=== PATIENT | male | born 1955 | race Caucasian/White ===

== ENCOUNTER 2016-10-26 23:04 | Emergency (ER) | payer MEDICARE, MEDICAID ==
[~2016-10-26] VITALS: Ht 175.3 cm; Wt 80.0 kg
[~2016-10-26 23:04] MED LIST: EPIP0.3I IM; GABA600T PO; HYDR10SO PO; METO25 PO; NORV5TAB PO; TIZA4 PO; [UNRECOGNIZED DRUG - OTHER]
[2016-10-26 23:07] VITALS: BP 148/100; PULSE 115; RESP 16; TEMP 98.4; O2SAT 95
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
[2016-10-27] MEDS ORDERED: TETANUS/DIPHTHERIA TOXOID ADULT 0.5 ML VIAL IM ONE
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
[2016-10-27] MEDS ORDERED: IBUPROFEN 600 MG TAB PO ONE (01:00)
--- NOTE | 2016-10-27 01:03 | PD ---
Physical Exam Time Seen by Provider: 01:02 Data Data Last Documented VS Vital Signs Date Time Temp Pulse Resp B/P (MAP) Pulse Ox O2 Delivery O2 Flow Rate FiO2 10/26/16 23:07 98.4 115 16 148/100 (116) 95 Room Air Orders Orders Chest, Single Ap (10/26/16 23:48) Ct Brain W/O Iv Contrast(Rout) (10/26/16 23:48) Ct Cerv Spine W/O Contrast (10/26/16 23:48) Ct Facial Bones W/O Iv Cont (10/26/16 23:48) Tetanus/Diphtheria Tox Adult (Tetanus/Di (10/27/16 00:00) Ibuprofen (Motrin) (10/27/16 01:00) MDM Medical Record Reviewed: Yes Supervised Visit with JOSEFINA: No Procedures Procedure Narrative LACERATION LOCATION: Left forehead LENGTH: 3 cm NUMBER OF STITCHES/SLAVA: 7 sutures REPAIR: The area of the laceration was prepped with Betadine and sterilely draped. The laceration was infiltrated with 1% lidocaine without epinephrine. The wound was copiously irrigated and explored without evidence of foreign body , tendon injury or neurovascular injury. The wound was closed using 5-0 Prolene. This was a single layer repair. A sterile dressing was applied. The patient was advised to keep the dressing clean and dry. Patient tolerated the procedure well. Diagnosis Primary Impression: Closed head injury Qualified Codes: S09.90XA - Unspecified injury of head, initial encounter Additional Impressions: Facial hematoma Qualified Codes: S00.83XA - Contusion of other part of head, initial encounter Laceration of forehead Qualified Codes: S01.81XA - Laceration without foreign body of other part of head, initial encounter Patient Instructions: General Instructions Additional Instruction: Please provide patient with a copy of his radiology studies at discharge Suture removal in 7 days, please keep area clean and dressed with clean dressings Please follow up with your primary care doctor in 48-[address] ice pack to area of bruising Return to ER if symptoms worsen or progress Return to ER as needed Condition: Stable Diane Torres Oct 27, 2016 01:03
[2016-10-27 02:25] VITALS: BP 130/90; PULSE 90; RESP 18; O2SAT 94
== END 2016-10-27 02:51 | disposition home or self-care (01) ==
LOC: NEPC 23:04
DX: S09.90XA Unspecified injury of head, initial encounter (principal); S00.83XA Contusion of other part of head, initial encounter; S01.81XA Laceration without foreign body of other part of head, initial encounter; I10 Essential (primary) hypertension; E78.00 Pure hypercholesterolemia, unspecified; F17.210 Nicotine dependence, cigarettes, uncomplicated; Z23 Encounter for immunization; Y00.XXXA Assault by blunt object, initial encounter
CPT/HCPCS: 12013; 70450; 70486; 71010; 72125; 90471; 90714

== ENCOUNTER 2016-11-04 11:26 | Emergency (ER) | payer MEDICARE, MEDICAID ==
[~2016-11-04] VITALS: Ht 175.3 cm; Wt 85.0 kg
[2016-11-04 11:29] VITALS: BP 139/87; PULSE 80; RESP 16; TEMP 98.2; O2SAT 98
--- NOTE | 2016-11-04 11:31 | PD ---
Physical Exam Time Seen by Provider: 11:30 Narrative 61-year-old male presents for removal of stitches from his forehead. Stitches been in place for 1 week. Denies fever, vomiting. Patient seen in triage. Vital signs reviewed. Patient taken to medical bed. MDM Supervised Visit with JOSEFINA: Yaquelin Cunningham Nov 04, 2016 11:31
--- NOTE | 2016-11-04 11:45 | PD ---
HPI Chief Complaint: Skin Problem Time Seen by Provider: 11:32 Travel History International Travel<30 days: No Contact w/Intl Traveler<30days: No Traveled to known affect area: No PFSH Past Medical History Autoimmune Disease: No Blood Disorders: No Cancer: Yes (SCCA, LEFT INDEX FINGER) Cardiovascular Problems: Yes (HTN) High Cholesterol: Yes Chemotherapy: No Cerebrovascular Accident: No Diabetes: No Diminished Hearing: No Endocrine: No Gastrointestinal Disorders: No Glaucoma: No Genitourinary: No Hepatitis: No Hiatal Hernia: No Hypertension: Yes Immune Disorder: No Musculoskeletal: Yes (CHRONIC PAIN S/P CSPINE FUSION 2004) Neurologic: Yes (DECREASED SENSORY PERCEPTION DUE S/P CSPINE FUSION 2004) Psychiatric: No Reproductive: No Respiratory: No Myocardial Infarction: No Radiation Therapy: No Sickle Cell Disease: No Thyroid Disease: No Past Surgical History Abdominal Surgery: No AICD: No Body Medical Devices: NECK PLATE Cardiac Surgery: No Ear Surgery: No Endocrine Surgery: No Eye Surgery: No Genitourinary Surgery: No Gynecologic Surgery: No Joint Replacement: No Neurologic Surgery: Yes (CERVICAL SPINE C2,3,4 HAS TITANIUM PLATE) Oral Surgery: No Pacemaker: No Thoracic Surgery: No Tonsillectomy: Yes Other Surgery: Yes (see hx) Social History Alcohol Use: Yes (BEER DAILY, ) Tobacco Use: Yes (quit 8 weeks ago) Substance Use: No Allergies-Medications (Allergen,Severity, Reaction): Coded Allergies: bee venom protein (honey bee) (Verified Allergy, Severe, Anaphylaxis, 11/04) patient carries epi pen penicillin G (Verified Allergy, Severe, Shortness of Breath, 11/04/16) NAUSEA/VOMITTING Sulfa (Sulfonamide Antibiotics) (Verified Adverse Reaction, Severe, TOPICAL REDNESS, BP DROPPED, 11/04/16) sulfamethoxazole (Verified Adverse Reaction, Severe, TOPICAL REDNESS, BP DROPPED, 11/04/16) trimethoprim (Verified Adverse Reaction, Severe, TOPICAL REDNESS, BP DROPPED, 11/04/16) *MDRO Multi-Drug Resistant Organism (Verified Adverse Reaction, Unknown, ) 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 Reported Meds & Prescriptions Reported Meds & Active Scripts Active Data Data Last Documented VS Vital Signs Date Time Temp Pulse Resp B/P (MAP) Pulse Ox O2 Delivery O2 Flow Rate FiO2 11/04/16 11:29 98.2 80 16 139/87 (104) 98 [facility] Medical Decision Making Medical Screen Exam Complete: Yes Emergency Medical Condition: Yes Medical Record Reviewed: Yes Ashok Piedra Nov 04, 2016 11:45
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
== END 2016-11-04 12:07 | disposition home or self-care (01) ==
LOC: NEPK 11:26
DX: Z48.02 Encounter for removal of sutures (principal)
CPT/HCPCS: 99281

== ENCOUNTER 2017-04-08 20:15 | Inpatient (IN) | payer MEDICARE, MEDICAID ==
[~2017-04-08] VITALS: Ht 175.3 cm; Wt 95.0 kg
[2017-04-08 20:25] VITALS: BP 153/75; PULSE 120; RESP 18; TEMP 97.8; O2SAT 99
[2017-04-08] MEDS ORDERED: METO25TA3 PO (20:39)
[2017-04-08] MEDS ORDERED: GABA100C4 PO (20:39)
[2017-04-08] MEDS ORDERED: MELO7.5T27 PO (20:39)
[2017-04-08] MEDS ORDERED: VANCOMYCIN INJ 1,000 MG in SODIUM CHLOR 0.9% 250 ML INJ 250 ML IV ONE (20:45)
[2017-04-08] MEDS ORDERED: PIPERACIL-TAZO 3.375 GM PREMIX 50 ML IV ONE (20:45)
[2017-04-08] MEDS ORDERED: SODIUM CHLOR 0.9% 1000 ML INJ 1,000 ML IV ONE ×3 (20:45→23:00)
--- NOTE | 2017-04-08 21:15 | RADRPT ---
EXAM DATE/TIME: 04/08/2017 20:56 [facility] COMPARISON: CHEST SINGLE AP, October 27, 2016, 0:12. INDICATIONS : Fever. MEDICAL HISTORY : None. SURGICAL HISTORY : None. ENCOUNTER: Initial ACUITY: 1 day PAIN SCORE: 0/10 LOCATION: Bilateral chest FINDINGS: A single view of the chest demonstrates the lungs to be symmetrically aerated without evidence of mas s, infiltrate or effusion. The cardiomediastinal contours are unremarkable. Osseous structures are intact. CONCLUSION: No acute disease. Kang Cruz MD on April 08, 2017 at 21:14 Board Certified Radiologist. This report was verified electronically.
[2017-04-08 21:21] LABS: AUTOMATED NEUTROPHIL # 17.1 TH/MM3 (1.8-7.7); BASOPHIL % 0.2 % (0.0-2.0); HEMATOCRIT 54.6 % (39.0-51.0); HEMOGLOBIN 18.6 GM/DL (13.0-17.0); LYMPH % 8.5 % (9.0-44.0); LYMPHOCYTE # 1.8 TH/MM3 (1.0-4.8); MEAN CELL VOLUME 104.9 FL (80.0-100.0); MEAN CORPUSCULAR HEMOGLOBIN 35.7 PG (27.0-34.0); MONO % 8.2 % (0.0-8.0); MONOCYTE # 1.7 TH/MM3 (0-0.9); NEUT % 83.1 % (16.0-70.0); PLATELET COUNT 171 TH/MM3 (150-450); RED BLOOD COUNT 5.21 MIL/MM3 (4.50-5.90); RED CELL DISTRIBUTION WIDTH 13.4 % (11.6-17.2); WHITE BLOOD COUNT 20.6 TH/MM3 (4.0-11.0)
[2017-04-08] MEDS ORDERED: TIZA2CAP3 PO (21:24)
[2017-04-08 21:25] LABS: AMORPHOUS SEDIMENT, URINE RARE; BACTERIA, URINE MANY /hpf; BILIRUBIN, URINE NEG (NEG); BLOOD, URINE LARGE (NEG); GLUCOSE,URINE TRACE mg/dL (NEG); HYALINE CAST, URINE 6 /lpf (RARE); KETONE, URINE NEG (NEG); NITRITE,URINE NEG (NEG); PH, URINE 5.5 (5.0-8.5); SQUAMOUS EPITHELIAL CELL URINE 2 /hpf (0-5); URINE LEUKOCYTE ESTERASE NEG (NEG); WHITE BLOOD CELL CLUMPS MANY
[2017-04-08 21:27] LABS: URINE COLOR LIGHT-RED (YELLW/STRAW)
[2017-04-08 21:40] VITALS: BP 147/87; PULSE 109; RESP 18; O2SAT 97
[2017-04-08 21:46] LABS: ALBUMIN 2.8 GM/DL (3.4-5.0); ALT (GPT) 262 U/L (12-78); BICARBONATE 21.8 MEQ/L (21.0-32.0); BLOOD UREA NITROGEN 15 MG/DL (7-18); CALCIUM 8.7 MG/DL (8.5-10.1); CHLORIDE 98 MEQ/L (98-107); CREATININE 2.66 MG/DL (0.60-1.30); GLOMERULAR FILTRATION RATE 25 ML/MIN (>89); GLUCOSE,RANDOM 115 MG/DL (74-106); SODIUM (NA) 130 MEQ/L (136-145)
[2017-04-08 22:08] LABS: ALKALINE PHOSPHATASE 127 U/L (45-117); AST (GOT) 1273 U/L (15-37); TOTAL BILIRUBIN ADULT 1.3 MG/DL (0.2-1.0); TOTAL PROTEIN 8.2 GM/DL (6.4-8.2)
[2017-04-08 22:15] LABS: ACETAMINOPHEN LESS THAN 2.0 MCG/ML (10.0-30.0)
--- NOTE | 2017-04-08 22:20 | RADRPT ---
EXAM DATE/TIME: 04/08/2017 22:01 [facility] COMPARISON: CT BRAIN W/O CONTRAST, October 27, 2016, 0:00. INDICATIONS : Altered mental status. RADIATION DOSE: 66.34 CTDIvol (mGy) MEDICAL HISTORY : Hypertension. SURGICAL HISTORY : None. ENCOUNTER: Initial ACUITY: 1 day PAIN SCALE: 0/10 LOCATION: cranial TECHNIQUE: Multiple contiguous axial images were obtained of the head. Using automated exposure control and adj ustment of the mA and/or kV according to patient size, radiation dose was kept as low as reasonably a chievable to obtain optimal diagnostic quality images. DICOM format image data is available electro nically for review and comparison. FINDINGS: There is evidence of a small amount of probable acute subarachnoid hemorrhage within the high right p arietal region which may be posttraumatic in etiology. Clinical correlation is recommended. The ventr icles, sulci and cisterns are normal in size, shape and position for the patient's age. CONCLUSION: Small amount of probable acute subarachnoid hemorrhage within the high right parietal region which may be post-traumatic in etiology. Clinical correlation is recommended. Kang Cruz MD on April 08, 2017 at 22:16 Board Certified Radiologist. This report was verified electronically.
[2017-04-08] MEDS ORDERED: HYDR-3516 PO (22:24)
--- NOTE | 2017-04-08 22:24 | RADRPT ---
EXAM DATE/TIME: 04/08/2017 22:09 [facility] COMPARISON: No previous studies available for comparison. INDICATIONS : Flank pain ORAL CONTRAST: No oral contrast ingested. RADIATION DOSE: 23.91 CTDIvol (mGy) MEDICAL HISTORY : Non-responsive. SURGICAL HISTORY : Non-responsive. ENCOUNTER: Initial ACUITY: 1 day PAIN SCALE: Non-responsive LOCATION: Bilateral flank TECHNIQUE: Volumetric scanning of the abdomen and pelvis was performed. Using automated exposure control and ad justment of the mA and/or kV according to patient size, radiation dose was kept as low as reasonably achievable to obtain optimal diagnostic quality images. DICOM format image data is available electro nically for review and comparison. FINDINGS: LOWER LUNGS: The visualized lower lungs are clear. LIVER: The liver appears somewhat nodular in contour raising possibility of cirrhosis. No biliary ductal dil atation is noted. SPLEEN: Normal size without lesion. PANCREAS: Within normal limits. KIDNEYS: Normal in size and shape. There is no mass, stone, or hydronephrosis. ADRENAL GLANDS: Within normal limits. VASCULAR: There is no aortic aneurysm. BOWEL/MESENTERY: Uncomplicated colonic diverticulosis is noted. No acute diverticulitis is noted. ABDOMINAL WALL: Within normal limits. RETROPERITONEUM: There is no lymphadenopathy. BLADDER: No wall thickening or mass. REPRODUCTIVE: Within normal limits. INGUINAL: There is no lymphadenopathy or hernia. MUSCULOSKELETAL: Degenerative changes and scoliosis of the lumbar spine are noted. CONCLUSION: 1. No acute obstructive uropathy. 2. Uncomplicated colonic diverticulosis. 3. Nodular contour of liver suggesting possible cirrhosis. 4. Degenerative changes and scoliosis of the lumbar spine. Kang Cruz MD on April 08, 2017 at 22:20 Board Certified Radiologist. This report was verified electronically.
[2017-04-08 22:28] VITALS: TEMP 98.6
--- NOTE | 2017-04-08 22:40 | PD ---
HPI Chief Complaint: General Weakness Time Seen by Provider: 20:24 Travel History International Travel<30 days: No Contact w/Intl Traveler<30days: No Traveled to known affect area: No History of Present Illness HPI pt reports weakness and falling on the floor at his residence 2 days in a row , today was on the ground for a while and unknown time " too weak to stand up " roomate found him there and called 911. Pt is listless and poor historian , holding head off to the left and reports pain in lower extremities bilateral no obvious injury . Pt smells of fecal incintinence PFSH Past Medical History Autoimmune Disease: No Blood Disorders: No Cancer: Yes (SCCA, LEFT INDEX FINGER) Cardiovascular Problems: Yes (HTN) High Cholesterol: Yes Chemotherapy: No Cerebrovascular Accident: No Diabetes: No Diminished Hearing: No Endocrine: No Gastrointestinal Disorders: No Glaucoma: No Genitourinary: No Hepatitis: No Hiatal Hernia: No Hypertension: Yes Immune Disorder: No Musculoskeletal: Yes (CHRONIC PAIN S/P CSPINE FUSION 2004) Neurologic: Yes (DECREASED SENSORY PERCEPTION DUE S/P CSPINE FUSION 2004) Psychiatric: No Reproductive: No Respiratory: No Myocardial Infarction: No Radiation Therapy: No Sickle Cell Disease: No Thyroid Disease: No Past Surgical History Abdominal Surgery: No AICD: No Body Medical Devices: NECK PLATE Cardiac Surgery: No Ear Surgery: No Endocrine Surgery: No Eye Surgery: No Genitourinary Surgery: No Gynecologic Surgery: No Joint Replacement: No Neurologic Surgery: Yes (CERVICAL SPINE C2,3,4 HAS TITANIUM PLATE) Oral Surgery: No Pacemaker: No Thoracic Surgery: No Tonsillectomy: Yes Other Surgery: Yes (see hx) Social History Alcohol Use: Yes (OCC) Tobacco Use: Yes (4-5 CIGARETTES/DAY) Substance Use: No Allergies-Medications (Allergen,Severity, Reaction): Coded Allergies: bee venom protein (honey bee) (Verified Allergy, Severe, Anaphylaxis, 04/08) patient carries epi pen penicillin G (Verified Allergy, Severe, Shortness of Breath, 04/08/17) NAUSEA/VOMITTING Sulfa (Sulfonamide Antibiotics) (Verified Adverse Reaction, Severe, TOPICAL REDNESS, BP DROPPED, 04/08/17) sulfamethoxazole (Verified Adverse Reaction, Severe, TOPICAL REDNESS, BP DROPPED, 04/08/17) trimethoprim (Verified Adverse Reaction, Severe, TOPICAL REDNESS, BP DROPPED, 04/08/17) *MDRO Multi-Drug Resistant Organism (Verified Adverse Reaction, Unknown, ) 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 Reported Meds & Prescriptions Reported Meds & Active Scripts Active Reported Hydrocodone-Acetaminophen 5-325 mg Tab 1 Tab PO Q4H PRN Tizanidine (Tizanidine HCl) 2 Mg Cap 2 Mg PO TID Gabapentin 100 Mg Cap 100 Mg PO QID Metoprolol Tartrate 25 Mg Tab 25 Mg PO DAILY Meloxicam 7.5 Mg Tab 7.5 Mg PO DAILY Review of Systems Except as stated in HPI: all other systems reviewed are Neg Musculoskeletal: Positive: Weakness (fall x 2 and weakness ) Physical Exam Narrative GENERAL: laying flat in stretcher smells of fecal matter and leaning his head to the left reports tender to knee and lower back SKIN: Warm and dry. mildly diaphoretic HEAD: Atraumatic. Normocephalic. EYES: Pupils equal and round. No scleral icterus. No injection or drainage. ENT: No nasal bleeding or discharge. Mucous membranes pink and moist. NECK: Trachea midline. No JVD. CARDIOVASCULAR: Regular rate and rhythm. RESPIRATORY: No accessory muscle use. Clear to auscultation. Breath sounds equal bilaterally. GASTROINTESTINAL: Abdomen soft, non-tender, nondistended. Hepatic and splenic margins not palpable. MUSCULOSKELETAL: Extremities without clubbing, cyanosis, or edema. No obvious deformities. Dark thick fluid from penis meatus NEUROLOGICAL: Awake . No obvious cranial nerve deficits. Motor grossly within normal limits. Five out of 5 muscle strength in the arms and legs. . PSYCHIATRIC: slightly listless in his answers Data Data Last Documented VS Vital Signs Date Time Temp Pulse Resp B/P (MAP) Pulse Ox O2 Delivery O2 Flow Rate FiO2 04/08/17 23:03 106 16 153/87 (109) 95 Room Air 04/08/17 22:28 98.6 Orders Orders Electrocardiogram (04/08/17 20:34) Complete Blood Count With Diff (04/08/17 20:34) Comprehensive Metabolic Panel (04/08/17 20:34) Creatine Kinase (Cpk) (04/08/17 20:34) Ckmb (Isoenzyme) Profile (04/08/17 20:34) Troponin I (04/08/17 20:34) Lipase (04/08/17 20:34) Ua Includes Microscopic (04/08/17 20:34) D-Dimer (04/08/17 20:34) Chest, Single Ap (04/08/17 20:34) Ct Brain W/O Iv Contrast(Rout) (04/08/17 20:34) Drug Screen, Random Urine (04/08/17 20:34) Alcohol (Ethanol) (04/08/17 20:34) Salicylates (Aspirin) (04/08/17 20:34) Tylenol (Acetaminophen) (04/08/17 20:34) Vancomycin Inj (Vancomycin Inj) (04/08/17 20:45) Piperacil-Tazo 3.375 Gm Premix (Zosyn 3. (04/08/17 20:45) Sodium Chlor 0.9% 1000 Ml Inj (Ns 1000 M (04/08/17 20:45) Lactic Acid (04/08/17 20:38) Blood Culture (04/08/17 20:38) Ct Abd/Pel W/O Iv Contrast (04/08/17 ) Sodium Chlor 0.9% 1000 Ml Inj (Ns 1000 M (04/08/17 22:15) Sodium Chlor 0.9% 1000 Ml Inj (Ns 1000 M (04/08/17 23:00) Lactic Acid (04/08/17 23:10) Cbc No Diff, Includes Plts (04/09/17 05:00) Cbc No Diff, Includes Plts (04/10/17 05:00) Cbc No Diff, Includes Plts (04/11/17 05:00) Cbc No Diff, Includes Plts (04/12/17 05:00) Cbc No Diff, Includes Plts (04/13/17 05:00) Cbc No Diff, Includes Plts (04/14/17 05:00) Cbc No Diff, Includes Plts (04/15/17 05:00) Basic Metabolic Panel (Bmp) (04/09/17 05:00) Basic Metabolic Panel (Bmp) (04/10/17 05:00) Basic Metabolic Panel (Bmp) (04/11/17 05:00) Basic Metabolic Panel (Bmp) (04/12/17 05:00) Basic Metabolic Panel (Bmp) (04/13/17 05:00) Basic Metabolic Panel (Bmp) (04/14/17 05:00) Basic Metabolic Panel (Bmp) (04/15/17 05:00) Labetalol Inj (Trandate Inj) (04/09/17 00:00) Hydralazine Inj (Apresoline Inj) (04/09/17 00:00) Resp Ezpap/Pep Therapy (04/08/17 23:57) Resp Acapella/Pep/Chest Vibra (04/08/17 23:57) Resp Incentive Spirometry (04/08/17 23:57) Inpatient Certification (04/08/17 23:57) Nursing Bedside Swallow Assess .ONCE (04/08/17 23:57) ^ Other Nursing Orders (04/08/17 23:57) ^ Other Nursing Orders (04/08/17 23:57) ^ Other Nursing Orders (04/08/17 23:57) Bedside Glucose GARRISON.Q6H (04/08/17 23:57) Blood Glucose Goal (Criteria) (04/08/17 23:57) Hypoglycemia 51 - 69 Mg/Dl (04/08/17 23:57) Hypoglycemia 50 Mg/Dl Or < (04/08/17 23:57) Notify Dr: Other (04/08/17 23:57) Dextrose 50% In [place] (Vial) Inj (D50w (Vi (04/09/17 00:00) Insulin Human Reg Supp Scale (Novolin R (04/09/17 00:00) Neuro Checks GARRISON.Q1H (04/08/17 23:57) Albuterol-Ipratropium Neb (Duoneb Neb) (04/09/17 04:00) Albuterol-Ipratropium Neb (Duoneb Neb) (04/09/17 00:00) Admit To Inpatient (04/08/17 ) Code Status (04/08/17 23:57) Vital Signs (Adult) GARRISON.Q1H (04/08/17 23:57) Activity Bed Rest (04/08/17 23:57) Elevate Head Of Bed (04/08/17 23:57) Neuro Checks . ORDERED (04/08/17 23:57) Sodium Chlor 0.9% 1000 Ml Inj (Ns 1000 M (04/08/17 23:57) Pantoprazole Inj (Protonix Inj) (04/09/17 09:00) Ondansetron Inj (Zofran Inj) (04/09/17 00:00) Albuterol-Ipratropium Neb (Duoneb Neb) (04/09/17 00:00) Bottle Capper / Telemetry GARRISON.Q8H (04/08/17 23:57) Scd Bilateral/Knee High GARRISON.BID (04/08/17 23:57) ^ Initiate Protocol (04/08/17 23:57) Instruction (04/08/17 23:57) Misc Nursing Information (04/09/17 00:00) Chlorhexidine 2% Cloth (Chlorhexidine 2% (04/09/17 04:00) Chlorhexidine 2% Cloth (Chlorhexidine 2% (04/09/17 00:00) Mrsa Pcr Surveillance (04/08/17 23:57) CKMB (04/08/17 20:41) CKMB% (04/08/17 20:41) Admit Order (Ed Use Only) (04/09/17 00:00) Protein Corrected Calcium(Pcc) (04/09/17 02:59) Labs Laboratory Tests Test 04/08/17 20:34 04/08/17 20:40 04/08/17 20:41 04/08/17 23:01 Urine Opiates Screen POS Urine Barbiturates Screen NEG Urine Amphetamines Screen NEG Urine Benzodiazepines Screen NEG Urine Cocaine Screen NEG Urine Cannabinoids Screen NEG Lactic Acid Level 3.3 mmol/L 2.7 mmol/L White Blood Count 20.6 TH/MM3 Red Blood Count 5.21 MIL/MM3 Hemoglobin 18.6 GM/DL Hematocrit 54.6 % Mean Corpuscular Volume 104.9 FL Mean Corpuscular Hemoglobin 35.7 PG Mean Corpuscular Hemoglobin Concent 34.0 % Red Cell Distribution Width 13.4 % Platelet Count 171 TH/MM3 Mean Platelet Volume 8.0 FL Neutrophils (%) (Auto) 83.1 % Lymphocytes (%) (Auto) 8.5 % Monocytes (%) (Auto) 8.2 % Eosinophils (%) (Auto) 0.0 % Basophils (%) (Auto) 0.2 % Neutrophils # (Auto) 17.1 TH/MM3 Lymphocytes # (Auto) 1.8 TH/MM3 Monocytes # (Auto) 1.7 TH/MM3 Eosinophils # (Auto) 0.0 TH/MM3 Basophils # (Auto) 0.0 TH/MM3 CBC Comment DIFF FINAL Differential Comment D-Dimer Quantitative (PE/DVT) 34.00 MG/L FEU Urine Color LIGHT-RED Urine Turbidity CLOUDY Urine pH 5.5 Urine Specific [place] 1.009 Urine Protein 100 mg/dL Urine Glucose (UA) TRACE mg/dL Urine Ketones NEG mg/dL Urine Occult Blood LARGE Urine Nitrite NEG Urine Bilirubin NEG Urine Urobilinogen LESS THAN 2.0 MG/DL Urine Leukocyte Esterase NEG Urine RBC 1 /hpf Urine WBC 22 /hpf Urine WBC Clumps MANY Urine Squamous Epithelial Cells 2 /hpf Urine Amorphous Sediment RARE Urine Bacteria MANY /hpf Urine Hyaline Casts 6 /lpf Blood Urea Nitrogen 15 MG/DL Creatinine 2.66 MG/DL Random Glucose 115 MG/DL Total Protein 8.2 GM/DL Albumin 2.8 GM/DL Calcium Level 8.7 MG/DL Alkaline Phosphatase 127 U/L Aspartate Amino Transf (AST/SGOT) 1273 U/L Alanine Aminotransferase (ALT/SGPT) 262 U/L Total Bilirubin 1.3 MG/DL Sodium Level 130 MEQ/L Potassium Level 6.0 MEQ/L Chloride Level 98 MEQ/L Carbon Dioxide Level 21.8 MEQ/L Anion Gap 10 MEQ/L Estimat Glomerular Filtration Rate 25 ML/MIN Total Creatine Kinase 79620 U/L Creatine Kinase MB 117.4 NG/ML Creatine Kinase MB % 0.3 % Troponin I 0.10 NG/ML Lipase 81 U/L Salicylates Level 2.0 MG/DL Acetaminophen Level LESS THAN 2.0 MCG/ML Ethyl Alcohol Level LESS THAN 3 MG/DL MDM Medical Decision Making Medical Screen Exam Complete: Yes Emergency Medical Condition: Yes Interpretation(s) EKG is sinus tach at 116 bpm with peaked P waves Differential Diagnosis syncope , etoh intox fall vs stroke and fall, vs mechanicla fall and now rhabdo risk and sepsis fever, other Narrative Course Patient is 62-year-old male he fell 2 days in a row and he is possibly septic versus having rhabdomyolysis patient is mildly confused. Patient is hypertensive and slightly tachycardic. Patient appears to be septic from his penis meatus comes dark thick urine almost looks feculent. It is guaiaced and is positive for blood patient is given 2 L of fluid labs are evaluated patient' s CPK is over 40,000 patient is given 4 L of normal saline and then I also alkalinize his urine to help keep the myoglobin soluble I put 3 A of sodium bicarbonate into D5 water running at 125 an hour. I admit him to the ICU for rhabdomyolysis for urosepsis urine comes back loaded with white blood cells red cells patient has multiorgan involvement and fluid recess Vanco and Zosyn alkalinizing his urine to keep his myoglobin soluble vomiting injury to the kidneys I speak with Dr. Hidalgo who accepts the patient to the ICU patient is stable at this time and admitted to the ICU Critical Care Narrative critical care on this patient is 30 minutes as above Diagnosis Primary Impression: Sepsis secondary to UTI Additional Impression: Rhabdomyolysis Qualified Codes: M62.82 - Rhabdomyolysis Admitting Information Admitting Physician Requests: Admit Seferino Palomino MD Apr 08, 2017 22:40
[2017-04-08 23:03] VITALS: BP 153/87; PULSE 106; RESP 16; O2SAT 95
[2017-04-09] VITALS (16 sets, daily range): BP systolic 137–200; BP diastolic 75–99; PULSE 85–129; RESP 18–28; TEMP 98.2–99.9; O2SAT 97–100
[2017-04-09] MEDS ORDERED: CHLORHEXIDINE GLUCONATE 2 % 1 PACK (2 CLOTHS) TOP PRN
[2017-04-09] MEDS ORDERED: ONDANSETRON HCL 4 MG/2 ML VIAL IV PUSH PRN
[2017-04-09] MEDS ORDERED: RESP: ALBUTEROL 2.5 MG/IPRATROPIUM 0.5 MG NEB (PRN) INH ×2
[2017-04-09] MEDS ORDERED: DEXTROSE 50% IN WATER 50 ML VIAL(D50) IV PUSH PRN
[2017-04-09] MEDS ORDERED: MISCELLANEOUS NURSING INFORMATION XX SCH
[2017-04-09] MEDS: SODIUM CHLOR 0.9% 1000 ML INJ 1,000 ML IV SCH ×3 (00:30→13:01)
[2017-04-09] MEDS: hydrALAZINE HCL 20 MG/ML VIAL IV PUSH PRN ×2 (01:40→08:36)
--- NOTE | 2017-04-09 01:49 | HHI.HP ---
HPI Service Critical Care Medicine Primary Care Physician No Primary Care Physician Admission Diagnosis UROSEPSIS AND SUBDURAL AND RHABDO Diagnosis: Chief Complaint: fall Travel History International Travel<30 Days: No Contact w/Intl Traveler <30 Da: No Traveled to Known Affected Are: No History of Present Illness This is a 8-year-old male who reportedly fell at home yesterday and was unable to get up for at least 5 hours, but likely greater than that. He called 911 today and was brought in tonight by EMS. He does endorse possibly syncopized. He states he has fallen recently over the last few days, but this is unusual for him. He denies headache. He denies fever, chills, shortness of breath, chest pain, nausea, vomiting, abdominal pain, diarrhea. He does not endorse any other symptom other than the frequent falls. In the emergency department CT had demonstrated small subarachnoid hemorrhage, likely traumatic. In addition, the patient had very dark very thick urine, and his CK level was greater than 40,000. He was immediately started on IV sodium bicarb and IV fluids. He also has evidence of hyperkalemia, hyponatremia, acute kidney injury with a creatinine greater than 2. Critical care medicine is consulted to evaluate manage his acute rhabdo, his multiple organ failure. Review of Systems Constitutional: COMPLAINS OF: Fatigue, DENIES: Fever, Chills, Dizziness Respiratory: DENIES: Cough, Snoring, Hemoptysis, Sputum production, Shortness of breath Cardiovascular: COMPLAINS OF: Syncope, DENIES: Chest pain, Palpitations, Dyspnea on Exertion, PND, Lower Extremity Edema, Orthopnea Gastrointestinal: DENIES: Abdominal pain, Bloody stools, Constipation, Diarrhea , Nausea, Vomiting Genitourinary: DENIES: Urinary frequency, Urinary incontinence, Hematuria, Dysuria Musculoskeletal: DENIES: Back pain, Neck pain Neurologic: DENIES: Abnormal gait, Headache, Localized weakness, Seizures, Speech Problems, Tremor, Poor Balance Psychiatric: DENIES: Anxiety, Confusion Past Family Social History Allergies: Coded Allergies: bee venom protein (honey bee) (Verified Allergy, Severe, Anaphylaxis, 04/08) patient carries epi pen penicillin G (Verified Allergy, Severe, Shortness of Breath, 04/08/17) NAUSEA/VOMITTING Sulfa (Sulfonamide Antibiotics) (Verified Adverse Reaction, Severe, TOPICAL REDNESS, BP DROPPED, 04/08/17) sulfamethoxazole (Verified Adverse Reaction, Severe, TOPICAL REDNESS, BP DROPPED, 04/08/17) trimethoprim (Verified Adverse Reaction, Severe, TOPICAL REDNESS, BP DROPPED, 04/08/17) *MDRO Multi-Drug Resistant Organism (Verified Adverse Reaction, Unknown, ) 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 Past Medical History Skin cancer of the left index finger High cholesterol HTN Chronic neck pain Decreased sensation due to spinal fusion Past Surgical History c-spine fusion in 2004 tonsillectomy Reported Medications Hydrocodone-Acetaminophen 5-325 mg Tab 1 Tab PO Q4H PRN Tizanidine (Tizanidine HCl) 2 Mg Cap 2 Mg PO TID Gabapentin 100 Mg Cap 100 Mg PO QID Metoprolol Tartrate 25 Mg Tab 25 Mg PO DAILY Meloxicam 7.5 Mg Tab 7.5 Mg PO DAILY Active Ordered Medications See MAR Family History reviewed and found to be noncontributory to his acute illness Social History smokes 4-5 cigarettes/day, occasional etoh use, denies doa. Physical Exam Vital Signs Vital Signs Date Time Temp Pulse Resp B/P (MAP) Pulse Ox O2 Delivery O2 Flow Rate FiO2 04/09/17 01:31 04/09/17 00:31 98.6 115 18 146/82 (103) 97 Room Air 04/08/17 23:03 106 16 153/87 (109) 95 Room Air 04/08/17 22:28 98.6 04/08/17 21:40 109 18 147/87 (107) 97 Room Air 04/08/17 20:25 97.8 120 18 153/75 (101) 99 Room Air 04/08/17 20:21 16 Physical Exam GENERAL: Middle-age male who appears older than stated age, lying in bed, in distress due to generalized fatigue and weakness HEENT: Normocephalic. Atraumatic. Pupils equal, round, reactive, conjugate. Mucous membranes are dry NECK: Trachea is midline. There is no JVD. CHEST: Equal chest rise. Room air. CARDIOVASCULAR: Tachycardic rate, regular rhythm. Sinus by telemetry ABDOMEN: Soft, nontender, nondistended. No guarding. MUSCULOSKELETAL: Pulses 2+. No peripheral edema. NEUROLOGICAL: RASS -1. Follows commands. No focal deficits. Laboratory Laboratory Tests Test 04/08/17 20:34 04/08/17 20:40 04/08/17 20:41 04/08/17 23:01 Urine Opiates Screen POS Urine Barbiturates Screen NEG Urine Amphetamines Screen NEG Urine Benzodiazepines Screen NEG Urine Cocaine Screen NEG Urine Cannabinoids Screen NEG Lactic Acid Level 3.3 2.7 White Blood Count 20.6 Red Blood Count 5.21 Hemoglobin 18.6 Hematocrit 54.6 Mean Corpuscular Volume 104.9 Mean Corpuscular Hemoglobin 35.7 Mean Corpuscular Hemoglobin Concent 34.0 Red Cell Distribution Width 13.4 Platelet Count 171 Mean Platelet Volume 8.0 Neutrophils (%) (Auto) 83.1 Lymphocytes (%) (Auto) 8.5 Monocytes (%) (Auto) 8.2 Eosinophils (%) (Auto) 0.0 Basophils (%) (Auto) 0.2 Neutrophils # (Auto) 17.1 Lymphocytes # (Auto) 1.8 Monocytes # (Auto) 1.7 Eosinophils # (Auto) 0.0 Basophils # (Auto) 0.0 CBC Comment DIFF FINAL Differential Comment D-Dimer Quantitative (PE/DVT) 34.00 Urine Color LIGHT-RED Urine Turbidity CLOUDY Urine pH 5.5 Urine Specific [place] 1.009 Urine Protein 100 Urine Glucose (UA) TRACE Urine Ketones NEG Urine Occult Blood LARGE Urine Nitrite NEG Urine Bilirubin NEG Urine Urobilinogen LESS THAN 2.0 Urine Leukocyte Esterase NEG Urine RBC 1 Urine WBC 22 Urine WBC Clumps MANY Urine Squamous Epithelial Cells 2 Urine Amorphous Sediment RARE Urine Bacteria MANY Urine Hyaline Casts 6 Blood Urea Nitrogen 15 Creatinine 2.66 Random Glucose 115 Total Protein 8.2 Albumin 2.8 Calcium Level 8.7 Alkaline Phosphatase 127 Aspartate Amino Transf (AST/SGOT) 1273 Alanine Aminotransferase (ALT/SGPT) 262 Total Bilirubin 1.3 Sodium Level 130 Potassium Level 6.0 Chloride Level 98 Carbon Dioxide Level 21.8 Anion Gap 10 Estimat Glomerular Filtration Rate 25 Total Creatine Kinase 75485 Creatine Kinase MB 117.4 Creatine Kinase MB % 0.3 Troponin I 0.10 Lipase 81 Salicylates Level 2.0 Acetaminophen Level LESS THAN 2.0 Ethyl Alcohol Level LESS THAN 3 Date/Time Source Procedure Growth Status 04/08/17 20:40 Blood Peripheral Aerobic Blood Culture Pending Received 04/08/17 20:40 Blood Peripheral Anaerobic Blood Culture Pending Received Result Diagram: 04/08/17204004/08/172040 Imaging Last Impressions Head CT 04/08/172033 Signed Impressions: Service Date/Time: Saturday, April 08, 2017 22:01 - CONCLUSION: Small amount of probable acute subarachnoid hemorrhage within the high right parietal region which may be post-traumatic in etiology. Clinical correlation is recommended. Kang Cruz MD Chest X-Ray 04/08/172033 Signed Impressions: Service Date/Time: Saturday, April 08, 2017 20:56 - CONCLUSION: No acute disease. Kang Cruz MD Abdomen/Pelvis CT 04/08/17 0000 Signed Impressions: Service Date/Time: Saturday, April 08, 2017 22:09 - CONCLUSION: 1. No acute obstructive uropathy. 2. Uncomplicated colonic diverticulosis. 3. Nodular contour of liver suggesting possible cirrhosis. 4. Degenerative changes and scoliosis of the lumbar spine. Kang Cruz MD Septic Shock Reassessment Septic shock perfusion: reassessment completed Caprini VTE Risk Assessment Caprini VTE Risk Assessment: Mod/High Risk (score >= 2) VTE Pharm Contraindication: Intracranial lesions Caprini Risk Assessment Model Point Value = 1 Point Value = 2 Point Value = 3 Point Value = 5 Age 41-60 Minor surgery BMI > 25 kg/m2 Swollen legs Varicose veins or History of unexplained or recurrent spontaneous Oral contraceptives or hormone replacement Sepsis (< 1 month) Serious lung disease, including pneumonia (< 1 month) Abnormal pulmonary function Acute myocardial infarction Congestive heart failure (< 1 month) History of inflammatory bowel disease Medical patient at bed rest Age 61-74 Arthroscopic surgery Major open surgery (> 45 min) Laparoscopic surgery (> 45 min) Malignancy Confined to bed (> 72 hours) Immobilizing plaster cast Central venous access Age >= 75 History of VTE Family history of VTE Factor V Leiden Prothrombin [id number] Lupus anticoagulant Anticardiolipin antibodies Elevated serum homocysteine Heparin-induced thrombocytopenia Other congenital or acquired thrombophilia Stroke (< 1 month) Elective arthroplasty Hip, pelvis, or leg fracture Acute spinal cord injury (< 1 month) Prophylaxis Regimen Total Risk Factor Score Risk Level Prophylaxis Regimen 0-1 Low Early ambulation 2 Moderate Order ONE of the following: *Sequential Compression Device (SCD) *Heparin 5000 units SQ BID 3-4 Higher Order ONE of the following medications: *Heparin 5000 units SQ TID *Enoxaparin/Lovenox 40 mg SQ daily (WT < 150 kg, CrCl > 30 mL/min) *Enoxaparin/Lovenox 30 mg SQ daily (WT < 150 kg, CrCl > 10-29 mL/min) *Enoxaparin/Lovenox 30 mg SQ BID (WT < 150 kg, CrCl > 30 mL/min) AND/OR *Sequential Compression Device (SCD) 5 or more Highest Order ONE of the following medications: *Heparin 5000 units SQ TID (Preferred with Epidurals) *Enoxaparin/Lovenox 40 mg SQ daily (WT < 150 kg, CrCl > 30 mL/min) *Enoxaparin/Lovenox 30 mg SQ daily (WT < 150 kg, CrCl > 10-29 mL/min) *Enoxaparin/Lovenox 30 mg SQ BID (WT < 150 kg, CrCl > 30 mL/min) AND *Sequential Compression Device (SCD) Assessment and Plan Assessment and Plan Assessment: 62-year-old male with recent frequent falls whose course is complicated by severe life-threatening rhabdomyolysis, acute kidney injury, and traumatic subarachnoid hemorrhage. Unclear etiology of his frequent falls. Will need aggressive hydration for his acute rhabdo given that it is already calling causing endorgan damage. Agree with admitting the ICU. Traumatic Subarachnoid hemorrhage - no anticoagulation - nsgy consultation - frequent neuro checks - tight bp control, < 140. - hydralazine, labetalol prn for this Severe Acute Rhabdomyolysis - serial CK - alkalinization - ivf - watch uop closely Acute Kidney Injury - secondary to acute rhabdo - place [place] - close monitoring of uop - daily bmp - watch electrolytes closely Hyperkalemia Hyponatremia - secondary to acute kidney injury and rhabdo - bicarb and ivf - trend. Urinary Tract Infection - Rocephin 1gm iv q24h - f/u urine culture - does not appear patient is septic at this time: clinical symptomatology suggests stress response from rhabdo and head bleed. Admit to ICU. SCDs hold pharmacologic DVT prophylaxis given head bleed Code Status Full Code Shiraz Rainey MD Apr 09, 2017 01:49
[2017-04-09] MEDS: CHLORHEXIDINE GLUCONATE 2 % 1 PACK (2 CLOTHS) TOP SCH (01:59)
[2017-04-09] MEDS: SODIUM BICARBONATE 8.4% INJ 150 MEQ in DEXTROSE 5% IN WATE 1000ML INJ 1,000 ML IV SCH ×6 (01:59→18:06)
[2017-04-09] MEDS: LABETALOL HCL 100 MG/20 ML VIAL IV PUSH PRN ×3 (02:29→14:36)
[2017-04-09] MEDS: cefTRIAXone INJ 1,000 MG in SODIUM CHLORIDE 0.9% INJ 100 ML IV SCH (03:04)
[2017-04-09] MEDS: RESP: ALBUTEROL 2.5 MG/IPRATROPIUM 0.5 MG NEB (SCH) INH ×4 (03:29→21:14)
[2017-04-09 03:46] LABS: BICARBONATE 21.5 MEQ/L (21.0-32.0); CALCIUM 7.1 MG/DL (8.5-10.1); CREATININE 2.86 MG/DL (0.60-1.30); HEMATOCRIT 41.4 % (39.0-51.0); HEMOGLOBIN 14.5 GM/DL (13.0-17.0); MEAN CELL VOLUME 103.3 FL (80.0-100.0); MEAN CORPUSCULAR HEMOGLOBIN 36.3 PG (27.0-34.0); MEAN CORPUSCULAR HGB CONC 35.1 % (32.0-36.0); MEAN PLATELET VOLUME 7.6 FL (7.0-11.0); PLATELET COUNT 119 TH/MM3 (150-450); RED BLOOD COUNT 4.01 MIL/MM3 (4.50-5.90); RED CELL DISTRIBUTION WIDTH 12.6 % (11.6-17.2)
[2017-04-09 03:59] LABS: CALCIUM-PROTEIN CORRECTED 7.8 MG/DL (8.5-10.1); TOTAL PROTEIN 5.8 GM/DL (6.4-8.2)
[2017-04-09] MEDS: INSULIN NovoLIN REGULAR SUPPLEMENTAL SCALE SQ SCH ×4 (05:38→18:00)
[2017-04-09] MEDS: PANTOPRAZOLE SODIUM 40 MG VIAL IV PUSH SCH (08:35)
--- NOTE | 2017-04-09 08:52 | PD.CONS ---
History of Present Illness Service Neurosurgery Consult Requested By Front Desk Host-Dr. Rainey Reason for Consult Probable traumatic brain injury Primary Care Physician No Primary Care Physician Diagnoses: History of Present Illness Mr. Choudhury is a 62-year-old male who presented to the emergency room last night after he was found on the floor by his roommate. He apparently fell yesterday and was lying on the ground for several hours. He indicates generalized weakness over the past few days and has fallen at least 2 times in the past couple of days. He indicates a possible syncopal type episode. Initial workup in the emergency room included a CT scan of the head which revealed probable mild right parietal convexity subarachnoid hemorrhage. He was also found to have a CPK over 40,000 and laboratory results consistent with rhabdomyolysis and UTI with possible urosepsis. He was given normal saline bolus and sodium bicarbonate by me. Also started on vancomycin and Zosyn. No seizure activity reported. Review of Systems Constitutional: COMPLAINS OF: Fatigue, DENIES: Fever Eyes: DENIES: Blurred vision, Diplopia Ears, nose, mouth, throat: DENIES: Vertigo Respiratory: DENIES: Shortness of breath Cardiovascular: DENIES: Chest pain, Palpitations Gastrointestinal: DENIES: Abdominal pain, Nausea, Vomiting Musculoskeletal: COMPLAINS OF: Joint pain, Muscle aches, Back pain Neurologic: COMPLAINS OF: Abnormal gait, Headache Psychiatric: DENIES: Confusion Past Family Social History Allergies: Coded Allergies: bee venom protein (honey bee) (Verified Allergy, Severe, Anaphylaxis, 04/08) patient carries epi pen penicillin G (Verified Allergy, Severe, Shortness of Breath, 04/08/17) NAUSEA/VOMITTING Sulfa (Sulfonamide Antibiotics) (Verified Adverse Reaction, Severe, TOPICAL REDNESS, BP DROPPED, 04/08/17) sulfamethoxazole (Verified Adverse Reaction, Severe, TOPICAL REDNESS, BP DROPPED, 04/08/17) trimethoprim (Verified Adverse Reaction, Severe, TOPICAL REDNESS, BP DROPPED, 04/08/17) Past Medical History Hypertension Hypercholesterolemia Previous skin cancer Chronic neck pain Past Surgical History Tonsillectomy Cervical fusion Reported Medications Reported Meds & Active Scripts Active Reported Hydrocodone-Acetaminophen 5-325 mg Tab 1 Tab PO Q4H PRN Tizanidine (Tizanidine HCl) 2 Mg Cap 2 Mg PO TID Gabapentin 100 Mg Cap 100 Mg PO QID Metoprolol Tartrate 25 Mg Tab 25 Mg PO DAILY Meloxicam 7.5 Mg Tab 7.5 Mg PO DAILY Family History No significant pertinent family illnesses Social History Lives with a roommate. Smokes half-pack cigarettes a day Occasional alcohol No IV drug use Physical Exam Vital Signs Vital Signs Date Time Temp Pulse Resp B/P (MAP) Pulse Ox O2 Delivery O2 Flow Rate FiO2 04/09/17 08:33 100 04/09/17 04:00 99.9 85 20 137/79 (98) 100 04/09/17 03:31 100 Nasal Cannula 1.00 04/09/17 02:00 129 04/09/17 02:00 100 Nasal Cannula 2.00 04/09/17 01:31 04/09/17 01:30 98.5 129 28 200/99 (132) 100 04/09/17 00:31 98.6 115 18 146/82 (103) 97 Room Air 04/08/17 23:03 106 16 153/87 (109) 95 Room Air 04/08/17 22:28 98.6 04/08/17 21:40 109 18 147/87 (107) 97 Room Air 04/08/17 20:25 97.8 120 18 153/75 (101) 99 Room Air 04/08/17 20:21 16 Physical Exam General: Normally developed gentleman in no significant distress triggering examination Respirations: Clear, nonlabored Cardiac: Regular without murmur Abdomen: Soft, nontender Extremities: Mild distal extremity edema. Mild diffuse muscular tenderness lower greater than upper extremities. Posterior tibial pulse 2+ bilateral Skin: No significant skin lesion or rash Neurologic: Awake and alert oriented conversant appropriate Speech is clear No evidence of anxiety or depression Recent and remote memory intact Pupils mid range nonreactive Extraocular movements visual garsia to confrontation facial sensory motor, tongue, palate, sternocleidomastoid testing hearing to finger rub, bilateral shoulder shrug all intact Sensation to light touch indicates multiple moderate paresthesias distal upper growth and lower extremities-chronic and unchanged according to patient. Motor: Hand Intrinsics mostly 2/5 with mild proximal lower extremity motor weakness-stable according to patient. Berenice's response moderate positive bilateral Laboratory Laboratory Tests Test 04/08/17 20:34 04/08/17 20:40 04/08/17 20:41 04/08/17 23:01 Urine Opiates Screen POS Urine Barbiturates Screen NEG Urine Amphetamines Screen NEG Urine Benzodiazepines Screen NEG Urine Cocaine Screen NEG Urine Cannabinoids Screen NEG Lactic Acid Level 3.3 2.7 White Blood Count 20.6 Red Blood Count 5.21 Hemoglobin 18.6 Hematocrit 54.6 Mean Corpuscular Volume 104.9 Mean Corpuscular Hemoglobin 35.7 Mean Corpuscular Hemoglobin Concent 34.0 Red Cell Distribution Width 13.4 Platelet Count 171 Mean Platelet Volume 8.0 Neutrophils (%) (Auto) 83.1 Lymphocytes (%) (Auto) 8.5 Monocytes (%) (Auto) 8.2 Eosinophils (%) (Auto) 0.0 Basophils (%) (Auto) 0.2 Neutrophils # (Auto) 17.1 Lymphocytes # (Auto) 1.8 Monocytes # (Auto) 1.7 Eosinophils # (Auto) 0.0 Basophils # (Auto) 0.0 CBC Comment DIFF FINAL Differential Comment D-Dimer Quantitative (PE/DVT) 34.00 Urine Color LIGHT-RED Urine Turbidity CLOUDY Urine pH 5.5 Urine Specific [place] 1.009 Urine Protein 100 Urine Glucose (UA) TRACE Urine Ketones NEG Urine Occult Blood LARGE Urine Nitrite NEG Urine Bilirubin NEG Urine Urobilinogen LESS THAN 2.0 Urine Leukocyte Esterase NEG Urine RBC 1 Urine WBC 22 Urine WBC Clumps MANY Urine Squamous Epithelial Cells 2 Urine Amorphous Sediment RARE Urine Bacteria MANY Urine Hyaline Casts 6 Blood Urea Nitrogen 15 Creatinine 2.66 Random Glucose 115 Total Protein 8.2 Albumin 2.8 Calcium Level 8.7 Alkaline Phosphatase 127 Aspartate Amino Transf (AST/SGOT) 1273 Alanine Aminotransferase (ALT/SGPT) 262 Total Bilirubin 1.3 Sodium Level 130 Potassium Level 6.0 Chloride Level 98 Carbon Dioxide Level 21.8 Anion Gap 10 Estimat Glomerular Filtration Rate 25 Total Creatine Kinase 29885 Creatine Kinase MB 117.4 Creatine Kinase MB % 0.3 Troponin I 0.10 Lipase 81 Salicylates Level 2.0 Acetaminophen Level LESS THAN 2.0 Ethyl Alcohol Level LESS THAN 3 Test 04/09/17 01:45 04/09/17 02:59 Nasal Screen MRSA (PCR) MRSA NOT DETECTED White Blood Count 17.0 Red Blood Count 4.01 Hemoglobin 14.5 Hematocrit 41.4 Mean Corpuscular Volume 103.3 Mean Corpuscular Hemoglobin 36.3 Mean Corpuscular Hemoglobin Concent 35.1 Red Cell Distribution Width 12.6 Platelet Count 119 Mean Platelet Volume 7.6 Blood Urea Nitrogen 19 Creatinine 2.86 Random Glucose 130 Total Protein 5.8 Calcium Level 7.1 Sodium Level 137 Potassium Level 5.0 Chloride Level 107 Carbon Dioxide Level 21.5 Anion Gap 9 Estimat Glomerular Filtration Rate 23 Protein Corrected Calcium 7.8 Total Creatine Kinase 06060 Creatine Kinase MB 60.4 Creatine Kinase MB % 0.2 Date/Time Source Procedure Growth Status 04/08/17 20:40 Blood Peripheral Aerobic Blood Culture Pending Received 04/08/17 20:40 Blood Peripheral Anaerobic Blood Culture Pending Received Result Diagram: 04/09/17 0259 04/09/17 0259 Imaging 04/08/17 CT scan head images reviewed. There appears to be a small amount of subarachnoid hemorrhage at the right parietal convexity. No significant mass effect. No fracture or pneumocephalus or hydrocephalus noted. There is an approximately 12 mm hypodense lesion at the right cerebellar hemisphere without definite significant surrounding edema. May represent previous cerebellar infarct. Head CT 04/08/172033 Signed Impressions: Service Date/Time: Saturday, April 08, 2017 22:01 - CONCLUSION: Small amount of probable acute subarachnoid hemorrhage within the high right parietal region which may be post-traumatic in etiology. Clinical correlation is recommended. Kang Cruz MD Chest X-Ray 04/08/172033 Signed Impressions: Service Date/Time: Saturday, April 08, 2017 20:56 - CONCLUSION: No acute disease. Kang Cruz MD Abdomen/Pelvis CT 04/08/17 0000 Signed Impressions: Service Date/Time: Saturday, April 08, 2017 22:09 - CONCLUSION: 1. No acute obstructive uropathy. 2. Uncomplicated colonic diverticulosis. 3. Nodular contour of liver suggesting possible cirrhosis. 4. Degenerative changes and scoliosis of the lumbar spine. Kang Cruz MD Assessment and Plan Assessment and Plan Impression: 1. Findings consistent with traumatic brain injury, subarachnoid hemorrhage right parietal convexity 2. Right cerebellar hyperdensity lesion. Possible infarct. Need to rule out mass lesion 3. Rhabdomyolysis 4. UTI 5. Hypertension 6. Acute kidney disease-likely related to rhabdomyolysis. 7. Possible syncopal episode 8. Electrolyte disturbance-hyperkalemia and hyponatremia. Likely related to acute kidney disease 9. Chronic myelopathy-unchanged on present examination Recommendations: When the patient's renal function and electrolytes disturbances are corrected, recommend MRI of the brain with and without contrast to better assess the right cerebellar hyperdensity lesion noted on CT scan. If MRI cannot be obtained with contrast by 04/10/2017, then a initial follow-up CT scan of the head or MRI without contrast will be obtained to make certain that there is no delayed hemorrhagic contusion related to traumatic brain injury. Continue ISC neurochecks Non-chemical DVT prophylaxis May be mobilized out of bed with assist as tolerated Intensivists following and managing treatment of rhabdomyolysis, acute kidney injury, electrolyte disturbances and UTI. Matthew Katz MD Apr 09, 2017 08:52
--- NOTE | 2017-04-09 10:00 | RADRPT ---
EXAM DATE/TIME: 04/09/2017 09:35 [facility] COMPARISON: CT BRAIN W/O CONTRAST, April 08, 2017, 22:01. INDICATIONS : Follow up bleed. RADIATION DOSE: 56.35 CTDIvol (mGy) MEDICAL HISTORY : Cardiovascular disease. Hypertension. SURGICAL HISTORY : Tonsillectomy. Fusion, cervical. ENCOUNTER: Subsequent ACUITY: 2 days PAIN SCALE: 4/10 LOCATION: Bilateral cranial TECHNIQUE: Multiple contiguous axial images were obtained of the head. Using automated exposure control and adj ustment of the mA and/or kV according to patient size, radiation dose was kept as low as reasonably a chievable to obtain optimal diagnostic quality images. DICOM format image data is available electro nically for review and comparison. FINDINGS: CEREBRUM: 1.7 cm area of hemorrhage in the high right parietal region with a small amount of surrounding edema. The hemorrhage extends to the cerebral cortex. No significant extra-axial hemorrhagic collection is seen. Slightly more hemorrhage today than there was on the previous study POSTERIOR FOSSA: The cerebellum and brainstem are intact. The 4th ventricle is midline. The cerebellopontine angle i s unremarkable. EXTRACRANIAL: The visualized portion of the orbits is intact. SKULL: The calvaria is intact. No evidence of skull fracture. CONCLUSION: 1.7 cm a intraparenchymal hemorrhage in the high right parietal region. No significant subarachnoid o r subdural hematoma identified. No other areas of hemorrhage noted. Tk Martínez MD on April 09, 2017 at 9:57 Board Certified Radiologist. This report was verified electronically.
[2017-04-09] MEDS ORDERED: LORazepam 2 MG/ML VIAL IV PUSH PRN ×4 (10:15)
[2017-04-09] MEDS ORDERED: FLUMAZENIL 0.5 MG/5 ML VIAL IV PUSH PRN (10:15)
[2017-04-09] MEDS ORDERED: LORazepam 2 MG TAB PO PRN (10:15)
[2017-04-09] MEDS ORDERED: PILL SPLITTER OTHER PRN (10:15)
[2017-04-09] MEDS ORDERED: SODIUM CHLORIDE 0.9% FLUSH 10 ML FLUSH IV FLUSH PRN (10:15)
[2017-04-09] MEDS: ACETAMINOPHEN/HYDROcodone 325 MG/5 MG TAB PO PRN ×3 (10:42→20:14)
[2017-04-09] MEDS ORDERED: FUROSEMIDE 100 MG/10 ML VIAL IV PUSH ONE (10:45)
[2017-04-09] MEDS ORDERED: ALBUMIN 25% INJ 100 ML IV ONE (10:45)
--- NOTE | 2017-04-09 10:54 | PD.CONS ---
HPI Service Nephrology Consult Requested By Dr. Vee Reason for Consult ARF with Rhabdomyolysis Primary Care Physician No Primary Care Physician History of Present Illness Patient is a 62-year-old white male with history of hypertension, who has passed out and had syncope was found on the floor he did not remember exactly when he passed out, he is now complaining of soreness in his leg muscles and noted to have rhabdomyolysis with acute renal failure CPK was 40,000 creatinine 2.66 he remained anuric despite fluid boluses is getting IV fluids with sodium bicarbonate and urine output is 15 cc, his creatinine is now 2.86, patient is alert and responding to questions, he has intraparenchymal hemorrhage 1.7 cm and right parietal lobe. Review of Systems Constitutional: COMPLAINS OF: Fatigue, Chills Musculoskeletal: COMPLAINS OF: Joint pain, Muscle aches, Neck pain Neurologic: COMPLAINS OF: Abnormal gait Psychiatric: COMPLAINS OF: Anxiety Past Family Social History Allergies: Coded Allergies: bee venom protein (honey bee) (Verified Allergy, Severe, Anaphylaxis, 04/08) patient carries epi pen penicillin G (Verified Allergy, Severe, Shortness of Breath, 04/08/17) NAUSEA/VOMITTING Sulfa (Sulfonamide Antibiotics) (Verified Adverse Reaction, Severe, TOPICAL REDNESS, BP DROPPED, 04/08/17) sulfamethoxazole (Verified Adverse Reaction, Severe, TOPICAL REDNESS, BP DROPPED, 04/08/17) trimethoprim (Verified Adverse Reaction, Severe, TOPICAL REDNESS, BP DROPPED, 04/08/17) Past Medical History Skin cancer of the left index finger High cholesterol HTN Chronic neck pain Decreased sensation due to spinal fusion Past Surgical History Spinal fusion cervical spine Tonsillectomy Reported Medications Reported Meds & Active Scripts Active Reported Hydrocodone-Acetaminophen 5-325 mg Tab 1 Tab PO Q4H PRN Tizanidine (Tizanidine HCl) 2 Mg Cap 2 Mg PO TID Gabapentin 100 Mg Cap 100 Mg PO QID Metoprolol Tartrate 25 Mg Tab 25 Mg PO DAILY Meloxicam 7.5 Mg Tab 7.5 Mg PO DAILY Active Ordered Medications Current Medications Medications (Trade) Dose Ordered Sig/Ted Route Start Time Stop Time Status Last Admin (Trandate Inj) 20 mg Q15M PRN IV PUSH 04/09/17 00:00 04/09/17 05:19 (Apresoline Inj) 10 mg Q30M PRN IV PUSH 04/09/17 00:00 04/09/17 08:36 (D50w (Vial) Inj) 25 ml UNSCH PRN IV PUSH 04/09/17 00:00 (NovoLIN R SUPPLEMENTAL SCALE) 1 Q6HR SQ 04/09/17 00:00 (Duoneb Neb) 1 ampule Q6HR NEB INH 04/09/17 04:00 04/09/17 08:32 (Duoneb Neb) 1 ampule Q2HR NEB PRN INH 04/09/17 00:00 Sodium Chloride 1,000 ml @ 150 mls/hr Q6H40M IV 04/08/17 23:57 04/09/17 00:30 (Protonix Inj) 40 mg DAILY IV PUSH 04/09/17 09:00 04/09/17 08:35 (Zofran Inj) 4 mg Q6H PRN IV PUSH 04/09/17 00:00 (Duoneb Neb) 1 ampule Q2HR NEB PRN INH 04/09/17 00:00 Miscellaneous Information 1 Q361D XX 04/09/17 00:00 (Chlorhexidine 2% Cloth) 3 pack Taper DAILY@04 TOP 04/09/17 04:00 04/05/18 03:59 (Chlorhexidine 2% Cloth) 3 pack UNSCH PRN TOP 04/09/17 00:00 Sodium Bicarbonate 150 meq/Dextrose 1,150 ml @ 125 mls/hr Q9H12M IV 04/09/17 00:45 04/09/17 01:59 Ceftriaxone Sodium 1000 mg/ Sodium Chloride 100 ml @ 200 mls/hr Q24H IV 04/09/17 02:00 04/09/17 03:04 ([place] 5-325 Mg) 1 tab Q4H PRN PO 04/09/17 10:00 (Lopressor) 25 mg DAILY PO 04/10/17 09:00 (Zanaflex) 2 mg TID PO 04/09/17 13:00 (Pill Splitter) 1 ea UNSCH PRN OTHER 04/09/17 10:15 (NS Flush) 2 ml UNSCH PRN IV FLUSH 04/09/17 10:15 (NS Flush) 2 ml BID IV FLUSH 04/09/17 21:00 Multivitamins 10 ml/Folic Acid 1 mg/Sodium Chloride 510.2 ml @ 125 mls/hr Q24H IV 04/09/17 11:00 04/14/17 10:59 Thiamine HCl 100 mg/Sodium Chloride 101 ml @ 100 mls/hr Q24H IV 04/09/17 11:00 04/11/17 12:01 (Vitamin B1) 100 mg DAILY PO 04/12/17 09:00 (Romazicon Inj) 0.2 mg Q1M PRN IV PUSH 04/09/17 10:15 (Ativan) 1 mg Q4H PRN PO 04/09/17 10:15 (Ativan Inj) 1 mg Q4H PRN IV PUSH 04/09/17 10:15 (Ativan) 2 mg Q2H PRN PO 04/09/17 10:15 (Ativan Inj) 2 mg Q2H PRN IV PUSH 04/09/17 10:15 (Ativan Inj) 2 mg Q1H PRN IV PUSH 04/09/17 10:15 (Ativan Inj) 2 mg Q15M PRN IV PUSH 04/09/17 10:15 (Neurontin) 100 mg QID PO 04/09/17 13:00 Family History Noncontributory Social History Smokes 5-6 cigarettes per day, drinks beer Physical Exam Vital Signs Vital Signs Date Time Temp Pulse Resp B/P (MAP) Pulse Ox O2 Delivery O2 Flow Rate FiO2 04/09/17 08:33 100 04/09/17 08:00 98.2 99 21 157/75 (102) 98 04/09/17 07:00 98 Nasal Cannula 2.00 04/09/17 07:00 96 04/09/17 04:00 99.9 85 20 137/79 (98) 100 04/09/17 03:31 100 Nasal Cannula 1.00 04/09/17 02:00 129 04/09/17 02:00 100 Nasal Cannula 2.00 04/09/17 01:31 04/09/17 01:30 98.5 129 28 200/99 (132) 100 04/09/17 00:31 98.6 115 18 146/82 (103) 97 Room Air 04/08/17 23:03 106 16 153/87 (109) 95 Room Air 04/08/17 22:28 98.6 04/08/17 21:40 109 18 147/87 (107) 97 Room Air 04/08/17 20:25 97.8 120 18 153/75 (101) 99 Room Air 04/08/17 20:21 16 Physical Exam GENERAL: Well-nourished, well-developed patient. SKIN: Warm and dry. HEAD: Normocephalic. EYES: No scleral icterus. No injection or drainage. NECK: Supple, trachea midline. No JVD or lymphadenopathy. CARDIOVASCULAR: Regular rate and rhythm without murmurs, gallops, or rubs. RESPIRATORY: Breath sounds equal bilaterally. No accessory muscle use. GASTROINTESTINAL: Abdomen soft, non-tender, nondistended. EXTREMITIES: No cyanosis, or edema. NEUROLOGICAL: Awake, alert, and oriented x 3. Non-focal. Laboratory Laboratory Tests Test 04/08/17 20:34 04/08/17 20:40 04/08/17 20:41 04/08/17 23:01 Urine Opiates Screen POS Urine Barbiturates Screen NEG Urine Amphetamines Screen NEG Urine Benzodiazepines Screen NEG Urine Cocaine Screen NEG Urine Cannabinoids Screen NEG Lactic Acid Level 3.3 2.7 White Blood Count 20.6 Red Blood Count 5.21 Hemoglobin 18.6 Hematocrit 54.6 Mean Corpuscular Volume 104.9 Mean Corpuscular Hemoglobin 35.7 Mean Corpuscular Hemoglobin Concent 34.0 Red Cell Distribution Width 13.4 Platelet Count 171 Mean Platelet Volume 8.0 Neutrophils (%) (Auto) 83.1 Lymphocytes (%) (Auto) 8.5 Monocytes (%) (Auto) 8.2 Eosinophils (%) (Auto) 0.0 Basophils (%) (Auto) 0.2 Neutrophils # (Auto) 17.1 Lymphocytes # (Auto) 1.8 Monocytes # (Auto) 1.7 Eosinophils # (Auto) 0.0 Basophils # (Auto) 0.0 CBC Comment DIFF FINAL Differential Comment D-Dimer Quantitative (PE/DVT) 34.00 Urine Color LIGHT-RED Urine Turbidity CLOUDY Urine pH 5.5 Urine Specific [place] 1.009 Urine Protein 100 Urine Glucose (UA) TRACE Urine Ketones NEG Urine Occult Blood LARGE Urine Nitrite NEG Urine Bilirubin NEG Urine Urobilinogen LESS THAN 2.0 Urine Leukocyte Esterase NEG Urine RBC 1 Urine WBC 22 Urine WBC Clumps MANY Urine Squamous Epithelial Cells 2 Urine Amorphous Sediment RARE Urine Bacteria MANY Urine Hyaline Casts 6 Blood Urea Nitrogen 15 Creatinine 2.66 Random Glucose 115 Total Protein 8.2 Albumin 2.8 Calcium Level 8.7 Alkaline Phosphatase 127 Aspartate Amino Transf (AST/SGOT) 1273 Alanine Aminotransferase (ALT/SGPT) 262 Total Bilirubin 1.3 Sodium Level 130 Potassium Level 6.0 Chloride Level 98 Carbon Dioxide Level 21.8 Anion Gap 10 Estimat Glomerular Filtration Rate 25 Total Creatine Kinase 16501 Creatine Kinase MB 117.4 Creatine Kinase MB % 0.3 Troponin I 0.10 Lipase 81 Salicylates Level 2.0 Acetaminophen Level LESS THAN 2.0 Ethyl Alcohol Level LESS THAN 3 Test 04/09/17 01:45 04/09/17 02:59 Nasal Screen MRSA (PCR) MRSA NOT DETECTED White Blood Count 17.0 Red Blood Count 4.01 Hemoglobin 14.5 Hematocrit 41.4 Mean Corpuscular Volume 103.3 Mean Corpuscular Hemoglobin 36.3 Mean Corpuscular Hemoglobin Concent 35.1 Red Cell Distribution Width 12.6 Platelet Count 119 Mean Platelet Volume 7.6 Blood Urea Nitrogen 19 Creatinine 2.86 Random Glucose 130 Total Protein 5.8 Calcium Level 7.1 Sodium Level 137 Potassium Level 5.0 Chloride Level 107 Carbon Dioxide Level 21.5 Anion Gap 9 Estimat Glomerular Filtration Rate 23 Protein Corrected Calcium 7.8 Total Creatine Kinase 05485 Creatine Kinase MB 60.4 Creatine Kinase MB % 0.2 Date/Time Source Procedure Growth Status 04/08/17 20:40 Blood Peripheral Aerobic Blood Culture Pending Received 04/08/17 20:40 Blood Peripheral Anaerobic Blood Culture Pending Received Result Diagram: 04/09/17 0259 04/09/17 0259 Imaging Last Impressions Head CT 04/09/17 0000 Signed Impressions: Service Date/Time: April 09:35 - CONCLUSION: 1.7 cm a intraparenchymal hemorrhage in the high right parietal region. No significant subarachnoid or subdural hematoma identified. No other areas of hemorrhage noted. Tk Martínez MD Chest X-Ray 04/08/172033 Signed Impressions: Service Date/Time: Saturday, April 08, 2017 20:56 - CONCLUSION: No acute disease. Kang Cruz MD Abdomen/Pelvis CT 04/08/17 0000 Signed Impressions: Service Date/Time: Saturday, April 08, 2017 22:09 - CONCLUSION: 1. No acute obstructive uropathy. 2. Uncomplicated colonic diverticulosis. 3. Nodular contour of liver suggesting possible cirrhosis. 4. Degenerative changes and scoliosis of the lumbar spine. Kang Cruz MD Assessment and Plan Problem List: (1) Acute renal failure ICD Codes: N17.9 - Acute kidney failure, unspecified Plan: Patient has minimal urine output after fluid boluses of more than 3 L I will give her albumin followed by Lasix 120 mg for forced diuresis Continue to hydrate with IV fluid and sodium bicarbonate Monitor BMP He likely has acute tubular necrosis from underlying rhabdomyolysis Avoid nephrotoxins (2) Rhabdomyolysis ICD Codes: M62.82 - Rhabdomyolysis Status: Acute Plan: Continue monitor his CPK trend is downwards (3) Subarachnoid hemorrhage ICD Codes: I60.9 - Nontraumatic subarachnoid hemorrhage, unspecified Plan: Neurosurgery following (4) UTI (lower urinary tract infection) ICD Codes: N39.0 - Urinary tract infection, site not specified Plan: Cultures pending Problem Qualifiers (1) Acute renal failure: Qualified Codes: N17.0 - Acute kidney failure with tubular necrosis (2) Rhabdomyolysis: Qualified Codes: M62.82 - Rhabdomyolysis Lio Robbins MD Apr 09, 2017 10:54
[2017-04-09] MEDS: MULTIVITAMIN INJ 10 ML, FOLIC ACID INJ 1 MG in SODIUM CHLORID 0.9% 500 ML INJ 500 ML IV SCH (11:00)
[2017-04-09] MEDS: THIAMINE INJ 100 MG in SODIUM CHLORIDE 0.9% INJ 100 ML IV SCH (11:00)
--- NOTE | 2017-04-09 11:10 | EKG ---
Date Performed: 04/08/2017 Time Performed: 20:28:50 PTAGE: 62 years EKG: SINUS TACHYCARDIA POSSIBLE LEFT ATRIAL ENLARGEMENT MINIMAL ST DEPRESSION ABNORMAL RHYTHM EC G Since the prior tracing, there has been no significant change PREVIOUS TRACING : 03/20/2015 11.30 DOCTOR: Aranza Stuart Interpretating Date/Time 04/09/2017 11:07:50
[2017-04-09] MEDS ORDERED: SODIUM CHLOR 0.9% 1000 ML INJ 1,000 ML IV ONE (11:30)
[2017-04-09 11:55] LABS: BICARBONATE 21.1 MEQ/L (21.0-32.0); CALCIUM 7.1 MG/DL (8.5-10.1); CALCIUM-PROTEIN CORRECTED 8.1 MG/DL (8.5-10.1); CREATININE 3.4 MG/DL (0.60-1.30); TOTAL BILIRUBIN ADULT 0.6 MG/DL (0.2-1.0); TOTAL PROTEIN 5.2 GM/DL (6.4-8.2)
[2017-04-09] MEDS: GABAPENTIN 100 MG CAP PO SCH ×3 (13:01→20:12)
--- NOTE | 2017-04-09 13:25 | RADRPT ---
EXAM DATE/TIME: 04/09/2017 12:12 [facility] COMPARISON: CT ABDOMEN & PELVIS W/O CONTRAST, April 08, 2017, 22:09. INDICATIONS : Increased BUN and Creatinine. MEDICAL HISTORY : Hypertension. Hypercholesterolemia. Chronic neck pain. Skin cancer of the left index finger. SURGICAL HISTORY : C-spine fusion in 2004. Tonsillectomy. ENCOUNTER: <Subsequent> ACUITY: 2 days PAIN SCORE: <Nonresponsive> LOCATION: <Bilateral flank pain> MEASUREMENTS: RIGHT KIDNEY: 11.5 x 5.4 x 6.1 cm LEFT KIDNEY: 12.4 x 5.0 x 4.8 cm FINDINGS: RIGHT KIDNEY: Renal cortex is normal in thickness and echotexture. No hydronephrosis, stone, or mass. LEFT KIDNEY: Renal cortex is normal in thickness and echotexture. No hydronephrosis, stone, or mass. BLADDER: Within normal limits given the degree of distension. CONCLUSION: Normal examination. Tk Martínez MD on April 09, 2017 at 13:23 Board Certified Radiologist. This report was verified electronically.
--- NOTE | 2017-04-09 14:07 | RADRPT ---
EXAM DATE/TIME: 04/09/2017 13:28 [facility] COMPARISON: CT FACIAL BONES W/O CONTRAST, October 27, 2016, 0:00. INDICATIONS : Falls,fracture RADIATION DOSE: 56.76 CTDIvol (mGy) MEDICAL HISTORY : Hypertension. SURGICAL HISTORY : spinal fusion ENCOUNTER: Initial ACUITY: 1 day PAIN SCORE: 2/10 LOCATION: facial TECHNIQUE: Volumetric scanning of the facial bones was performed. Using automated exposure control and adjustme nt of the mA and/or kV according to patient size, radiation dose was kept as low as reasonably achiev able to obtain optimal diagnostic quality images. DICOM format image data is available electronicHydroLogex y for review and comparison. FINDINGS: ORBITS: The orbital and infraorbital osseous structures are intact. The retroconal structures have a normal configuration. No radiopaque foreign bodies are seen. NASAL BONE: The nasal bone and maxillary spine are intact ZYGOMATIC ARCHES: Symmetric without evidence of fracture. SINUSES: The maxillary, ethmoid and frontal sinuses are intact. No air-fluid levels seen. NASAL CAVITY: The nasal septum is intact and midline there is soft tissue swelling in the left submandibular region INTRACRANIAL: No intracranial air seen. CRIBIFORM PLATE: Grossly intact. CONCLUSION: 1. There is no evidence of acute fracture. Toney Schulz MD on April 09, 2017 at 14:03 Board Certified Radiologist. This report was verified electronically.
[2017-04-09] MEDS: BUMETANIDE INJ 100 ML IV SCH (17:42)
[2017-04-09] MEDS: SODIUM CHLORIDE 0.9% FLUSH 10 ML FLUSH IV FLUSH SCH (20:12)
[2017-04-10] VITALS (13 sets, daily range): BP systolic 106–165; BP diastolic 68–93; PULSE 86–106; RESP 13–24; TEMP 97.7–98.5; O2SAT 97–98
[2017-04-10] MEDS: CHLORHEXIDINE GLUCONATE 2 % 1 PACK (2 CLOTHS) TOP SCH (00:46)
[2017-04-10] MEDS: cefTRIAXone INJ 1,000 MG in SODIUM CHLORIDE 0.9% INJ 100 ML IV SCH (02:26)
[2017-04-10] MEDS: RESP: ALBUTEROL 2.5 MG/IPRATROPIUM 0.5 MG NEB (SCH) INH ×4 (03:14→21:25)
[2017-04-10 03:27] LABS: HEMATOCRIT 34.6 % (39.0-51.0); HEMOGLOBIN 11.9 GM/DL (13.0-17.0); MEAN CELL VOLUME 102.5 FL (80.0-100.0); MEAN CORPUSCULAR HEMOGLOBIN 35.2 PG (27.0-34.0); MEAN CORPUSCULAR HGB CONC 34.3 % (32.0-36.0); MEAN PLATELET VOLUME 7.6 FL (7.0-11.0); PLATELET COUNT 75 TH/MM3 (150-450); RED BLOOD COUNT 3.38 MIL/MM3 (4.50-5.90); RED CELL DISTRIBUTION WIDTH 13.1 % (11.6-17.2); WHITE BLOOD COUNT 13.1 TH/MM3 (4.0-11.0)
[2017-04-10] MEDS: SODIUM BICARBONATE 8.4% INJ 150 MEQ in DEXTROSE 5% IN WATE 1000ML INJ 1,000 ML IV SCH ×4 (03:34→13:46)
[2017-04-10] MEDS: BUMETANIDE INJ 100 ML IV SCH (03:34)
[2017-04-10 04:10] LABS: BICARBONATE 27.9 MEQ/L (21.0-32.0); CALCIUM 6.7 MG/DL (8.5-10.1); CREATININE 4.33 MG/DL (0.60-1.30)
[2017-04-10 04:42] LABS: CALCIUM-PROTEIN CORRECTED 7.9 MG/DL (8.5-10.1); TOTAL PROTEIN 4.8 GM/DL (6.4-8.2)
[2017-04-10] MEDS: INSULIN NovoLIN REGULAR SUPPLEMENTAL SCALE SQ SCH ×5 (06:00→23:48)
[2017-04-10] MEDS: ACETAMINOPHEN/HYDROcodone 325 MG/5 MG TAB PO PRN ×4 (06:26→23:42)
--- NOTE | 2017-04-10 08:09 | HHI.CCPN ---
Subjective Remarks/Hospital Course This is a 8-year-old male who reportedly fell at home yesterday and was unable to get up for at least 5 hours, but likely greater than that. He called 911 today and was brought in tonight by EMS. He does endorse possibly syncopized. He states he has fallen recently over the last few days, but this is unusual for him. He denies headache. He denies fever, chills, shortness of breath, chest pain, nausea, vomiting, abdominal pain, diarrhea. He does not endorse any other symptom other than the frequent falls. In the emergency department CT had demonstrated small subarachnoid hemorrhage, likely traumatic. In addition, the patient had very dark very thick urine, and his CK level was greater than 40,000. He was immediately started on IV sodium bicarb and IV fluids. He also has evidence of hyperkalemia, hyponatremia, acute kidney injury with a creatinine greater than 2. Critical care medicine is consulted to evaluate manage his acute rhabdo, his multiple organ failure. 04/10: CK level declining but renal function deteriorating. Urine minimal. Objective Vital Signs Date Time Temp Pulse Resp B/P (MAP) Pulse Ox O2 Delivery O2 Flow Rate FiO2 04/10/17 07:00 98 Room Air 04/10/17 06:00 99 04/10/17 04:00 98.2 15 138/84 (102) 04/09/17 07:00 2.00 Intake and Output 04/10/17 04/10/17 04/11/17 08:00 16:00 00:00 Intake Total 480 ml Output Total 200 ml Balance 280 ml Result Diagram: 04/10/17 0306 04/10/17 0306 Imaging Last Impressions Head CT 04/08/172033 Signed Impressions: Service Date/Time: Saturday, April 08, 2017 22:01 - CONCLUSION: Small amount of probable acute subarachnoid hemorrhage within the high right parietal region which may be post-traumatic in etiology. Clinical correlation is recommended. Kang Cruz MD Chest X-Ray 04/08/172033 Signed Impressions: Service Date/Time: Saturday, April 08, 2017 20:56 - CONCLUSION: No acute disease. Kang Cruz MD Abdomen/Pelvis CT 04/08/17 0000 Signed Impressions: Service Date/Time: Saturday, April 08, 2017 22:09 - CONCLUSION: 1. No acute obstructive uropathy. 2. Uncomplicated colonic diverticulosis. 3. Nodular contour of liver suggesting possible cirrhosis. 4. Degenerative changes and scoliosis of the lumbar spine. Kang Cruz MD Objective Remarks GENERAL: Middle-age male who appears older than stated age, lying in bed, in distress due to generalized fatigue and weakness HEENT: Normocephalic. Atraumatic. Pupils equal, round, reactive, conjugate. Mucous membranes are moist. NECK: Trachea is midline. Airway widely patent CHEST: Equal chest rise. No adventitious sounds. CARDIOVASCULAR: Tachycardic rate, regular rhythm. Sinus by telemetry. Neck veins full. ABDOMEN: Soft, nontender, nondistended. No guarding. BS active. MUSCULOSKELETAL: Pulses 2+. No peripheral edema. Well perfused. NEUROLOGICAL: RASS 0. Follows commands. No focal deficits. Moves 4 limbs to command. A/P Assessment and Plan Assessment: 62-year-old male with recent frequent falls whose course is complicated by severe life-threatening rhabdomyolysis, acute kidney injury, and traumatic subarachnoid hemorrhage. Unclear etiology of his frequent falls. Will need aggressive hydration for his acute rhabdo given that it is already calling causing endorgan damage. Agree with admitting the ICU. Traumatic Subarachnoid hemorrhage - no anticoagulation - nsgy consultation - frequent neuro checks - tight bp control, < 140. - hydralazine, labetalol prn for this Severe Acute Rhabdomyolysis - serial CK - alkalinization - ivf - watch uop closely Acute Kidney Injury - secondary to acute rhabdo - place [place] - close monitoring of uop - daily bmp - watch electrolytes closely - Deteriorating function, likely needs HD. Hyperkalemia Hyponatremia - secondary to acute kidney injury and rhabdo - bicarb and ivf - trend, improved Urinary Tract Infection - Rocephin 1gm iv q24h - f/u urine culture - does not appear patient is septic at this time: clinical symptomatology suggests stress response from rhabdo and head bleed. SCDs hold pharmacologic DVT prophylaxis given head bleed Overall impression: Critically ill with deteriorating renal function and worsening metabolic state. Unstable and will need hemodialysis. Critical care 40 mins aside from procedures. Vinicio Fitzgerald MD Apr 10, 2017 08:09
--- NOTE | 2017-04-10 08:57 | EKG ---
Date Performed: 04/09/2017 Time Performed: 01:39:06 PTAGE: 62 years EKG: Sinus tachycardia. Possible inferior infarct - age undetermined Lateral ST changes are nons pecific Abnormal ECG PREVIOUS TRACING : 04/08/2017 20.28 Since the prior tracing, there has been no significant [place] DOCTOR: Reena Shaffer Interpretating Date/Time 04/10/2017 08:54:59
--- NOTE | 2017-04-10 09:11 | HHI.NSPN ---
(Sammy Wise) History Chief Complaint: "I feel like I am dying." (Sammy Wise) Interval History 04/09: Mr. Choudhury is a 62-year-old male who presented to the emergency room last night after he was found on the floor by his roommate. He apparently fell yesterday and was lying on the ground for several hours. He indicates generalized weakness over the past few days and has fallen at least 2 times in the past couple of days. He indicates a possible syncopal type episode. Initial workup in the emergency room included a CT scan of the head which revealed probable mild right parietal convexity subarachnoid hemorrhage. He was also found to have a CPK over 40,000 and laboratory results consistent with rhabdomyolysis and UTI with possible urosepsis. He was given normal saline bolus and sodium bicarbonate by me. Also started on vancomycin and Zosyn. No seizure activity reported. 04/10: The patient is in bed with his eyes closed but he immediately answers to voice. He states "I feel like I am dying." He does say he felt a hundred percent better yesterday compared with today. He reports that his lower extremities are the worse and feel numb. He also continues to have numbness to the left side of the body which he was laying on when found. His CK is improving but he does remain in renal failure. Upon evaluation the patient is weaker to the lower extremities which are painful to touch. He is able to move the upper extremities slightly better but they are still weak. (Sammy Wise) Exam Results 04/08/17 04/08/17 04/09/17 04/09/17 04/10/17 04/10/17 06:00 18:00 06:00 18:00 06:00 18:00 Intake Total 3300 ml 4180 ml 2555 ml Output Total 15 ml 50 ml 200 ml Balance 3285 ml 4130 ml 2355 ml Intake Oral 960 ml 480 ml IV Total 3300 ml 3220 ml 2075 ml Output Urine Total 15 ml 50 ml 200 ml # Bowel Movements 1 1 Vital Signs Date Time Temp Pulse Resp B/P (MAP) Pulse Ox O2 Delivery O2 Flow Rate FiO2 04/10/17 07:30 26 04/10/17 07:00 98 Room Air 04/10/17 06:00 99 04/10/17 04:00 101 04/10/17 04:00 98.2 101 15 138/84 (102) 98 04/10/17 02:00 100 04/10/17 00:00 98.5 106 13 106/71 (83) 97 04/10/17 00:00 106 04/09/17 22:00 101 04/09/17 21:15 100 04/09/17 20:00 98.4 108 19 137/81 (99) 99 04/09/17 20:00 108 04/09/17 19:00 98 Room Air 04/09/17 18:00 92 04/09/17 16:00 96 04/09/17 16:00 98.7 97 21 153/87 (109) 99 04/09/17 14:00 98 04/09/17 12:00 104 04/09/17 12:00 98.3 110 26 166/75 (105) 100 04/09/17 10:00 106 04/09/17 08:33 100 04/09/17 08:00 98.2 99 21 157/75 (102) 98 04/09/17 07:00 98 Nasal Cannula 2.00 04/09/17 07:00 96 04/09/17 04:00 99.9 85 20 137/79 (98) 100 04/09/17 03:31 100 Nasal Cannula 1.00 04/09/17 02:00 129 04/09/17 02:00 100 Nasal Cannula 2.00 04/09/17 01:31 04/09/17 01:30 98.5 129 28 200/99 (132) 100 04/09/17 00:31 98.6 115 18 146/82 (103) 97 Room Air 04/08/17 23:03 106 16 153/87 (109) 95 Room Air 04/08/17 22:28 98.6 04/08/17 21:40 109 18 147/87 (107) 97 Room Air 04/08/17 20:25 97.8 120 18 153/75 (101) 99 Room Air 04/08/17 20:21 16 (Sammy Wise) Physical Examination GENERAL: Patient w/eyes closed but readily answers. His affect is essentially normal and he readily interacts. He is not in any apparent distress. HEENT: Swelling to the left side of the face. The left face & scalp are numb to touch. PERRLA 3 mm brisk, EOMI. No otorrhea or rhinorrhea. MMM & pink, tongue midline to protrusion. MUSCULOSKELETAL: Moves extremities weakly to command. Left hand w/amputation of some digits. NEUROLOGICAL: Eyes closed but does readily answer when spoken to. Keeps eyes closed unless directed to open. PERRLA 3 mm brisk, EOMI. Tongue midline to protrusion. Left side facial & scalp numbness. Speech clear & appropriate. Follows simple commands w/o difficulty. Numbness to the left side and the right lower extremity. Lower extremities w/ hyperaesthesia. Motor strength weak RUE<LUE<RLE<LLE, UE 3 to 3+/5 and LE 2 to 3/5. Patient's pain level may contribute to his weakness as well. (Sammy Wise) Lab, Micro, Other Results Recent Impressions Renal Ultrasound 04/09/17 0000 Signed Impressions: Service Date/Time: April 12:12 - CONCLUSION: Normal examination. Tk Martínez MD Maxillofacial CT 04/09/17 0000 Signed Impressions: Service Date/Time: April 13:28 - CONCLUSION: 1. There is no evidence of acute fracture. Toney Schulz MD Head CT 04/09/17 0000 Signed Impressions: Service Date/Time: April 09:35 - CONCLUSION: 1.7 cm a intraparenchymal hemorrhage in the high right parietal region. No significant subarachnoid or subdural hematoma identified. No other areas of hemorrhage noted. Tk Martínez MD Head CT 04/08/172033 Signed Impressions: Service Date/Time: Saturday, April 08, 2017 22:01 - CONCLUSION: Small amount of probable acute subarachnoid hemorrhage within the high right parietal region which may be post-traumatic in etiology. Clinical correlation is recommended. Kang Cruz MD Chest X-Ray 04/08/172033 Signed Impressions: Service Date/Time: Saturday, April 08, 2017 20:56 - CONCLUSION: No acute disease. Kang Cruz MD Abdomen/Pelvis CT 04/08/17 0000 Signed Impressions: Service Date/Time: Saturday, April 08, 2017 22:09 - CONCLUSION: 1. No acute obstructive uropathy. 2. Uncomplicated colonic diverticulosis. 3. Nodular contour of liver suggesting possible cirrhosis. 4. Degenerative changes and scoliosis of the lumbar spine. Kang Cruz MD Laboratory Tests Test 04/08/17 20:34 04/08/17 20:40 04/08/17 20:41 04/08/17 23:01 Urine Opiates Screen POS Urine Barbiturates Screen NEG Urine Amphetamines Screen NEG Urine Benzodiazepines Screen NEG Urine Cocaine Screen NEG Urine Cannabinoids Screen NEG Lactic Acid Level 3.3 mmol/L 2.7 mmol/L White Blood Count 20.6 TH/MM3 Red Blood Count 5.21 MIL/MM3 Hemoglobin 18.6 GM/DL Hematocrit 54.6 % Mean Corpuscular Volume 104.9 FL Mean Corpuscular Hemoglobin 35.7 PG Mean Corpuscular Hemoglobin Concent 34.0 % Red Cell Distribution Width 13.4 % Platelet Count 171 TH/MM3 Mean Platelet Volume 8.0 FL Neutrophils (%) (Auto) 83.1 % Lymphocytes (%) (Auto) 8.5 % Monocytes (%) (Auto) 8.2 % Eosinophils (%) (Auto) 0.0 % Basophils (%) (Auto) 0.2 % Neutrophils # (Auto) 17.1 TH/MM3 Lymphocytes # (Auto) 1.8 TH/MM3 Monocytes # (Auto) 1.7 TH/MM3 Eosinophils # (Auto) 0.0 TH/MM3 Basophils # (Auto) 0.0 TH/MM3 CBC Comment DIFF FINAL Differential Comment D-Dimer Quantitative (PE/DVT) 34.00 MG/L FEU Urine Color LIGHT-RED Urine Turbidity CLOUDY Urine pH 5.5 Urine Specific [place] 1.009 Urine Protein 100 mg/dL Urine Glucose (UA) TRACE mg/dL Urine Ketones NEG mg/dL Urine Occult Blood LARGE Urine Nitrite NEG Urine Bilirubin NEG Urine Urobilinogen LESS THAN 2.0 MG/DL Urine Leukocyte Esterase NEG Urine RBC 1 /hpf Urine WBC 22 /hpf Urine WBC Clumps MANY Urine Squamous Epithelial Cells 2 /hpf Urine Amorphous Sediment RARE Urine Bacteria MANY /hpf Urine Hyaline Casts 6 /lpf Blood Urea Nitrogen 15 MG/DL Creatinine 2.66 MG/DL Random Glucose 115 MG/DL Total Protein 8.2 GM/DL Albumin 2.8 GM/DL Calcium Level 8.7 MG/DL Alkaline Phosphatase 127 U/L Aspartate Amino Transf (AST/SGOT) 1273 U/L Alanine Aminotransferase (ALT/SGPT) 262 U/L Total Bilirubin 1.3 MG/DL Sodium Level 130 MEQ/L Potassium Level 6.0 MEQ/L Chloride Level 98 MEQ/L Carbon Dioxide Level 21.8 MEQ/L Anion Gap 10 MEQ/L Estimat Glomerular Filtration Rate 25 ML/MIN Total Creatine Kinase 62647 U/L Creatine Kinase MB 117.4 NG/ML Creatine Kinase MB % 0.3 % Troponin I 0.10 NG/ML Lipase 81 U/L Salicylates Level 2.0 MG/DL Acetaminophen Level LESS THAN 2.0 MCG/ML Ethyl Alcohol Level LESS THAN 3 MG/DL Test 04/09/17 01:45 04/09/17 02:59 04/09/17 10:15 04/09/17 16:35 Nasal Screen MRSA (PCR) MRSA NOT DETECTED White Blood Count 17.0 TH/MM3 Red Blood Count 4.01 MIL/MM3 Hemoglobin 14.5 GM/DL Hematocrit 41.4 % Mean Corpuscular Volume 103.3 FL Mean Corpuscular Hemoglobin 36.3 PG Mean Corpuscular Hemoglobin Concent 35.1 % Red Cell Distribution Width 12.6 % Platelet Count 119 TH/MM3 Mean Platelet Volume 7.6 FL Blood Urea Nitrogen 19 MG/DL 21 MG/DL Creatinine 2.86 MG/DL 3.40 MG/DL Random Glucose 130 MG/DL 112 MG/DL Total Protein 5.8 GM/DL 5.2 GM/DL Calcium Level 7.1 MG/DL 7.1 MG/DL Sodium Level 137 MEQ/L 140 MEQ/L Potassium Level 5.0 MEQ/L 4.6 MEQ/L Chloride Level 107 MEQ/L 106 MEQ/L Carbon Dioxide Level 21.5 MEQ/L 21.1 MEQ/L Anion Gap 9 MEQ/L 13 MEQ/L Estimat Glomerular Filtration Rate 23 ML/MIN 19 ML/MIN Protein Corrected Calcium 7.8 MG/DL 8.1 MG/DL Total Creatine Kinase 73891 U/L 56069 U/L 46601 U/L Creatine Kinase MB 60.4 NG/ML 36.6 NG/ML 24.5 NG/ML Creatine Kinase MB % 0.2 % 0.2 % 0.1 % Albumin 2.0 GM/DL Alkaline Phosphatase 81 U/L Aspartate Amino Transf (AST/SGOT) 764 U/L Alanine Aminotransferase (ALT/SGPT) 187 U/L Total Bilirubin 0.6 MG/DL Test 04/10/17 03:06 White Blood Count 13.1 TH/MM3 Red Blood Count 3.38 MIL/MM3 Hemoglobin 11.9 GM/DL Hematocrit 34.6 % Mean Corpuscular Volume 102.5 FL Mean Corpuscular Hemoglobin 35.2 PG Mean Corpuscular Hemoglobin Concent 34.3 % Red Cell Distribution Width 13.1 % Platelet Count 75 TH/MM3 Mean Platelet Volume 7.6 FL Blood Urea Nitrogen 26 MG/DL Creatinine 4.33 MG/DL Random Glucose 97 MG/DL Total Protein 4.8 GM/DL Calcium Level 6.7 MG/DL Sodium Level 137 MEQ/L Potassium Level 3.8 MEQ/L Chloride Level 100 MEQ/L Carbon Dioxide Level 27.9 MEQ/L Anion Gap 9 MEQ/L Estimat Glomerular Filtration Rate 14 ML/MIN Protein Corrected Calcium 7.9 MG/DL Total Creatine Kinase 51297 U/L Creatine Kinase MB 16.5 NG/ML Creatine Kinase MB % 0.1 % (Sammy Wise) Medical Decision Making Impression and Plan Impression: 1. Findings consistent with traumatic brain injury, subarachnoid hemorrhage right parietal convexity 2. Right cerebellar hyperdensity lesion. Possible remote infarct. Need to rule out mass lesion 3. Rhabdomyolysis 4. UTI 5. Hypertension 6. Acute kidney disease-likely related to rhabdomyolysis. 7. Possible syncopal episode 8. Electrolyte disturbance-hyperkalemia and hyponatremia. Likely related to acute kidney disease The patient remains critical. He does have hyperaesthesia to the lower extremities as well as diffuse weakness. The numbness continues to the left side of the body as well as to the RLE. Intermittent tachycardia & hypertension. Reviewed labs for today. Interval improvement in leukocytosis. Interval development of anaemia and worsening of thrombocytopenia. Sodium 137. Interval worsening of renal function. Interval improvement of total Ck and CK-MB. Blood cultures w/Gram positive cocci on preliminary. CT brain demonstrated slight increase in the right parietal intraparenchymal haemorrhage w/o any significant subdural or subarachnoicd haematoma noted. No new areas of haemorrhage evident. Plan: Primary management per Production Dispatcher. Nephrology following for renal failure. Neuro checks. Stat CT brain for any decline in neuro status. Hold pharmacologic DVT prophylaxis. Mechanical DVT prophylaxis. Stress ulcer prophylaxis. Mobilisie patient w/assistance. MRI/MRA brain/head pending. MRI cervical, thoracic & lumbar spines w/o contrast now. (Sammy Wise) Attending Statement The exam, history, and the medical decision-making described in the above note were completed with the assistance of the mid-level provider. I reviewed and agree with the findings presented. I attest that I had a [id number] encounter with the patient on the same day, and personally performed and documented my assessment and findings in the medical record. On examination today the patient is much more painful. Not as alert as initial evaluation on 04/09/17. He is a little agitated. He complains of severe diffuse muscular pain as well as abdominal discomfort. He has more pronounced diffuse weakness in the upper and lower extremities. Cranial nerve testing remains intact No significant speech deficit. All the patient's diffuse weakness is likely related to the renal failure, electrolyte disturbances, rhabdomyolysis, need to rule out new or progressive spinal cord compression-myelopathy and consideration of his previous chronic cervical myelopathy, as well as progression of intracranial hemorrhage or possible CVA. MRI of the brain and spine requested today with results as follows: Thoracic Spine MRI 04/10/17 0000 Signed Impressions: Service Date/Time: Monday, April 10, 2017 10:52 - CONCLUSION: Cervical and upper thoracic cord syrinx. Tiny disc protrusions at a couple of levels without significant anatomic compromise Mariusz Fernandes MD Lumbar Spine MRI 04/10/17 0000 Signed Impressions: Service Date/Time: Monday, April 10, 2017 10:52 - CONCLUSION: 1. Multilevel disc bulges or mild protrusions between L2 and L5 resulting in mild lateral recess encroachment and mild foraminal encroachment as above. 2. Minimal retrolisthesis of L5 on S1 with mild left-sided foraminal stenosis. 3. No acute fracture. Conus medullaris intact. Lexx Alva MD Head Magnetic Resonance Angiography 04/10/17 0000 Signed Impressions: Service Date/Time: Monday, April 10, 2017 10:52 - CONCLUSION: 1. Unremarkable [place] MRA examination. Specifically, no evidence for large vessel occlusion or aneurysm. 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 Advanced degenerative change at C2-C3-4-5 with AP canal stenosis and lateral recess encroachment most notable at C2-3 on the left. Solid bony union across area of previous fusion at C5-6- 7. Lexx Alva MD Brain MRI 04/10/17 0000 Signed Impressions: Service Date/Time: Monday, April 10, 2017 10:52 - CONCLUSION: Acute hemorrhage as described above high right parietal region Focal restricted diffusion right cervical hemisphere and both occipital lobes suggesting he posterior fossa embolic event. Paras Scales MD FACR Cervical MRI is somewhat difficult to accurately interpret due to significant artifact. There appears to be moderate residual mid to upper cervical canal stenosis, [id number] diffuse syrinx in the cervical and upper thoracic region. The patient does have a history of severe spinal cord compression with myelopathy, myelomalacia on previous imaging studies. Production Dispatcher notes and renal medicine notes reviewed. Dialysis planned. Check cardiac echo due to possible posterior fossa embolic event. (Matthew Katz MD) Sammy Wise Apr 10, 2017 09:11 Matthew Katz MD Apr 10, 2017 19:42
[2017-04-10] MEDS: PANTOPRAZOLE SODIUM 40 MG VIAL IV PUSH SCH (09:26)
[2017-04-10] MEDS: SODIUM CHLORIDE 0.9% FLUSH 10 ML FLUSH IV FLUSH SCH ×2 (09:26→20:26)
[2017-04-10] MEDS: GABAPENTIN 100 MG CAP PO SCH ×4 (09:26→20:26)
[2017-04-10] MEDS: METOPROLOL TARTRATE 25 MG TAB PO SCH (09:26)
[2017-04-10] MEDS: MULTIVITAMIN INJ 10 ML, FOLIC ACID INJ 1 MG in SODIUM CHLORID 0.9% 500 ML INJ 500 ML IV SCH (11:10)
[2017-04-10] MEDS: THIAMINE INJ 100 MG in SODIUM CHLORIDE 0.9% INJ 100 ML IV SCH (11:10)
--- NOTE | 2017-04-10 12:06 | RADRPT ---
EXAM DATE/TIME: 04/10/2017 10:52 [facility] COMPARISON: No previous studies available for comparison. INDICATIONS : Myelopathy. Left side weakness. MEDICAL HISTORY : Renal insufficiency. SURGICAL HISTORY : Fusion, cervical. ENCOUNTER: Initial ACUITY: 1 day PAIN SCORE: 0/10 LOCATION: Paraspinal TECHNIQUE: Multiplanar multisequence MRI of the thoracic spine was performed. FINDINGS: VERTEBRA: Normal vertebral body height. Homogeneous marrow signal. ALIGNMENT: Normal. CORD: There is a central cord syrinx which extends from the visualized cervical region down to about the C5 -6 interspace level. Below this, the cord is normal in morphology and signal intensity. T1-T2: Normal. T2-T3: The thecal sac has a normal diameter. No evidence of disc bulge or protrusion. T3-T4: The thecal sac has a normal diameter. No evidence of disc bulge or protrusion. T4-T5: Tiny broad right paracentral disc protrusion minimally indenting thecal sac. No canal or foraminal co mpromise. T5-T6: The thecal sac has a normal diameter. No evidence of disc bulge or protrusion. T6-T7: Minimal broad central to left paracentral disc protrusion minimally indenting thecal sac. No evidence of canal or foramina compromise. T7-T8: The thecal sac has a normal diameter. No evidence of disc bulge or protrusion. T8-T9: The thecal sac has a normal diameter. No evidence of disc bulge or protrusion. T9-T10: The thecal sac has a normal diameter. No evidence of disc bulge or protrusion. T10-T11: The thecal sac has a normal diameter. No evidence of disc bulge or protrusion. T11-T12: The thecal sac has a normal diameter. No evidence of disc bulge or protrusion. T12-L1: The thecal sac has a normal diameter. No evidence of disc bulge or protrusion. CONCLUSION: Cervical and upper thoracic cord syrinx. Tiny disc protrusions at a couple of levels without significant anatomic compromise Mariusz Fernandes MD on April 10, 2017 at 12:01 Board Certified Radiologist. This report was verified electronically.
--- NOTE | 2017-04-10 12:09 | RADRPT ---
EXAM DATE/TIME: 04/10/2017 10:52 [facility] COMPARISON: No previous studies available for comparison. INDICATIONS : Myelopathy. Left side weakness. MEDICAL HISTORY : Renal insufficiency. SURGICAL HISTORY : Fusion, cervical. ENCOUNTER: Initial ACUITY: 1 day PAIN SCORE: 0/10 LOCATION: Paraspinal TECHNIQUE: Multiplanar, multisequence MRI examination of the cervical spine was performed. FINDINGS: The examination is degraded by motion artifact. There is previous fusion and solid bony union across C5-6-7. At C2-3-4-5 posterior disc osteophyte complex results in a mild central canal stenosis in AP dimensio n. The cord is atrophic with myelomalacia. There is also lateral recess and foraminal stenosis at the se levels. At C2-3 impingement is worse on the left hemicord and left neural foramen. At the area of previous fusion across C5-6-7 there is no significant canal stenosis but the colon rem ains atrophic with myelomalacia. There is a mild syrinx in the cervical cord and extending into the u pper thoracic cord. 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 Advanced degenerative change at C 2-C3-4-5 with AP canal stenosis and lateral recess encroachment most notable at C2-3 on the left. Solid bony union across area of previous fusion at C5-6-7. Lexx Alva MD on April 10, 2017 at 12:00 Board Certified Radiologist. This report was verified electronically.
--- NOTE | 2017-04-10 12:14 | RADRPT ---
EXAM DATE/TIME: 04/10/2017 10:52 [facility] COMPARISON: No previous studies available for comparison. INDICATIONS : Myelopathy. Left side weakness. MEDICAL HISTORY : Renal insufficiency. SURGICAL HISTORY : Fusion, cervical. ENCOUNTER: Initial ACUITY: 1 day PAIN SCORE: 0/10 LOCATION: Paraspinal TECHNIQUE: Multiplanar multisequence MRI of the lumbar spine was performed without contrast. FINDINGS: At T12-L1 there is no significant abnormality. At L1-2 there is a mild disc osteophyte complex with minimal lateral recess encroachment. At L2-3 there is a posterior disc osteophyte complex with mild lateral recess and foraminal stenosis bilaterally. At C3-4 there is a broad-based disc bulge or mild protrusion with facet arthropathy and mild across f rom the lateral recesses and neural foramina bilaterally. L4-5 there is a mild broad-based disc protrusion and facet arthropathy with mild stenosis of the late ral recesses and neural foramina. L5-S1 there is a minimal retrolisthesis. No central canal stenosis. Mild left-sided foraminal stenosi s. Right neural foramen patent. CONCLUSION: 1. Multilevel disc bulges or mild protrusions between L2 and L5 resulting in mild lateral recess encr oachment and mild foraminal encroachment as above. 2. Minimal retrolisthesis of L5 on S1 with mild left-sided foraminal stenosis. 3. No acute fracture. Conus medullaris intact. Lexx Alva MD on April 10, 2017 at 12:07 Board Certified Radiologist. This report was verified electronically.
--- NOTE | 2017-04-10 12:22 | RADRPT ---
EXAM DATE/TIME: 04/10/2017 10:52 [facility] COMPARISON: MRA BRAIN W/O CONTRAST, April 10, 2017, 10:52. INDICATIONS : Hemorrhage. MEDICAL HISTORY : None. SURGICAL HISTORY : Fusion, cervical. Left hand and left elbow. ENCOUNTER: Initial ACUITY: 1 day PAIN SCORE: 5/10 LOCATION: Head. TECHNIQUE: Multiplanar, multisequence MRI of the brain was performed without contrast. FINDINGS: CEREBRUM: The ventricles are normal for age. There is 2 cm parenchymal hemorrhage high right occipitoparietal region. There is no extra-axial blood present. Minimal periventricular white matter changes are dulce dent. Judi is focal area of ed diffusion in the right cervical hemisphere measuring 1 cm. 2 small less than 5 mm areas of restricted diffusion are seen in both occipital lobes. Restrict ed diffusion is seen around the hemorrhage. Obits and sinuses are unremarkable. O the susceptibility weighted imaging there is minimal hemosiderin in the right cerebellar hemis phere and the right parietal region region.. The visualized portions of the orbits and paranasal sinuses are unremarkable. CONCLUSION: Acute hemorrhage as described above high right parietal region Focal restricted diffusion right cervical hemisphere and both occipital lobes suggesting he posterior fossa embolic event. Paras Scales MD FACR on April 10, 2017 at 12:17 Board Certified Radiologist. This report was verified electronically.
--- NOTE | 2017-04-10 12:41 | RADRPT ---
EXAM DATE/TIME: 04/10/2017 10:52 [facility] COMPARISON: MRI BRAIN W/O CONTRAST, April 10, 2017, 10:52. INDICATIONS : Hemorrhage. MEDICAL HISTORY : Renal insufficiency. SURGICAL HISTORY : Fusion, cervical. Left hand and left elbow. ENCOUNTER: Initial ACUITY: 1 day PAIN SCORE: 5/10 LOCATION: Head. Please note a normal MRA of the brain does not entirely exclude the possibility of a small aneurysm, nor the possibility of distal intracranial vessel disease. TECHNIQUE: 3D time of flight MRA was performed. Source images, multiplanar STS MIP, and 3D volume MIP reconstru ctions were reviewed. FINDINGS: Anterior circulation: Distal intracranial internal carotid arteries are patent with flow extending to the middle and anteri or cerebral arteries. There is no evidence for aneurysm, vessel truncation or stenosis, and no eviden ce for vascular malformation. Posterior circulation: Symmetric distal vertebral arteries with flow extending to basilar artery. origin of the right [employer]. There is no evidence for aneurysm, vessel truncation or stenosis, and no evidence for vascular malformation. CONCLUSION: 1. Unremarkable [place] MRA examination. Specifically, no evidence for large vessel occlusio n or aneurysm. Jose Linares MD on April 10, 2017 at 12:19 Board Certified Radiologist. This report was verified electronically.
[2017-04-10] MEDS ORDERED: SODIUM CHLOR 0.9% 1000 ML INJ 1,000 ML IV PRN (16:22)
[2017-04-10] MEDS ORDERED: SODIUM CHLOR 0.9% 1000 ML INJ 1,000 ML OTHER PRN ×2 (16:22)
--- NOTE | 2017-04-10 16:29 | HHI.NPPN ---
Subjective History of Present Illness 62 year old male with ARF Rhabdomyolysis, painful, tired lethargic Interval History tried Bumex drip Additional Remarks UOP 250 CC Review of Systems General Constitutional: Fatigue Respiratory Lungs: SOB Musculoskeletal MS: Pain/Stiffness, Swelling in Back, Swelling in Joint Objective Data Data Vital Signs Date Time Temp Pulse Resp B/P (MAP) Pulse Ox O2 Delivery O2 Flow Rate FiO2 04/10/17 16:00 98.1 87 23 142/82 (102) 97 04/10/17 16:00 87 04/10/17 14:00 95 04/10/17 12:00 98.4 88 22 125/68 (87) 98 04/10/17 12:00 88 04/10/17 10:00 86 04/10/17 08:00 97.7 98 22 160/93 (115) 98 04/10/17 08:00 98 04/10/17 07:30 26 04/10/17 07:00 98 Room Air 04/10/17 06:00 99 04/10/17 04:00 101 04/10/17 04:00 98.2 101 15 138/84 (102) 98 04/10/17 02:00 100 04/10/17 00:00 98.5 106 13 106/71 (83) 97 04/10/17 00:00 106 04/09/17 22:00 101 04/09/17 21:15 100 04/09/17 20:00 98.4 108 19 137/81 (99) 99 04/09/17 20:00 108 04/09/17 19:00 98 Room Air 04/09/17 18:00 92 -: 04/10/17 0306 04/10/17 0306 Physical Exam General Appearance: Well Developed, Well Nourished Neck Neck Exam: Jugular Vein Distension Pulmonary Resp Exam: Decreased Bases Cardiology CV Exam: Tachycardia Gastrointestinal/Abdomen GI Exam: Soft, Bowel Sounds Present Extremeties Extremities Exam: Trace Edema Assessment/Plan Problem List: (1) Acute renal failure ICD Codes: N17.9 - Acute kidney failure, unspecified Plan: ARF has Rhabdomyolysis He likely has acute tubular necrosis from underlying rhabdomyolysis Avoid nephrotoxins discussed dialysis Vascath insertion possible complications, drop in BP cramp, central line infection/bleeding he is agreeable called dialysis (2) Rhabdomyolysis ICD Codes: M62.82 - Rhabdomyolysis Status: Acute Plan: Continue monitor his CPK trend is downwards (3) Subarachnoid hemorrhage ICD Codes: I60.9 - Nontraumatic subarachnoid hemorrhage, unspecified Plan: Neurosurgery following (4) UTI (lower urinary tract infection) ICD Codes: N39.0 - Urinary tract infection, site not specified (5) Sepsis ICD Codes: A41.9 - Sepsis, unspecified organism Plan: staph in blood Problem Qualifiers (1) Acute renal failure: Qualified Codes: N17.0 - Acute kidney failure with tubular necrosis (2) Rhabdomyolysis: Qualified Codes: M62.82 - Rhabdomyolysis Lio Robbins MD Apr 10, 2017 16:29
[2017-04-10] MEDS ORDERED: MANNITOL 12.5 GM/50 ML VIAL IV PRN (16:30)
[2017-04-10] MEDS ORDERED: diphenhydrAMINE HCL 25 MG CAP PO PRN (16:30)
[2017-04-10] MEDS ORDERED: ACETAMINOPHEN 325 MG TAB PO PRN (16:30)
[2017-04-10] MEDS ORDERED: GELATIN 12 MM/7 MM FOAM TOP PRN (16:30)
[2017-04-10] MEDS ORDERED: cloNIDine HCL 0.1 MG TAB PO PRN (16:30)
[2017-04-10] MEDS ORDERED: NITROGLYCERIN 0.4 MG SL 25 TABS/BTL SL PRN (16:30)
[2017-04-10] MEDS ORDERED: HEPARIN SODIUM - IV 10,000 UNITS/10 ML VIAL IV FLUSH PRN (16:30)
[2017-04-10] MEDS ORDERED: ONDANSETRON HCL 4 MG/2 ML VIAL IV PUSH PRN (16:30)
[2017-04-10] MEDS ORDERED: SODIUM CHLORIDE 0.9% FLUSH 10 ML FLUSH IV FLUSH PRN (16:30)
[2017-04-10] MEDS ORDERED: MIDAZOLAM HCL 5 MG/ML VIAL (1 ML) ONE (16:37)
--- NOTE | 2017-04-10 17:29 | PD.PROCEDR ---
Procedure Note Procedure DX: Rhabdomyolysis, ASHLYN OP: 1. Insertion hemodialysis catheter (97075) 2. Insertion central venous line (46949) Procedure: Time out. Left chest prepped and draped. Left internal jugular vein cannulated and wire advanced to vena cava. Dilators passed. 14 fr 2-lumen dialysis catheter passed over wire to 18 cm. Lumens aspirated, flushed, packed with heparin 500 units/ml. Left subclavian vein cannulated with thin walled needle and wire advanced. Tripple lumen catheter passed over wire to 17 cm. Lumens aspirated and flushed. Dressings applied. Suture used to secure dialysis catheter only. CXR ordered, will review. Vinicio Fitzgerald MD Apr 10, 2017 17:29
--- NOTE | 2017-04-10 18:50 | RADRPT ---
EXAM DATE/TIME: 04/10/2017 17:48 [facility] COMPARISON: CHEST SINGLE AP, April 08, 2017, 20:56. INDICATIONS : Dialysis and cvl placement and position. MEDICAL HISTORY : CVA. SURGICAL HISTORY : Fusion, cervical. Left hand and left elbow. ENCOUNTER: Subsequent ACUITY: 3 days PAIN SCORE: 0/10 LOCATION: Bilateral chest FINDINGS: Left internal jugular Vas-Cath has its tip in the superior vena cava. Left subclavian central line norwood s its tip in the superior vena cava also. The heart is stable. No pneumothorax is noted. Bibasilar st reakiness is noted consistent with atelectasis and/or developing infiltrate. Hardware is noted within the cervical spine status post fusion. CONCLUSION: 1. Bibasilar streakiness consistent with atelectasis and/or infiltrates. 2. Left internal jugular Vas-Cath and left subclavian central line are in good positions in the super ior vena cava. No pneumothorax is noted Kang Cruz MD on April 10, 2017 at 18:47 Board Certified Radiologist. This report was verified electronically.
[2017-04-11] VITALS (14 sets, daily range): BP systolic 98–129; BP diastolic 62–73; PULSE 81–94; RESP 11–24; TEMP 98–99.3; O2SAT 94–100
[2017-04-11] MEDS: cefTRIAXone INJ 1,000 MG in SODIUM CHLORIDE 0.9% INJ 100 ML IV SCH (01:55)
[2017-04-11] MEDS: RESP: ALBUTEROL 2.5 MG/IPRATROPIUM 0.5 MG NEB (SCH) INH ×4 (04:00→21:04)
[2017-04-11] MEDS: CHLORHEXIDINE GLUCONATE 2 % 1 PACK (2 CLOTHS) TOP SCH (04:00)
[2017-04-11] MEDS: ACETAMINOPHEN/HYDROcodone 325 MG/5 MG TAB PO PRN ×4 (04:24→21:55)
[2017-04-11 04:41] LABS: HEMATOCRIT 32.9 % (39.0-51.0); HEMOGLOBIN 11.4 GM/DL (13.0-17.0); MEAN CELL VOLUME 103.6 FL (80.0-100.0); MEAN CORPUSCULAR HEMOGLOBIN 35.9 PG (27.0-34.0); MEAN CORPUSCULAR HGB CONC 34.7 % (32.0-36.0); MEAN PLATELET VOLUME 7.8 FL (7.0-11.0); PLATELET COUNT 71 TH/MM3 (150-450); RED BLOOD COUNT 3.18 MIL/MM3 (4.50-5.90); RED CELL DISTRIBUTION WIDTH 13.2 % (11.6-17.2); WHITE BLOOD COUNT 11.3 TH/MM3 (4.0-11.0)
[2017-04-11 05:14] LABS: BICARBONATE 32.3 MEQ/L (21.0-32.0); CALCIUM 6.8 MG/DL (8.5-10.1); CREATININE 4.84 MG/DL (0.60-1.30); PHOSPHORUS 5.9 MG/DL (2.5-4.9)
[2017-04-11 05:25] LABS: CALCIUM-PROTEIN CORRECTED 7.9 MG/DL (8.5-10.1); TOTAL PROTEIN 4.9 GM/DL (6.4-8.2)
[2017-04-11] MEDS: INSULIN NovoLIN REGULAR SUPPLEMENTAL SCALE SQ SCH ×4 (06:00→21:52)
[2017-04-11] MEDS: SODIUM BICARBONATE 8.4% INJ 150 MEQ in DEXTROSE 5% IN WATE 1000ML INJ 1,000 ML IV SCH ×2 (06:28)
--- NOTE | 2017-04-11 08:54 | HHI.CCPN ---
Subjective Remarks/Hospital Course This is a 8-year-old male who reportedly fell at home yesterday and was unable to get up for at least 5 hours, but likely greater than that. He called 911 today and was brought in tonight by EMS. He does endorse possibly syncopized. He states he has fallen recently over the last few days, but this is unusual for him. He denies headache. He denies fever, chills, shortness of breath, chest pain, nausea, vomiting, abdominal pain, diarrhea. He does not endorse any other symptom other than the frequent falls. In the emergency department CT had demonstrated small subarachnoid hemorrhage, likely traumatic. In addition, the patient had very dark very thick urine, and his CK level was greater than 40,000. He was immediately started on IV sodium bicarb and IV fluids. He also has evidence of hyperkalemia, hyponatremia, acute kidney injury with a creatinine greater than 2. Critical care medicine is consulted to evaluate manage his acute rhabdo, his multiple organ failure. 04/10: CK level declining but renal function deteriorating. Urine minimal. 04/11: Renal function continues to reflect kidney injury. HD started. Fluid balance about right. Objective Vital Signs Date Time Temp Pulse Resp B/P (MAP) Pulse Ox O2 Delivery O2 Flow Rate FiO2 04/11/17 08:20 100 Nasal Cannula 2.00 04/11/17 06:00 91 04/11/17 05:24 18 04/11/17 04:00 98.5 129/73 (91) 04/10/17 21:28 21 Intake and Output 04/11/17 04/11/17 04/12/17 08:00 16:00 00:00 Intake Total 1060 ml Output Total 200 ml Balance 860 ml Result Diagram: 04/11/17 0425 04/11/17 0425 Imaging Last Impressions Head CT 04/08/172033 Signed Impressions: Service Date/Time: Saturday, April 08, 2017 22:01 - CONCLUSION: Small amount of probable acute subarachnoid hemorrhage within the high right parietal region which may be post-traumatic in etiology. Clinical correlation is recommended. Kang Cruz MD Chest X-Ray 04/08/172033 Signed Impressions: Service Date/Time: Saturday, April 08, 2017 20:56 - CONCLUSION: No acute disease. Kang Cruz MD Abdomen/Pelvis CT 04/08/17 0000 Signed Impressions: Service Date/Time: Saturday, April 08, 2017 22:09 - CONCLUSION: 1. No acute obstructive uropathy. 2. Uncomplicated colonic diverticulosis. 3. Nodular contour of liver suggesting possible cirrhosis. 4. Degenerative changes and scoliosis of the lumbar spine. Kang Cruz MD Objective Remarks GENERAL: Middle-age male who appears older than stated age, lying in bed, in distress due to generalized fatigue and weakness HEENT: Normocephalic. Atraumatic. Pupils equal, round, reactive, conjugate. Mucous membranes are moist. NECK: Trachea is midline. Airway widely patent CHEST: Equal chest rise. No adventitious sounds. Few crackles, no wheezes. CARDIOVASCULAR: Tachycardic rate, regular rhythm. Sinus by telemetry. Neck veins full. ABDOMEN: Soft, nontender, nondistended. No guarding. BS active. MUSCULOSKELETAL: Pulses 2+. No peripheral edema. Well perfused. NEUROLOGICAL: RASS 0. Follows commands. No focal deficits. Moves 4 limbs to command. A/P Assessment and Plan Assessment: 62-year-old male with recent frequent falls whose course is complicated by severe life-threatening rhabdomyolysis, acute kidney injury, and traumatic subarachnoid hemorrhage. Unclear etiology of his frequent falls. Will need aggressive hydration for his acute rhabdo given that it is already calling causing end-organ damage. Agree with admitting the ICU. Traumatic Subarachnoid hemorrhage - no anticoagulation - nsgy consultation - frequent neuro checks - tight bp control, < 140. - hydralazine, labetalol prn for this Severe Acute Rhabdomyolysis - serial CK - alkalinization - ivf - watch uop closely Acute Kidney Injury - secondary to acute rhabdo - place [place] - close monitoring of uop - daily bmp - watch electrolytes closely - Deteriorating function. -HD started 04/10 Hyperkalemia Hyponatremia - secondary to acute kidney injury and rhabdo - bicarb and ivf - trend, improved Urinary Tract Infection - Rocephin 1gm iv q24h - f/u urine culture - does not appear patient is septic at this time: clinical symptomatology suggests stress response from rhabdo and head bleed. SCDs hold pharmacologic DVT prophylaxis given head bleed Overall impression: Remains critically ill with deteriorating renal function and worsening metabolic state. Unstable and now requiring dialysis hemodialysis. Critical care 36 mins Vinicio Fitzgerald MD Apr 11, 2017 08:54
[2017-04-11] MEDS: SODIUM CHLORIDE 0.9% FLUSH 10 ML FLUSH IV FLUSH SCH ×2 (09:00→21:52)
[2017-04-11] MEDS: PANTOPRAZOLE SODIUM 40 MG VIAL IV PUSH SCH (10:06)
[2017-04-11] MEDS: GABAPENTIN 100 MG CAP PO SCH ×4 (10:06→21:52)
[2017-04-11] MEDS: METOPROLOL TARTRATE 25 MG TAB PO SCH (10:06)
[2017-04-11] MEDS: THIAMINE INJ 100 MG in SODIUM CHLORIDE 0.9% INJ 100 ML IV SCH (10:15)
--- NOTE | 2017-04-11 10:15 | HHI.NSPN ---
(Mary Lou Batuista) Note Status Status: Progress Note (Mary Lou Bautista) Interval History Interval History 04/09: Mr. Choudhury is a 62-year-old male who presented to the emergency room last night after he was found on the floor by his roommate. He apparently fell yesterday and was lying on the ground for several hours. He indicates generalized weakness over the past few days and has fallen at least 2 times in the past couple of days. He indicates a possible syncopal type episode. Initial workup in the emergency room included a CT scan of the head which revealed probable mild right parietal convexity subarachnoid hemorrhage. He was also found to have a CPK over 40,000 and laboratory results consistent with rhabdomyolysis and UTI with possible urosepsis. He was given normal saline bolus and sodium bicarbonate by me. Also started on vancomycin and Zosyn. No seizure activity reported. 04/10: The patient is in bed with his eyes closed but he immediately answers to voice. He states "I feel like I am dying." He does say he felt a hundred percent better yesterday compared with today. He reports that his lower extremities are the worse and feel numb. He also continues to have numbness to the left side of the body which he was laying on when found. His CK is improving but he does remain in renal failure. Upon evaluation the patient is weaker to the lower extremities which are painful to touch. He is able to move the upper extremities slightly better but they are still weak. 04/11: receiving dialysis for acute kidney injury, reports mild headaches, and weakness in left lower extremity that is new. 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 (Mary Lou Bautista) Labs, Micro, & Vital Signs Results Date Time Temp Pulse Resp B/P (MAP) Pulse Ox O2 Delivery O2 Flow Rate FiO2 04/11/17 08:20 100 Nasal Cannula 2.00 04/11/17 08:00 87 04/11/17 08:00 98.0 87 11 98/63 (75) 100 04/11/17 07:00 100 Room Air 04/11/17 06:00 91 04/11/17 05:24 18 04/11/17 04:00 93 04/11/17 04:00 98.5 87 19 129/73 (91) 100 04/11/17 02:00 90 04/11/17 00:00 93 04/11/17 00:00 98.4 92 17 115/68 (84) 94 04/10/17 22:00 100 04/10/17 21:28 98 21 04/10/17 20:00 98.4 96 24 165/88 (113) 97 04/10/17 20:00 98 04/10/17 19:00 97 Room Air 04/10/17 18:00 92 04/10/17 16:00 98.1 87 23 142/82 (102) 97 04/10/17 16:00 87 04/10/17 14:00 95 04/10/17 12:00 98.4 88 22 125/68 (87) 98 04/10/17 12:00 88 04/12/17 07:00 Output Total 2000 ml Balance -2000 ml Constitutional Vital Signs Date Time Temp Pulse Resp B/P (MAP) Pulse Ox O2 Delivery O2 Flow Rate FiO2 04/11/17 08:20 100 Nasal Cannula 2.00 04/11/17 08:00 87 04/11/17 08:00 98.0 87 11 98/63 (75) 100 04/11/17 07:00 100 Room Air 04/11/17 06:00 91 04/11/17 05:24 18 04/11/17 04:00 93 04/11/17 04:00 98.5 87 19 129/73 (91) 100 04/11/17 02:00 90 04/11/17 00:00 93 04/11/17 00:00 98.4 92 17 115/68 (84) 94 04/10/17 22:00 100 04/10/17 21:28 98 21 04/10/17 20:00 98.4 96 24 165/88 (113) 97 04/10/17 20:00 98 04/10/17 19:00 97 Room Air 04/10/17 18:00 92 04/10/17 16:00 98.1 87 23 142/82 (102) 97 04/10/17 16:00 87 04/10/17 14:00 95 04/10/17 12:00 98.4 88 22 125/68 (87) 98 04/10/17 12:00 88 04/12/17 07:00 Output Total 2000 ml Balance -2000 ml (Mary Lou Bautista) Physical Exam GENERAL: No acute distress. receiving dialysis currently. HEENT: Swelling to the left side of the face. PERRLA 3 mm brisk, EOMI. No otorrhea or rhinorrhea. Motor: Moves b/l upper extremity 4/5, R>L, right lower extremity 3-4, left lower extremity 2/5 NEUROLOGICAL: alert, oriented x 3. following commands. conversing. Tongue midline to protrusion. Left side facial & scalp numbness. Heart: regular rate Resp: clear (Mary Lou Bautista) Ms Choudhury is in no acute distress. receiving dialysis currently. HEENT: Swelling to the left side of the face. PERRLA 3 mm brisk, EOMI. No otorrhea or rhinorrhea. Motor: Moves b/l upper extremity 4/5, R>L, right lower extremity 3-4, left lower extremity 2/5 NEUROLOGICAL: alert, oriented x 3. following commands. conversing. Tongue midline to protrusion. Left side facial & scalp numbness. Heart: regular rate Resp: clear Skin warm and dry (Tello Tinsley MD) Medications Current Medications Current Medications Medications (Trade) Dose Ordered Sig/Ted Route PRN Reason Start Time Stop Time Status Last Admin Dose Admin Labetalol HCl (Trandate Inj) 20 mg Q15M PRN IV PUSH sbp > 160 04/09/17 00:00 04/09/17 14:36 Hydralazine HCl (Apresoline Inj) 10 mg Q30M PRN IV PUSH sbp > 160 04/09/17 00:00 04/09/17 08:36 Dextrose (D50w (Vial) Inj) 25 ml UNSCH PRN IV PUSH HYPOGLYCEMIA-SEE COMMENTS 04/09/17 00:00 Insulin Human Regular (NovoLIN R SUPPLEMENTAL SCALE) 1 Q6HR SQ 04/09/17 00:00 Albuterol/ Ipratropium (Duoneb Neb) 1 ampule Q6HR NEB INH 04/09/17 04:00 04/11/17 08:18 Albuterol/ Ipratropium (Duoneb Neb) 1 ampule Q2HR NEB PRN INH WHEEZING 04/09/17 00:00 Pantoprazole Sodium (Protonix Inj) 40 mg DAILY IV PUSH 04/09/17 09:00 04/10/17 09:26 Ondansetron HCl (Zofran Inj) 4 mg Q6H PRN IV PUSH NAUSEA OR VOMITING 04/09/17 00:00 04/10/17 09:50 Albuterol/ Ipratropium (Duoneb Neb) 1 ampule Q2HR NEB PRN INH WHEEZING 04/09/17 00:00 Miscellaneous Information 1 Q361D XX 04/09/17 00:00 Chlorhexidine Gluconate (Chlorhexidine 2% Cloth) 3 pack Taper DAILY@04 TOP 04/09/17 04:00 04/05/18 03:59 Chlorhexidine Gluconate (Chlorhexidine 2% Cloth) 3 pack UNSCH PRN TOP HYGIENIC CARE 04/09/17 00:00 Sodium Bicarbonate 150 meq/Dextrose 1,150 ml @ 50 mls/hr Q23H IV 04/09/17 00:45 04/11/17 06:28 Ceftriaxone Sodium 1000 mg/ Sodium Chloride 100 ml @ 200 mls/hr Q24H IV 04/09/17 02:00 04/11/17 01:55 Acetaminophen/ Hydrocodone Bitart (Dobson 5-325 Mg) 1 tab Q4H PRN PO PAIN 1-10 04/09/17 10:00 04/11/17 04:24 Metoprolol Tartrate (Lopressor) 25 mg DAILY PO 04/10/17 09:00 04/10/17 09:26 Tizanidine HCl (Zanaflex) 2 mg TID PO 04/09/17 13:00 04/10/17 09:26 Miscellaneous (Pill Splitter) 1 ea UNSCH PRN OTHER SEE LABEL COMMENTS 04/09/17 10:15 Sodium Chloride (NS Flush) 2 ml UNSCH PRN IV FLUSH FLUSH AFTER USING IV ACCESS 04/09/17 10:15 Sodium Chloride (NS Flush) 2 ml BID IV FLUSH 04/09/17 21:00 04/10/17 20:26 Multivitamins 10 ml/Folic Acid 1 mg/Sodium Chloride 510.2 ml @ 125 mls/hr Q24H IV 04/09/17 11:00 04/14/17 10:59 04/10/17 11:10 Thiamine HCl 100 mg/Sodium Chloride 101 ml @ 100 mls/hr Q24H IV 04/09/17 11:00 04/11/17 12:01 04/10/17 11:10 Thiamine HCl (Vitamin B1) 100 mg DAILY PO 04/12/17 09:00 Flumazenil (Romazicon Inj) 0.2 mg Q1M PRN IV PUSH SEE LABEL COMMENTS 04/09/17 10:15 Lorazepam (Ativan) 1 mg Q4H PRN PO CIWA 8 - 10 04/09/17 10:15 Lorazepam (Ativan Inj) 1 mg Q4H PRN IV PUSH CIWA 8 - 10 04/09/17 10:15 Lorazepam (Ativan) 2 mg Q2H PRN PO CIWA 11-14 04/09/17 10:15 Lorazepam (Ativan Inj) 2 mg Q2H PRN IV PUSH CIWA 11-14 04/09/17 10:15 Lorazepam (Ativan Inj) 2 mg Q1H PRN IV PUSH CIWA 15-20 04/09/17 10:15 Lorazepam (Ativan Inj) 2 mg Q15M PRN IV PUSH CIWA > 20 04/09/17 10:15 Gabapentin (Neurontin) 100 mg QID PO 04/09/17 13:00 04/10/17 20:26 Sodium Chloride 1,000 ml @ 0 mls/hr Q0M PRN OTHER For Prime & Rinse Back 04/10/17 16:22 Heparin Sodium (Porcine) (Heparin Inj) 8,000 units UNSCH PRN IV FLUSH WITH DIALYSIS 04/10/17 16:30 Sodium Chloride 1,000 ml @ 200 mls/hr Q5H PRN IV WITH DIALYSIS 04/10/17 16:22 Sodium Chloride 1,000 ml @ 0 mls/hr Q0M PRN OTHER WITH DIALYSIS 04/10/17 16:22 Mannitol (Mannitol Inj) 12.5 gm UNSCH PRN IV WITH DIALYSIS 04/10/17 16:30 Albumin Human 100 ml @ 60 mls/hr UNSCH PRN IV WITH DIALYSIS 04/10/17 16:30 Sodium Chloride (NS Flush) 5 ml UNSCH PRN IV FLUSH WITH DIALYSIS 04/10/17 16:30 Heparin Sodium (Porcine) (Heparin Inj) UNSCH PRN .XX WITH DIALYSIS 04/10/17 16:30 Gentamicin Sulfate (Gentamicin Inj) 20 mg UNSCH PRN OTHER WITH DIALYSIS 04/10/17 16:30 Ondansetron HCl (Zofran Inj) 4 mg UNSCH PRN IV PUSH WITH DIALYSIS 04/10/17 16:30 Acetaminophen (Tylenol) 650 mg UNSCH PRN PO for headach, pain, temp > 101F 04/10/17 16:30 Diphenhydramine HCl (Benadryl) 25 mg UNSCH PRN PO for hives/itching/anaphylaxis 04/10/17 16:30 Nitroglycerin (Nitrostat Sl) 0.4 mg UNSCH PRN SL CHEST PAIN 04/10/17 16:30 Clonidine (Catapres) 0.1 mg UNSCH PRN PO for BP > 180/100 X 2 readings 04/10/17 16:30 Gelatin (Gelfoam 12 Mm/7 Mm Top) 1 foam UNSCH PRN TOP SEE LABEL COMMENTS 04/10/17 16:30 (Mary Lou Bautista) Medical Decision Making MDM Remarks [address] Brain right intraparenchymal hemorrhage MRI Brain with multiple acute infarcts, right parietal and b/l occipital, ? embolic, echocardiogram pending severe rhabdomyolysis, acute kidney injury - HD initiated Last Impressions Thoracic Spine MRI 04/10/17 0000 Signed Impressions: Service Date/Time: Monday, April 10, 2017 10:52 - CONCLUSION: Cervical and upper thoracic cord syrinx. Tiny disc protrusions at a couple of levels without significant anatomic compromise Mariusz Fernandes MD Lumbar Spine MRI 04/10/17 0000 Signed Impressions: Service Date/Time: Monday, April 10, 2017 10:52 - CONCLUSION: 1. Multilevel disc bulges or mild protrusions between L2 and L5 resulting in mild lateral recess encroachment and mild foraminal encroachment as above. 2. Minimal retrolisthesis of L5 on S1 with mild left-sided foraminal stenosis. 3. No acute fracture. Conus medullaris intact. Lexx Alva MD Head Magnetic Resonance Angiography 04/10/17 0000 Signed Impressions: Service Date/Time: Monday, April 10, 2017 10:52 - CONCLUSION: 1. Unremarkable levelock of [place] MRA examination. Specifically, no evidence for large vessel occlusion or aneurysm. Jose Linares MD Chest X-Ray 04/10/17 0000 Signed Impressions: Service Date/Time: Monday, April 10, 2017 17:48 - CONCLUSION: 1. Bibasilar streakiness consistent with atelectasis and/or infiltrates. 2. Left internal jugular Vas-Cath and left subclavian central line are in good positions in the superior vena cava. 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 Advanced degenerative change at C2-C3-4-5 with AP canal stenosis and lateral recess encroachment most notable at C2-3 on the left. Solid bony union across area of previous fusion at C5-6- 7. Lexx Alva MD Brain MRI 04/10/17 0000 Signed Impressions: Service Date/Time: Monday, April 10, 2017 10:52 - CONCLUSION: Acute hemorrhage as described above high right parietal region Focal restricted diffusion right cervical hemisphere and both occipital lobes suggesting he posterior fossa embolic event. Paras Scales MD FACR Renal Ultrasound 04/09/17 0000 Signed Impressions: Service Date/Time: April 12:12 - CONCLUSION: Normal examination. Tk Martínez MD Maxillofacial CT 04/09/17 0000 Signed Impressions: Service Date/Time: April 13:28 - CONCLUSION: 1. There is no evidence of acute fracture. Toney Schulz MD Head CT 04/09/17 0000 Signed Impressions: Service Date/Time: April 09:35 - CONCLUSION: 1.7 cm a intraparenchymal hemorrhage in the high right parietal region. No significant subarachnoid or subdural hematoma identified. No other areas of hemorrhage noted. Tk Martínez MD Abdomen/Pelvis CT 04/08/17 0000 Signed Impressions: Service Date/Time: Saturday, April 08, 2017 22:09 - CONCLUSION: 1. No acute obstructive uropathy. 2. Uncomplicated colonic diverticulosis. 3. Nodular contour of liver suggesting possible cirrhosis. 4. Degenerative changes and scoliosis of the lumbar spine. Kang Cruz MD (Mary Lou Bautista) Plan Plan Remarks f/u echocardiogram cont critical care mgt serial neuro checks (Mary Lou Bautista) Attending Statement As above I personally reviewed with several radiological studies including Thoracic Spine MRI 04/10/17 Signed Impressions: Service Date/Time: Monday, April 10, 2017 10:52 - CONCLUSION: Cervical and upper thoracic cord syrinx. Tiny disc protrusions at a couple of levels without significant anatomic compromise Mariusz Fernandes MD Lumbar Spine MRI 04/10/17 0000 Signed Impressions: Service Date/Time: Monday, April 10, 2017 10:52 - CONCLUSION: 1. Multilevel disc bulges or mild protrusions between L2 and L5 resulting in mild lateral recess encroachment and mild foraminal encroachment as above. 2. Minimal retrolisthesis of L5 on S1 with mild left-sided foraminal stenosis. 3. No acute fracture. Conus medullaris intact. Lexx Alva MD Head Magnetic Resonance Angiography 04/10/17 Signed Impressions: Service Date/Time: Monday, April 10, 2017 10:52 - CONCLUSION: 1. Unremarkable levelock of [place] MRA examination. Specifically, no evidence for large vessel occlusion or aneurysm. Jose Linares MD Chest X-Ray 04/10/17 Signed Impressions: Service Date/Time: Monday, April 10, 2017 17:48 - CONCLUSION: 1. Bibasilar streakiness consistent with atelectasis and/or infiltrates. 2. Left internal jugular Vas-Cath and left subclavian central line are in good positions in the superior vena cava. 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 Advanced degenerative change at C2-C3-4-5 with AP canal stenosis and lateral recess encroachment most notable at C2-3 on the left. Solid bony union across area of previous fusion at C5-6- 7. Lexx Alva MD Brain MRI 04/10/17 Signed Impressions: Service Date/Time: Monday, April 10, 2017 10:52 - CONCLUSION: Acute hemorrhage as described above high right parietal region Focal restricted diffusion right cervical hemisphere and both occipital lobes suggesting he posterior fossa embolic event. Paras Scales MD FACR Renal Ultrasound 04/09/17 0000 Signed Impressions: Service Date/Time: April 12:12 - CONCLUSION: Normal examination. Tk Martínez MD Maxillofacial CT 04/09/17 0000 Signed Impressions: Service Date/Time: April 13:28 - CONCLUSION: 1. There is no evidence of acute fracture. Toney Schulz MD Head CT 04/09/17 0000 Signed Impressions: Service Date/Time: April 09:35 - CONCLUSION: 1.7 cm a intraparenchymal hemorrhage in the high right parietal region. No significant subarachnoid or subdural hematoma identified. No other areas of hemorrhage noted. Tk Martínez MD Abdomen/Pelvis CT 04/08/17 0000 Signed Impressions: Service Date/Time: Saturday, April 08, 2017 22:09 - CONCLUSION: 1. No acute obstructive uropathy. 2. Uncomplicated colonic diverticulosis. 3. Nodular contour of liver suggesting possible cirrhosis. 4. Degenerative changes and scoliosis of the lumbar spine. Kang Cruz MD Continue neuro checks in a serial fashion. Continue nonsurgical management of severe head injury Pulmonary. Continue aggressive pulmonary toilette, nasotracheal suction, and breathing treatments with nebulizers. Daily PT and OT Nutrition. Tolerating Oral diet Renal. Continue to monitor closely urine output, BUN and creatinine Endocrine. Continue to Monitor serial Acu checks and SSI as needed in detail ID continue to monitor for signs of infection Continue Protonix for stress ulcer prophylaxis Continue Mukund hose and SCD's for DVT prophylaxis Further recommendations will be provided depending on the patient's clinical evaluation and follow up studies. Caprini VTE Risk Assessment Caprini VTE Risk Assessment: Mod/High Risk (score >= 2) VTE Pharm Contraindication: Active bleeding Caprini Risk Assessment Model Point Value = 1 Point Value = 2 Point Value = 3 Point Value = 5 Age 41-60 Minor surgery BMI > 25 kg/m2 Swollen legs Varicose veins or History of unexplained or recurrent spontaneous Oral contraceptives or hormone replacement Sepsis (< 1 month) Serious lung disease, including pneumonia (< 1 month) Abnormal pulmonary function Acute myocardial infarction Congestive heart failure (< 1 month) History of inflammatory bowel disease Medical patient at bed rest Age 61-74 Arthroscopic surgery Major open surgery (> 45 min) Laparoscopic surgery (> 45 min) Malignancy Confined to bed (> 72 hours) Immobilizing plaster cast Central venous access Age >= 75 History of VTE Family history of VTE Factor V Leiden Prothrombin [id number] Lupus anticoagulant Anticardiolipin antibodies Elevated serum homocysteine Heparin-induced thrombocytopenia Other congenital or acquired thrombophilia Stroke (< 1 month) Elective arthroplasty Hip, pelvis, or leg fracture Acute spinal cord injury (< 1 month) Prophylaxis Regimen Total Risk Factor Score Risk Level Prophylaxis Regimen 0-1 Low Early ambulation 2 Moderate Order ONE of the following: *Sequential Compression Device (SCD) *Heparin 5000 units SQ BID 3-4 Higher Order ONE of the following medications: *Heparin 5000 units SQ TID *Enoxaparin/Lovenox 40 mg SQ daily (WT < 150 kg, CrCl > 30 mL/min) *Enoxaparin/Lovenox 30 mg SQ daily (WT < 150 kg, CrCl > 10-29 mL/min) *Enoxaparin/Lovenox 30 mg SQ BID (WT < 150 kg, CrCl > 30 mL/min) AND/OR *Sequential Compression Device (SCD) 5 or more Highest Order ONE of the following medications: *Heparin 5000 units SQ TID (Preferred with Epidurals) *Enoxaparin/Lovenox 40 mg SQ daily (WT < 150 kg, CrCl > 30 mL/min) *Enoxaparin/Lovenox 30 mg SQ daily (WT < 150 kg, CrCl > 10-29 mL/min) *Enoxaparin/Lovenox 30 mg SQ BID (WT < 150 kg, CrCl > 30 mL/min) AND *Sequential Compression Device (SCD) The exam, history, and the medical decision-making described in the above note were completed with the assistance of the mid-level provider. I reviewed and agree with the findings presented. I attest that I had a [id number] encounter with the patient on the same day, and personally performed and documented my assessment and findings in the medical record. (Tello Tinsley MD) Mary Lou Bautista Apr 11, 2017 10:15 Tello Tinsley MD Apr 13, 2017 12:35
[2017-04-11] MEDS: MULTIVITAMIN INJ 10 ML, FOLIC ACID INJ 1 MG in SODIUM CHLORID 0.9% 500 ML INJ 500 ML IV SCH (10:48)
--- NOTE | 2017-04-11 12:33 | ECHRPT ---
Indication: cerebral embolism CONCLUSIONS The left ventricular systolic function is normal with an estimated ejection fraction in the range of 60-65%. Mild concentric left ventricular hypertrophy. Normal left ventricular size. BP: / HR: 100 Rhythm: Other MEASUREMENTS (Male / Female) Normal Values Technical Quality:Fair 2D ECHO LV Diastolic Diameter PLAX 4.4 cm 4.2 - 5.9 / 3.9 - 5.3 cm LV Systolic Diameter PLAX 3.1 cm IVS Diastolic Thickness 1.1 cm 0.6 - 1.0 / 0.6 - 0.9 cm LVPW Diastolic Thickness 1.1 cm 0.6 - 1.0 / 0.6 - 0.9 cm LV Relative Wall Thickness 0.5 LVOT Diameter 2.1 cm Ascending Aorta Diameter 3.6 cm M-MODE Aortic Root Diameter MM 3.4 cm LA Systolic Diameter MM 2.9 cm LA Ao Ratio MM 0.9 AV Cusp Separation MM 2.0 cm DOPPLER AV Peak Velocity 155.0 cm/s AV Peak Gradient 9.6 mmHg LVOT Peak Velocity 153.0 cm/s LVOT Peak Gradient 9.4 mmHg AV Area Cont Eq pk 3.4 cm Mitral E Point Velocity 104.0 cm/s Mitral A Point Velocity 90.1 cm/s Mitral E to A Ratio 1.2 LV E' Lateral Velocity 10.2 cm/s Mitral E to LV E' Lateral Ratio 10.2 LV E' Septal Velocity 13.9 cm/s Mitral E to LV E' Septal Ratio 7.5 PV Peak Velocity 156.0 cm/s PV Peak Gradient 9.7 mmHg FINDINGS LEFT VENTRICLE The left ventricular systolic function is normal with an estimated ejection fraction in the range of 60-65%. Mild concentric left ventricular hypertrophy. Normal left ventricular size. RIGHT VENTRICLE Normal right ventricular size and systolic function. LEFT ATRIUM The left atrial size is normal. RIGHT ATRIUM The right atrial size is normal. ATRIAL SEPTUM Normal atrial septal thickness without atrial level shunting by limited color doppler interrogation. AORTA The aortic root and proximal ascending aorta are normal in size on limited imaging. MITRAL VALVE Structurally normal mitral valve. No mitral valve stenosis or regurgitation. AORTIC VALVE Trileaflet aortic valve. No aortic valve stenosis or regurgitation. TRICUSPID VALVE Structurally normal tricuspid valve. No tricuspid valve stenosis or regurgitation. PULMONARY VALVE The pulmonary valve is not well visualized. VESSELS The inferior vena cava is normal in size. PERICARDIUM No pericardial effusion. Reena Shaffer MD, FACC (Electronically Signed) Final Date:11 April 2017 12:32
--- NOTE | 2017-04-11 14:11 | HHI.NPPN ---
Subjective History of Present Illness 62 year old male with ARF Rhabdomyolysis, painful, tired lethargic Additional Remarks Patient was dialyzed today, 2 liters of UF. Discontinue bicarbonate drip. Review of Systems General Constitutional: Fatigue Respiratory Lungs: SOB Musculoskeletal MS: Pain/Stiffness, Swelling in Back, Swelling in Joint Objective Data Data 04/11/17 04/12/17 19:00 07:00 Intake Total 341 ml Output Total 2000 ml Balance -1659 ml IV Total 341 ml Hemodialysis 2000 ml Vital Signs Date Time Temp Pulse Resp B/P (MAP) Pulse Ox O2 Delivery O2 Flow Rate FiO2 04/11/17 12:00 98.4 86 24 114/70 (85) 100 04/11/17 12:00 86 04/11/17 11:23 18 04/11/17 10:00 91 04/11/17 08:20 100 Nasal Cannula 2.00 04/11/17 08:00 87 04/11/17 08:00 98.0 87 11 98/63 (75) 100 04/11/17 07:00 100 Room Air 04/11/17 06:00 91 04/11/17 04:00 93 04/11/17 04:00 98.5 87 19 129/73 (91) 100 04/11/17 02:00 90 04/11/17 00:00 93 04/11/17 00:00 98.4 92 17 115/68 (84) 94 04/10/17 22:00 100 04/10/17 21:28 98 21 04/10/17 20:00 98.4 96 24 165/88 (113) 97 04/10/17 20:00 98 04/10/17 19:00 97 Room Air 04/10/17 18:00 92 04/10/17 16:00 98.1 87 23 142/82 (102) 97 04/10/17 16:00 87 -: 04/11/17 0425 04/11/17 0425 Physical Exam General Appearance: Well Developed, Well Nourished Neck Neck Exam: Jugular Vein Distension Pulmonary Resp Exam: Decreased Bases Cardiology CV Exam: Tachycardia Gastrointestinal/Abdomen GI Exam: Soft, Bowel Sounds Present Extremeties Extremities Exam: Trace Edema Assessment/Plan Problem List: (1) Acute renal failure ICD Codes: N17.9 - Acute kidney failure, unspecified Plan: ARF has Rhabdomyolysis He likely has acute tubular necrosis from underlying rhabdomyolysis Avoid nephrotoxins Dialysis initiated on 04/10. Monitor fluid and electrolytes. Avoid nephrotoxins. Dialysis as needed. (2) Rhabdomyolysis ICD Codes: M62.82 - Rhabdomyolysis Status: Acute Plan: Continue monitor his CPK trend is downwards (3) Subarachnoid hemorrhage ICD Codes: I60.9 - Nontraumatic subarachnoid hemorrhage, unspecified Plan: Neurosurgery following (4) UTI (lower urinary tract infection) ICD Codes: N39.0 - Urinary tract infection, site not specified (5) Sepsis ICD Codes: A41.9 - Sepsis, unspecified organism Plan: Staphylococcus species in blood culture. Management per retail services professional. Problem Qualifiers (1) Acute renal failure: Qualified Codes: N17.0 - Acute kidney failure with tubular necrosis (2) Rhabdomyolysis: Qualified Codes: M62.82 - Rhabdomyolysis Matt Saucedo MD Apr 11, 2017 14:11
[2017-04-12] VITALS (16 sets, daily range): BP systolic 96–165; BP diastolic 55–86; PULSE 84–104; RESP 13–36; TEMP 97.9–98.9; O2SAT 93–100
[2017-04-12] MEDS: cefTRIAXone INJ 1,000 MG in SODIUM CHLORIDE 0.9% INJ 100 ML IV SCH (03:21)
[2017-04-12] MEDS: CHLORHEXIDINE GLUCONATE 2 % 1 PACK (2 CLOTHS) TOP SCH (03:22)
[2017-04-12 05:27] LABS: HEMATOCRIT 29.9 % (39.0-51.0); HEMOGLOBIN 10.5 GM/DL (13.0-17.0); MEAN CELL VOLUME 104.6 FL (80.0-100.0); MEAN CORPUSCULAR HEMOGLOBIN 36.5 PG (27.0-34.0); MEAN CORPUSCULAR HGB CONC 34.9 % (32.0-36.0); MEAN PLATELET VOLUME 7.9 FL (7.0-11.0); PLATELET COUNT 72 TH/MM3 (150-450); RED BLOOD COUNT 2.86 MIL/MM3 (4.50-5.90); RED CELL DISTRIBUTION WIDTH 12.7 % (11.6-17.2); WHITE BLOOD COUNT 9.1 TH/MM3 (4.0-11.0)
[2017-04-12 05:53] LABS: CALCIUM 7.3 MG/DL (8.5-10.1); CREATININE 5.34 MG/DL (0.60-1.30)
[2017-04-12] MEDS: INSULIN NovoLIN REGULAR SUPPLEMENTAL SCALE SQ SCH ×3 (06:00→18:00)
[2017-04-12 06:09] LABS: CALCIUM-PROTEIN CORRECTED 8.6 MG/DL (8.5-10.1); TOTAL PROTEIN 4.8 GM/DL (6.4-8.2)
[2017-04-12] MEDS ORDERED: VANCOMYCIN INJ 1,000 MG in SODIUM CHLOR 0.9% 250 ML INJ 250 ML IV ONE (08:00)
--- NOTE | 2017-04-12 08:00 | HHI.CCPN ---
Subjective Remarks/Hospital Course This is a 8-year-old male who reportedly fell at home yesterday and was unable to get up for at least 5 hours, but likely greater than that. He called 911 today and was brought in tonight by EMS. He does endorse possibly syncopized. He states he has fallen recently over the last few days, but this is unusual for him. He denies headache. He denies fever, chills, shortness of breath, chest pain, nausea, vomiting, abdominal pain, diarrhea. He does not endorse any other symptom other than the frequent falls. In the emergency department CT had demonstrated small subarachnoid hemorrhage, likely traumatic. In addition, the patient had very dark very thick urine, and his CK level was greater than 40,000. He was immediately started on IV sodium bicarb and IV fluids. He also has evidence of hyperkalemia, hyponatremia, acute kidney injury with a creatinine greater than 2. Critical care medicine is consulted to evaluate manage his acute rhabdo, his multiple organ failure. 04/10: CK level declining but renal function deteriorating. Urine minimal. 04/11: Renal function continues to reflect kidney injury. HD started. Fluid balance about right. 04/12: 04/12 culture bottles blood with Staph aureus, awaiting C&S. Will switch to Vancomycin for one dose pending. Afebrile, WBC normal. Objective Vital Signs Date Time Temp Pulse Resp B/P (MAP) Pulse Ox O2 Delivery O2 Flow Rate FiO2 04/12/17 06:00 90 04/12/17 04:00 98.6 13 115/71 (86) 93 04/11/17 21:06 21 04/11/17 19:00 Nasal Cannula 2.00 Intake and Output 04/12/17 04/12/17 04/13/17 08:00 16:00 00:00 Intake Total 420 ml Output Total 300 ml Balance 120 ml Result Diagram: 04/12/17 0510 04/12/17 0510 Other Results Microbiology Date/Time Source Procedure Growth Status 04/11/17 14:20 Stool Stool Stool Occult Blood (RADHA) - Final HEMOCCULT POSITIVE Complete Imaging Last Impressions Head CT 04/08/172033 Signed Impressions: Service Date/Time: Saturday, April 08, 2017 22:01 - CONCLUSION: Small amount of probable acute subarachnoid hemorrhage within the high right parietal region which may be post-traumatic in etiology. Clinical correlation is recommended. Kang Cruz MD Chest X-Ray 04/08/172033 Signed Impressions: Service Date/Time: Saturday, April 08, 2017 20:56 - CONCLUSION: No acute disease. Kang Cruz MD Abdomen/Pelvis CT 04/08/17 0000 Signed Impressions: Service Date/Time: Saturday, April 08, 2017 22:09 - CONCLUSION: 1. No acute obstructive uropathy. 2. Uncomplicated colonic diverticulosis. 3. Nodular contour of liver suggesting possible cirrhosis. 4. Degenerative changes and scoliosis of the lumbar spine. Kang Cruz MD Objective Remarks GENERAL: Middle-age male who appears older than stated age, lying in bed, in distress due to generalized back pain. HEENT: Normocephalic. Atraumatic. Pupils equal, round, reactive, conjugate. NECK: Trachea is midline. Airway widely patent CHEST: Equal chest rise. No adventitious sounds. CARDIOVASCULAR: Tachycardic rate, regular rhythm. Sinus by telemetry. No JVD. ABDOMEN: Soft, nontender, nondistended. No guarding. BS active. MUSCULOSKELETAL: Pulses 2+. No peripheral edema. Well perfused. NEUROLOGICAL: O X 3. Follows commands. No focal deficits. Moves 4 limbs to command. A/P Assessment and Plan Assessment: 62-year-old male with recent frequent falls whose course is complicated by severe life-threatening rhabdomyolysis, acute kidney injury, and traumatic subarachnoid hemorrhage. Unclear etiology of his frequent falls. Will need aggressive hydration for his acute rhabdo given that it is already calling causing end-organ damage. Agree with admitting the ICU. Traumatic Subarachnoid hemorrhage - no anticoagulation - nsgy consultation - frequent neuro checks - tight bp control, < 140. - hydralazine, labetalol prn for this Severe Acute Rhabdomyolysis - serial CK - alkalinization - ivf - watch uop closely Acute Kidney Injury - secondary to acute rhabdo - place [place] - close monitoring of uop - daily bmp - watch electrolytes closely - Deteriorating function. - HD started 04/10 Hyperkalemia Hyponatremia - secondary to acute kidney injury and rhabdo - bicarb and ivf - trend, improved Urinary Tract Infection - Rocephin 1gm iv q24h - f/u urine culture - does not appear patient is septic at this time: clinical symptomatology suggests stress response from rhabdo and head bleed. - Stop ceftriaxone, reculture for fevers, sxs SCDs hold pharmacologic DVT prophylaxis given head bleed Overall impression: Remains critically ill with deteriorating renal function and worsening metabolic state. Unstable and now requiring dialysis hemodialysis. Blood cultures positive for Staph aureas. Critical care 35 mins Vinicio Fitzgerald MD Apr 12, 2017 08:00
[2017-04-12] MEDS: PANTOPRAZOLE SODIUM 40 MG VIAL IV PUSH SCH (08:55)
[2017-04-12] MEDS: THIAMINE HCL 100 MG TAB PO SCH (08:55)
[2017-04-12] MEDS: SODIUM CHLORIDE 0.9% FLUSH 10 ML FLUSH IV FLUSH SCH ×2 (08:55→20:23)
[2017-04-12] MEDS: ACETAMINOPHEN/HYDROcodone 325 MG/5 MG TAB PO PRN ×4 (08:56→20:23)
[2017-04-12] MEDS: GABAPENTIN 100 MG CAP PO SCH ×4 (08:56→20:23)
[2017-04-12] MEDS: METOPROLOL TARTRATE 25 MG TAB PO SCH (08:56)
--- NOTE | 2017-04-12 09:42 | HHI.NPPN ---
Subjective History of Present Illness 62 year old male with ARF Rhabdomyolysis, painful, tired lethargic Additional Remarks Oliguric. Received dialysis yesterday. Positive blood culture. Review of Systems General Constitutional: Fatigue Respiratory Lungs: SOB Musculoskeletal MS: Pain/Stiffness, Swelling in Back, Swelling in Joint Objective Data Data Vital Signs Date Time Temp Pulse Resp B/P (MAP) Pulse Ox O2 Delivery O2 Flow Rate FiO2 04/12/17 06:00 90 04/12/17 04:00 94 04/12/17 04:00 98.6 95 13 115/71 (86) 93 04/12/17 02:00 92 04/12/17 00:00 88 04/12/17 00:00 98.8 92 16 96/55 (69) 99 04/11/17 22:55 24 04/11/17 22:00 81 04/11/17 21:06 99 21 04/11/17 20:00 87 04/11/17 20:00 99.3 94 12 120/62 (81) 99 04/11/17 19:00 100 Nasal Cannula 2.00 04/11/17 18:00 94 04/11/17 16:00 94 04/11/17 16:00 98.7 94 22 102/67 (79) 99 04/11/17 14:00 90 04/11/17 12:00 98.4 86 24 114/70 (85) 100 04/11/17 12:00 86 04/11/17 10:00 91 -: 04/12/17 0510 04/12/17 0510 Microbiology 04/11/17 Stool Occult Blood (RADHA) - Final, Complete HEMOCCULT POSITIVE Physical Exam General Appearance: Well Developed, Well Nourished Neck Neck Exam: Jugular Vein Distension Pulmonary Resp Exam: Decreased Bases Cardiology CV Exam: Tachycardia Gastrointestinal/Abdomen GI Exam: Soft, Bowel Sounds Present Extremeties Extremities Exam: Trace Edema Assessment/Plan Problem List: (1) Acute renal failure ICD Codes: N17.9 - Acute kidney failure, unspecified Plan: ARF has Rhabdomyolysis He likely has acute tubular necrosis from underlying rhabdomyolysis Avoid nephrotoxins Dialysis initiated on 04/10. Monitor fluid and electrolytes. Avoid nephrotoxins. Dialysis as needed. (2) Rhabdomyolysis ICD Codes: M62.82 - Rhabdomyolysis Status: Acute Plan: Continue monitor his CPK trend is downwards (3) Subarachnoid hemorrhage ICD Codes: I60.9 - Nontraumatic subarachnoid hemorrhage, unspecified Plan: Neurosurgery following (4) UTI (lower urinary tract infection) ICD Codes: N39.0 - Urinary tract infection, site not specified (5) Sepsis ICD Codes: A41.9 - Sepsis, unspecified organism Plan: Staphylococcus species in blood culture. Management per senior oracle dba. Vancomycin ordered. Problem Qualifiers (1) Acute renal failure: Qualified Codes: N17.0 - Acute kidney failure with tubular necrosis (2) Rhabdomyolysis: Qualified Codes: M62.82 - Rhabdomyolysis Matt Saucedo MD Apr 12, 2017 09:42
[2017-04-12] MEDS: RESP: ALBUTEROL 2.5 MG/IPRATROPIUM 0.5 MG NEB (SCH) INH ×3 (09:54→20:38)
--- NOTE | 2017-04-12 11:30 | HHI.NSPN ---
(Mary Lou Bautista) Note Status Status: Progress Note (Mary Lou Bautista) Interval History Interval History 04/09: Mr. Choudhury is a 62-year-old male who presented to the emergency room last night after he was found on the floor by his roommate. He apparently fell yesterday and was lying on the ground for several hours. He indicates generalized weakness over the past few days and has fallen at least 2 times in the past couple of days. He indicates a possible syncopal type episode. Initial workup in the emergency room included a CT scan of the head which revealed probable mild right parietal convexity subarachnoid hemorrhage. He was also found to have a CPK over 40,000 and laboratory results consistent with rhabdomyolysis and UTI with possible urosepsis. He was given normal saline bolus and sodium bicarbonate by me. Also started on vancomycin and Zosyn. No seizure activity reported. 04/10: The patient is in bed with his eyes closed but he immediately answers to voice. He states "I feel like I am dying." He does say he felt a hundred percent better yesterday compared with today. He reports that his lower extremities are the worse and feel numb. He also continues to have numbness to the left side of the body which he was laying on when found. His CK is improving but he does remain in renal failure. Upon evaluation the patient is weaker to the lower extremities which are painful to touch. He is able to move the upper extremities slightly better but they are still weak. 3/3: receiving dialysis for acute kidney injury, reports mild headaches, and weakness in left lower extremity that is new. 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 34: feeing himself breakfast. doing well, reports left side still weak, denies any vision changes, loss of peripheral vision (Mary Lou Bautista) Labs, Micro, & Vital Signs Results Date Time Temp Pulse Resp B/P (MAP) Pulse Ox O2 Delivery O2 Flow Rate FiO2 04/12/17 09:54 93 Nasal Cannula 2.00 04/12/17 06:00 90 04/12/17 04:00 94 04/12/17 04:00 98.6 95 13 115/71 (86) 93 04/12/17 02:00 92 04/12/17 00:00 88 04/12/17 00:00 98.8 92 16 96/55 (69) 99 04/11/17 22:55 24 04/11/17 22:00 81 04/11/17 21:06 99 21 04/11/17 20:00 87 04/11/17 20:00 99.3 94 12 120/62 (81) 99 04/11/17 19:00 100 Nasal Cannula 2.00 04/11/17 18:00 94 04/11/17 16:00 94 04/11/17 16:00 98.7 94 22 102/67 (79) 99 04/11/17 14:00 90 04/11/17 12:00 98.4 86 24 114/70 (85) 100 04/11/17 12:00 86 Constitutional Vital Signs Date Time Temp Pulse Resp B/P (MAP) Pulse Ox O2 Delivery O2 Flow Rate FiO2 04/12/17 09:54 93 Nasal Cannula 2.00 04/12/17 06:00 90 04/12/17 04:00 94 04/12/17 04:00 98.6 95 13 115/71 (86) 93 04/12/17 02:00 92 04/12/17 00:00 88 04/12/17 00:00 98.8 92 16 96/55 (69) 99 04/11/17 22:55 24 04/11/17 22:00 81 04/11/17 21:06 99 21 04/11/17 20:00 87 04/11/17 20:00 99.3 94 12 120/62 (81) 99 04/11/17 19:00 100 Nasal Cannula 2.00 04/11/17 18:00 94 04/11/17 16:00 94 04/11/17 16:00 98.7 94 22 102/67 (79) 99 04/11/17 14:00 90 04/11/17 12:00 98.4 86 24 114/70 (85) 100 04/11/17 12:00 86 (Mary Lou Bautista) Physical Exam GENERAL: No acute distress. HEENT: Swelling to the left side of the face. PERRLA 3 mm brisk, EOMI. No otorrhea or rhinorrhea. Motor: Moves b/l upper extremity 4/5, R>L, right lower extremity 3-4, left lower extremity 2/5 NEUROLOGICAL: alert, oriented x 3. following commands. conversing. Tongue midline to protrusion. Left side facial & scalp numbness. 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 HEENT: Swelling to the left side of the face. PERRLA 3 mm brisk, EOMI. No otorrhea or rhinorrhea. Motor: Moves b/l upper extremity 4/5, R>L, right lower extremity 3-4, left lower extremity 2/5 NEUROLOGICAL: alert, oriented x 3. following commands. conversing. Tongue midline to protrusion. Left side facial & scalp numbness. Heart: regular rate Resp: clear Skin. Warm and dry (Tello Tinsley MD) Medications Current Medications Current Medications Medications (Trade) Dose Ordered Sig/Ted Route PRN Reason Start Time Stop Time Status Last Admin Dose Admin Labetalol HCl (Trandate Inj) 20 mg Q15M PRN IV PUSH sbp > 160 04/09/17 00:00 04/09/17 14:36 Hydralazine HCl (Apresoline Inj) 10 mg Q30M PRN IV PUSH sbp > 160 04/09/17 00:00 04/09/17 08:36 Dextrose (D50w (Vial) Inj) 25 ml UNSCH PRN IV PUSH HYPOGLYCEMIA-SEE COMMENTS 04/09/17 00:00 Insulin Human Regular (NovoLIN R SUPPLEMENTAL SCALE) 1 Q6HR SQ 04/09/17 00:00 Albuterol/ Ipratropium (Duoneb Neb) 1 ampule Q6HR NEB INH 04/09/17 04:00 04/12/17 09:54 Albuterol/ Ipratropium (Duoneb Neb) 1 ampule Q2HR NEB PRN INH WHEEZING 04/09/17 00:00 Pantoprazole Sodium (Protonix Inj) 40 mg DAILY IV PUSH 04/09/17 09:00 04/12/17 08:55 Ondansetron HCl (Zofran Inj) 4 mg Q6H PRN IV PUSH NAUSEA OR VOMITING 04/09/17 00:00 04/10/17 09:50 Albuterol/ Ipratropium (Duoneb Neb) 1 ampule Q2HR NEB PRN INH WHEEZING 04/09/17 00:00 Miscellaneous Information 1 Q361D XX 04/09/17 00:00 Chlorhexidine Gluconate (Chlorhexidine 2% Cloth) 3 pack Taper DAILY@04 TOP 04/09/17 04:00 04/05/18 03:59 04/12/17 03:22 Chlorhexidine Gluconate (Chlorhexidine 2% Cloth) 3 pack UNSCH PRN TOP HYGIENIC CARE 04/09/17 00:00 Acetaminophen/ Hydrocodone Bitart (Avenue 5-325 Mg) 1 tab Q4H PRN PO PAIN 1-10 04/09/17 10:00 04/12/17 08:56 Metoprolol Tartrate (Lopressor) 25 mg DAILY PO 04/10/17 09:00 04/12/17 08:56 Miscellaneous (Pill Splitter) 1 ea UNSCH PRN OTHER SEE LABEL COMMENTS 04/09/17 10:15 Sodium Chloride (NS Flush) 2 ml UNSCH PRN IV FLUSH FLUSH AFTER USING IV ACCESS 04/09/17 10:15 Sodium Chloride (NS Flush) 2 ml BID IV FLUSH 04/09/17 21:00 04/12/17 08:55 Multivitamins 10 ml/Folic Acid 1 mg/Sodium Chloride 510.2 ml @ 125 mls/hr Q24H IV 04/09/17 11:00 04/14/17 10:59 04/11/17 10:48 Thiamine HCl (Vitamin B1) 100 mg DAILY PO 04/12/17 09:00 04/12/17 08:55 Flumazenil (Romazicon Inj) 0.2 mg Q1M PRN IV PUSH SEE LABEL COMMENTS 04/09/17 10:15 Lorazepam (Ativan) 1 mg Q4H PRN PO CIWA 8 - 10 04/09/17 10:15 Lorazepam (Ativan Inj) 1 mg Q4H PRN IV PUSH CIWA 8 - 10 04/09/17 10:15 Lorazepam (Ativan) 2 mg Q2H PRN PO CIWA 11-14 04/09/17 10:15 Lorazepam (Ativan Inj) 2 mg Q2H PRN IV PUSH CIWA 11-14 04/09/17 10:15 Lorazepam (Ativan Inj) 2 mg Q1H PRN IV PUSH CIWA 15-20 04/09/17 10:15 Lorazepam (Ativan Inj) 2 mg Q15M PRN IV PUSH CIWA > 20 04/09/17 10:15 Gabapentin (Neurontin) 100 mg QID PO 04/09/17 13:00 04/12/17 08:56 Sodium Chloride 1,000 ml @ 0 mls/hr Q0M PRN OTHER For Prime & Rinse Back 04/10/17 16:22 Heparin Sodium (Porcine) (Heparin Inj) 8,000 units UNSCH PRN IV FLUSH WITH DIALYSIS 04/10/17 16:30 Sodium Chloride 1,000 ml @ 200 mls/hr Q5H PRN IV WITH DIALYSIS 04/10/17 16:22 Sodium Chloride 1,000 ml @ 0 mls/hr Q0M PRN OTHER WITH DIALYSIS 04/10/17 16:22 Mannitol (Mannitol Inj) 12.5 gm UNSCH PRN IV WITH DIALYSIS 04/10/17 16:30 Albumin Human 100 ml @ 60 mls/hr UNSCH PRN IV WITH DIALYSIS 04/10/17 16:30 Sodium Chloride (NS Flush) 5 ml UNSCH PRN IV FLUSH WITH DIALYSIS 04/10/17 16:30 Heparin Sodium (Porcine) (Heparin Inj) UNSCH PRN .XX WITH DIALYSIS 04/10/17 16:30 Gentamicin Sulfate (Gentamicin Inj) 20 mg UNSCH PRN OTHER WITH DIALYSIS 04/10/17 16:30 Ondansetron HCl (Zofran Inj) 4 mg UNSCH PRN IV PUSH WITH DIALYSIS 04/10/17 16:30 Acetaminophen (Tylenol) 650 mg UNSCH PRN PO for headach, pain, temp > 101F 04/10/17 16:30 Diphenhydramine HCl (Benadryl) 25 mg UNSCH PRN PO for hives/itching/anaphylaxis 04/10/17 16:30 Nitroglycerin (Nitrostat Sl) 0.4 mg UNSCH PRN SL CHEST PAIN 04/10/17 16:30 Clonidine (Catapres) 0.1 mg UNSCH PRN PO for BP > 180/100 X 2 readings 04/10/17 16:30 Gelatin (Gelfoam 12 Mm/7 Mm Top) 1 foam UNSCH PRN TOP SEE LABEL COMMENTS 04/10/17 16:30 Tizanidine HCl (Zanaflex) 2 mg HS PO 04/11/17 21:00 04/11/17 21:52 (Mary Lou Bautista) Current Medications Current Medications Vancomycin HCl 1000 mg/Sodium Chloride 250 ml @ 250 mls/hr ONCE ONCE IV Last administered on 04/08/17at 21:05; Start 04/08/17 at 20:45; Stop 04/08/17 at 21:44 ; Status DC Piperacillin Sod/ Tazobactam Sod 50 ml @ 100 mls/hr ONCE ONCE IV Last administered on 04/08/17at 20:48; Start 04/08/17 at 20:45; Stop 04/08/17 at 21:14 ; Status DC Sodium Chloride 1,000 ml @ 999 mls/hr BOLUS ONCE IV Last administered on 04/08at 20:48; Start 04/08/17 at 20:45; Stop 04/08/17 at 21:45; Status DC Sodium Chloride 1,000 ml @ 999 mls/hr BOLUS ONCE IV Last administered on 04/08at 22:21; Start 04/08/17 at 22:15; Stop 04/08/17 at 23:15; Status DC Sodium Chloride 1,000 ml @ 999 mls/hr BOLUS ONCE IV Last administered on 04/08at 23:07; Start 04/08/17 at 23:00; Stop 04/09/17 at 00:00; Status DC Labetalol HCl (Trandate Inj) 20 mg Q15M PRN IV PUSH sbp > 160 Last administered on 04/13/17at 09:18; Start 04/09/17 at 00:00 Hydralazine HCl (Apresoline Inj) 10 mg Q30M PRN IV PUSH sbp > 160 Last administered on 04/09/17at 08:36; Start 04/09/17 at 00:00 Dextrose (D50w (Vial) Inj) 25 ml UNSCH PRN IV PUSH HYPOGLYCEMIA-SEE COMMENTS; Start 04/09/17 at 00:00 Insulin Human Regular (NovoLIN R SUPPLEMENTAL SCALE) 1 Q6HR SQ ; Start 04/09/17 at 00:00 Albuterol/ Ipratropium (Duoneb Neb) 1 ampule Q6HR NEB INH Last administered on 04/13/17at 03:09; Start 04/09/17 at 04:00; Stop 04/13/17 at 03:59; Status DC Albuterol/ Ipratropium (Duoneb Neb) 1 ampule Q2HR NEB PRN INH WHEEZING; Start 04/09/17 at 00:00 Sodium Chloride 1,000 ml @ 150 mls/hr Q6H40M IV Last administered on 04/09/17at 13:01; Start 04/08/17 at 23:57; Stop 04/09/17 at 16:31; Status DC Pantoprazole Sodium (Protonix Inj) 40 mg DAILY IV PUSH Last administered on 04/13at 07:58; Start 04/09/17 at 09:00 Ondansetron HCl (Zofran Inj) 4 mg Q6H PRN IV PUSH NAUSEA OR VOMITING Last administered on 04/10/17at 09:50; Start 04/09/17 at 00:00 Albuterol/ Ipratropium (Duoneb Neb) 1 ampule Q2HR NEB PRN INH WHEEZING; Start 04/09/17 at 00:00 Miscellaneous Information 1 Q361D XX ; Start 04/09/17 at 00:00 Chlorhexidine Gluconate (Chlorhexidine 2% Cloth) 3 pack Taper DAILY@04 TOP Last administered on 04/12/17at 03:22; Start 04/09/17 at 04:00; Stop 04/05/18 at 03 :59 Chlorhexidine Gluconate (Chlorhexidine 2% Cloth) 3 pack UNSCH PRN TOP HYGIENIC CARE; Start 04/09/17 at 00:00 Sodium Bicarbonate 150 meq/Dextrose 1,150 ml @ 50 mls/hr Q23H IV Last administered on 04/11/17at 06:28; Start 04/09/17 at 00:45; Stop 04/11/17 at 11:06; Status DC Ceftriaxone Sodium 1000 mg/ Sodium Chloride 100 ml @ 200 mls/hr Q24H IV Last administered on 04/12/17at 03:21; Start 04/09/17 at 02:00; Stop 04/12/17 at 07:56; Status DC Acetaminophen/ Hydrocodone Bitart (Avenue 5-325 Mg) 1 tab Q4H PRN PO PAIN 1-10 Last administered on 04/12/17 20:23; Start 04/09/17 at 10:00 Metoprolol Tartrate (Lopressor) 25 mg DAILY PO Last administered on 04/12/17 08 :56; Start 04/10/17 at 09:00 Tizanidine HCl (Zanaflex) 2 mg TID PO Last administered on 04/10/17 09:26; Start 04/09/17 at 13:00; Stop 04/11/17 at 16:42; Status DC Miscellaneous (Pill Splitter) 1 ea UNSCH PRN OTHER SEE LABEL COMMENTS; Start at 10:15 Sodium Chloride (NS Flush) 2 ml UNSCH PRN IV FLUSH FLUSH AFTER USING IV ACCESS ; Start 04/09/17 at 10:15 Sodium Chloride (NS Flush) 2 ml BID IV FLUSH Last administered on 04/13/17at 07: 59; Start 04/09/17 at 21:00 Multivitamins 10 ml/Folic Acid 1 mg/Sodium Chloride 510.2 ml @ 125 mls/hr Q24H IV Last administered on 04/13/17 11:28; Start 04/09/17 at 11:00; Stop 04/14/17 at 10:59 Thiamine HCl 100 mg/Sodium Chloride 101 ml @ 100 mls/hr Q24H IV Last administered on 04/11/17at 10:15; Start 04/09/17 at 11:00; Stop 04/11/17 at 12:01; Status DC Thiamine HCl (Vitamin B1) 100 mg DAILY PO Last administered on 04/12/17at 08:55; Start 04/12/17 at 09:00 Flumazenil (Romazicon Inj) 0.2 mg Q1M PRN IV PUSH SEE LABEL COMMENTS; Start 04/09/17 at 10:15 Lorazepam (Ativan) 1 mg Q4H PRN PO CIWA 8 - 10 Last administered on 04/12/17at 16 :39; Start 04/09/17 at 10:15 Lorazepam (Ativan Inj) 1 mg Q4H PRN IV PUSH CIWA 8 - 10; Start 04/09/17 at 10:15 Lorazepam (Ativan) 2 mg Q2H PRN PO CIWA 11-14; Start 04/09/17 at 10:15 Lorazepam (Ativan Inj) 2 mg Q2H PRN IV PUSH CIWA 11-14; Start 04/09/17 at 10:15 Lorazepam (Ativan Inj) 2 mg Q1H PRN IV PUSH CIWA 15-20 Last administered on 04/12at 20:55; Start 04/09/17 at 10:15 Lorazepam (Ativan Inj) 2 mg Q15M PRN IV PUSH CIWA > 20; Start 04/09/17 at 10:15 Gabapentin (Neurontin) 100 mg QID PO Last administered on 04/12/17at 20:23; Start 04/09/17 at 13:00 Albumin Human 100 ml @ 60 mls/hr ONCE ONCE IV Last administered on 04/09/17at 11:04; Start 04/09/17 at 10:45; Stop 04/09/17 at 12:24; Status DC Furosemide (Lasix Inj) 120 mg ONCE ONCE IV PUSH Last administered on 04/09/17at 11:04; Start 04/09/17 at 10:45; Stop 04/09/17 at 10:55; Status DC Sodium Chloride 1,000 ml @ 999 mls/hr Q1H1M ONCE IV Last administered on at 11:21; Start 04/09/17 at 11:30; Stop 04/09/17 at 12:30; Status DC Bumetanide 100 ml @ 8 mls/hr [id number] IV Last administered on 04/10/17at 03:34; Start 04/09/17 at 16:30; Stop 04/10/17 at 16:23; Status DC Sodium Chloride 1,000 ml @ 0 mls/hr Q0M PRN OTHER For Prime & Rinse Back; Start 04/10/17 at 16:22 Heparin Sodium (Porcine) (Heparin Inj) 8,000 units UNSCH PRN IV FLUSH WITH DIALYSIS; Start 04/10/17 at 16:30 Sodium Chloride 1,000 ml @ 200 mls/hr Q5H PRN IV WITH DIALYSIS; Start 04/10/17 at 16:22 Sodium Chloride 1,000 ml @ 0 mls/hr Q0M PRN OTHER WITH DIALYSIS; Start 04/10/17 at 16:22 Mannitol (Mannitol Inj) 12.5 gm UNSCH PRN IV WITH DIALYSIS; Start 04/10/17 at 16 :30 Albumin Human 100 ml @ 60 mls/hr UNSCH PRN IV WITH DIALYSIS; Start 04/10/17 at 16:30 Sodium Chloride (NS Flush) 5 ml UNSCH PRN IV FLUSH WITH DIALYSIS; Start at 16:30 Heparin Sodium (Porcine) (Heparin Inj) UNSCH PRN .XX WITH DIALYSIS; Start 04/10 at 16:30 Gentamicin Sulfate (Gentamicin Inj) 20 mg UNSCH PRN OTHER WITH DIALYSIS; Start 04/10/17 at 16:30 Ondansetron HCl (Zofran Inj) 4 mg UNSCH PRN IV PUSH WITH DIALYSIS; Start at 16:30 Acetaminophen (Tylenol) 650 mg UNSCH PRN PO for headach, pain, temp > 101F; Start 04/10/17 at 16:30 Diphenhydramine HCl (Benadryl) 25 mg UNSCH PRN PO for hives/itching/anaphylaxis ; Start 04/10/17 at 16:30 Nitroglycerin (Nitrostat Sl) 0.4 mg UNSCH PRN SL CHEST PAIN; Start 04/10/17 at 16:30 Clonidine (Catapres) 0.1 mg UNSCH PRN PO for BP > 180/100 X 2 readings; Start 04/10/17 at 16:30 Gelatin (Gelfoam 12 Mm/7 Mm Top) 1 foam UNSCH PRN TOP SEE LABEL COMMENTS; Start 04/10/17 at 16:30 Midazolam HCl (Versed Inj) 5 mg STK-MED ONCE .ROUTE Last administered on at 16:37; Start 04/10/17 at 16:37; Stop 04/10/17 at 16:38; Status DC Tizanidine HCl (Zanaflex) 2 mg HS PO Last administered on 04/12/17at 20:23; Start 04/11/17 at 21:00 Vancomycin HCl 1000 mg/Sodium Chloride 250 ml @ 250 mls/hr ONCE ONCE IV Last administered on 04/12/17at 08:55; Start 04/12/17 at 08:00; Stop 04/12/17 at 08:59; Status DC Quetiapine Fumarate (SEROquel) 50 mg BID PO Last administered on 04/12/17at 21:31 ; Start 04/12/17 at 21:30; Stop 04/13/17 at 02:17; Status DC Dexmedetomidine HCl 200 mcg/ Sodium Chloride 52 ml @ 4.98 mls/hr TITRATE PRN IV SEDATION Last administered on 04/12/17at 21:31; Start 04/12/17 at 21:30; Stop at 00:21; Status DC Norepinephrine Bitartrate 4 mg/ Sodium Chloride 250 ml @ 7.5 mls/hr TITRATE PRN IV Blood pressure management Last administered on 04/12/17at 23:40; Start 04/12 at 23:30; Stop 04/13/17 at 04:42; Status DC Terbutaline Sulfate (Brethine Inj) 1 mg UNSCH PRN SQ For Extravasation; Start 04/12/17 at 23:30 Norepinephrine Bitartrate 250 ml @ As Directed STK-MED ONCE IV ; Start 04/12/17 at 23:27; Stop 04/12/17 at 23:28; Status DC Etomidate (Amidate Inj) 40 mg STK-MED ONCE .ROUTE ; Start 04/12/17 at 23:32; Stop 04/12/17 at 23:33; Status DC Etomidate (Amidate Inj) 20 mg ONCE ONCE IV PUSH Last administered on 04/12/17at 23:45; Start 04/12/17 at 23:45; Stop 04/12/17 at 23:46; Status DC Rocuronium [place] (Zemuron Inj) 50 mg BOLUS ONCE IV Last administered on at 23:45; Start 04/12/17 at 23:45; Stop 04/12/17 at 23:46; Status DC Rocuronium [place] (Zemuron Inj) 50 mg STK-MED ONCE .ROUTE ; Start 04/12/17 at 23 :32; Stop 04/12/17 at 23:33; Status DC Propofol 50 ml @ As Directed STK-MED ONCE .ROUTE ; Start 04/13/17 at 00:07; Stop 04/13/17 at 00:08; Status DC Dexmedetomidine HCl 400 mcg/ Sodium Chloride 104 ml @ 4.98 mls/hr TITRATE PRN IV SEDATION; Start 04/13/17 at 00:30; Stop 04/13/17 at 00:30; Status DC Dexmedetomidine HCl 400 mcg/ Sodium Chloride 100 ml @ 4.79 mls/hr TITRATE PRN IV SEDATION; Start 04/13/17 at 00:30 Propofol 100 ml @ 2.874 mls/ hr TITRATE PRN IV SEDATION Last administered on at 08:01; Start 04/13/17 at 00:30 Pharmacy Profile Note 0 ml @ 0 mls/hr UNSCH OTHER ; Start 04/13/17 at 02:30 Vancomycin HCl 1500 mg/Sodium Chloride 515 ml @ 257.5 mls/ hr ONCE ONCE IV Last administered on 04/13/17at 04:54; Start 04/13/17 at 04:00; Stop 04/13/17 at 05: 59; Status DC Sodium Chloride 500 ml @ 30 mls/hr CONTINUOUS IV ; Start 04/13/17 at 03:30 Sodium Chloride 1,000 ml @ 999 mls/hr Q1H1M ONCE IV Last administered on at 23:40; Start 04/12/17 at 23:30; Stop 04/13/17 at 03:36; Status DC Etomidate (Amidate Inj) 20 mg UNSCH X1 IV PUSH ; Start 04/12/17 at 23:30; Stop 04/13/17 at 03:38; Status DC Aztreonam 2000 mg/ Sodium Chloride 100 ml @ 200 mls/hr ONCE ONCE IV Last administered on 04/13/17at 05:34; Start 04/13/17 at 04:45; Stop 04/13/17 at 05:14; Status DC Aztreonam 500 mg/ Sodium Chloride 100 ml @ 200 mls/hr Q8H IV ; Start 04/13/17 at 14:00 Norepinephrine Bitartrate 4 mg/ Sodium Chloride 250 ml @ 7.5 mls/hr TITRATE PRN IV Blood pressure management Last administered on 04/13/17at 05:41; Start 04/13 at 05:00 Fentanyl Citrate (fentaNYL INJ) 100 mcg ONCE ONCE IV PUSH ; Start 04/13/17 at 11 :45; Stop 04/13/17 at 11:46; Status UNV Fentanyl Citrate 250 ml TITRATE PRN IV SEDATION; Start 04/13/17 at 11:45; Status UNV (Tello Tinsley MD) Medical Decision Making MDM Remarks [address] Brain right intraparenchymal hemorrhage MRI Brain with multiple acute infarcts, right parietal and b/l occipital, ? embolic, echocardiogram pending severe rhabdomyolysis, acute kidney injury - HD initiated Echocardiogram: The left ventricular systolic function is normal with an estimated ejection fraction in the range of 60-65%. Mild concentric left ventricular hypertrophy. Normal left ventricular size. Last Impressions Thoracic Spine MRI 04/10/17 Signed Impressions: Service Date/Time: Monday, April 10, 2017 10:52 - CONCLUSION: Cervical and upper thoracic cord syrinx. Tiny disc protrusions at a couple of levels without significant anatomic compromise Mariusz Fernandes MD Lumbar Spine MRI 04/10/17 Signed Impressions: Service Date/Time: Monday, April 10, 2017 10:52 - CONCLUSION: 1. Multilevel disc bulges or mild protrusions between L2 and L5 resulting in mild lateral recess encroachment and mild foraminal encroachment as above. 2. Minimal retrolisthesis of L5 on S1 with mild left-sided foraminal stenosis. 3. No acute fracture. Conus medullaris intact. Lexx Alva MD Head Magnetic Resonance Angiography 04/10/17 Signed Impressions: Service Date/Time: Monday, April 10, 2017 10:52 - CONCLUSION: 1. Unremarkable [place] MRA examination. Specifically, no evidence for large vessel occlusion or aneurysm. Jose Linares MD Chest X-Ray 04/10/17 Signed Impressions: Service Date/Time: Monday, April 10, 2017 17:48 - CONCLUSION: 1. Bibasilar streakiness consistent with atelectasis and/or infiltrates. 2. Left internal jugular Vas-Cath and left subclavian central line are in good positions in the superior vena cava. 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 Advanced degenerative change at C2-C3-4-5 with AP canal stenosis and lateral recess encroachment most notable at C2-3 on the left. Solid bony union across area of previous fusion at C5-6- 7. Lexx Alva MD Brain MRI 04/10/17 Signed Impressions: Service Date/Time: Monday, April 10, 2017 10:52 - CONCLUSION: Acute hemorrhage as described above high right parietal region Focal restricted diffusion right cervical hemisphere and both occipital lobes suggesting he posterior fossa embolic event. Paras Scales MD FACR Renal Ultrasound 04/09/17 Signed Impressions: Service Date/Time: April 12:12 - CONCLUSION: Normal examination. Tk Martínez MD Maxillofacial CT 04/09/17 0000 Signed Impressions: Service Date/Time: April 13:28 - CONCLUSION: 1. There is no evidence of acute fracture. Toney Schulz MD Head CT 04/09/17 0000 Signed Impressions: Service Date/Time: April 09:35 - CONCLUSION: 1.7 cm a intraparenchymal hemorrhage in the high right parietal region. No significant subarachnoid or subdural hematoma identified. No other areas of hemorrhage noted. Tk Martínez MD Abdomen/Pelvis CT 04/08/17 0000 Signed Impressions: Service Date/Time: Saturday, April 08, 2017 22:09 - CONCLUSION: 1. No acute obstructive uropathy. 2. Uncomplicated colonic diverticulosis. 3. Nodular contour of liver suggesting possible cirrhosis. 4. Degenerative changes and scoliosis of the lumbar spine. Kang Cruz MD (Mary Lou Bautista) Plan Plan Remarks Dr. Tinsley requesting Neurology evaluation for multiple CVAs cont critical care mgt serial neuro checks start PT, OT (Mary Lou Bautista) Attending Statement I again reviewed his radiological studies Thoracic Spine MRI 04/10/17 Signed Impressions: Service Date/Time: Monday, April 10, 2017 10:52 - CONCLUSION: Cervical and upper thoracic cord syrinx. Tiny disc protrusions at a couple of levels without significant anatomic compromise Mariusz Fernandes MD Lumbar Spine MRI 04/10/17 0000 Signed Impressions: Service Date/Time: Monday, April 10, 2017 10:52 - CONCLUSION: 1. Multilevel disc bulges or mild protrusions between L2 and L5 resulting in mild lateral recess encroachment and mild foraminal encroachment as above. 2. Minimal retrolisthesis of L5 on S1 with mild left-sided foraminal stenosis. 3. No acute fracture. Conus medullaris intact. Lexx Alva MD Head Magnetic Resonance Angiography 04/10/17 0000 Signed Impressions: Service Date/Time: Monday, April 10, 2017 10:52 - CONCLUSION: 1. Unremarkable [place] MRA examination. Specifically, no evidence for large vessel occlusion or aneurysm. Jose Linares MD Chest X-Ray 04/10/17 0000 Signed Impressions: Service Date/Time: Monday, April 10, 2017 17:48 - CONCLUSION: 1. Bibasilar streakiness consistent with atelectasis and/or infiltrates. 2. Left internal jugular Vas-Cath and left subclavian central line are in good positions in the superior vena cava. 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 Advanced degenerative change at C2-C3-4-5 with AP canal stenosis and lateral recess encroachment most notable at C2-3 on the left. Solid bony union across area of previous fusion at C5-6- 7. Lexx Alva MD Brain MRI 04/10/17 0000 Signed Impressions: Service Date/Time: Monday, April 10, 2017 10:52 - CONCLUSION: Acute hemorrhage as described above high right parietal region Focal restricted diffusion right cervical hemisphere and both occipital lobes suggesting he posterior fossa embolic event. Paras Scales MD FACR Renal Ultrasound 04/09/17 0000 Signed Impressions: Service Date/Time: April 12:12 - CONCLUSION: Normal examination. Tk Martínez MD Maxillofacial CT 04/09/17 0000 Signed Impressions: Service Date/Time: April 13:28 - CONCLUSION: 1. There is no evidence of acute fracture. Toney Schulz MD Head CT 04/09/17 0000 Signed Impressions: Service Date/Time: April 09:35 - CONCLUSION: 1.7 cm a intraparenchymal hemorrhage in the high right parietal region. No significant subarachnoid or subdural hematoma identified. No other areas of hemorrhage noted. Tk Martínez MD Abdomen/Pelvis CT 04/08/17 0000 Signed Impressions: Service Date/Time: Saturday, April 08, 2017 22:09 - CONCLUSION: 1. No acute obstructive uropathy. 2. Uncomplicated colonic diverticulosis. 3. Nodular contour of liver suggesting possible cirrhosis. 4. Degenerative changes and scoliosis of the lumbar spine. Kang Cruz MD I recommend consult to neurology for his cerebrovascular accidents Continue neuro checks in a serial fashion. Pulmonary. Continue aggressive pulmonary toilette, nasotracheal suction, and breathing treatments with nebulizers. Daily PT and OT Nutrition. Tolerating Oral diet Renal. Continue to monitor closely urine output, BUN and creatinine Endocrine. Continue to Monitor serial Acu checks and SSI as needed in detail ID continue to monitor for signs of infection Continue Protonix for stress ulcer prophylaxis Continue Mukund hose and SCD's for DVT prophylaxis Caprini VTE Risk Assessment Caprini VTE Risk Assessment: Mod/High Risk (score >= 2) VTE Pharm Contraindication: Active bleeding Caprini Risk Assessment Model Point Value = 1 Point Value = 2 Point Value = 3 Point Value = 5 Age 41-60 Minor surgery BMI > 25 kg/m2 Swollen legs Varicose veins or History of unexplained or recurrent spontaneous Oral contraceptives or hormone replacement Sepsis (< 1 month) Serious lung disease, including pneumonia (< 1 month) Abnormal pulmonary function Acute myocardial infarction Congestive heart failure (< 1 month) History of inflammatory bowel disease Medical patient at bed rest Age 61-74 Arthroscopic surgery Major open surgery (> 45 min) Laparoscopic surgery (> 45 min) Malignancy Confined to bed (> 72 hours) Immobilizing plaster cast Central venous access Age >= 75 History of VTE Family history of VTE Factor V Leiden Prothrombin [id number] Lupus anticoagulant Anticardiolipin antibodies Elevated serum homocysteine Heparin-induced thrombocytopenia Other congenital or acquired thrombophilia Stroke (< 1 month) Elective arthroplasty Hip, pelvis, or leg fracture Acute spinal cord injury (< 1 month) Prophylaxis Regimen Total Risk Factor Score Risk Level Prophylaxis Regimen 0-1 Low Early ambulation 2 Moderate Order ONE of the following: *Sequential Compression Device (SCD) *Heparin 5000 units SQ BID 3-4 Higher Order ONE of the following medications: *Heparin 5000 units SQ TID *Enoxaparin/Lovenox 40 mg SQ daily (WT < 150 kg, CrCl > 30 mL/min) *Enoxaparin/Lovenox 30 mg SQ daily (WT < 150 kg, CrCl > 10-29 mL/min) *Enoxaparin/Lovenox 30 mg SQ BID (WT < 150 kg, CrCl > 30 mL/min) AND/OR *Sequential Compression Device (SCD) 5 or more Highest Order ONE of the following medications: *Heparin 5000 units SQ TID (Preferred with Epidurals) *Enoxaparin/Lovenox 40 mg SQ daily (WT < 150 kg, CrCl > 30 mL/min) *Enoxaparin/Lovenox 30 mg SQ daily (WT < 150 kg, CrCl > 10-29 mL/min) *Enoxaparin/Lovenox 30 mg SQ BID (WT < 150 kg, CrCl > 30 mL/min) AND *Sequential Compression Device (SCD) The exam, history, and the medical decision-making described in the above note were completed with the assistance of the mid-level provider. I reviewed and agree with the findings presented. I attest that I had a [id number] encounter with the patient on the same day, and personally performed and documented my assessment and findings in the medical record. (Tello Tinsley MD) Mary Lou Bautista Apr 12, 2017 11:30 Tello Tinsley MD Apr 13, 2017 12:55
[2017-04-12] MEDS: MULTIVITAMIN INJ 10 ML, FOLIC ACID INJ 1 MG in SODIUM CHLORID 0.9% 500 ML INJ 500 ML IV SCH (12:46)
[2017-04-12] MEDS: LORazepam 1 MG TAB PO PRN ×2 (16:37→16:39)
--- NOTE | 2017-04-12 18:35 | MB ---
cc: Denise eBrman MD DATE OF CONSULT: REASON FOR CONSULTATION: Stroke. HISTORY OF PRESENT ILLNESS: Patient is a pleasant 62-year-old man admitted to the hospital on 04/09, apparently fell at home, unable to get up for at least 5 hours or more. 911 was called and brought in. He probably had a syncope. He had some falls over the last few days, which was unusual for him. He was found to have a CK of more than 40,000, given IV fluids, sodium bicarb. Found to have some hyperkalemia, hyponatremia, kidney injury. Neurology is asked to see him because he was found to have some embolic strokes as well as was seen by neurosurgery for a hemorrhagic stroke. ALLERGIES: PATIENT HAS ALLERGIES TO BEE VENOM, PENICILLIN G, SULFA, SULFAMETHOXAZOLE, TRIMETHOPRIM, MDRO, MRSA. PAST MEDICAL HISTORY: Skin cancer of left index finger, hyperlipidemia, hypertension, chronic neck pain, decreased sensation in both upper extremities due to spinal fusion, C fusion in 2004. MEDICINES AT HOME: [place], tizanidine, gabapentin, metoprolol, meloxicam. SOCIAL HISTORY: Smokes 4 or 5 cigarettes a day. Occasional alcohol. No illicit drugs. PHYSICAL EXAMINATION: VITAL SIGNS: Temperature is 98.6, pulse 90, respiratory rate 22, satting at 93% on 2 L nasal cannula. NECK: Supple. I do not appreciate any bruits. HEART: Currently regular. NEUROLOGIC: He is awake, alert and clear, oriented. Speech is normal. Pupils reactive. Facial sensing full. Face symmetrical. Tongue midline. Motor hodgson, he has muscle loss in his hand intrinsic muscles. At best, he is 3/5 throughout. Mello sign positive. Hyperreflexic. This is fairly stable, not new. Toes upgoing. LABORATORY DATA: Reviewed. Current white count is normal today, 9.1, hemoglobin 10.5, hematocrit 29.9, MCV 104.6, platelets have dropped to 72,000. COAG PANEL: D-dimer was 34.00. CHEMISTRIES: Currently, calcium 7.3, corrected 8.6. Albumin on the 1st was 2. His BUN 28, creatinine 5.34, GFR is 11, glucose 89. Tox screen positive for opiates, but he is on pain medicine. Salicylate level was 2. URINE: Cloudy, red, large blood, 22 white cells. Hepatitis panel is pending. MICROBIOLOGY: Staph hemolyticus coag negative staph x 2. IMAGING: Brain showed that he had an acute hemorrhage in the high right parietal. Also, diffusion in the right cerebellar and both occipital lobes are small. 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 Please refer to report. IMPRESSION: What looks like embolic phenomenon with hemorrhage, bilateral occipital, right cerebellar and hemorrhage of the right parietal with an ejection fraction on echocardiogram of 60%-65%, mild concentric left ventricular hypertrophy. Unfortunately, at this point, no antiplatelets can be initiated. We are going to go ahead and check a carotid ultrasound, check a lipid panel, and maintain him on telemetry. If he is transferred and planned to be discharged, I would recommend cardiology to evaluate him for possible loop recorder to determine if he has atrial fibrillation; however, we cannot anticoagulate him or place him on antiplatelets until that hemorrhage has resolved. Will continue PT, OT and further recommendations as needed. MD MICHAEL Marina/HOMERO , 05:08 PM , 06:34 PM
[2017-04-12 19:20] LABS: CHOLESTEROL/ HDL RATIO 3.17 RATIO; HDL CHOLESTEROL 20.8 MG/DL (40.0-60.0)
[2017-04-12] MEDS ORDERED: QUEtiapine FUMARATE 25 MG TAB PO SCH (21:30)
[2017-04-12] MEDS ORDERED: DEXMEDETOMIDINE INJ 200 MCG in SODIUM CHLORIDE 0.9% INJ 50 ML IV PRN (21:30)
--- NOTE | 2017-04-12 23:14 | RADRPT ---
EXAM DATE/TIME: 04/12/2017 22:36 [facility] COMPARISON: No previous studies available for comparison. INDICATIONS : Cerebrovascular accident. MEDICAL HISTORY : Hypertension. Hypercholesterolemia. Chronic neck pain. Skin cancer of the left index finger. SURGICAL HISTORY : C-spine fusion in 2004. Tonsillectomy. ENCOUNTER: Initial ACUITY: 1 day PAIN SCORE: Nonresponsive. LOCATION: Bilateral neck PEAK SYSTOLIC VELOCITIES (cm/sec): ICA/CCA RATIO: Right: 0.7 Left: 1.0 ICA: Right: 81 Left: 90 CCA: Right: 110 Left: 91 ECA: Right: 133 Left: 151 VERTEBRAL: Right: 75 antegrade Left: 110 antegrade Elevated flow velocities and ICA/CCA ratios have been found to correlate with increased degrees of vessel stenosis, calculated as percentage of diameter relative to a normal segment of distal ICA/CCA FINDINGS: RIGHT CAROTID: There is mild calcified and noncalcified plaque in the carotid bulb and proximal internal carotid art lindsay. The waveforms are within normal limits. LEFT CAROTID: There is mild calcified plaque throughout the mid common carotid artery and mild calcified and noncal cified plaque in the carotid bulb and proximal internal carotid artery. The waveforms are within nor mal limits. VERTEBRAL ARTERIES: Antegrade flow is seen in both vertebral arteries. MISCELLANEOUS: None. CONCLUSION: 1. Mild atherosclerotic disease within the carotid bulb and proximal internal carotid arteries bilate rally. However, no significant stenosis is identified within either internal carotid artery (less stephanie n 50% stenosis). 2. There is antegrade blood flow in both vertebral arteries. Mariusz Oviedo MD on April 12, 2017 at 23:10 Board Certified Radiologist. This report was verified electronically.
[2017-04-12] MEDS ORDERED: NOREPINEPHRINE-DEXTROSE DRIP 250 ML IV ONE (23:27)
[2017-04-12] MEDS ORDERED: NOREPINEPHRINE INJ 4 MG in SODIUM CHLOR 0.9% 250 ML INJ 246 ML IV PRN (23:30)
[2017-04-12] MEDS ORDERED: SODIUM CHLOR 0.9% 1000 ML INJ 1,000 ML IV ONE (23:30)
[2017-04-12] MEDS ORDERED: TERBUTALINE INJ 1 MG/ML AMP SQ PRN (23:30)
[2017-04-12] MEDS ORDERED: ETOMIDATE 20 MG/10 ML VIAL IV PUSH SCH (23:30)
[2017-04-12] MEDS ORDERED: ETOMIDATE 40 MG/20 ML VIAL ONE (23:32)
[2017-04-12] MEDS ORDERED: ROCURONIUM INJ 50 MG/5 ML VIAL ONE (23:32)
[2017-04-12] MEDS ORDERED: ROCURONIUM INJ 50 MG/5 ML VIAL IV ONE (23:45)
[2017-04-12] MEDS ORDERED: ETOMIDATE 20 MG/10 ML VIAL IV PUSH ONE (23:45)
[2017-04-12] MEDS: PROPOFOL 1000 MG/100 ML IV PRN (23:50)
[2017-04-13] VITALS (17 sets, daily range): BP systolic 100–182; BP diastolic 47–113; PULSE 71–100; RESP 16–24; TEMP 98.2–100.8; O2SAT 93–100
[2017-04-13] MEDS ORDERED: PROPOFOL 500 MG/50 ML INJ 50 ML ONE (00:07)
--- NOTE | 2017-04-13 00:07 | RADRPT ---
EXAM DATE/TIME: 04/12/2017 23:46 [facility] COMPARISON: CHEST SINGLE AP, April 10, 2017, 17:48. INDICATIONS : Post intubation. MEDICAL HISTORY : Stroke. SURGICAL HISTORY : Fusion, cervical. Left hand and left elbow. ENCOUNTER: Subsequent ACUITY: 1 week PAIN SCORE: 0/10 LOCATION: Bilateral chest FINDINGS: Rotated portable AP view of the chest demonstrates a normal-sized cardiac silhouette. Multiple EKG li seamus overlie the patient. Endotracheal tube distal tip is at the aortic knob level measuring approxima tely 2.9 cm from the jessica. Left subclavian central line and left IJ central line distal tips are in the superior vena cava. Lungs are underinflated with stable small bibasilar pleural-parenchymal opac ities. No pneumothorax is visualized. CONCLUSION: 1. Endotracheal tube tip measures approximately 2.9 cm from the jessica. 2. Stable bibasilar opacities likely representing pleural effusions with associated volume loss and/o r airspace consolidation. Mariusz Oviedo MD on April 13, 2017 at 0:03 Board Certified Radiologist. This report was verified electronically.
[2017-04-13] MEDS ORDERED: DEXMEDETOMIDINE INJ 400 MCG in SODIUM CHLORIDE 0.9% INJ 100 ML IV PRN (00:30)
--- NOTE | 2017-04-13 01:30 | RADRPT ---
EXAM DATE/TIME: 04/13/2017 01:08 [facility] COMPARISON: MRI BRAIN W/O CONTRAST, April 10, 2017, 10:52. CT BRAIN W/O CONTRAST, April 09, 2017, 9:35. INDICATIONS : Altered mental status; follow up subarachnoid hemorrhage. RADIATION DOSE: 56.35 CTDIvol (mGy) MEDICAL HISTORY : Non-responsive. SURGICAL HISTORY : Non-responsive. ENCOUNTER: Subsequent ACUITY: 1 week PAIN SCALE: Non-responsive LOCATION: cranial TECHNIQUE: Multiple contiguous axial images were obtained of the head. Using automated exposure control and adj ustment of the mA and/or kV according to patient size, radiation dose was kept as low as reasonably a chievable to obtain optimal diagnostic quality images. DICOM format image data is available electro nically for review and comparison. FINDINGS: There is persistent intra-axial hemorrhage with acute blood products in the right parietal high conve xity with surrounding vasogenic edema. The blood products have slightly increased in size, currently measuring up to 2.6 x 1.8 cm compared to 1.7 x 1.3 cm previously. There is a focal low density in the medial right occipital lobe measuring 11 mm with a focus of hemorrhage. This is more conspicuous on the current study. No left occipital lobe abnormality is appreciated to correlate with the prior MRI finding. In the right cerebellum there is a focal area of low density with minimal blood products. Th is areas also more conspicuous on the current study. Ventricles are normal in size. There is no midline shift or herniation. There is mild cerebral atroph y. CONCLUSION: 1. The recent acute intra-axial blood products in the right parietal high convexity is slightly incre ased in size and there is surrounding vasogenic edema. No herniation or midline shift is present. 2. The edema and blood products in the right cerebellum and right occipital lobe are better visualize d on the current examination. Mariusz Oviedo MD on April 13, 2017 at 1:21 Board Certified Radiologist. This report was verified electronically.
--- NOTE | 2017-04-13 02:17 | PD.PROCEDR ---
Procedure Note Procedure PROCEDURE NOTE PROCEDURE: Endotracheal intubation INDICATION: Acute hypercapnic respiratory failure with altered mental status and inadequate airway protection. DETAILS OF PROCEDURE: The patient was placed in optimal position and preoxygenated with 100% FiO2 via [id number]. Oximeter oxygen saturation of 100% was obtained prior to direct laryngoscopy. The patient was administered Etomidate 20 mg IV for sedation and rocuronium 50 mg IV for paralysis. Direct laryngoscopy was performed with a 4 Bolanos laryngoscope blade and a grade III Cormack-Lehane view was obtained and there were inspissated secretions overlying the airway. While suctioning tenacious secretions from airway sats dropped to high 60s but recovered quickly after secretions removed and was bagged with oropharyngeal airway in place. Transitioned to Copilot which facilitated Grade I view and 8.0 ETT was advanced and was visualized passing through the cords. Correct placement was confirmed with colorimetric CO2 detector. Breath sounds were equal bilaterally. No sounds auscultated over the stomach. The endotracheal tube was secured with a commercial tube silva at a depth of 23 cm at the lips. The patient was connected to the ventilator. The patient tolerated the procedure well without any apparent complication. Stat chest x-ray was ordered and demonstrated satisfactory ETT position. Ana Cristina Beck MD Apr 13, 2017 02:17
[2017-04-13] MEDS ORDERED: Vancomycin Consult Pharmacy 1 EA OTHER SCH (02:30)
[2017-04-13 02:48] LABS: AUTOMATED NEUTROPHIL # 6.6 TH/MM3 (1.8-7.7); BASOPHIL % 0.3 % (0.0-2.0); EOSINOPHIL # 0.2 TH/MM3 (0-0.4); EOSINOPHIL % 1.8 % (0.0-4.0); HEMATOCRIT 27.9 % (39.0-51.0); LYMPH % 24.4 % (9.0-44.0); LYMPHOCYTE # 2.6 TH/MM3 (1.0-4.8); MEAN CELL VOLUME 102.6 FL (80.0-100.0); MEAN CORPUSCULAR HEMOGLOBIN 36.9 PG (27.0-34.0); MEAN PLATELET VOLUME 8.1 FL (7.0-11.0); MONO % 11.9 % (0.0-8.0); MONOCYTE # 1.3 TH/MM3 (0-0.9); NEUT % 61.6 % (16.0-70.0); PLATELET COUNT 84 TH/MM3 (150-450); RED BLOOD COUNT 2.72 MIL/MM3 (4.50-5.90); RED CELL DISTRIBUTION WIDTH 12.6 % (11.6-17.2); WHITE BLOOD COUNT 10.8 TH/MM3 (4.0-11.0)
[2017-04-13 03:01] LABS: INTERNATIONAL NORMALIZED RATIO 1.2 RATIO
[2017-04-13] MEDS: RESP: ALBUTEROL 2.5 MG/IPRATROPIUM 0.5 MG NEB (SCH) INH (03:09)
[2017-04-13 03:13] LABS: ALBUMIN 1.6 GM/DL (3.4-5.0); BICARBONATE 27.1 MEQ/L (21.0-32.0); CALCIUM 7.1 MG/DL (8.5-10.1); CALCIUM-PROTEIN CORRECTED 8.7 MG/DL (8.5-10.1); CREATININE 6.17 MG/DL (0.60-1.30); MAGNESIUM 1.9 MG/DL (1.5-2.5); PHOSPHORUS 5.9 MG/DL (2.5-4.9); TOTAL BILIRUBIN ADULT 0.7 MG/DL (0.2-1.0); TOTAL PROTEIN 4.3 GM/DL (6.4-8.2); TROPONIN I 0.03 NG/ML (0.02-0.05)
--- NOTE | 2017-04-13 03:30 | PD.PROCEDR ---
Procedure Note Procedure DATE: 04/13/17 PROCEDURE: Right radial arterial catheter placement INDICATION: Hemodynamics monitored DETAILS OF PROCEDURE The patient was placed in supine position. The skin was cleansed with Chloraprep. Additional barrier precautions included large sterile drape, sterile gloves, sterile gown, face mask, and hat. Under direct ultrasound guidance and on the first attempt, the artery was accessed with Arrow QuickFlash 20 gauge art line. The guide wire was advanced. Using Seldinger technique 20 gauge arterial catheter was placed. The needle and guide wire were removed. The catheter was connected to a transducer line and flushed with saline. The video monitor displayed normal arterial wave forms. The catheter was secured with 2-0 silk. A sterile dressing with antibiotic disc was applied. ESTIMATED BLOOD LOSS: minimal COMPLICATIONS: None Ana Cristina Beck MD Apr 13, 2017 03:30
[2017-04-13 03:35] LABS: HELMET CELLS OCC (NORMAL); TOXIC VACUOLATION PRESENT (NONE SEEN)
[2017-04-13] MEDS: CHLORHEXIDINE GLUCONATE 2 % 1 PACK (2 CLOTHS) TOP SCH (03:42)
[2017-04-13] MEDS ORDERED: VANCOMYCIN 1,500 MG/NS 500 ML IV ONE ×2 (04:00)
[2017-04-13] MEDS ORDERED: AZTREONAM INJ 2,000 MG in SODIUM CHLORIDE 0.9% INJ 100 ML IV ONE (04:45)
[2017-04-13] MEDS: PROPOFOL 1000 MG/100 ML IV PRN ×3 (04:55→20:33)
[2017-04-13] MEDS ORDERED: NOREPINEPHRINE INJ 4 MG in SODIUM CHLOR 0.9% 250 ML INJ 246 ML IV PRN (05:00)
[2017-04-13] MEDS: INSULIN NovoLIN REGULAR SUPPLEMENTAL SCALE SQ SCH ×4 (05:03→18:00)
[2017-04-13] MEDS: PANTOPRAZOLE SODIUM 40 MG VIAL IV PUSH SCH (07:58)
[2017-04-13] MEDS: SODIUM CHLORIDE 0.9% FLUSH 10 ML FLUSH IV FLUSH SCH (07:59)
[2017-04-13] MEDS: THIAMINE HCL 100 MG TAB PO SCH (07:59)
[2017-04-13] MEDS: METOPROLOL TARTRATE 25 MG TAB PO SCH (07:59)
[2017-04-13] MEDS: GABAPENTIN 100 MG CAP PO SCH ×3 (07:59→20:29)
--- NOTE | 2017-04-13 08:36 | HHI.CCPN ---
Subjective Remarks/Hospital Course This is a 8-year-old male who reportedly fell at home yesterday and was unable to get up for at least 5 hours, but likely greater than that. He called 911 today and was brought in tonight by EMS. He does endorse possibly syncopized. He states he has fallen recently over the last few days, but this is unusual for him. He denies headache. He denies fever, chills, shortness of breath, chest pain, nausea, vomiting, abdominal pain, diarrhea. He does not endorse any other symptom other than the frequent falls. In the emergency department CT had demonstrated small subarachnoid hemorrhage, likely traumatic. In addition, the patient had very dark very thick urine, and his CK level was greater than 40,000. He was immediately started on IV sodium bicarb and IV fluids. He also has evidence of hyperkalemia, hyponatremia, acute kidney injury with a creatinine greater than 2. Critical care medicine is consulted to evaluate manage his acute rhabdo, his multiple organ failure. 04/10: CK level declining but renal function deteriorating. Urine minimal. 04/11: Renal function continues to reflect kidney injury. HD started. Fluid balance about right. 04/12: 04/12 culture bottles blood with Staph aureus, awaiting C&S. Will switch to Vancomycin for one dose pending. Afebrile, WBC normal. 04/13: Patient was intubated last night and placed on mechanical ventilation for altered mental status and worsening respiratory failure. Currently sedated , orally intubated on mechanical ventilation. Objective Vital Signs Date Time Temp Pulse Resp B/P (MAP) Pulse Ox O2 Delivery O2 Flow Rate FiO2 04/13/17 07:17 100 35 04/13/17 07:00 Mechanical Ventilator 04/13/17 06:00 75 04/13/17 05:41 119/59 04/13/17 04:00 98.8 16 04/12/17 20:36 2.00 Intake and Output 04/13/17 04/13/17 04/14/17 08:00 16:00 00:00 Intake Total 2147 ml Output Total 500 ml Balance 1647 ml Result Diagram: 04/13/17 0236 04/13/17 0236 Other Results Microbiology Date/Time Source Procedure Growth Status 04/11/17 14:20 Stool Stool Stool Occult Blood (RADHA) - Final HEMOCCULT POSITIVE Complete Laboratory Tests Test 04/12/17 23:25 04/13/17 00:10 Blood Gas Puncture Site LINE RT RADIAL Blood Gas Patient Temperature 98.6 98.6 Venous Blood pH 7.30 (7.360-7.400) Venous Blood Partial Pressure CO2 59 mmHg (44-48) Venous Blood Partial Pressure O2 50 mmHg (35-40) Venous Blood HCO3 28 mmol/L (22-26) Venous Blood Oxygen Saturation 77 % (70-76) Venous Blood Oxygen Content 9.4 Vol % (9.0-17.0) Venous Blood Base Excess 2.3 mmol/L (-2-2) Oxygen Delivery Device NASAL CANNULA VENTILATOR Blood Gas Liter Flow 6 L/M Blood Gas HCO3 25 mmol/L (22-26) Blood Gas Base Excess 1.1 mmol/L (-2-2) Blood Gas Oxygen Saturation 96 % (90-100) Arterial Blood pH 7.43 (7.380-7.420) Arterial Blood Partial Pressure CO2 38 mmHg (38-42) Arterial Blood Partial Pressure O2 101 mmHG (61-120) Arterial Blood Oxygen Content 14.7 Vol % (12.0-20.0) Arterial Blood Carboxyhemoglobin 1.9 % (0-4) Arterial Blood Methemoglobin 0.2 % (0-2) Blood Gas Hemoglobin 10.8 G/DL (12.0-16.0) Blood Gas Ventilator Setting 16/550/IT1.0/5PEEP Blood Gas Inspired Oxygen 40 % Imaging Last [address] 04/13/17 0000 Signed Impressions: Service Date/Time: Thursday, April 13, 2017 01:08 - CONCLUSION: 1. The recent acute intra-axial blood products in the right parietal high convexity is slightly increased in size and there is surrounding vasogenic edema. No herniation or midline shift is present. 2. The edema and blood products in the right cerebellum and right occipital lobe are better visualized on the current examination. Mariusz Oviedo MD Chest X-Ray 04/12/17 0000 Signed Impressions: Service Date/Time: Wednesday, April 12, 2017 23:46 - CONCLUSION: 1. Endotracheal tube tip measures approximately 2.9 cm from the jessica. 2. Stable bibasilar opacities likely representing pleural effusions with associated volume loss and/or airspace consolidation. Mariusz Oviedo MD Carotid Artery Ultrasound 04/12/17 0000 Signed Impressions: Service Date/Time: Wednesday, April 12, 2017 22:36 - CONCLUSION: 1. Mild atherosclerotic disease within the carotid bulb and proximal internal carotid arteries bilaterally. However, no significant stenosis is identified within either internal carotid artery (less than 50%% stenosis). 2. There is antegrade blood flow in both vertebral arteries. Mariusz Oviedo MD Last Impressions Head CT 04/08/172033 Signed Impressions: Service Date/Time: Saturday, April 08, 2017 22:01 - CONCLUSION: Small amount of probable acute subarachnoid hemorrhage within the high right parietal region which may be post-traumatic in etiology. Clinical correlation is recommended. Kang Cruz MD Chest X-Ray 04/08/172033 Signed Impressions: Service Date/Time: Saturday, April 08, 2017 20:56 - CONCLUSION: No acute disease. Kang Cruz MD Abdomen/Pelvis CT 04/08/17 0000 Signed Impressions: Service Date/Time: Saturday, April 08, 2017 22:09 - CONCLUSION: 1. No acute obstructive uropathy. 2. Uncomplicated colonic diverticulosis. 3. Nodular contour of liver suggesting possible cirrhosis. 4. Degenerative changes and scoliosis of the lumbar spine. Kang Cruz MD Objective Remarks GENERAL: Middle-age male who appears older than stated age, lying in bed, sedated, orally intubated on mechanical ventilation HEENT: Normocephalic. Atraumatic. Pupils equal, round, reactive, conjugate. NECK: Trachea is midline. Airway widely patent CHEST: Orally intubated on mechanical ventilation, good air entry bilaterally, scattered rhonchi, no wheezing CARDIOVASCULAR: Tachycardic rate, regular rhythm. Sinus by telemetry. No JVD. ABDOMEN: Soft, nontender, nondistended. No guarding. BS active. MUSCULOSKELETAL: Pulses 2+. No peripheral edema. Well perfused. NEUROLOGICAL: Sedated, orally intubated on mechanical ventilation, arouses on lightening sedation, moving all 4 extremities. A/P Assessment and Plan Assessment: 62-year-old male with recent frequent falls whose course is complicated by severe life-threatening rhabdomyolysis, acute kidney injury, and traumatic subarachnoid hemorrhage. Unclear etiology of his frequent falls. s/ p aggressive hydration for his acute rhabdo and now started on hemodialysis. Intubated and placed on mechanical ventilation on 04/13 for worsening mental status and respiratory failure. Traumatic Subarachnoid hemorrhage - no anticoagulation - nsgy consultation - frequent neuro checks - tight bp control, < 140. - hydralazine, labetalol prn for this Acute respiratory failure on mechanical ventilation -Continue mechanical ventilation, vent bundle, bronchodilators as needed. Start daily C Pap trials in neurologic status improved. Severe Acute Rhabdomyolysis - serial CK - alkalinization - ivf - watch uop closely Acute Kidney Injury - secondary to acute rhabdo - place Carrion - close monitoring of uop - daily bmp - watch electrolytes closely - Deteriorating function. - HD started 04/10 Hyperkalemia Hyponatremia - secondary to acute kidney injury and rhabdo - bicarb and ivf - trend, improved Urinary Tract Infection - Rocephin 1gm iv q24h - f/u urine culture - does not appear patient is septic at this time: clinical symptomatology suggests stress response from rhabdo and head bleed. - Stop ceftriaxone, reculture for fevers, sxs SCDs hold pharmacologic DVT prophylaxis given head bleed Overall impression: Remains critically ill with deteriorating renal function and worsening metabolic state. Unstable and now requiring dialysis hemodialysis. Now intubated and placed on mechanical ventilation. Blood cultures positive for Staph hemolyticus. Repeat blood cultures/ sputum culture pending. Critical care 35 mins Domo Hendricks MD Apr 13, 2017 08:36
[2017-04-13] MEDS: LABETALOL HCL 100 MG/20 ML VIAL IV PUSH PRN (09:18)
--- NOTE | 2017-04-13 09:32 | RADRPT ---
EXAM DATE/TIME: 04/13/2017 08:42 [facility] COMPARISON: No previous studies available for comparison. INDICATIONS : Confirm nasogastric tube placement. MEDICAL HISTORY : None. SURGICAL HISTORY : None. ENCOUNTER: Initial ACUITY: 4 - 6 days PAIN SCORE: Non-responsive. LOCATION: Abdomen. FINDINGS: A single portable supine view of the abdomen shows no nasogastric tube or weighted feeding tube withi n the visualized field of view. Gas-filled loops of nondilated large and small bowel observed. Left l ower lobe infiltrate suspected. No organomegaly observed. CONCLUSION: No NG tube or Dobbhoff tube observed. Terry Hidalgo Jr., MD on April 13, 2017 at 9:29 Board Certified Radiologist. This report was verified electronically.
[2017-04-13 10:07] LABS: HEPATITIS A AB IGM NEGATIVE (NEGATIVE); HEPATITIS B CORE AB IGM NEGATIVE (NEGATIVE)
[2017-04-13] MEDS: MULTIVITAMIN INJ 10 ML, FOLIC ACID INJ 1 MG in SODIUM CHLORID 0.9% 500 ML INJ 500 ML IV SCH (11:28)
--- NOTE | 2017-04-13 11:28 | RADRPT ---
EXAM DATE/TIME: 04/13/2017 10:10 [facility] COMPARISON: ABDOMEN SINGLE VIEW, April 13, 2017, 8:42. INDICATIONS : Confirm dubhoff placement. MEDICAL HISTORY : Hypertension. Hypercholesterolemia. skin cancer SURGICAL HISTORY : Tonsillectomy. cervical spine surgery ENCOUNTER: Initial ACUITY: 4 - 6 days PAIN SCORE: Non-responsive. LOCATION: Bilateral abdomen FINDINGS: Nasogastric tube across the GE junction. Bowel gas pattern unremarkable. Is no significant distenti on. CONCLUSION: Nasogastric tube in the pylorus. Paras Scales MD FACR on April 13, 2017 at 11:26 Board Certified Radiologist. This report was verified electronically.
[2017-04-13] MEDS: fentaNYL DRIP 250 ML IV PRN (12:00)
--- NOTE | 2017-04-13 13:32 | HHI.NPPN ---
Subjective History of Present Illness 62 year old male with ARF Rhabdomyolysis, painful, tired lethargic Additional Remarks Oliguric. Received dialysis Thursday. Positive blood culture. Review of Systems General Constitutional: Fatigue Respiratory Lungs: SOB Musculoskeletal MS: Pain/Stiffness, Swelling in Back, Swelling in Joint Objective Data Data 04/13/17 04/14/17 18:59 06:59 Intake Total 600 ml Balance 600 ml IV Total 600 ml Vital Signs Date Time Temp Pulse Resp B/P (MAP) Pulse Ox O2 Delivery O2 Flow Rate FiO2 04/13/17 12:00 99.4 82 16 100/47 (64) 100 04/13/17 12:00 35 04/13/17 12:00 86 04/13/17 10:44 77 172/92 04/13/17 10:27 76 98/50 04/13/17 10:08 100 35 04/13/17 10:00 79 04/13/17 08:00 98.2 71 16 161/75 (103) 100 04/13/17 08:00 76 04/13/17 08:00 35 04/13/17 07:17 100 35 04/13/17 07:00 100 Mechanical Ventilator 40 04/13/17 06:00 75 04/13/17 05:41 80 119/59 04/13/17 04:00 85 04/13/17 04:00 100 40 04/13/17 04:00 98.8 86 16 120/59 (79) 100 Automatic Cuff 04/13/17 04:00 40 04/13/17 02:00 84 04/13/17 01:00 100 100 04/13/17 00:00 98.8 100 24 182/113 (136) 93 04/13/17 00:00 84 04/13/17 00:00 40 04/13/17 00:00 100 Mechanical Ventilator 40 04/12/17 23:55 100 40 04/12/17 23:40 98 54/34 04/12/17 23:18 99 25 04/12/17 23:00 Bi-Pap 30 04/12/17 22:00 94 04/12/17 20:36 99 Nasal Cannula 2.00 04/12/17 20:00 94 04/12/17 20:00 98.9 104 26 165/86 (112) 95 04/12/17 20:00 4.00 04/12/17 18:00 94 04/12/17 17:38 23 04/12/17 16:00 88 04/12/17 16:00 98.1 88 36 154/82 (106) 98 04/12/17 14:00 86 -: 04/13/17 0236 04/13/17 0236 Microbiology 04/13/17 Aerobic Blood Culture, Received Pending 04/13/17 Anaerobic Blood Culture, Received Pending 04/13/17 Aerobic Blood Culture, Received Pending 04/13/17 Anaerobic Blood Culture, Received Pending 04/13/17 Gram Stain - Final, Resulted 04/13/17 Sputum Culture, Resulted Pending Physical Exam General Appearance: Well Developed, Well Nourished Neck Neck Exam: Jugular Vein Distension Pulmonary Resp Exam: Decreased Bases Cardiology CV Exam: Tachycardia Gastrointestinal/Abdomen GI Exam: Soft, Bowel Sounds Present Extremeties Extremities Exam: Trace Edema Assessment/Plan Problem List: (1) Acute renal failure ICD Codes: N17.9 - Acute kidney failure, unspecified Plan: ARF has Rhabdomyolysis He likely has acute tubular necrosis from underlying rhabdomyolysis Avoid nephrotoxins Dialysis initiated on 04/10. Monitor fluid and electrolytes. Avoid nephrotoxins. Dialysis as needed. follow BMP UOP improved (2) Rhabdomyolysis ICD Codes: M62.82 - Rhabdomyolysis Status: Acute Plan: Continue monitor his CPK trend is downwards (3) Subarachnoid hemorrhage ICD Codes: I60.9 - Nontraumatic subarachnoid hemorrhage, unspecified Plan: Neurosurgery following (4) UTI (lower urinary tract infection) ICD Codes: N39.0 - Urinary tract infection, site not specified (5) Sepsis ICD Codes: A41.9 - Sepsis, unspecified organism Plan: Staphylococcus species in blood culture. Management per molecular modeler. Vancomycin ordered. Problem Qualifiers (1) Acute renal failure: Qualified Codes: N17.0 - Acute kidney failure with tubular necrosis (2) Rhabdomyolysis: Qualified Codes: M62.82 - Rhabdomyolysis Lio Robbins MD Apr 13, 2017 13:32
[2017-04-13] MEDS: AZTREONAM INJ 500 MG in SODIUM CHLORIDE 0.9% INJ 100 ML IV SCH ×2 (13:38→22:00)
--- NOTE | 2017-04-13 13:42 | RADRPT ---
EXAM DATE/TIME: 04/13/2017 12:53 [facility] COMPARISON: No previous studies available for comparison. INDICATIONS : Pain. MEDICAL HISTORY : Hypertension. Hypercholesterolemia. SURGICAL HISTORY : Tonsillectomy. Fusion, cervical. Right elbow and collar bone surgery. ENCOUNTER: Initial ACUITY: 1 day PAIN SCORE: Non-responsive LOCATION: Left arm. FINDINGS: There is spontaneous flow documented in the brachial, basilic, cephalic, axillary, and subclavian vei ns. The vessels are compressible and augmentation response is documented. No filling defects are se en. The flow is phasic with respiration. Direction of flow in the jugular vein is caudal. CONCLUSION: Veins in the the left arm to the subclavian are patent. Left jugular vein is patent as well Paras Scales MD FACR on April 13, 2017 at 13:40 Board Certified Radiologist. This report was verified electronically.
[2017-04-13] MEDS: NOREPINEPHRINE INJ 4 MG in SODIUM CHLOR 0.9% 250 ML INJ 246 ML IV PRN (19:15)
[2017-04-13 19:16] LABS: AUTOMATED NEUTROPHIL # 7.2 TH/MM3 (1.8-7.7); BASOPHIL % 0.2 % (0.0-2.0); EOSINOPHIL # 0.3 TH/MM3 (0-0.4); EOSINOPHIL % 2.5 % (0.0-4.0); HEMATOCRIT 30.9 % (39.0-51.0); HEMOGLOBIN 10.9 GM/DL (13.0-17.0); LYMPH % 23.9 % (9.0-44.0); LYMPHOCYTE # 2.9 TH/MM3 (1.0-4.8); MEAN CELL VOLUME 103.8 FL (80.0-100.0); MEAN CORPUSCULAR HEMOGLOBIN 36.7 PG (27.0-34.0); MEAN CORPUSCULAR HGB CONC 35.4 % (32.0-36.0); MEAN PLATELET VOLUME 8.1 FL (7.0-11.0); MONO % 14.3 % (0.0-8.0); MONOCYTE # 1.7 TH/MM3 (0-0.9); NEUT % 59.1 % (16.0-70.0); PLATELET COUNT 103 TH/MM3 (150-450); RED BLOOD COUNT 2.98 MIL/MM3 (4.50-5.90); RED CELL DISTRIBUTION WIDTH 13.1 % (11.6-17.2); WHITE BLOOD COUNT 12.3 TH/MM3 (4.0-11.0)
[2017-04-13 19:30] LABS: BICARBONATE 24.6 MEQ/L (21.0-32.0); CALCIUM 7.5 MG/DL (8.5-10.1); CREATININE 6.89 MG/DL (0.60-1.30)
[2017-04-13] MEDS ORDERED: SODIUM CHLOR 0.9% 1000 ML INJ 1,000 ML IV ONE (19:45)
[2017-04-13] MEDS: ACETAMINOPHEN 1000 MG/100 ML 100 ML IV PRN (19:55)
[2017-04-13] MEDS: METRONIDAZOLE 500 MG/100 ML ISONTONIC SOLN IV SCH (19:55)
--- NOTE | 2017-04-13 22:35 | HHI.NSPN ---
History Chief Complaint: "I feel like I am dying." Interval History 62-year-old male admitted with mild traumatic brain injury. Rhabdomyolysis, acute renal failure, UTI. Hemodialysis initiated. He has required subsequent intubation due to respiratory distress on the evening of 04/12/2017. Exam Results Vital Signs Date Time Temp Pulse Resp B/P (MAP) Pulse Ox O2 Delivery O2 Flow Rate FiO2 04/13/17 19:41 100 35 04/13/17 19:15 91 115/56 04/13/17 16:00 99.0 16 04/13/17 07:00 Mechanical Ventilator 04/12/17 20:36 2.00 Intake and Output 04/13/17 04/13/17 04/14/17 08:00 16:00 00:00 Intake Total 2147 ml 100 ml 2059 ml Output Total 500 ml 500 ml Balance 1647 ml 100 ml 1559 ml Physical Examination GENERAL: Intubated and sedated. Heart: regular rate Resp: clear Skin. Warm and dry HEENT: Swelling to the left side of the face. PERRLA 3 mm brisk, EOMI. No otorrhea or rhinorrhea. NEUROLOGICAL: Intubated and sedated. Very minimal attempted eye-opening with voice and sternal rub. Does not follow commands Mild flexion upper extremities deep pain Pupils 3 mm reactive to 2 mm. Mild conjugate oculocephalic movements. Lab, Micro, Other Results Imaging studies: 04/13/2017 CT scan head images reviewed by the undersigned. Agree with findings as noted below: Upper Extremity Ultrasound 04/13/17 0000 Signed Impressions: Service Date/Time: Thursday, April 13, 2017 12:53 - CONCLUSION: Veins in the the left arm to the subclavian are patent. Left jugular vein is patent as well Paras Scales MD FACR Head CT 04/13/17 0000 Signed Impressions: Service Date/Time: Thursday, April 13, 2017 01:08 - CONCLUSION: 1. The recent acute intra-axial blood products in the right parietal high convexity is slightly increased in size and there is surrounding vasogenic edema. No herniation or midline shift is present. 2. The edema and blood products in the right cerebellum and right occipital lobe are better visualized on the current examination. Mariusz Oviedo MD Abdomen X-Ray 04/13/17 0000 Signed Impressions: Service Date/Time: Thursday, April 13, 2017 10:10 - CONCLUSION: Nasogastric tube in the pylorus. Paras Scales MD FACR Abdomen X-Ray 04/13/17 0000 Signed Impressions: Service Date/Time: Thursday, April 13, 2017 08:42 - CONCLUSION: No NG tube or Dobbhoff tube observed. Terry Hidalgo Jr., MD Laboratory Tests Test 04/12/17 23:25 04/13/17 00:10 04/13/17 02:36 04/13/17 08:00 Blood Gas Puncture Site LINE RT RADIAL Blood Gas Patient Temperature 98.6 98.6 Venous Blood pH 7.30 Venous Blood Partial Pressure CO2 59 mmHg Venous Blood Partial Pressure O2 50 mmHg Venous Blood HCO3 28 mmol/L Venous Blood Oxygen Saturation 77 % Venous Blood Oxygen Content 9.4 Vol % Venous Blood Base Excess 2.3 mmol/L Oxygen Delivery Device NASAL CANNULA VENTILATOR Blood Gas Liter Flow 6 L/M Blood Gas HCO3 25 mmol/L Blood Gas Base Excess 1.1 mmol/L Blood Gas Oxygen Saturation 96 % Arterial Blood pH 7.43 Arterial Blood Partial Pressure CO2 38 mmHg Arterial Blood Partial Pressure O2 101 mmHG Arterial Blood Oxygen Content 14.7 Vol % Arterial Blood Carboxyhemoglobin 1.9 % Arterial Blood Methemoglobin 0.2 % Blood Gas Hemoglobin 10.8 G/DL Blood Gas Ventilator Setting 16/550/IT1.0/5PEEP Blood Gas Inspired Oxygen 40 % White Blood Count 10.8 TH/MM3 Red Blood Count 2.72 MIL/MM3 Hemoglobin 10.0 GM/DL Hematocrit 27.9 % Mean Corpuscular Volume 102.6 FL Mean Corpuscular Hemoglobin 36.9 PG Mean Corpuscular Hemoglobin Concent 36.0 % Red Cell Distribution Width 12.6 % Platelet Count 84 TH/MM3 Mean Platelet Volume 8.1 FL Neutrophils (%) (Auto) 61.6 % Lymphocytes (%) (Auto) 24.4 % Monocytes (%) (Auto) 11.9 % Eosinophils (%) (Auto) 1.8 % Basophils (%) (Auto) 0.3 % Neutrophils # (Auto) 6.6 TH/MM3 Lymphocytes # (Auto) 2.6 TH/MM3 Monocytes # (Auto) 1.3 TH/MM3 Eosinophils # (Auto) 0.2 TH/MM3 Basophils # (Auto) 0.0 TH/MM3 CBC Comment AUTO DIFF Differential Comment AUTO DIFF CONFIRMED Toxic Vacuolation PRESENT Platelet Estimate LOW Platelet Morphology Comment NORMAL Basophilic Stippling FAINT Helmet Cells OCC Prothrombin Time 12.0 SEC Prothromb Time International Ratio 1.2 RATIO Activated Partial Thromboplast Time 28.1 SEC Blood Urea Nitrogen 38 MG/DL Creatinine 6.17 MG/DL Random Glucose 112 MG/DL Total Protein 4.3 GM/DL Albumin 1.6 GM/DL Calcium Level 7.1 MG/DL Phosphorus Level 5.9 MG/DL Magnesium Level 1.9 MG/DL Alkaline Phosphatase 58 U/L Aspartate Amino Transf (AST/SGOT) 271 U/L Alanine Aminotransferase (ALT/SGPT) 84 U/L Total Bilirubin 0.7 MG/DL Sodium Level 132 MEQ/L Potassium Level 3.7 MEQ/L Chloride Level 96 MEQ/L Carbon Dioxide Level 27.1 MEQ/L Anion Gap 9 MEQ/L Estimat Glomerular Filtration Rate 9 ML/MIN Lactic Acid Level 1.5 mmol/L Protein Corrected Calcium 8.7 MG/DL Troponin I 0.03 NG/ML 0.03 NG/ML Total Creatine Kinase 4263 U/L Creatine Kinase MB 4.1 NG/ML Creatine Kinase MB % 0.1 % Test 04/13/17 18:30 White Blood Count 12.3 TH/MM3 Red Blood Count 2.98 MIL/MM3 Hemoglobin 10.9 GM/DL Hematocrit 30.9 % Mean Corpuscular Volume 103.8 FL Mean Corpuscular Hemoglobin 36.7 PG Mean Corpuscular Hemoglobin Concent 35.4 % Red Cell Distribution Width 13.1 % Platelet Count 103 TH/MM3 Mean Platelet Volume 8.1 FL Neutrophils (%) (Auto) 59.1 % Lymphocytes (%) (Auto) 23.9 % Monocytes (%) (Auto) 14.3 % Eosinophils (%) (Auto) 2.5 % Basophils (%) (Auto) 0.2 % Neutrophils # (Auto) 7.2 TH/MM3 Lymphocytes # (Auto) 2.9 TH/MM3 Monocytes # (Auto) 1.7 TH/MM3 Eosinophils # (Auto) 0.3 TH/MM3 Basophils # (Auto) 0.0 TH/MM3 CBC Comment DIFF FINAL Differential Comment Blood Urea Nitrogen 46 MG/DL Creatinine 6.89 MG/DL Random Glucose 87 MG/DL Calcium Level 7.5 MG/DL Sodium Level 135 MEQ/L Potassium Level 4.0 MEQ/L Chloride Level 100 MEQ/L Carbon Dioxide Level 24.6 MEQ/L Anion Gap 10 MEQ/L Estimat Glomerular Filtration Rate 8 ML/MIN Lactic Acid Level 1.4 mmol/L Troponin I 0.03 NG/ML Medical Decision Making Impression and Plan 1. Traumatic brain injury. CT scan 04/13/2017 reveals mild increase in right parietal subarachnoid hemorrhage versus prior scans. 2. Rhabdomyolysis 3. Acute kidney injury-on dialysis 4. Hyponatremia 5. Respiratory failure 04/12/2017 requiring intubation Plan: Continuing close neurologic checks Plan follow-up CT scan had later in the week depending on neurologic exam. Continue to avoid chemical DVT prophylaxis and anticoagulation as much as possible given the mild increase in the right frontal subarachnoid hemorrhage on 04/13/2017 CT head Ulcer prophylaxis Monitor sodium Matthew Katz MD Apr 13, 2017 22:35
[2017-04-14] VITALS (14 sets, daily range): BP systolic 99–154; BP diastolic 49–78; PULSE 65–95; RESP 16; TEMP 98.6–100.7; O2SAT 96–100
[2017-04-14] MEDS: METRONIDAZOLE 500 MG/100 ML ISONTONIC SOLN IV SCH ×4 (01:10→20:23)
[2017-04-14] MEDS: PROPOFOL 1000 MG/100 ML IV PRN ×5 (03:39→23:02)
[2017-04-14] MEDS: CHLORHEXIDINE GLUCONATE 2 % 1 PACK (2 CLOTHS) TOP SCH (04:00)
[2017-04-14] MEDS: NOREPINEPHRINE INJ 4 MG in SODIUM CHLOR 0.9% 250 ML INJ 246 ML IV PRN (04:55)
[2017-04-14] MEDS: AZTREONAM INJ 500 MG in SODIUM CHLORIDE 0.9% INJ 100 ML IV SCH ×3 (05:47→23:01)
[2017-04-14] MEDS: INSULIN NovoLIN REGULAR SUPPLEMENTAL SCALE SQ SCH ×4 (06:00→17:39)
[2017-04-14 06:33] LABS: HEMATOCRIT 29.6 % (39.0-51.0); HEMOGLOBIN 10.3 GM/DL (13.0-17.0); MEAN CELL VOLUME 102.8 FL (80.0-100.0); MEAN CORPUSCULAR HEMOGLOBIN 35.8 PG (27.0-34.0); MEAN CORPUSCULAR HGB CONC 34.8 % (32.0-36.0); MEAN PLATELET VOLUME 7.7 FL (7.0-11.0); PLATELET COUNT 115 TH/MM3 (150-450); RED BLOOD COUNT 2.88 MIL/MM3 (4.50-5.90); RED CELL DISTRIBUTION WIDTH 13.1 % (11.6-17.2)
[2017-04-14 07:08] LABS: BICARBONATE 21.7 MEQ/L (21.0-32.0); CALCIUM 7.2 MG/DL (8.5-10.1); CREATININE 7.03 MG/DL (0.60-1.30); RANDOM VANCOMYCIN 27.1 COMMENT
[2017-04-14 07:28] LABS: CALCIUM-PROTEIN CORRECTED 8.9 MG/DL (8.5-10.1); TOTAL PROTEIN 4.1 GM/DL (6.4-8.2)
[2017-04-14] MEDS: GABAPENTIN 100 MG CAP PO SCH ×4 (08:38→20:24)
[2017-04-14] MEDS: THIAMINE HCL 100 MG TAB PO SCH (08:38)
[2017-04-14] MEDS: PANTOPRAZOLE SODIUM 40 MG VIAL IV PUSH SCH (08:39)
[2017-04-14] MEDS: SODIUM CHLORIDE 0.9% FLUSH 10 ML FLUSH IV FLUSH SCH ×2 (09:00→21:00)
[2017-04-14] MEDS: METOPROLOL TARTRATE 25 MG TAB PO SCH (09:00)
[2017-04-14] MEDS: GENTAMICIN SULFATE 20 MG/2 ML VIAL OTHER PRN (09:08)
[2017-04-14] MEDS: HEPARIN SODIUM - IV 10,000 UNITS/10 ML VIAL PRN (09:09)
[2017-04-14] MEDS: ALBUMIN 25% INJ 100 ML IV PRN ×2 (09:09→09:10)
[2017-04-14] MEDS: fentaNYL DRIP 250 ML IV PRN (13:42)
--- NOTE | 2017-04-14 13:44 | HHI.NPPN ---
Subjective History of Present Illness 62 year old male with ARF Rhabdomyolysis, painful, tired lethargic Additional Remarks Oliguric. Received dialysis today. Positive blood culture. Review of Systems General Constitutional: Fatigue Respiratory Lungs: SOB Musculoskeletal MS: Pain/Stiffness, Swelling in Back, Swelling in Joint Objective Data Data 04/14/17 04/15/17 19:00 07:00 Intake Total 400 ml Output Total 2700 ml Balance -2300 ml IV Total 400 ml Hemodialysis 2700 ml Vital Signs Date Time Temp Pulse Resp B/P (MAP) Pulse Ox O2 Delivery O2 Flow Rate FiO2 04/14/17 12:00 98.6 92 16 137/63 (87) 100 04/14/17 12:00 92 04/14/17 10:06 35 04/14/17 08:25 100 35 04/14/17 08:00 95 04/14/17 08:00 99.3 95 16 154/78 (103) 100 04/14/17 07:40 85 160/83 04/14/17 06:00 70 04/14/17 04:55 92 116/67 04/14/17 04:00 35 04/14/17 04:00 98.9 81 16 99/52 (68) 100 04/14/17 04:00 81 04/14/17 02:00 80 04/14/17 01:32 100 35 04/14/17 00:00 98.8 83 16 103/56 (72) 100 04/14/17 00:00 35 04/14/17 00:00 83 04/13/17 22:00 89 04/13/17 20:00 93 04/13/17 20:00 35 04/13/17 20:00 100.8 93 16 107/56 (73) 100 04/13/17 20:00 100 Mechanical Ventilator 40 04/13/17 19:41 100 35 04/13/17 19:15 91 115/56 04/13/17 18:00 91 04/13/17 16:00 99.0 92 16 114/51 (72) 100 04/13/17 16:00 35 04/13/17 16:00 92 04/13/17 15:03 99 35 04/13/17 14:00 89 -: 04/14/17 0600 04/14/17 0600 Physical Exam General Appearance: Well Developed, Well Nourished Neck Neck Exam: Jugular Vein Distension Pulmonary Resp Exam: Decreased Bases Cardiology CV Exam: Tachycardia Gastrointestinal/Abdomen GI Exam: Soft, Bowel Sounds Present Extremeties Extremities Exam: Trace Edema Assessment/Plan Problem List: (1) Acute renal failure ICD Codes: N17.9 - Acute kidney failure, unspecified Plan: ARF has Rhabdomyolysis He likely has acute tubular necrosis from underlying rhabdomyolysis Avoid nephrotoxins Dialysis initiated on 04/10. Monitor fluid and electrolytes. Avoid nephrotoxins. Dialysis done earlier UF 2.7 L tolerated it well follow BMP UOP improved (2) Rhabdomyolysis ICD Codes: M62.82 - Rhabdomyolysis Status: Acute Plan: Continue monitor his CPK trend is downwards (3) Subarachnoid hemorrhage ICD Codes: I60.9 - Nontraumatic subarachnoid hemorrhage, unspecified Plan: Neurosurgery following (4) UTI (lower urinary tract infection) ICD Codes: N39.0 - Urinary tract infection, site not specified (5) Sepsis ICD Codes: A41.9 - Sepsis, unspecified organism Plan: Staphylococcus Hemolyticus in blood culture ? contaminant. Management per tobacco drummer. Vancomycin ordered. Problem Qualifiers (1) Acute renal failure: Qualified Codes: N17.0 - Acute kidney failure with tubular necrosis (2) Rhabdomyolysis: Qualified Codes: M62.82 - Rhabdomyolysis Lio Robbins MD Apr 14, 2017 13:44
[2017-04-14] MEDS: 3% SALINE INJ 500 ML IV SCH (15:39)
[2017-04-14] MEDS: ACETAMINOPHEN 1000 MG/100 ML 100 ML IV PRN (16:23)
--- NOTE | 2017-04-14 16:26 | HHI.NSPN ---
(Sammy Wise) History Chief Complaint: Unable to obtain due to patient's clinical condition. (BillieSammy) Interval History 04/09: Mr. Choudhury is a 62-year-old male who presented to the emergency room last night after he was found on the floor by his roommate. He apparently fell yesterday and was lying on the ground for several hours. He indicates generalized weakness over the past few days and has fallen at least 2 times in the past couple of days. He indicates a possible syncopal type episode. Initial workup in the emergency room included a CT scan of the head which revealed probable mild right parietal convexity subarachnoid hemorrhage. He was also found to have a CPK over 40,000 and laboratory results consistent with rhabdomyolysis and UTI with possible urosepsis. He was given normal saline bolus and sodium bicarbonate by me. Also started on vancomycin and Zosyn. No seizure activity reported. 04/10: The patient is in bed with his eyes closed but he immediately answers to voice. He states "I feel like I am dying." He does say he felt a hundred percent better yesterday compared with today. He reports that his lower extremities are the worse and feel numb. He also continues to have numbness to the left side of the body which he was laying on when found. His CK is improving but he does remain in renal failure. Upon evaluation the patient is weaker to the lower extremities which are painful to touch. He is able to move the upper extremities slightly better but they are still weak. 04/11: receiving dialysis for acute kidney injury, reports mild headaches, and weakness in left lower extremity that is new. 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 04/12: feeing himself breakfast. doing well, reports left side still weak, denies any vision changes, loss of peripheral vision 04/13: 62-year-old male admitted with mild traumatic brain injury. Rhabdomyolysis, acute renal failure, UTI. Hemodialysis initiated. He has required subsequent intubation due to respiratory distress on the evening of 04/12. 04/14: Patient is intubated and mechanically ventilated when seen. He is on propofol for sedation and has fentanyl infusing for pain control. He did briefly open his eyes to voice. It appears he moved the toes to command but nothing to the upper extremities. (Sammy Wise) System Review Comments Unable to obtain due to patient's clinical condition. (Sammy Wise) Exam Results 04/12/17 04/12/17 04/13/17 04/13/17 04/14/17 04/14/17 05:59 17:59 05:59 17:59 05:59 17:59 Intake Total 600 ml 420 ml 720 ml 2247 ml 2609 ml 1886 ml Output Total 150 ml 300 ml 375 ml 500 ml 500 ml 3400 ml Balance 450 ml 120 ml 345 ml 1747 ml 2109 ml -1514 ml Intake Oral 600 ml 420 ml 720 ml IV Total 2247 ml 2609 ml 1450 ml Tube Feeding 386 ml Tube Irrigant 50 ml Output Urine Total 150 ml 300 ml 375 ml 400 ml 500 ml 700 ml Stool Total 0 ml Hemodialysis 2700 ml Estimated Blood Loss 100 ml # Bowel Movements 1 3 Vital Signs Date Time Temp Pulse Resp B/P (MAP) Pulse Ox O2 Delivery O2 Flow Rate FiO2 04/14/17 12:00 98.6 92 16 137/63 (87) 100 04/14/17 12:00 92 04/14/17 10:06 35 04/14/17 08:25 100 35 04/14/17 08:00 95 04/14/17 08:00 99.3 95 16 154/78 (103) 100 04/14/17 07:40 85 160/83 04/14/17 06:00 70 04/14/17 04:55 92 116/67 04/14/17 04:00 35 04/14/17 04:00 98.9 81 16 99/52 (68) 100 04/14/17 04:00 81 04/14/17 02:00 80 04/14/17 01:32 100 35 04/14/17 00:00 98.8 83 16 103/56 (72) 100 04/14/17 00:00 35 04/14/17 00:00 83 04/13/17 22:00 89 3/5/18 20:00 93 04/13/17 20:00 35 04/13/17 20:00 100.8 93 16 107/56 (73) 100 04/13/17 20:00 100 Mechanical Ventilator 40 04/13/17 19:41 100 35 04/13/17 19:15 91 115/56 3 18:00 91 04/13/17 16:00 99.0 92 16 114/51 (72) 100 04/13/17 16:00 35 04/13/17 16:00 92 04/13/17 15:03 99 35 04/13/17 14:00 89 04/13/17 12:00 99.4 82 16 100/47 (64) 100 04/13/17 12:00 35 04/13/17 12:00 86 04/13/17 10:44 77 172/92 04/13/17 10:27 76 98/50 04/13/17 10:08 100 35 04/13/17 10:00 79 04/13/17 08:00 98.2 71 16 161/75 (103) 100 04/13/17 08:00 76 04/13/17 08:00 35 04/13/17 07:17 100 35 04/13/17 07:00 100 Mechanical Ventilator 40 04/13/17 06:00 75 04/13/17 05:41 80 119/59 04/13/17 04:00 85 04/13/17 04:00 100 40 04/13/17 04:00 98.8 86 16 120/59 (79) 100 Automatic Cuff 04/13/17 04:00 40 04/13/17 02:00 84 04/13/17 01:00 100 100 04/13/17 00:00 98.8 100 24 182/113 (136) 93 04/13/17 00:00 84 04/13/17 00:00 40 04/13/17 00:00 100 Mechanical Ventilator 40 04/12/17 23:55 100 40 04/12/17 23:40 98 54/34 04/12/17 23:18 99 25 04/12/17 23:00 Bi-Pap 30 04/12/17 22:00 94 04/12/17 20:36 99 Nasal Cannula 2.00 04/12/17 20:00 94 04/12/17 20:00 98.9 104 26 165/86 (112) 95 04/12/17 20:00 4.00 04/12/17 18:00 94 04/12/17 17:38 23 04/12/17 16:00 88 04/12/17 16:00 98.1 88 36 154/82 (106) 98 04/12/17 14:00 86 04/12/17 12:00 97.9 86 31 152/79 (103) 100 04/12/17 12:00 86 04/12/17 10:00 84 04/12/17 09:54 93 Nasal Cannula 2.00 04/12/17 08:00 98.1 96 25 134/65 (88) 96 04/12/17 08:00 96 04/12/17 07:00 96 Nasal Cannula 2.00 04/12/17 06:00 90 04/12/17 04:00 94 04/12/17 04:00 98.6 95 13 115/71 (86) 93 04/12/17 02:00 92 04/12/17 00:00 88 04/12/17 00:00 98.8 92 16 96/55 (69) 99 04/11/17 22:00 81 04/11/17 21:06 99 21 04/11/17 20:00 87 04/11/17 20:00 99.3 94 12 120/62 (81) 99 04/11/17 19:00 100 Nasal Cannula 2.00 04/11/17 18:00 94 (Sammy Wise) Physical Examination GENERAL: Lethargic but responds to voice. Remains intubated and mechanically ventilated. He has propofol 35 mcg/kg/min infusing for sedation and fentanyl 100 mcg/hr infusing for pain control. He is not in any apparent distress. HEENT: Normocephalic. PERRLA 3 mm brisk. Orally intubated. OGT. MUSCULOSKELETAL: No evident clubbing or deformity. Left hand w/amputation of two digits. NEUROLOGICAL: Lethargic but sedated. Briefly opens eyes to voice and noxious stimulation. PERRLA 3 mm brisk. Nonverbal, intubated. Appears to have followed command to move toes once. No response to voice or local noxious stimulation to upper extremities other than eye opening. (Sammy Wise) Lab, Micro, Other Results Recent Impressions Upper Extremity Ultrasound 04/13/17 0000 Signed Impressions: Service Date/Time: Thursday, April 13, 2017 12:53 - CONCLUSION: Veins in the the left arm to the subclavian are patent. Left jugular vein is patent as well Paras Scales MD FACR Head CT 04/13/17 0000 Signed Impressions: Service Date/Time: Thursday, April 13, 2017 01:08 - CONCLUSION: 1. The recent acute intra-axial blood products in the right parietal high convexity is slightly increased in size and there is surrounding vasogenic edema. No herniation or midline shift is present. 2. The edema and blood products in the right cerebellum and right occipital lobe are better visualized on the current examination. Mariusz Oviedo MD Abdomen X-Ray 04/13/17 0000 Signed Impressions: Service Date/Time: Thursday, April 13, 2017 10:10 - CONCLUSION: Nasogastric tube in the pylorus. Paras Scales MD FACR Abdomen X-Ray 04/13/17 0000 Signed Impressions: Service Date/Time: Thursday, April 13, 2017 08:42 - CONCLUSION: No NG tube or Dobbhoff tube observed. Terry Hidalgo Jr., MD Chest X-Ray 04/12/17 0000 Signed Impressions: Service Date/Time: Wednesday, April 12, 2017 23:46 - CONCLUSION: 1. Endotracheal tube tip measures approximately 2.9 cm from the jessica. 2. Stable bibasilar opacities likely representing pleural effusions with associated volume loss and/or airspace consolidation. Mariusz Oviedo MD Carotid Artery Ultrasound 04/12/17 0000 Signed Impressions: Service Date/Time: Wednesday, April 12, 2017 22:36 - CONCLUSION: 1. Mild atherosclerotic disease within the carotid bulb and proximal internal carotid arteries bilaterally. However, no significant stenosis is identified within either internal carotid artery (less than 50%% stenosis). 2. There is antegrade blood flow in both vertebral arteries. Mariusz Oviedo MD Laboratory Tests Test 04/12/17 05:10 04/12/17 23:25 04/13/17 00:10 04/13/17 02:36 White Blood Count 9.1 TH/MM3 10.8 TH/MM3 Red Blood Count 2.86 MIL/MM3 2.72 MIL/MM3 Hemoglobin 10.5 GM/DL 10.0 GM/DL Hematocrit 29.9 % 27.9 % Mean Corpuscular Volume 104.6 FL 102.6 FL Mean Corpuscular Hemoglobin 36.5 PG 36.9 PG Mean Corpuscular Hemoglobin Concent 34.9 % 36.0 % Red Cell Distribution Width 12.7 % 12.6 % Platelet Count 72 TH/MM3 84 TH/MM3 Mean Platelet Volume 7.9 FL 8.1 FL Blood Urea Nitrogen 28 MG/DL 38 MG/DL Creatinine 5.34 MG/DL 6.17 MG/DL Random Glucose 89 MG/DL 112 MG/DL Total Protein 4.8 GM/DL 4.3 GM/DL Calcium Level 7.3 MG/DL 7.1 MG/DL Sodium Level 134 MEQ/L 132 MEQ/L Potassium Level 4.0 MEQ/L 3.7 MEQ/L Chloride Level 95 MEQ/L 96 MEQ/L Carbon Dioxide Level 30.0 MEQ/L 27.1 MEQ/L Anion Gap 9 MEQ/L 9 MEQ/L Estimat Glomerular Filtration Rate 11 ML/MIN 9 ML/MIN Protein Corrected Calcium 8.6 MG/DL 8.7 MG/DL Triglycerides Level 70 MG/DL Cholesterol Level 66 MG/DL LDL Cholesterol 31 MG/DL HDL Cholesterol 20.8 MG/DL Cholesterol/HDL Ratio 3.17 RATIO Blood Gas Puncture Site LINE RT RADIAL Blood Gas Patient Temperature 98.6 98.6 Venous Blood pH 7.30 Venous Blood Partial Pressure CO2 59 mmHg Venous Blood Partial Pressure O2 50 mmHg Venous Blood HCO3 28 mmol/L Venous Blood Oxygen Saturation 77 % Venous Blood Oxygen Content 9.4 Vol % Venous Blood Base Excess 2.3 mmol/L Oxygen Delivery Device NASAL CANNULA VENTILATOR Blood Gas Liter Flow 6 L/M Blood Gas HCO3 25 mmol/L Blood Gas Base Excess 1.1 mmol/L Blood Gas Oxygen Saturation 96 % Arterial Blood pH 7.43 Arterial Blood Partial Pressure CO2 38 mmHg Arterial Blood Partial Pressure O2 101 mmHG Arterial Blood Oxygen Content 14.7 Vol % Arterial Blood Carboxyhemoglobin 1.9 % Arterial Blood Methemoglobin 0.2 % Blood Gas Hemoglobin 10.8 G/DL Blood Gas Ventilator Setting 16/550/IT1.0/5PEEP Blood Gas Inspired Oxygen 40 % Neutrophils (%) (Auto) 61.6 % Lymphocytes (%) (Auto) 24.4 % Monocytes (%) (Auto) 11.9 % Eosinophils (%) (Auto) 1.8 % Basophils (%) (Auto) 0.3 % Neutrophils # (Auto) 6.6 TH/MM3 Lymphocytes # (Auto) 2.6 TH/MM3 Monocytes # (Auto) 1.3 TH/MM3 Eosinophils # (Auto) 0.2 TH/MM3 Basophils # (Auto) 0.0 TH/MM3 CBC Comment AUTO DIFF Differential Comment AUTO DIFF CONFIRMED Toxic Vacuolation PRESENT Platelet Estimate LOW Platelet Morphology Comment NORMAL Basophilic Stippling FAINT Helmet Cells OCC Prothrombin Time 12.0 SEC Prothromb Time International Ratio 1.2 RATIO Activated Partial Thromboplast Time 28.1 SEC Albumin 1.6 GM/DL Phosphorus Level 5.9 MG/DL Magnesium Level 1.9 MG/DL Alkaline Phosphatase 58 U/L Aspartate Amino Transf (AST/SGOT) 271 U/L Alanine Aminotransferase (ALT/SGPT) 84 U/L Total Bilirubin 0.7 MG/DL Lactic Acid Level 1.5 mmol/L Troponin I 0.03 NG/ML Test 04/13/17 08:00 04/13/17 18:30 04/14/17 06:00 Total Creatine Kinase 4263 U/L Creatine Kinase MB 4.1 NG/ML Creatine Kinase MB % 0.1 % Troponin I 0.03 NG/ML 0.03 NG/ML White Blood Count 12.3 TH/MM3 12.0 TH/MM3 Red Blood Count 2.98 MIL/MM3 2.88 MIL/MM3 Hemoglobin 10.9 GM/DL 10.3 GM/DL Hematocrit 30.9 % 29.6 % Mean Corpuscular Volume 103.8 FL 102.8 FL Mean Corpuscular Hemoglobin 36.7 PG 35.8 PG Mean Corpuscular Hemoglobin Concent 35.4 % 34.8 % Red Cell Distribution Width 13.1 % 13.1 % Platelet Count 103 TH/MM3 115 TH/MM3 Mean Platelet Volume 8.1 FL 7.7 FL Neutrophils (%) (Auto) 59.1 % Lymphocytes (%) (Auto) 23.9 % Monocytes (%) (Auto) 14.3 % Eosinophils (%) (Auto) 2.5 % Basophils (%) (Auto) 0.2 % Neutrophils # (Auto) 7.2 TH/MM3 Lymphocytes # (Auto) 2.9 TH/MM3 Monocytes # (Auto) 1.7 TH/MM3 Eosinophils # (Auto) 0.3 TH/MM3 Basophils # (Auto) 0.0 TH/MM3 CBC Comment DIFF FINAL Differential Comment Blood Urea Nitrogen 46 MG/DL 50 MG/DL Creatinine 6.89 MG/DL 7.03 MG/DL Random Glucose 87 MG/DL 107 MG/DL Calcium Level 7.5 MG/DL 7.2 MG/DL Sodium Level 135 MEQ/L 140 MEQ/L Potassium Level 4.0 MEQ/L 3.5 MEQ/L Chloride Level 100 MEQ/L 106 MEQ/L Carbon Dioxide Level 24.6 MEQ/L 21.7 MEQ/L Anion Gap 10 MEQ/L 12 MEQ/L Estimat Glomerular Filtration Rate 8 ML/MIN 8 ML/MIN Lactic Acid Level 1.4 mmol/L Total Protein 4.1 GM/DL Protein Corrected Calcium 8.9 MG/DL Random Vancomycin Level 27.1 COMMENT (Sammy Wise) Medical Decision Making Impression and Plan Impression: 1. Findings consistent with traumatic brain injury, subarachnoid hemorrhage right parietal convexity 2. Right cerebellar hyperdensity lesion. Possible remote infarct. Need to rule out mass lesion 3. Rhabdomyolysis 4. UTI 5. Hypertension 6. Acute kidney disease-likely related to rhabdomyolysis. 7. Possible syncopal episode 8. Electrolyte disturbance-hyperkalemia and hyponatremia. Likely related to acute kidney disease. 9. Respiratory failure requiring intubation The patient continues to be critical. Lethargic but sedated. Did appear to follow command to move toes but did not follow any other commands. Reviewed labs for today. Minimal improvement in leukocytosis. Interval drop in haemaglobin level. Interval improvement of thrombocytopenia. Sodium 140. Interval worsening of creatinine, stable eGFR. CT brain demonstrated slight increase in the right parietal intra- axial blood products w/surrounding vasogenic edema. Also noted are blood products to the right occipital lobe and right cerebellum. No herniation or midline shift. Plan: Primary management per [employer]. Nephrology following for renal failure. Neuro checks. Monitor sodium level. Stat CT brain for any decline in neuro status. Hold pharmacologic DVT prophylaxis. Mechanical DVT prophylaxis. Stress ulcer prophylaxis. (Sammy Wise) Attending Statement The exam, history, and the medical decision-making described in the above note were completed with the assistance of the mid-level provider. I reviewed and agree with the findings presented. I attest that I had a [id number] encounter with the patient on the same day, and personally performed and documented my assessment and findings in the medical record. On examination today the patient remains intubated and sedated. Mild eye opening to voice. Moves all extremities when stimulated 04/13/2017 CT scan. Revealed relatively stable right parietal convexity subarachnoid hemorrhage. No neurosurgical intervention planned at this point. Continuing ventilatory support, sedation as needed. Close neurologic checks. (Matthew Katz MD) Sammy Wise Apr 14, 2017 16:26 Matthew aKtz MD Apr 14, 2017 21:05
--- NOTE | 2017-04-14 20:48 | HHI.CCPN ---
Subjective Remarks/Hospital Course This is a 8-year-old male who reportedly fell at home yesterday and was unable to get up for at least 5 hours, but likely greater than that. He called 911 today and was brought in tonight by EMS. He does endorse possibly syncopized. He states he has fallen recently over the last few days, but this is unusual for him. He denies headache. He denies fever, chills, shortness of breath, chest pain, nausea, vomiting, abdominal pain, diarrhea. He does not endorse any other symptom other than the frequent falls. In the emergency department CT had demonstrated small subarachnoid hemorrhage, likely traumatic. In addition, the patient had very dark very thick urine, and his CK level was greater than 40,000. He was immediately started on IV sodium bicarb and IV fluids. He also has evidence of hyperkalemia, hyponatremia, acute kidney injury with a creatinine greater than 2. Critical care medicine is consulted to evaluate manage his acute rhabdo, his multiple organ failure. 04/10: CK level declining but renal function deteriorating. Urine minimal. 04/11: Renal function continues to reflect kidney injury. HD started. Fluid balance about right. 04/12: 04/12 culture bottles blood with Staph aureus, awaiting C&S. Will switch to Vancomycin for one dose pending. Afebrile, WBC normal. 04/13: Patient was intubated last night and placed on mechanical ventilation for altered mental status and worsening respiratory failure. Currently sedated , orally intubated on mechanical ventilation. 04/14: remains intubated. remains on levophed for pressor support. Cr still elevated, but uop improving slowly. Objective Vital Signs Date Time Temp Pulse Resp B/P (MAP) Pulse Ox O2 Delivery O2 Flow Rate FiO2 04/14/17 19:20 100 35 04/14/17 18:21 74 90/47 04/14/17 16:00 100.7 16 04/13/17 20:00 Mechanical Ventilator 04/12/17 20:36 2.00 Intake and Output 04/14/17 04/14/17 04/15/17 08:00 16:00 00:00 Intake Total 1186 ml 1350 ml 555 ml Output Total 700 ml 2700 ml 375 ml Balance 486 ml -1350 ml 180 ml Result Diagram: 04/14/17 0600 04/14/17 0600 Imaging Last [address] 04/13/17 0000 Signed Impressions: Service Date/Time: Thursday, April 13, 2017 01:08 - CONCLUSION: 1. The recent acute intra-axial blood products in the right parietal high convexity is slightly increased in size and there is surrounding vasogenic edema. No herniation or midline shift is present. 2. The edema and blood products in the right cerebellum and right occipital lobe are better visualized on the current examination. Mariusz Oviedo MD Chest X-Ray 04/12/17 Signed Impressions: Service Date/Time: Wednesday, April 12, 2017 23:46 - CONCLUSION: 1. Endotracheal tube tip measures approximately 2.9 cm from the jessica. 2. Stable bibasilar opacities likely representing pleural effusions with associated volume loss and/or airspace consolidation. Mariusz Oviedo MD Carotid Artery Ultrasound 04/12/17 Signed Impressions: Service Date/Time: Wednesday, April 12, 2017 22:36 - CONCLUSION: 1. Mild atherosclerotic disease within the carotid bulb and proximal internal carotid arteries bilaterally. However, no significant stenosis is identified within either internal carotid artery (less than 50%% stenosis). 2. There is antegrade blood flow in both vertebral arteries. Mariusz vOiedo MD Last Impressions Head CT 04/08/172033 Signed Impressions: Service Date/Time: Saturday, April 08, 2017 22:01 - CONCLUSION: Small amount of probable acute subarachnoid hemorrhage within the high right parietal region which may be post-traumatic in etiology. Clinical correlation is recommended. Kang Cruz MD Chest X-Ray 04/08/172033 Signed Impressions: Service Date/Time: Saturday, April 08, 2017 20:56 - CONCLUSION: No acute disease. Kang Cruz MD Abdomen/Pelvis CT 04/08/17 Signed Impressions: Service Date/Time: Saturday, April 08, 2017 22:09 - CONCLUSION: 1. No acute obstructive uropathy. 2. Uncomplicated colonic diverticulosis. 3. Nodular contour of liver suggesting possible cirrhosis. 4. Degenerative changes and scoliosis of the lumbar spine. Kang Cruz MD Objective Remarks GENERAL: Middle-age male who appears older than stated age, lying in bed, sedated, orally intubated on mechanical ventilation HEENT: Normocephalic. Atraumatic. Pupils equal, round, reactive, conjugate. NECK: Trachea is midline. Airway widely patent CHEST: Orally intubated on mechanical ventilation, equal chest rise. CARDIOVASCULAR: Tachycardic rate, regular rhythm. Sinus by telemetry. No JVD. ABDOMEN: Soft, nontender, nondistended. No guarding. MUSCULOSKELETAL: Pulses 2+. No peripheral edema. Well perfused. NEUROLOGICAL: Sedated, orally intubated on mechanical ventilation, arouses on lightening sedation, moving all 4 extremities. A/P Assessment and Plan Assessment: 62-year-old male with recent frequent falls whose course is complicated by severe life-threatening rhabdomyolysis, acute kidney injury, and traumatic subarachnoid hemorrhage. Now s/p hemodialysis with continued acute kidney injury and acute respiratory failure. remains on vasopressors which may be resolving shock superimposed on renal failure. remains critically ill and off pathway. unable to wean mechanical ventilation today for hemodynamic status and sedation still an issue as patient is intermittently agitated. Traumatic Subarachnoid hemorrhage - no anticoagulation - nsgy consultation - frequent neuro checks - tight bp control, < 140. - hydralazine, labetalol prn for this Agitated Delirium - propofol and fentanyl for goal RASS -2. Acute respiratory failure on mechanical ventilation -Continue mechanical ventilation, vent bundle, bronchodilators as needed. Start daily C Pap trials in neurologic status improved. Severe Acute Rhabdomyolysis - serial CK downtrended. - intermittent IHD - nephrology on board. - ivf - watch uop closely Acute Kidney Injury - secondary to acute rhabdo - place [place] - close monitoring of uop - daily bmp - watch electrolytes closely - Deteriorating function. - HD started 04/10 Hyperkalemia Hyponatremia - secondary to acute kidney injury and rhabdo - bicarb and ivf - trend, improved Urinary Tract Infection - s/p rocephin. SCDs hold pharmacologic DVT prophylaxis given head bleed Overall impression: Remains critically ill with deteriorating renal function and worsening metabolic state. Unstable and now requiring dialysis hemodialysis. Now intubated and placed on mechanical ventilation. minimal improvements in 24h. Critical care 31 mins, exclusive of separately billable procedures. Sihraz Rainey MD Apr 14, 2017 20:48
[2017-04-15] VITALS (17 sets, daily range): BP systolic 106–130; BP diastolic 53–59; PULSE 62–132; RESP 14–17; TEMP 98.2–99.7; O2SAT 97–100
[2017-04-15] MEDS: NOREPINEPHRINE INJ 4 MG in SODIUM CHLOR 0.9% 250 ML INJ 246 ML IV PRN (02:38)
[2017-04-15] MEDS: METRONIDAZOLE 500 MG/100 ML ISONTONIC SOLN IV SCH ×4 (02:39→20:51)
[2017-04-15] MEDS: CHLORHEXIDINE GLUCONATE 2 % 1 PACK (2 CLOTHS) TOP SCH (04:00)
[2017-04-15] MEDS: AZTREONAM INJ 500 MG in SODIUM CHLORIDE 0.9% INJ 100 ML IV SCH ×3 (05:27→21:25)
[2017-04-15] MEDS: 3% SALINE INJ 500 ML IV SCH (05:28)
[2017-04-15 05:53] LABS: HEMATOCRIT 27.5 % (39.0-51.0); HEMOGLOBIN 9.5 GM/DL (13.0-17.0); MEAN CORPUSCULAR HEMOGLOBIN 35.9 PG (27.0-34.0); MEAN CORPUSCULAR HGB CONC 34.5 % (32.0-36.0); MEAN PLATELET VOLUME 7.6 FL (7.0-11.0); PLATELET COUNT 116 TH/MM3 (150-450); RED BLOOD COUNT 2.65 MIL/MM3 (4.50-5.90); RED CELL DISTRIBUTION WIDTH 13.3 % (11.6-17.2); WHITE BLOOD COUNT 8.9 TH/MM3 (4.0-11.0)
[2017-04-15 06:23] LABS: BICARBONATE 24.6 MEQ/L (21.0-32.0); CALCIUM 7.5 MG/DL (8.5-10.1); CREATININE 5.6 MG/DL (0.60-1.30); RANDOM VANCOMYCIN 21.6 COMMENT
[2017-04-15] MEDS ORDERED: POTASSIUM CHLOR 40 MEQ PREMIX 100 ML IV ONE (08:30)
[2017-04-15] MEDS: METOPROLOL TARTRATE 25 MG TAB PO SCH (09:00)
[2017-04-15] MEDS: PANTOPRAZOLE SODIUM 40 MG VIAL IV PUSH SCH (09:02)
[2017-04-15] MEDS: THIAMINE HCL 100 MG TAB PO SCH (09:02)
[2017-04-15] MEDS: GABAPENTIN 100 MG CAP PO SCH ×3 (09:02→20:50)
[2017-04-15] MEDS: SODIUM CHLORIDE 0.9% FLUSH 10 ML FLUSH IV FLUSH SCH (09:02)
--- NOTE | 2017-04-15 09:46 | HHI.NSPN ---
(Sammy Wise) History Chief Complaint: Unable to obtain due to patient's clinical condition. (BillieSammy) Interval History 04/09: Mr. Choudhury is a 62-year-old male who presented to the emergency room last night after he was found on the floor by his roommate. He apparently fell yesterday and was lying on the ground for several hours. He indicates generalized weakness over the past few days and has fallen at least 2 times in the past couple of days. He indicates a possible syncopal type episode. Initial workup in the emergency room included a CT scan of the head which revealed probable mild right parietal convexity subarachnoid hemorrhage. He was also found to have a CPK over 40,000 and laboratory results consistent with rhabdomyolysis and UTI with possible urosepsis. He was given normal saline bolus and sodium bicarbonate by me. Also started on vancomycin and Zosyn. No seizure activity reported. 04/10: The patient is in bed with his eyes closed but he immediately answers to voice. He states "I feel like I am dying." He does say he felt a hundred percent better yesterday compared with today. He reports that his lower extremities are the worse and feel numb. He also continues to have numbness to the left side of the body which he was laying on when found. His CK is improving but he does remain in renal failure. Upon evaluation the patient is weaker to the lower extremities which are painful to touch. He is able to move the upper extremities slightly better but they are still weak. 04/11: receiving dialysis for acute kidney injury, reports mild headaches, and weakness in left lower extremity that is new. 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 04/12: feeing himself breakfast. doing well, reports left side still weak, denies any vision changes, loss of peripheral vision 04/13: 62-year-old male admitted with mild traumatic brain injury. Rhabdomyolysis, acute renal failure, UTI. Hemodialysis initiated. He has required subsequent intubation due to respiratory distress on the evening of 04/12. 04/14: Patient is intubated and mechanically ventilated when seen. He is on propofol for sedation and has fentanyl infusing for pain control. He did briefly open his eyes to voice. It appears he moved the toes to command but nothing to the upper extremities. 04/15: The patient remains lethargic but sedated. He is still intubated and mechanically ventilated. He briefly opens his eyes to voice and noxious stimulation. He did not follow any commands but did have some movement of the left lower extremity/foot to local noxious stimulation. Nursing this morning stated that in report she was told the patient was following commands. When she did a sedation vacation the patient did not follow any commands for her, but became agitated. She also stated that the patient had a twitch to the left shoulder. (Sammy Wise) System Review Comments Unable to obtain due to patient's clinical condition. (Sammy Wise) Exam Results 04/13/17 04/13/17 04/14/17 04/14/17 04/15/17 04/15/17 06:00 18:00 06:00 18:00 06:00 18:00 Intake Total 2506 ml 2786 ml 2105 ml 1060 ml Output Total 1000 ml 700 ml 3075 ml 400 ml Balance 1506 ml 2086 ml -970 ml 660 ml IV Total 2506 ml 2350 ml 1750 ml 550 ml Tube Feeding 386 ml 355 ml 410 ml Tube Irrigant 50 ml 100 ml Output Urine Total 900 ml 700 ml 375 ml 400 ml Gastric Drainage Total 0 ml Hemodialysis 2700 ml Estimated Blood Loss 100 ml # Bowel Movements 1 0 Vital Signs Date Time Temp Pulse Resp B/P (MAP) Pulse Ox O2 Delivery O2 Flow Rate FiO2 04/15/17 08:35 100 35 04/15/17 08:00 98.9 89 16 117/54 (75) 100 04/15/17 08:00 35 04/15/17 08:00 90 04/15/17 06:00 80 04/15/17 04:00 73 04/15/17 04:00 35 04/15/17 04:00 98.2 73 16 130/59 (82) 100 04/15/17 02:38 70 106/48 04/15/17 02:00 70 04/15/17 00:00 35 04/15/17 00:00 62 04/15/17 00:00 98.9 62 16 110/53 (72) 100 04/14/17 23:44 100 35 04/14/17 22:00 65 04/14/17 20:00 73 04/14/17 20:00 35 04/14/17 20:00 100.0 73 16 106/49 (68) 100 04/14/17 19:20 100 35 04/14/17 18:21 74 90/47 04/14/17 18:00 85 100/47 04/14/17 17:00 99 35 04/14/17 16:45 104 89/50 04/14/17 16:00 91 04/14/17 16:00 100.7 91 16 130/63 (85) 96 04/14/17 12:00 98.6 92 16 137/63 (87) 100 04/14/17 12:00 92 04/14/17 10:06 35 04/14/17 08:25 100 35 04/14/17 08:00 95 04/14/17 08:00 99.3 95 16 154/78 (103) 100 04/14/17 07:40 85 160/83 04/14/17 06:00 70 04/14/17 04:55 92 116/67 04/14/17 04:00 35 04/14/17 04:00 98.9 81 16 99/52 (68) 100 04/14/17 04:00 81 04/14/17 02:00 80 04/14/17 01:32 100 35 04/14/17 00:00 98.8 83 16 103/56 (72) 100 04/14/17 00:00 35 04/14/17 00:00 83 04/13/17 22:00 89 04/13/17 20:00 93 04/13/17 20:00 35 04/13/17 20:00 100.8 93 16 107/56 (73) 100 04/13/17 20:00 100 Mechanical Ventilator 40 04/13/17 19:41 100 35 04/13/17 19:15 91 115/56 04/13/17 18:00 91 04/13/17 16:00 99.0 92 16 114/51 (72) 100 04/13/17 16:00 35 04/13/17 16:00 92 04/13/17 15:03 99 35 04/13/17 14:00 89 04/13/17 12:00 99.4 82 16 100/47 (64) 100 04/13/17 12:00 35 04/13/17 12:00 86 04/13/17 10:44 77 172/92 04/13/17 10:27 76 98/50 04/13/17 10:08 100 35 04/13/17 10:00 79 04/13/17 08:00 98.2 71 16 161/75 (103) 100 04/13/17 08:00 76 04/13/17 08:00 35 04/13/17 07:17 100 35 04/13/17 07:00 100 Mechanical Ventilator 40 04/13/17 06:00 75 04/13/17 05:41 80 119/59 04/13/17 04:00 85 04/13/17 04:00 100 40 04/13/17 04:00 98.8 86 16 120/59 (79) 100 Automatic Cuff 04/13/17 04:00 40 04/13/17 02:00 84 04/13/17 01:00 100 100 04/13/17 00:00 98.8 100 24 182/113 (136) 93 04/13/17 00:00 84 04/13/17 00:00 40 04/13/17 00:00 100 Mechanical Ventilator 40 04/12/17 23:55 100 40 04/12/17 23:40 98 54/34 04/12/17 23:18 99 25 04/12/17 23:00 Bi-Pap 30 04/12/17 22:00 94 04/12/17 20:36 99 Nasal Cannula 2.00 04/12/17 20:00 94 04/12/17 20:00 98.9 104 26 165/86 (112) 95 04/12/17 20:00 4.00 04/12/17 18:00 94 04/12/17 17:38 23 04/12/17 16:00 88 04/12/17 16:00 98.1 88 36 154/82 (106) 98 04/12/17 14:00 86 04/12/17 12:00 97.9 86 31 152/79 (103) 100 04/12/17 12:00 86 04/12/17 10:00 84 04/12/17 09:54 93 Nasal Cannula 2.00 (Sammy Wise) Physical Examination GENERAL: Lethargic, opens eyes to voice. Remains intubated and mechanically ventilated. He has propofol 25 mcg/kg/min infusing for sedation and fentanyl 100 mcg/hr infusing for pain control. He does have norepinephrine infusing at 10 mcg/min for blood pressure support. He is not in any apparent distress. HEENT: Normocephalic. PERRLA 3 mm brisk. Orally intubated. OGT. MUSCULOSKELETAL: No evident clubbing. 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 NEUROLOGICAL: Lethargic but sedated. Briefly opens eyes to voice and noxious stimulation. PERRLA 3 mm brisk. Nonverbal, intubated. Did not follow commands. Trace movement of left foot to local noxious stimulation to the right foot and slight withdrawal of the LLE to local stimulation of the left foot. No responses w/BLE or RLE to local noxious stimulation. No response to central noxious stimulation. Slight twitch to the left shoulder noted initially but was not evident later. (Sammy Wise) Lab, Micro, Other Results Recent Impressions Upper Extremity Ultrasound 04/13/17 0000 Signed Impressions: Service Date/Time: Thursday, April 13, 2017 12:53 - CONCLUSION: Veins in the the left arm to the subclavian are patent. Left jugular vein is patent as well Paras Scales MD FACR Head CT 04/13/17 0000 Signed Impressions: Service Date/Time: Thursday, April 13, 2017 01:08 - CONCLUSION: 1. The recent acute intra-axial blood products in the right parietal high convexity is slightly increased in size and there is surrounding vasogenic edema. No herniation or midline shift is present. 2. The edema and blood products in the right cerebellum and right occipital lobe are better visualized on the current examination. Mariusz Oviedo MD Abdomen X-Ray 04/13/17 0000 Signed Impressions: Service Date/Time: Thursday, April 13, 2017 10:10 - CONCLUSION: Nasogastric tube in the pylorus. Paras Scales MD FACR Abdomen X-Ray 04/13/17 0000 Signed Impressions: Service Date/Time: Thursday, April 13, 2017 08:42 - CONCLUSION: No NG tube or Dobbhoff tube observed. Terry Hidalgo Jr., MD Laboratory Tests Test 04/12/17 23:25 04/13/17 00:10 04/13/17 02:36 04/13/17 08:00 Blood Gas Puncture Site LINE RT RADIAL Blood Gas Patient Temperature 98.6 98.6 Venous Blood pH 7.30 Venous Blood Partial Pressure CO2 59 mmHg Venous Blood Partial Pressure O2 50 mmHg Venous Blood HCO3 28 mmol/L Venous Blood Oxygen Saturation 77 % Venous Blood Oxygen Content 9.4 Vol % Venous Blood Base Excess 2.3 mmol/L Oxygen Delivery Device NASAL CANNULA VENTILATOR Blood Gas Liter Flow 6 L/M Blood Gas HCO3 25 mmol/L Blood Gas Base Excess 1.1 mmol/L Blood Gas Oxygen Saturation 96 % Arterial Blood pH 7.43 Arterial Blood Partial Pressure CO2 38 mmHg Arterial Blood Partial Pressure O2 101 mmHG Arterial Blood Oxygen Content 14.7 Vol % Arterial Blood Carboxyhemoglobin 1.9 % Arterial Blood Methemoglobin 0.2 % Blood Gas Hemoglobin 10.8 G/DL Blood Gas Ventilator Setting 16/550/IT1.0/5PEEP Blood Gas Inspired Oxygen 40 % White Blood Count 10.8 TH/MM3 Red Blood Count 2.72 MIL/MM3 Hemoglobin 10.0 GM/DL Hematocrit 27.9 % Mean Corpuscular Volume 102.6 FL Mean Corpuscular Hemoglobin 36.9 PG Mean Corpuscular Hemoglobin Concent 36.0 % Red Cell Distribution Width 12.6 % Platelet Count 84 TH/MM3 Mean Platelet Volume 8.1 FL Neutrophils (%) (Auto) 61.6 % Lymphocytes (%) (Auto) 24.4 % Monocytes (%) (Auto) 11.9 % Eosinophils (%) (Auto) 1.8 % Basophils (%) (Auto) 0.3 % Neutrophils # (Auto) 6.6 TH/MM3 Lymphocytes # (Auto) 2.6 TH/MM3 Monocytes # (Auto) 1.3 TH/MM3 Eosinophils # (Auto) 0.2 TH/MM3 Basophils # (Auto) 0.0 TH/MM3 CBC Comment AUTO DIFF Differential Comment AUTO DIFF CONFIRMED Toxic Vacuolation PRESENT Platelet Estimate LOW Platelet Morphology Comment NORMAL Basophilic Stippling FAINT Helmet Cells OCC Prothrombin Time 12.0 SEC Prothromb Time International Ratio 1.2 RATIO Activated Partial Thromboplast Time 28.1 SEC Blood Urea Nitrogen 38 MG/DL Creatinine 6.17 MG/DL Random Glucose 112 MG/DL Total Protein 4.3 GM/DL Albumin 1.6 GM/DL Calcium Level 7.1 MG/DL Phosphorus Level 5.9 MG/DL Magnesium Level 1.9 MG/DL Alkaline Phosphatase 58 U/L Aspartate Amino Transf (AST/SGOT) 271 U/L Alanine Aminotransferase (ALT/SGPT) 84 U/L Total Bilirubin 0.7 MG/DL Sodium Level 132 MEQ/L Potassium Level 3.7 MEQ/L Chloride Level 96 MEQ/L Carbon Dioxide Level 27.1 MEQ/L Anion Gap 9 MEQ/L Estimat Glomerular Filtration Rate 9 ML/MIN Lactic Acid Level 1.5 mmol/L Protein Corrected Calcium 8.7 MG/DL Troponin I 0.03 NG/ML 0.03 NG/ML Total Creatine Kinase 4263 U/L Creatine Kinase MB 4.1 NG/ML Creatine Kinase MB % 0.1 % Test 04/13/17 18:30 04/14/17 06:00 04/15/17 05:40 White Blood Count 12.3 TH/MM3 12.0 TH/MM3 8.9 TH/MM3 Red Blood Count 2.98 MIL/MM3 2.88 MIL/MM3 2.65 MIL/MM3 Hemoglobin 10.9 GM/DL 10.3 GM/DL 9.5 GM/DL Hematocrit 30.9 % 29.6 % 27.5 % Mean Corpuscular Volume 103.8 FL 102.8 FL 104.0 FL Mean Corpuscular Hemoglobin 36.7 PG 35.8 PG 35.9 PG Mean Corpuscular Hemoglobin Concent 35.4 % 34.8 % 34.5 % Red Cell Distribution Width 13.1 % 13.1 % 13.3 % Platelet Count 103 TH/MM3 115 TH/MM3 116 TH/MM3 Mean Platelet Volume 8.1 FL 7.7 FL 7.6 FL Neutrophils (%) (Auto) 59.1 % Lymphocytes (%) (Auto) 23.9 % Monocytes (%) (Auto) 14.3 % Eosinophils (%) (Auto) 2.5 % Basophils (%) (Auto) 0.2 % Neutrophils # (Auto) 7.2 TH/MM3 Lymphocytes # (Auto) 2.9 TH/MM3 Monocytes # (Auto) 1.7 TH/MM3 Eosinophils # (Auto) 0.3 TH/MM3 Basophils # (Auto) 0.0 TH/MM3 CBC Comment DIFF FINAL Differential Comment Blood Urea Nitrogen 46 MG/DL 50 MG/DL 40 MG/DL Creatinine 6.89 MG/DL 7.03 MG/DL 5.60 MG/DL Random Glucose 87 MG/DL 107 MG/DL 120 MG/DL Calcium Level 7.5 MG/DL 7.2 MG/DL 7.5 MG/DL Sodium Level 135 MEQ/L 140 MEQ/L 146 MEQ/L Potassium Level 4.0 MEQ/L 3.5 MEQ/L 2.9 MEQ/L Chloride Level 100 MEQ/L 106 MEQ/L 110 MEQ/L Carbon Dioxide Level 24.6 MEQ/L 21.7 MEQ/L 24.6 MEQ/L Anion Gap 10 MEQ/L 12 MEQ/L 11 MEQ/L Estimat Glomerular Filtration Rate 8 ML/MIN 8 ML/MIN 10 ML/MIN Lactic Acid Level 1.4 mmol/L Troponin I 0.03 NG/ML Total Protein 4.1 GM/DL Protein Corrected Calcium 8.9 MG/DL Random Vancomycin Level 27.1 COMMENT 21.6 COMMENT (Sammy Wise) Medical Decision Making Impression and Plan Impression: 1. Findings consistent with traumatic brain injury, subarachnoid hemorrhage right parietal convexity 2. Right cerebellar hyperdensity lesion. Possible remote infarct. Need to rule out mass lesion 3. Rhabdomyolysis 4. UTI 5. Hypertension 6. Acute kidney disease-likely related to rhabdomyolysis. 7. Possible syncopal episode 8. Electrolyte disturbance-hyperkalemia and hyponatremia. Likely related to acute kidney disease. 9. Respiratory failure requiring intubation The patient remains critical. Lethargic but sedated. Did not follow any commands. Some response of LLE w/noxious stimulation to the LLE & RLE. T max 100.7 yesterday afternoon. Reviewed labs for today. Interval resolution in leukocytosis. Interval drop in haemaglobin level. Thrombocytopenia essentially stable. Sodium 146. Hypokalmeia. Interval improvement in renal function. CT brain demonstrated slight increase in the right parietal intra- axial blood products w/surrounding vasogenic edema. Also noted are blood products to the right occipital lobe and right cerebellum. No herniation or midline shift. Plan: Primary management per Renderer. Nephrology following for renal failure. Neuro checks. Monitor sodium level. Stat CT brain for any decline in neuro status. Hold pharmacologic DVT prophylaxis. Mechanical DVT prophylaxis. Stress ulcer prophylaxis. (Sammy Wise) Attending Statement The exam, history, and the medical decision-making described in the above note were completed with the assistance of the mid-level provider. I reviewed and agree with the findings presented. I attest that I had a [id number] encounter with the patient on the same day, and personally performed and documented my assessment and findings in the medical record. On examination by the undersigned 04/15/2017 the patient remains intubated, sedated. Mild eye opening to voice. Not following commands except for questionable mild grasp left hand. Remains intubated, sedation for agitation. Continuing ventilatory support, dialysis as needed per renal medicine. (Matthew Katz MD) Sammy Wise Apr 15, 2017 09:46 Matthew Katz MD Apr 15, 2017 20:31
--- NOTE | 2017-04-15 10:40 | HHI.CCPN ---
Subjective Remarks/Hospital Course This is a 8-year-old male who reportedly fell at home yesterday and was unable to get up for at least 5 hours, but likely greater than that. He called 911 today and was brought in tonight by EMS. He does endorse possibly syncopized. He states he has fallen recently over the last few days, but this is unusual for him. He denies headache. He denies fever, chills, shortness of breath, chest pain, nausea, vomiting, abdominal pain, diarrhea. He does not endorse any other symptom other than the frequent falls. In the emergency department CT had demonstrated small subarachnoid hemorrhage, likely traumatic. In addition, the patient had very dark very thick urine, and his CK level was greater than 40,000. He was immediately started on IV sodium bicarb and IV fluids. He also has evidence of hyperkalemia, hyponatremia, acute kidney injury with a creatinine greater than 2. Critical care medicine is consulted to evaluate manage his acute rhabdo, his multiple organ failure. 04/10: CK level declining but renal function deteriorating. Urine minimal. 04/11: Renal function continues to reflect kidney injury. HD started. Fluid balance about right. 04/12: 04/12 culture bottles blood with Staph aureus, awaiting C&S. Will switch to Vancomycin for one dose pending. Afebrile, WBC normal. 04/13: Patient was intubated last night and placed on mechanical ventilation for altered mental status and worsening respiratory failure. Currently sedated , orally intubated on mechanical ventilation. 04/14: remains intubated. remains on levophed for pressor support. Cr still elevated, but uop improving slowly. 04/15: more awake today, but not following commands. delirium persists. on SBT on my eval. Cr stable. uop adequate. Objective Vital Signs Date Time Temp Pulse Resp B/P (MAP) Pulse Ox O2 Delivery O2 Flow Rate FiO2 04/15/17 08:35 100 35 04/15/17 08:00 98.9 89 16 117/54 (75) 04/13/17 20:00 Mechanical Ventilator 04/12/17 20:36 2.00 Intake and Output 04/15/17 04/15/17 04/16/17 08:00 16:00 00:00 Intake Total 760 ml Output Total 400 ml Balance 360 ml Result Diagram: 04/15/17 0540 04/15/17 0540 Other Results Microbiology Date/Time Source Procedure Growth Status 04/13/17 03:15 Sputum Endotracheal Gram Stain - Final Complete 04/13/17 03:15 Sputum Endotracheal Sputum Culture - Final MODERATE GROWTH NORMAL RESPIRATORY DARINEL Complete Imaging Last [address] 04/13/17 0000 Signed Impressions: Service Date/Time: Thursday, April 13, 2017 01:08 - CONCLUSION: 1. The recent acute intra-axial blood products in the right parietal high convexity is slightly increased in size and there is surrounding vasogenic edema. No herniation or midline shift is present. 2. The edema and blood products in the right cerebellum and right occipital lobe are better visualized on the current examination. Mariusz Oviedo MD Chest X-Ray 04/12/17 0000 Signed Impressions: Service Date/Time: Wednesday, April 12, 2017 23:46 - CONCLUSION: 1. Endotracheal tube tip measures approximately 2.9 cm from the jessica. 2. Stable bibasilar opacities likely representing pleural effusions with associated volume loss and/or airspace consolidation. Mariusz Oviedo MD Carotid Artery Ultrasound 04/12/17 0000 Signed Impressions: Service Date/Time: Wednesday, April 12, 2017 22:36 - CONCLUSION: 1. Mild atherosclerotic disease within the carotid bulb and proximal internal carotid arteries bilaterally. However, no significant stenosis is identified within either internal carotid artery (less than 50%% stenosis). 2. There is antegrade blood flow in both vertebral arteries. Mariusz Oveido MD Last Impressions Head CT 04/08/172033 Signed Impressions: Service Date/Time: Saturday, April 08, 2017 22:01 - CONCLUSION: Small amount of probable acute subarachnoid hemorrhage within the high right parietal region which may be post-traumatic in etiology. Clinical correlation is recommended. Kang Cruz MD Chest X-Ray 04/08/172033 Signed Impressions: Service Date/Time: Saturday, April 08, 2017 20:56 - CONCLUSION: No acute disease. Kang Cruz MD Abdomen/Pelvis CT 04/08/17 0000 Signed Impressions: Service Date/Time: Saturday, April 08, 2017 22:09 - CONCLUSION: 1. No acute obstructive uropathy. 2. Uncomplicated colonic diverticulosis. 3. Nodular contour of liver suggesting possible cirrhosis. 4. Degenerative changes and scoliosis of the lumbar spine. Kang Cruz MD Objective Remarks GENERAL: Middle-age male who appears older than stated age, lying in bed, sedated, orally intubated on mechanical ventilation HEENT: Normocephalic. Atraumatic. Pupils equal, round, reactive, conjugate. NECK: Trachea is midline. Airway widely patent CHEST: Orally intubated on mechanical ventilation, equal chest rise. CARDIOVASCULAR: Tachycardic rate, regular rhythm. Sinus by telemetry. No JVD. ABDOMEN: Soft, nontender, nondistended. No guarding. MUSCULOSKELETAL: Pulses 2+. No peripheral edema. Well perfused. NEUROLOGICAL: Sedated, orally intubated on mechanical ventilation, arouses on lightening sedation, moving all 4 extremities. A/P Assessment and Plan Assessment: 62-year-old male with recent frequent falls whose course is complicated by severe life-threatening rhabdomyolysis, acute kidney injury, and traumatic subarachnoid hemorrhage. Now s/p hemodialysis with continued acute kidney injury and acute respiratory failure. remains on vasopressors which may be resolving shock superimposed on renal failure. remains critically ill and off pathway. attempt SBT today Traumatic Subarachnoid hemorrhage - no anticoagulation - nsgy consultation - frequent neuro checks - tight bp control, < 140. - hydralazine, labetalol prn for this Agitated Delirium - propofol and fentanyl for goal RASS -2. - add modafinil for wakefulness. - add zyprexa 5mg po q8hr - add haldol 5mg iv q4h prn for breakthrough agitation. - now coming out of withdraw window. will d/c CIWA as benzos may be contributing to ICU delirium. - precedex as needed for sedation, vent synchrony. Acute respiratory failure on mechanical ventilation -Continue mechanical ventilation, vent bundle, bronchodilators as needed. - continue daily CPAP trials. Severe Acute Rhabdomyolysis - serial CK downtrended. - intermittent IHD - nephrology on board. - ivf - watch uop closely Acute Kidney Injury - secondary to acute rhabdo - keep rojas. - close monitoring of uop - daily bmp - watch electrolytes closely - Deteriorating function. - HD started 04/10 Hyperkalemia Hyponatremia - secondary to acute kidney injury and rhabdo - d/c 3% saline, sodium normalized, and in the setting of intermittent IHD, sodium is re-normalized during HD. - trend, improved Urinary Tract Infection - s/p rocephin. SCDs hold pharmacologic DVT prophylaxis given head bleed Overall impression: Remains critically ill with deteriorating renal function and worsening metabolic state. Unstable and now requiring dialysis hemodialysis. Now intubated and placed on mechanical ventilation. minimal improvements in 24h. will work to aggressively control agitated delirium preventing patient from liberating from mechanical ventilation. Critical care 40 mins, exclusive of separately billable procedures. Shiraz Rainey MD Apr 15, 2017 10:40
[2017-04-15] MEDS ORDERED: HALOPERIDOL LACTATE 5 MG/ML AMP IV PUSH PRN (11:00)
[2017-04-15] MEDS: MODAFINIL 200 MG TAB PO SCH (11:00)
[2017-04-15] MEDS: DEXMEDETOMIDINE INJ 400 MCG in SODIUM CHLORIDE 0.9% INJ 96 ML IV PRN ×2 (11:30→16:30)
[2017-04-15] MEDS: INSULIN NovoLIN REGULAR SUPPLEMENTAL SCALE SQ SCH ×3 (12:00→18:00)
[2017-04-15] MEDS: OLANZapine ODT 5 MG TAB PO SCH ×2 (14:00→21:26)
--- NOTE | 2017-04-15 14:27 | HHI.NPPN ---
Subjective History of Present Illness 62 year old male with ARF Rhabdomyolysis, painful, tired lethargic Additional Remarks Oliguric. Received dialysis today. Positive blood culture. Review of Systems General Constitutional: Fatigue Respiratory Lungs: SOB Musculoskeletal MS: Pain/Stiffness, Swelling in Back, Swelling in Joint Objective Data Data Vital Signs Date Time Temp Pulse Resp B/P (MAP) Pulse Ox O2 Delivery O2 Flow Rate FiO2 04/15/17 11:45 97 40 04/15/17 11:45 40 04/15/17 08:35 100 35 04/15/17 08:00 98.9 89 16 117/54 (75) 100 04/15/17 08:00 35 04/15/17 08:00 90 04/15/17 06:00 80 04/15/17 04:00 73 04/15/17 04:00 35 04/15/17 04:00 98.2 73 16 130/59 (82) 100 04/15/17 02:38 70 106/48 04/15/17 02:00 70 04/15/17 00:00 35 04/15/17 00:00 62 04/15/17 00:00 98.9 62 16 110/53 (72) 100 04/14/17 23:44 100 35 04/14/17 22:00 65 04/14/17 20:00 73 04/14/17 20:00 35 04/14/17 20:00 100.0 73 16 106/49 (68) 100 04/14/17 19:20 100 35 04/14/17 18:21 74 90/47 04/14/17 18:00 85 100/47 04/14/17 17:00 99 35 04/14/17 16:45 104 89/50 04/14/17 16:00 91 04/14/17 16:00 100.7 91 16 130/63 (85) 96 -: 04/15/17 0540 04/15/17 0540 Physical Exam General Appearance: Well Developed, Well Nourished Neck Neck Exam: Jugular Vein Distension Pulmonary Resp Exam: Decreased Bases Cardiology CV Exam: Tachycardia Gastrointestinal/Abdomen GI Exam: Soft, Bowel Sounds Present Extremeties Extremities Exam: Trace Edema Assessment/Plan Problem List: (1) Acute renal failure ICD Codes: N17.9 - Acute kidney failure, unspecified Plan: ARF has Rhabdomyolysis He likely has acute tubular necrosis from underlying rhabdomyolysis Avoid nephrotoxins Dialysis initiated on 04/10. Monitor fluid and electrolytes. Avoid nephrotoxins. Dialysis yesterday UF 2.7 L tolerated it well K Low replaced follow BMP UOP improved (2) Rhabdomyolysis ICD Codes: M62.82 - Rhabdomyolysis Status: Acute Plan: Continue monitor his CPK trend is downwards (3) Subarachnoid hemorrhage ICD Codes: I60.9 - Nontraumatic subarachnoid hemorrhage, unspecified Plan: Neurosurgery following (4) UTI (lower urinary tract infection) ICD Codes: N39.0 - Urinary tract infection, site not specified (5) Sepsis ICD Codes: A41.9 - Sepsis, unspecified organism Plan: Staphylococcus Hemolyticus in blood culture ? contaminant. Management per structural steel erector. Vancomycin ordered. Problem Qualifiers (1) Acute renal failure: Qualified Codes: N17.0 - Acute kidney failure with tubular necrosis (2) Rhabdomyolysis: Qualified Codes: M62.82 - Rhabdomyolysis Lio Robbins MD Apr 15, 2017 14:27
--- NOTE | 2017-04-15 17:28 | RADRPT ---
EXAM DATE/TIME: 04/15/2017 16:36 [facility] COMPARISON: ABDOMEN SINGLE VIEW, April 13, 2017, 10:10. INDICATIONS : Dobhoff placement. MEDICAL HISTORY : Hypertension. Hypercholesterolemia. skin cancer. SURGICAL HISTORY : Tonsillectomy. cervical spine surgery ENCOUNTER: Subsequent ACUITY: 1 week PAIN SCORE: Non-responsive. LOCATION: Bilateral abdomen FINDINGS: Feeding tube in good position. Minimal proximal changes left lung base. CONCLUSION: Feeding tube in good position. Paras Scales MD FACR on April 15, 2017 at 17:25 Board Certified Radiologist. This report was verified electronically.
[2017-04-15] MEDS: DEXMEDETOMIDINE INJ 1,000 MCG in SODIUM CHLOR 0.9% 250 ML INJ 240 ML IV PRN (22:35)
[2017-04-16] VITALS (18 sets, daily range): BP systolic 86–140; BP diastolic 42–60; PULSE 66–82; RESP 16–24; TEMP 97.9–99.4; O2SAT 100
[2017-04-16] MEDS: METRONIDAZOLE 500 MG/100 ML ISONTONIC SOLN IV SCH ×4 (03:00→20:15)
[2017-04-16] MEDS: CHLORHEXIDINE GLUCONATE 2 % 1 PACK (2 CLOTHS) TOP SCH (04:00)
[2017-04-16] MEDS: AZTREONAM INJ 500 MG in SODIUM CHLORIDE 0.9% INJ 100 ML IV SCH (05:47)
[2017-04-16] MEDS: OLANZapine ODT 5 MG TAB PO SCH ×3 (05:51→22:58)
[2017-04-16] MEDS: INSULIN NovoLIN REGULAR SUPPLEMENTAL SCALE SQ SCH ×4 (06:00→18:00)
[2017-04-16] MEDS: PANTOPRAZOLE SODIUM 40 MG VIAL IV PUSH SCH (09:00)
[2017-04-16] MEDS: THIAMINE HCL 100 MG TAB PO SCH (09:00)
[2017-04-16] MEDS: METOPROLOL TARTRATE 25 MG TAB PO SCH (09:00)
[2017-04-16] MEDS: GABAPENTIN 100 MG CAP PO SCH ×4 (09:00→20:15)
[2017-04-16] MEDS: MODAFINIL 200 MG TAB PO SCH (09:00)
[2017-04-16] MEDS: ALBUMIN 25% INJ 100 ML IV PRN ×2 (09:05→11:45)
--- NOTE | 2017-04-16 09:20 | MG ---
cc: Toney Jeronimo MD EEG #[id number] MEDICATIONS: 1. Diprivan 2. Fentanyl INDICATIONS: Right parietal hemorrhage. Neurontin. DESCRIPTION: Diffuse 3 Hz slowing is noted. Bitemporal muscle artifact is seen. No major hemisphere asymmetry is seen. Photic stimulation is performed without significant posterior driving. IMPRESSION: Diffuse slowing consistent with a moderate diffuse encephalopathy, but no focal abnormality was noted. No seizure activity is seen. Toney Jeronimo MD DJM/DL , 09:01 AM , 09:19 AM
--- NOTE | 2017-04-16 11:18 | HHI.NPPN ---
Subjective History of Present Illness 62 year old male with ARF Rhabdomyolysis, painful, tired lethargic Additional Remarks Oliguric. Received dialysis today. Positive blood culture. Review of Systems General Constitutional: Fatigue Respiratory Lungs: SOB Musculoskeletal MS: Pain/Stiffness, Swelling in Back, Swelling in Joint Objective Data Data Vital Signs Date Time Temp Pulse Resp B/P (MAP) Pulse Ox O2 Delivery O2 Flow Rate FiO2 04/16/17 09:05 100 40 04/16/17 06:00 69 04/16/17 04:00 35 04/16/17 04:00 99.0 66 19 115/50 (71) 100 04/16/17 04:00 66 04/16/17 03:48 100 40 04/16/17 02:00 69 04/16/17 00:00 99.3 76 22 123/60 (81) 100 04/16/17 00:00 35 04/15/17 23:21 100 40 04/15/17 22:00 79 04/15/17 22:00 35 04/15/17 20:00 35 04/15/17 20:00 99.7 81 17 118/56 (76) 100 04/15/17 20:00 84 04/15/17 18:00 84 04/15/17 16:49 100 40 04/15/17 16:00 35 04/15/17 16:00 99.0 74 14 106/58 (74) 100 04/15/17 16:00 71 04/15/17 14:16 100 40 04/15/17 14:00 74 04/15/17 12:00 96 04/15/17 12:00 98.7 132 17 120/56 (77) 100 04/15/17 12:00 35 04/15/17 11:45 97 40 04/15/17 11:45 40 -: 04/15/17 0540 04/15/17 1748 Physical Exam General Appearance: Well Developed, Well Nourished Neck Neck Exam: Jugular Vein Distension Pulmonary Resp Exam: Decreased Bases Cardiology CV Exam: Tachycardia Gastrointestinal/Abdomen GI Exam: Soft, Bowel Sounds Present Extremeties Extremities Exam: Trace Edema Assessment/Plan Problem List: (1) Acute renal failure ICD Codes: N17.9 - Acute kidney failure, unspecified Plan: ARF has Rhabdomyolysis He likely has acute tubular necrosis from underlying rhabdomyolysis Avoid nephrotoxins Dialysis initiated on 04/10. Monitor fluid and electrolytes. Avoid nephrotoxins. seen during dialysis UF 3L on 3 K bath extubation planned (2) Rhabdomyolysis ICD Codes: M62.82 - Rhabdomyolysis Status: Acute Plan: Continue monitor his CPK trend is downwards (3) Subarachnoid hemorrhage ICD Codes: I60.9 - Nontraumatic subarachnoid hemorrhage, unspecified Plan: Neurosurgery following (4) UTI (lower urinary tract infection) ICD Codes: N39.0 - Urinary tract infection, site not specified (5) Sepsis ICD Codes: A41.9 - Sepsis, unspecified organism Plan: Staphylococcus Hemolyticus in blood culture ? contaminant. Management per bed setter. Vancomycin ordered. Problem Qualifiers (1) Acute renal failure: Qualified Codes: N17.0 - Acute kidney failure with tubular necrosis (2) Rhabdomyolysis: Qualified Codes: M62.82 - Rhabdomyolysis Lio Robbins MD Apr 16, 2017 11:18
[2017-04-16] MEDS: HEPARIN SODIUM - IV 10,000 UNITS/10 ML VIAL PRN (11:45)
[2017-04-16] MEDS: GENTAMICIN SULFATE 20 MG/2 ML VIAL OTHER PRN (11:45)
[2017-04-16] MEDS: DEXMEDETOMIDINE INJ 1,000 MCG in SODIUM CHLOR 0.9% 250 ML INJ 240 ML IV PRN (12:26)
[2017-04-16] MEDS: AZTREONAM IV SCH ×2 (13:28→23:05)
[2017-04-16] MEDS: SODIUM CHLORIDE 0.9% IV SCH ×2 (13:28→23:05)
--- NOTE | 2017-04-16 13:50 | EKG ---
Date Performed: 04/13/2017 Time Performed: 03:25:24 PTAGE: 62 years EKG: Sinus rhythm Prolonged QT interval Possible anterior infarct - age undetermined Lateral ST changes are nonspecifi c Low QRS voltages in limb leads Abnormal ECG PREVIOUS TRACING : 04/09/2017 01.39 Compared to prior tracing, the rate has slowed. Nonspecif ic T wave changes have improved. DOCTOR: Toney Boyd Interpretating Date/Time 04/16/2017 13:49:01
--- NOTE | 2017-04-16 15:28 | HHI.NSPN ---
(Sammy Wise) History Chief Complaint: Unable to obtain due to patient's clinical condition. (BillieSammy) Interval History 04/09: Mr. Choudhury is a 62-year-old male who presented to the emergency room last night after he was found on the floor by his roommate. He apparently fell yesterday and was lying on the ground for several hours. He indicates generalized weakness over the past few days and has fallen at least 2 times in the past couple of days. He indicates a possible syncopal type episode. Initial workup in the emergency room included a CT scan of the head which revealed probable mild right parietal convexity subarachnoid hemorrhage. He was also found to have a CPK over 40,000 and laboratory results consistent with rhabdomyolysis and UTI with possible urosepsis. He was given normal saline bolus and sodium bicarbonate by me. Also started on vancomycin and Zosyn. No seizure activity reported. 04/10: The patient is in bed with his eyes closed but he immediately answers to voice. He states "I feel like I am dying." He does say he felt a hundred percent better yesterday compared with today. He reports that his lower extremities are the worse and feel numb. He also continues to have numbness to the left side of the body which he was laying on when found. His CK is improving but he does remain in renal failure. Upon evaluation the patient is weaker to the lower extremities which are painful to touch. He is able to move the upper extremities slightly better but they are still weak. 04/11: receiving dialysis for acute kidney injury, reports mild headaches, and weakness in left lower extremity that is new. 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 04/12: feeing himself breakfast. doing well, reports left side still weak, denies any vision changes, loss of peripheral vision 04/13: 62-year-old male admitted with mild traumatic brain injury. Rhabdomyolysis, acute renal failure, UTI. Hemodialysis initiated. He has required subsequent intubation due to respiratory distress on the evening of 04/12. 04/14: Patient is intubated and mechanically ventilated when seen. He is on propofol for sedation and has fentanyl infusing for pain control. He did briefly open his eyes to voice. It appears he moved the toes to command but nothing to the upper extremities. 04/15: The patient remains lethargic but sedated. He is still intubated and mechanically ventilated. He briefly opens his eyes to voice and noxious stimulation. He did not follow any commands but did have some movement of the left lower extremity/foot to local noxious stimulation. Nursing this morning stated that in report she was told the patient was following commands. When she did a sedation vacation the patient did not follow any commands for her, but became agitated. She also stated that the patient had a twitch to the left shoulder. 04/16: This afternoon the patient is awake and alert and tracks with his eyes. He continues to be intubated but is on CPAP. He follows commands with all extremities and gives a thumbs up. (Sammy Wise) System Review Comments Unable to obtain due to patient's clinical condition. (Sammy Wise) Exam Results 04/14/17 04/14/17 04/15/17 04/15/17 04/16/17 04/16/17 06:00 18:00 06:00 18:00 06:00 18:00 Intake Total 2786 ml 2105 ml 1060 ml 831 ml 776 ml 450 ml Output Total 700 ml 3075 ml 400 ml 350 ml 500 ml 3000 ml Balance 2086 ml -970 ml 660 ml 481 ml 276 ml -2550 ml IV Total 2350 ml 1750 ml 550 ml 400 ml 361 ml 450 ml Tube Feeding 386 ml 355 ml 410 ml 371 ml 355 ml Tube Irrigant 50 ml 100 ml 60 ml 60 ml Output Urine Total 700 ml 375 ml 400 ml 350 ml 500 ml Gastric Drainage Total 0 ml Hemodialysis 2700 ml 3000 ml # Bowel Movements 1 0 3 1 Vital Signs Date Time Temp Pulse Resp B/P (MAP) Pulse Ox O2 Delivery O2 Flow Rate FiO2 04/16/17 14:00 69 04/16/17 13:14 40 04/16/17 12:00 35 04/16/17 12:00 97.9 70 16 140/60 (86) 100 04/16/17 12:00 70 04/16/17 11:49 100 40 04/16/17 10:00 68 04/16/17 09:05 100 40 04/16/17 08:00 40 04/16/17 08:00 70 04/16/17 08:00 99.4 70 16 86/42 (57) 100 04/16/17 06:00 69 04/16/17 04:00 35 04/16/17 04:00 99.0 66 19 115/50 (71) 100 04/16/17 04:00 66 04/16/17 03:48 100 40 04/16/17 02:00 69 04/16/17 00:00 99.3 76 22 123/60 (81) 100 04/16/17 00:00 35 04/15/17 23:21 100 40 04/15/17 22:00 79 04/15/17 22:00 35 04/15/17 20:00 35 04/15/17 20:00 99.7 81 17 118/56 (76) 100 04/15/17 20:00 84 04/15/17 18:00 84 04/15/17 16:49 100 40 04/15/17 16:00 35 04/15/17 16:00 99.0 74 14 106/58 (74) 100 04/15/17 16:00 71 04/15/17 14:16 100 40 04/15/17 14:00 74 04/15/17 12:00 96 04/15/17 12:00 98.7 132 17 120/56 (77) 100 04/15/17 12:00 35 04/15/17 11:45 97 40 04/15/17 11:45 40 04/15/17 10:00 94 04/15/17 08:35 100 35 04/15/17 08:00 98.9 89 16 117/54 (75) 100 04/15/17 08:00 35 04/15/17 08:00 90 04/15/17 06:00 80 04/15/17 04:00 73 04/15/17 04:00 35 04/15/17 04:00 98.2 73 16 130/59 (82) 100 04/15/17 02:38 70 106/48 04/15/17 02:00 70 04/15/17 00:00 35 04/15/17 00:00 62 04/15/17 00:00 98.9 62 16 110/53 (72) 100 04/14/17 23:44 100 35 04/14/17 22:00 65 04/14/17 20:00 73 04/14/17 20:00 35 04/14/17 20:00 100.0 73 16 106/49 (68) 100 04/14/17 19:20 100 35 04/14/17 18:21 74 90/47 04/14/17 18:00 85 100/47 04/14/17 17:00 99 35 04/14/17 16:45 104 89/50 04/14/17 16:00 91 04/14/17 16:00 100.7 91 16 130/63 (85) 96 04/14/17 12:00 98.6 92 16 137/63 (87) 100 04/14/17 12:00 92 04/14/17 10:06 35 04/14/17 08:25 100 35 04/14/17 08:00 95 04/14/17 08:00 99.3 95 16 154/78 (103) 100 04/14/17 07:40 85 160/83 04/14/17 06:00 70 04/14/17 04:55 92 116/67 04/14/17 04:00 35 04/14/17 04:00 98.9 81 16 99/52 (68) 100 04/14/17 04:00 81 04/14/17 02:00 80 04/14/17 01:32 100 35 04/14/17 00:00 98.8 83 16 103/56 (72) 100 04/14/17 00:00 35 04/14/17 00:00 83 04/13/17 22:00 89 04/13/17 20:00 93 04/13/17 20:00 35 04/13/17 20:00 100.8 93 16 107/56 (73) 100 04/13/17 20:00 100 Mechanical Ventilator 40 04/13/17 19:41 100 35 18 19:15 91 115/56 04/13/17 18:00 91 04/13/17 16:00 99.0 92 16 114/51 (72) 100 04/13/17 16:00 35 04/13/17 16:00 92 (Sammy Wise) Physical Examination GENERAL: Awake & alert, tracking with eyes. Intubated but on CPAP. He is not in any apparent distress. HEENT: Normocephalic. PERRLA 2 mm brisk. Orally intubated. OGT. MUSCULOSKELETAL: No evident clubbing. 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 NEUROLOGICAL: Awake & alert. He is on Precedex at 0.5 mcg/kg/hr. Spontaneous eye opening, tracks movement. PERRLA 2 mm brisk. Nonverbal, intubated. Followed simple commands. Moved all extremities and gave thumbs up to command. (Sammy Wise) Lab, Micro, Other Results Recent Impressions Abdomen X-Ray 04/15/17 0000 Signed Impressions: Service Date/Time: Saturday, April 15, 2017 16:36 - CONCLUSION: Feeding tube in good position. Paras Scales MD FACR Laboratory Tests Test 04/13/17 18:30 04/14/17 06:00 04/15/17 05:40 04/15/17 17:48 White Blood Count 12.3 TH/MM3 12.0 TH/MM3 8.9 TH/MM3 Red Blood Count 2.98 MIL/MM3 2.88 MIL/MM3 2.65 MIL/MM3 Hemoglobin 10.9 GM/DL 10.3 GM/DL 9.5 GM/DL Hematocrit 30.9 % 29.6 % 27.5 % Mean Corpuscular Volume 103.8 FL 102.8 FL 104.0 FL Mean Corpuscular Hemoglobin 36.7 PG 35.8 PG 35.9 PG Mean Corpuscular Hemoglobin Concent 35.4 % 34.8 % 34.5 % Red Cell Distribution Width 13.1 % 13.1 % 13.3 % Platelet Count 103 TH/MM3 115 TH/MM3 116 TH/MM3 Mean Platelet Volume 8.1 FL 7.7 FL 7.6 FL Neutrophils (%) (Auto) 59.1 % Lymphocytes (%) (Auto) 23.9 % Monocytes (%) (Auto) 14.3 % Eosinophils (%) (Auto) 2.5 % Basophils (%) (Auto) 0.2 % Neutrophils # (Auto) 7.2 TH/MM3 Lymphocytes # (Auto) 2.9 TH/MM3 Monocytes # (Auto) 1.7 TH/MM3 Eosinophils # (Auto) 0.3 TH/MM3 Basophils # (Auto) 0.0 TH/MM3 CBC Comment DIFF FINAL Differential Comment Blood Urea Nitrogen 46 MG/DL 50 MG/DL 40 MG/DL Creatinine 6.89 MG/DL 7.03 MG/DL 5.60 MG/DL Random Glucose 87 MG/DL 107 MG/DL 120 MG/DL Calcium Level 7.5 MG/DL 7.2 MG/DL 7.5 MG/DL Sodium Level 135 MEQ/L 140 MEQ/L 146 MEQ/L Potassium Level 4.0 MEQ/L 3.5 MEQ/L 2.9 MEQ/L 4.6 MEQ/L Chloride Level 100 MEQ/L 106 MEQ/L 110 MEQ/L Carbon Dioxide Level 24.6 MEQ/L 21.7 MEQ/L 24.6 MEQ/L Anion Gap 10 MEQ/L 12 MEQ/L 11 MEQ/L Estimat Glomerular Filtration Rate 8 ML/MIN 8 ML/MIN 10 ML/MIN Lactic Acid Level 1.4 mmol/L Troponin I 0.03 NG/ML Total Protein 4.1 GM/DL Protein Corrected Calcium 8.9 MG/DL Random Vancomycin Level 27.1 COMMENT 21.6 COMMENT (Sammy Wise) Medical Decision Making Impression and Plan Impression: 1. Findings consistent with traumatic brain injury, subarachnoid hemorrhage right parietal convexity 2. Right cerebellar hyperdensity lesion. Possible remote infarct. Need to rule out mass lesion 3. Rhabdomyolysis 4. UTI 5. Hypertension 6. Acute kidney disease-likely related to rhabdomyolysis. 7. Possible syncopal episode 8. Electrolyte disturbance-hyperkalemia and hyponatremia. Likely related to acute kidney disease. 9. Respiratory failure requiring intubation The patient's condition is improved. He is awake & alert and following commands. His sedation is being weaned and he is on CPAP. T max 99.7 yesterday evening. One episode of hypotension yesterday evening. CT brain demonstrated slight increase in the right parietal intra- axial blood products w/surrounding vasogenic edema. Also noted are blood products to the right occipital lobe and right cerebellum. No herniation or midline shift. Plan: Primary management per Lithographic Plate Maker. Nephrology following for renal failure. Neuro checks. Monitor sodium level. Stat CT brain for any decline in neuro status. Hold pharmacologic DVT prophylaxis. Mechanical DVT prophylaxis. Stress ulcer prophylaxis. (Sammy Wise) Attending Statement The exam, history, and the medical decision-making described in the above note were completed with the assistance of the mid-level provider. I reviewed and agree with the findings presented. I attest that I had a [id number] encounter with the patient on the same day, and personally performed and documented my assessment and findings in the medical record. On my examination of 04/16/2017, the patient is extubated. Mild lethargy. Mild confusion. Does not recall the events of the past few days. Extraocular movements intact, facial motor movements symmetric. Intact sensation light touch all extremities Strength intact lower and upper extremity range of flexion-extension grooves. Relatively stable neurologic function following mild traumatic brain injury. Kidney disease. Rhabdomyolysis. Continue to mobilize out of bed as tolerated. Continue therapy He will likely need a course of inpatient rehabilitation when medically stable. (Matthew Katz MD) Sammy Wise Apr 16, 2017 15:28 Matthew Katz MD Apr 17, 2017 00:03
--- NOTE | 2017-04-16 17:39 | HHI.CCPN ---
Subjective Remarks/Hospital Course This is a 8-year-old male who reportedly fell at home yesterday and was unable to get up for at least 5 hours, but likely greater than that. He called 911 today and was brought in tonight by EMS. He does endorse possibly syncopized. He states he has fallen recently over the last few days, but this is unusual for him. He denies headache. He denies fever, chills, shortness of breath, chest pain, nausea, vomiting, abdominal pain, diarrhea. He does not endorse any other symptom other than the frequent falls. In the emergency department CT had demonstrated small subarachnoid hemorrhage, likely traumatic. In addition, the patient had very dark very thick urine, and his CK level was greater than 40,000. He was immediately started on IV sodium bicarb and IV fluids. He also has evidence of hyperkalemia, hyponatremia, acute kidney injury with a creatinine greater than 2. Critical care medicine is consulted to evaluate manage his acute rhabdo, his multiple organ failure. 04/10: CK level declining but renal function deteriorating. Urine minimal. 04/11: Renal function continues to reflect kidney injury. HD started. Fluid balance about right. 04/12: 04/12 culture bottles blood with Staph aureus, awaiting C&S. Will switch to Vancomycin for one dose pending. Afebrile, WBC normal. 04/13: Patient was intubated last night and placed on mechanical ventilation for altered mental status and worsening respiratory failure. Currently sedated , orally intubated on mechanical ventilation. 04/14: remains intubated. remains on levophed for pressor support. Cr still elevated, but uop improving slowly. 04/15: more awake today, but not following commands. delirium persists. on SBT on my eval. Cr stable. uop adequate. 04/16: remains more awake. passed SBT today, following commands. HD today. uop slowly improving. Objective Vital Signs Date Time Temp Pulse Resp B/P (MAP) Pulse Ox O2 Delivery O2 Flow Rate FiO2 04/16/17 17:05 100 Nasal Cannula 3 04/16/17 16:06 40 04/16/17 16:00 72 04/16/17 16:00 98.5 21 122/58 (79) Intake and Output 04/16/17 04/16/17 04/16/17 07:59 15:59 23:59 Intake Total 515 ml 350 ml Output Total 500 ml 3000 ml Balance 15 ml -2650 ml Result Diagram: 04/15/17 0540 04/15/17 1748 Other Results Laboratory Tests Test 04/16/17 16:30 Blood Gas Puncture Site ART LINE Blood Gas Patient Temperature 98.6 Blood Gas HCO3 26 mmol/L (22-26) Blood Gas Base Excess 1.1 mmol/L (-2-2) Blood Gas Oxygen Saturation 97 % (90-100) Arterial Blood pH 7.39 (7.380-7.420) Arterial Blood Partial Pressure CO2 43 mmHg (38-42) Arterial Blood Partial Pressure O2 142 mmHg (61-120) Arterial Blood Oxygen Content 12.6 Vol % (12.0-20.0) Arterial Blood Carboxyhemoglobin 1.4 % (0-4) Arterial Blood Methemoglobin 0.7 % (0-2) Blood Gas Hemoglobin 9.0 G/DL (12.0-16.0) Oxygen Delivery Device VENTILATOR Blood Gas Ventilator Setting CPAP/CPAP5/PS5 Blood Gas Inspired Oxygen 40 % Imaging Last [address] 04/13/17 Signed Impressions: Service Date/Time: Thursday, April 13, 2017 01:08 - CONCLUSION: 1. The recent acute intra-axial blood products in the right parietal high convexity is slightly increased in size and there is surrounding vasogenic edema. No herniation or midline shift is present. 2. The edema and blood products in the right cerebellum and right occipital lobe are better visualized on the current examination. Mariusz Oviedo MD Chest X-Ray 04/12/17 Signed Impressions: Service Date/Time: Wednesday, April 12, 2017 23:46 - CONCLUSION: 1. Endotracheal tube tip measures approximately 2.9 cm from the jessica. 2. Stable bibasilar opacities likely representing pleural effusions with associated volume loss and/or airspace consolidation. Mariusz Oviedo MD Carotid Artery Ultrasound 04/12/17 Signed Impressions: Service Date/Time: Wednesday, April 12, 2017 22:36 - CONCLUSION: 1. Mild atherosclerotic disease within the carotid bulb and proximal internal carotid arteries bilaterally. However, no significant stenosis is identified within either internal carotid artery (less than 50%% stenosis). 2. There is antegrade blood flow in both vertebral arteries. Mariusz Oviedo MD Last Impressions Head CT 04/08/172033 Signed Impressions: Service Date/Time: Saturday, April 08, 2017 22:01 - CONCLUSION: Small amount of probable acute subarachnoid hemorrhage within the high right parietal region which may be post-traumatic in etiology. Clinical correlation is recommended. Kang Cruz MD Chest X-Ray 04/08/172033 Signed Impressions: Service Date/Time: Saturday, April 08, 2017 20:56 - CONCLUSION: No acute disease. Kang Cruz MD Abdomen/Pelvis CT 04/08/17 0000 Signed Impressions: Service Date/Time: Saturday, April 08, 2017 22:09 - CONCLUSION: 1. No acute obstructive uropathy. 2. Uncomplicated colonic diverticulosis. 3. Nodular contour of liver suggesting possible cirrhosis. 4. Degenerative changes and scoliosis of the lumbar spine. Kang Cruz MD Objective Remarks GENERAL: Middle-age male who appears older than stated age, lying in bed, sedated, orally intubated on mechanical ventilation HEENT: Normocephalic. Atraumatic. Pupils equal, round, reactive, conjugate. NECK: Trachea is midline. Airway widely patent CHEST: Orally intubated on mechanical ventilation, equal chest rise. CARDIOVASCULAR: Tachycardic rate, regular rhythm. Sinus by telemetry. No JVD. ABDOMEN: Soft, nontender, nondistended. No guarding. MUSCULOSKELETAL: Pulses 2+. No peripheral edema. Well perfused. NEUROLOGICAL: Sedated, orally intubated on mechanical ventilation, arouses on lightening sedation, moving all 4 extremities. following commands. A/P Assessment and Plan Assessment: 62-year-old male with recent frequent falls whose course is complicated by severe life-threatening rhabdomyolysis, acute kidney injury, and traumatic subarachnoid hemorrhage. Now s/p hemodialysis with continued acute kidney injury and acute respiratory failure. clinically improving. passed SBT. will work towards extubation. Traumatic Subarachnoid hemorrhage - no anticoagulation - nsgy consultation - frequent neuro checks - tight bp control, < 140. - hydralazine, labetalol prn for this Agitated Delirium - improving. - propofol and fentanyl for goal RASS -2. - modafinil for wakefulness. - zyprexa 5mg po q8hr - haldol 5mg iv q4h prn for breakthrough agitation. - now coming out of withdraw window. will d/c CIWA as benzos may be contributing to ICU delirium. - precedex as needed for sedation, vent synchrony. Acute respiratory failure on mechanical ventilation - improving. -Continue mechanical ventilation, vent bundle, bronchodilators as needed. - wean to extubate. - aggressive pulmonary toilet. Severe Acute Rhabdomyolysis - serial CK downtrended. - intermittent IHD - nephrology on board. - ivf - watch uop closely Acute Kidney Injury - secondary to acute rhabdo - keep rojas. - close monitoring of uop - daily bmp - watch electrolytes closely - Deteriorating function. - HD started 04/10 Urinary Tract Infection - s/p rocephin. SCDs hold pharmacologic DVT prophylaxis given head bleed Overall impression: very slow improvements. likely ready to extubate. high risk for decompensation and re-intubation given chronic illness and deconditioning. Shiraz Rainey MD Apr 16, 2017 17:39
[2017-04-17] VITALS (15 sets, daily range): BP systolic 92–148; BP diastolic 46–76; PULSE 78–103; RESP 16–24; TEMP 97.9–98.9; O2SAT 91–99
[2017-04-17] MEDS: METRONIDAZOLE 500 MG/100 ML ISONTONIC SOLN IV SCH ×4 (02:48→20:52)
[2017-04-17] MEDS: CHLORHEXIDINE GLUCONATE 2 % 1 PACK (2 CLOTHS) TOP SCH (03:12)
[2017-04-17] MEDS: NOREPINEPHRINE INJ 4 MG in SODIUM CHLOR 0.9% 250 ML INJ 246 ML IV PRN (03:24)
[2017-04-17] MEDS: INSULIN NovoLIN REGULAR SUPPLEMENTAL SCALE SQ SCH ×2 (05:39)
[2017-04-17] MEDS: OLANZapine ODT 5 MG TAB PO SCH ×3 (05:39→20:52)
[2017-04-17 06:25] LABS: HEMATOCRIT 26.5 % (39.0-51.0); HEMOGLOBIN 9.3 GM/DL (13.0-17.0); MEAN CELL VOLUME 105.1 FL (80.0-100.0); MEAN CORPUSCULAR HEMOGLOBIN 36.7 PG (27.0-34.0); MEAN CORPUSCULAR HGB CONC 34.9 % (32.0-36.0); MEAN PLATELET VOLUME 7.8 FL (7.0-11.0); PLATELET COUNT 134 TH/MM3 (150-450); RED BLOOD COUNT 2.52 MIL/MM3 (4.50-5.90); RED CELL DISTRIBUTION WIDTH 13.2 % (11.6-17.2); WHITE BLOOD COUNT 10.1 TH/MM3 (4.0-11.0)
[2017-04-17 06:47] LABS: BICARBONATE 26.6 MEQ/L (21.0-32.0); CALCIUM 7.9 MG/DL (8.5-10.1); CREATININE 5.23 MG/DL (0.60-1.30)
--- NOTE | 2017-04-17 09:00 | HHI.CCPN ---
Subjective Remarks/Hospital Course This is a 8-year-old male who reportedly fell at home yesterday and was unable to get up for at least 5 hours, but likely greater than that. He called 911 today and was brought in tonight by EMS. He does endorse possibly syncopized. He states he has fallen recently over the last few days, but this is unusual for him. He denies headache. He denies fever, chills, shortness of breath, chest pain, nausea, vomiting, abdominal pain, diarrhea. He does not endorse any other symptom other than the frequent falls. In the emergency department CT had demonstrated small subarachnoid hemorrhage, likely traumatic. In addition, the patient had very dark very thick urine, and his CK level was greater than 40,000. He was immediately started on IV sodium bicarb and IV fluids. He also has evidence of hyperkalemia, hyponatremia, acute kidney injury with a creatinine greater than 2. Critical care medicine is consulted to evaluate manage his acute rhabdo, his multiple organ failure. 04/10: CK level declining but renal function deteriorating. Urine minimal. 04/11: Renal function continues to reflect kidney injury. HD started. Fluid balance about right. 04/12: 04/12 culture bottles blood with Staph aureus, awaiting C&S. Will switch to Vancomycin for one dose pending. Afebrile, WBC normal. 04/13: Patient was intubated last night and placed on mechanical ventilation for altered mental status and worsening respiratory failure. Currently sedated , orally intubated on mechanical ventilation. 04/14: remains intubated. remains on levophed for pressor support. Cr still elevated, but uop improving slowly. 04/15: more awake today, but not following commands. delirium persists. on SBT on my eval. Cr stable. uop adequate. 04/16: remains more awake. passed SBT today, following commands. HD today. uop slowly improving. 04/17: On 3 L nasal cannula. Awake and alert. Not in any acute distress. Following commands. Objective Vital Signs Date Time Temp Pulse Resp B/P (MAP) Pulse Ox O2 Delivery O2 Flow Rate FiO2 04/17/17 06:00 85 04/17/17 04:00 97.9 19 92/46 (61) 99 04/17/17 01:05 Nasal Cannula 3.00 04/16/17 16:06 40 Intake and Output 04/17/17 04/17/17 04/18/17 08:00 16:00 00:00 Intake Total 696 ml Balance 696 ml Result Diagram: 04/17/17 0500 04/17/17 0500 Other Results Laboratory Tests Test 04/16/17 16:30 Blood Gas Puncture Site ART LINE Blood Gas Patient Temperature 98.6 Blood Gas HCO3 26 mmol/L (22-26) Blood Gas Base Excess 1.1 mmol/L (-2-2) Blood Gas Oxygen Saturation 97 % (90-100) Arterial Blood pH 7.39 (7.380-7.420) Arterial Blood Partial Pressure CO2 43 mmHg (38-42) Arterial Blood Partial Pressure O2 142 mmHg (61-120) Arterial Blood Oxygen Content 12.6 Vol % (12.0-20.0) Arterial Blood Carboxyhemoglobin 1.4 % (0-4) Arterial Blood Methemoglobin 0.7 % (0-2) Blood Gas Hemoglobin 9.0 G/DL (12.0-16.0) Oxygen Delivery Device VENTILATOR Blood Gas Ventilator Setting CPAP/CPAP5/PS5 Blood Gas Inspired Oxygen 40 % Imaging Last [address] 04/13/17 0000 Signed Impressions: Service Date/Time: Thursday, April 13, 2017 01:08 - CONCLUSION: 1. The recent acute intra-axial blood products in the right parietal high convexity is slightly increased in size and there is surrounding vasogenic edema. No herniation or midline shift is present. 2. The edema and blood products in the right cerebellum and right occipital lobe are better visualized on the current examination. Mariusz Oviedo MD Chest X-Ray 04/12/17 0000 Signed Impressions: Service Date/Time: Wednesday, April 12, 2017 23:46 - CONCLUSION: 1. Endotracheal tube tip measures approximately 2.9 cm from the jessica. 2. Stable bibasilar opacities likely representing pleural effusions with associated volume loss and/or airspace consolidation. Mariusz Oviedo MD Carotid Artery Ultrasound 04/12/17 0000 Signed Impressions: Service Date/Time: Wednesday, April 12, 2017 22:36 - CONCLUSION: 1. Mild atherosclerotic disease within the carotid bulb and proximal internal carotid arteries bilaterally. However, no significant stenosis is identified within either internal carotid artery (less than 50%% stenosis). 2. There is antegrade blood flow in both vertebral arteries. Mariusz Oviedo MD Last Impressions Head CT 04/08/172033 Signed Impressions: Service Date/Time: Saturday, April 08, 2017 22:01 - CONCLUSION: Small amount of probable acute subarachnoid hemorrhage within the high right parietal region which may be post-traumatic in etiology. Clinical correlation is recommended. Kang Cruz MD Chest X-Ray 04/08/172033 Signed Impressions: Service Date/Time: Saturday, April 08, 2017 20:56 - CONCLUSION: No acute disease. Kang Cruz MD Abdomen/Pelvis CT 04/08/17 0000 Signed Impressions: Service Date/Time: Saturday, April 08, 2017 22:09 - CONCLUSION: 1. No acute obstructive uropathy. 2. Uncomplicated colonic diverticulosis. 3. Nodular contour of liver suggesting possible cirrhosis. 4. Degenerative changes and scoliosis of the lumbar spine. Kang Cruz MD Objective Remarks GENERAL: Middle-age male who appears older than stated age, lying in bed, on nasal cannula HEENT: Normocephalic. Atraumatic. Pupils equal, round, reactive, conjugate. NECK: Trachea is midline. CHEST: Good air entry bilaterally, no wheezing or crackles CARDIOVASCULAR: S1-S2 regular, no murmur appreciated. Sinus by telemetry. No JVD. ABDOMEN: Soft, nontender, nondistended. No guarding. MUSCULOSKELETAL: Pulses 2+. No peripheral edema. Well perfused. NEUROLOGICAL: Awake alert, oriented to place and person. Can tell me the month and year and off by one day on the date. Moving all 4 extremities. following commands. A/P Assessment and Plan Assessment: 62-year-old male with recent frequent falls whose course is complicated by severe life-threatening rhabdomyolysis, acute kidney injury, and traumatic subarachnoid hemorrhage. Now s/p hemodialysis with continued acute kidney injury and acute respiratory failure. Traumatic Subarachnoid hemorrhage - no anticoagulation - nsgy consultation - frequent neuro checks - tight bp control, < 140. - hydralazine, labetalol prn for this. Add amlodipine 10 mg by mouth daily clonidine when necessary. Agitated Delirium - improving. - propofol and fentanyl for goal RASS -2. -Stopped modafinil. - zyprexa 5mg po q8hr - haldol 5mg iv q4h prn for breakthrough agitation. - now coming out of withdraw window. Off CIWA as benzos may be contributing to ICU delirium. -Off Precedex Acute respiratory failure on mechanical ventilation - improving. -Extubated on 04/16, tolerating nasal cannula. - aggressive pulmonary toilet. Severe Acute Rhabdomyolysis - serial CK downtrended. - intermittent IHD - nephrology on board. - ivf - watch uop closely Acute Kidney Injury - secondary to acute rhabdo - keep rojas. - close monitoring of uop - daily bmp - watch electrolytes closely - Deteriorating function. - HD started 04/10 Urinary Tract Infection - s/p rocephin. SCDs hold pharmacologic DVT prophylaxis given head bleed Domo Hendricks MD Apr 17, 2017 09:00
--- NOTE | 2017-04-17 09:11 | HHI.NSPN ---
(Sammy Wise) History Chief Complaint: Slight headache (Sammy Wise) Interval History 04/09: Mr. Choudhury is a 62-year-old male who presented to the emergency room last night after he was found on the floor by his roommate. He apparently fell yesterday and was lying on the ground for several hours. He indicates generalized weakness over the past few days and has fallen at least 2 times in the past couple of days. He indicates a possible syncopal type episode. Initial workup in the emergency room included a CT scan of the head which revealed probable mild right parietal convexity subarachnoid hemorrhage. He was also found to have a CPK over 40,000 and laboratory results consistent with rhabdomyolysis and UTI with possible urosepsis. He was given normal saline bolus and sodium bicarbonate by me. Also started on vancomycin and Zosyn. No seizure activity reported. 04/10: The patient is in bed with his eyes closed but he immediately answers to voice. He states "I feel like I am dying." He does say he felt a hundred percent better yesterday compared with today. He reports that his lower extremities are the worse and feel numb. He also continues to have numbness to the left side of the body which he was laying on when found. His CK is improving but he does remain in renal failure. Upon evaluation the patient is weaker to the lower extremities which are painful to touch. He is able to move the upper extremities slightly better but they are still weak. 04/11: receiving dialysis for acute kidney injury, reports mild headaches, and weakness in left lower extremity that is new. 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 04/12: feeing himself breakfast. doing well, reports left side still weak, denies any vision changes, loss of peripheral vision 04/13: 62-year-old male admitted with mild traumatic brain injury. Rhabdomyolysis, acute renal failure, UTI. Hemodialysis initiated. He has required subsequent intubation due to respiratory distress on the evening of 04/12. 04/14: Patient is intubated and mechanically ventilated when seen. He is on propofol for sedation and has fentanyl infusing for pain control. He did briefly open his eyes to voice. It appears he moved the toes to command but nothing to the upper extremities. 04/15: The patient remains lethargic but sedated. He is still intubated and mechanically ventilated. He briefly opens his eyes to voice and noxious stimulation. He did not follow any commands but did have some movement of the left lower extremity/foot to local noxious stimulation. Nursing this morning stated that in report she was told the patient was following commands. When she did a sedation vacation the patient did not follow any commands for her, but became agitated. She also stated that the patient had a twitch to the left shoulder. 04/16: This afternoon the patient is awake and alert and tracks with his eyes. He continues to be intubated but is on CPAP. He follows commands with all extremities and gives a thumbs up. 04/17: The patient has been extubated since seen yesterday. He is awake and alert this morning sitting up in bed eating breakfast. He does say he has a headache. He also says he has pain to the neck, back and on the left side to the hip, leg and arm which is chronic, but the hip does feel worse than normal. He reports chronic weakness since a cervical spine injury. He is oriented and spontaneously moving all extremities which have varying degrees of weakness. (Sammy Wise) Exam Results 04/15/17 04/15/17 04/16/17 04/16/17 04/17/17 04/17/17 06: 18:00 06:00 18: 06:00 18:00 Intake Total 1060 ml 831 ml 776 ml 1159 ml 696 ml Output Total 400 ml 350 ml 500 ml 3500 ml Balance 660 ml 481 ml 276 ml -2341 ml 696 ml Intake Oral 200 ml IV Total 550 ml 400 ml 361 ml 748 ml 496 ml Tube Feeding 410 ml 371 ml 355 ml 351 ml Tube Irrigant 100 ml 60 ml 60 ml 60 ml Output Urine Total 400 ml 350 ml 500 ml 500 ml Hemodialysis 3000 ml # Voids 1 # Bowel Movements 0 3 1 1 2 Vital Signs Date Time Temp Pulse Resp B/P (MAP) Pulse Ox O2 Delivery O2 Flow Rate FiO2 04/17/17 06:00 85 04/17/17 04:00 97.9 81 19 92/46 (61) 99 04/17/17 04:00 85 04/17/17 03:24 83 96/45 04/17/17 02:00 85 04/17/17 01:05 98 Nasal Cannula 3.00 04/17/17 00:00 82 04/17/17 00:00 98.9 78 24 104/50 (68) 98 04/16/17 22:00 82 04/16/17 20:07 100 Nasal Cannula 3.00 04/16/17 20:00 98.3 82 24 124/56 (78) 100 04/16/17 20:00 82 04/16/17 18:00 80 04/16/17 17:05 100 Nasal Cannula 3 04/16/17 16:06 100 40 04/16/17 16:00 72 04/16/17 16:00 35 04/16/17 16:00 98.5 72 21 122/58 (79) 100 04/16/17 15:15 40 04/16/17 15:10 35 04/16/17 14:00 69 04/16/17 13:14 40 04/16/17 12:00 40 04/16/17 12:00 97.9 70 16 140/60 (86) 100 04/16/17 12:00 70 04/16/17 11:49 100 40 04/16/17 10:00 68 04/16/17 09:05 100 40 04/16/17 08:00 40 04/16/17 08:00 70 04/16/17 08:00 99.4 70 16 86/42 (57) 100 04/16/17 06:00 69 04/16/17 04:00 35 04/16/17 04:00 99.0 66 19 115/50 (71) 100 04/16/17 04:00 66 04/16/17 03:48 100 40 04/16/17 02:00 69 04/16/17 00:00 99.3 76 22 123/60 (81) 100 04/16/17 00:00 35 04/15/17 23:21 100 40 04/15/17 22:00 79 04/15/17 22:00 35 04/15/17 20:00 35 04/15/17 20:00 99.7 81 17 118/56 (76) 100 04/15/17 20:00 84 04/15/17 18:00 84 04/15/17 16:49 100 40 04/15/17 16:00 35 04/15/17 16:00 99.0 74 14 106/58 (74) 100 04/15/17 16:00 71 04/15/17 14:16 100 40 04/15/17 14:00 74 04/15/17 12:00 96 04/15/17 12:00 98.7 132 17 120/56 (77) 100 04/15/17 12:00 35 04/15/17 11:45 97 40 04/15/17 11:45 40 04/15/17 10:00 94 04/15/17 08:35 100 35 04/15/17 08:00 98.9 89 16 117/54 (75) 100 04/15/17 08:00 35 04/15/17 08:00 90 04/15/17 06:00 80 04/15/17 04:00 73 04/15/17 04:00 35 04/15/17 04:00 98.2 73 16 130/59 (82) 100 04/15/17 02:38 70 106/48 04/15/17 02:00 70 04/15/17 00:00 35 04/15/17 00:00 62 04/15/17 00:00 98.9 62 16 110/53 (72) 100 04/14/17 23:44 100 35 04/14/17 22:00 65 04/14/17 20:00 73 04/14/17 20:00 35 04/14/17 20:00 100.0 73 16 106/49 (68) 100 04/14/17 19:20 100 35 04/14/17 18:21 74 90/47 18 18:00 85 100/47 04/14/17 17:00 99 35 04/14/17 16:45 104 89/50 04/14/17 16:00 91 04/14/17 16:00 100.7 91 16 130/63 (85) 96 04/14/17 12:00 98.6 92 16 137/63 (87) 100 04/14/17 12:00 92 04/14/17 10:06 35 (Sammy Wise) Physical Examination GENERAL: Awake & alert, readily interacts, affect normal, no apparent distress. HEENT: Normocephalic. PERRLA 2 mm brisk, EOMI. MMM & pink, tongue midline to protrusion. MUSCULOSKELETAL: Moving all extremities spontaneously & purposefully. No evident clubbing. 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 NEUROLOGICAL: AAOx3. Speech clear & appropriate. Follows simple commands w/o difficulty. Sensation normal for patient. Moved all extremities to command w/varying degrees of weakness. (Sammy Wise) Lab, Micro, Other Results Recent Impressions Abdomen X-Ray 04/15/17 0000 Signed Impressions: Service Date/Time: Saturday, April 15, 2017 16:36 - CONCLUSION: Feeding tube in good position. Paras Scales MD FACR Laboratory Tests Test 04/15/17 05:40 04/15/17 17:48 04/16/17 16:30 04/17/17 05:00 White Blood Count 8.9 TH/MM3 10.1 TH/MM3 Red Blood Count 2.65 MIL/MM3 2.52 MIL/MM3 Hemoglobin 9.5 GM/DL 9.3 GM/DL Hematocrit 27.5 % 26.5 % Mean Corpuscular Volume 104.0 FL 105.1 FL Mean Corpuscular Hemoglobin 35.9 PG 36.7 PG Mean Corpuscular Hemoglobin Concent 34.5 % 34.9 % Red Cell Distribution Width 13.3 % 13.2 % Platelet Count 116 TH/MM3 134 TH/MM3 Mean Platelet Volume 7.6 FL 7.8 FL Blood Urea Nitrogen 40 MG/DL 43 MG/DL Creatinine 5.60 MG/DL 5.23 MG/DL Random Glucose 120 MG/DL 91 MG/DL Calcium Level 7.5 MG/DL 7.9 MG/DL Sodium Level 146 MEQ/L 144 MEQ/L Potassium Level 2.9 MEQ/L 4.6 MEQ/L 3.7 MEQ/L Chloride Level 110 MEQ/L 108 MEQ/L Carbon Dioxide Level 24.6 MEQ/L 26.6 MEQ/L Anion Gap 11 MEQ/L 9 MEQ/L Estimat Glomerular Filtration Rate 10 ML/MIN 11 ML/MIN Random Vancomycin Level 21.6 COMMENT Blood Gas Puncture Site ART LINE Blood Gas Patient Temperature 98.6 Blood Gas HCO3 26 mmol/L Blood Gas Base Excess 1.1 mmol/L Blood Gas Oxygen Saturation 97 % Arterial Blood pH 7.39 Arterial Blood Partial Pressure CO2 43 mmHg Arterial Blood Partial Pressure O2 142 mmHg Arterial Blood Oxygen Content 12.6 Vol % Arterial Blood Carboxyhemoglobin 1.4 % Arterial Blood Methemoglobin 0.7 % Blood Gas Hemoglobin 9.0 G/DL Oxygen Delivery Device VENTILATOR Blood Gas Ventilator Setting CPAP/CPAP5/PS5 Blood Gas Inspired Oxygen 40 % (Sammy Wise) Medical Decision Making Impression and Plan Impression: 1. Findings consistent with traumatic brain injury, subarachnoid hemorrhage right parietal convexity 2. Right cerebellar hyperdensity lesion. Possible remote infarct. Need to rule out mass lesion 3. Rhabdomyolysis 4. UTI 5. Hypertension 6. Acute kidney disease-likely related to rhabdomyolysis. 7. Possible syncopal episode 8. Electrolyte disturbance-hyperkalemia and hyponatremia. Likely related to acute kidney disease. 9. Respiratory failure requiring intubation The patient is extubated and doing well. He is awake & oriented, moving purposefully & to command. Varying degrees of weakness to extremities. Afebrile past 24 hrs. SBP in the 90s this morning. Reviewed labs for today. Haemoglobin essentially stable. Improvement in thrombocytosis. Sodium 144. Minimal improvement in creatinine & eGFR. CT brain demonstrated slight increase in the right parietal intra- axial blood products w/surrounding vasogenic edema. Also noted are blood products to the right occipital lobe and right cerebellum. No herniation or midline shift. Plan: Primary management per [employer]. Nephrology following for renal failure. Neuro checks. Monitor sodium level. Stat CT brain for any decline in neuro status. Hold pharmacologic DVT prophylaxis. Mechanical DVT prophylaxis. Stress ulcer prophylaxis. Mobilise patient w/assistance. Physical & Occupational Therapy. (Sammy Wise) Attending Statement The exam, history, and the medical decision-making described in the above note were completed with the assistance of the mid-level provider. I reviewed and agree with the findings presented. I attest that I had a [id number] encounter with the patient on the same day, and personally performed and documented my assessment and findings in the medical record. On my examination 04/17/2017, the patient is somewhat more awake, conversant, appropriate. Less agitation. He has increased edema left upper extremity without significant tenderness. No evidence of deterioration related to traumatic brain injury. Continue observation. Renal medicine following for acute kidney disease. Improving slowly (Matthew Katz MD) Sammy Wise Apr 17, 2017 09:11 Matthew Katz MD Apr 17, 2017 19:35
[2017-04-17] MEDS: THIAMINE HCL 100 MG TAB PO SCH (09:30)
[2017-04-17] MEDS: PANTOPRAZOLE SODIUM 40 MG VIAL IV PUSH SCH (09:30)
[2017-04-17] MEDS: GABAPENTIN 100 MG CAP PO SCH ×4 (09:30→20:50)
[2017-04-17] MEDS: METOPROLOL TARTRATE 25 MG TAB PO SCH (09:30)
[2017-04-17] MEDS: ACETAMINOPHEN/HYDROcodone 325 MG/5 MG TAB PO PRN ×2 (09:31→17:06)
[2017-04-17] MEDS: AZTREONAM IV SCH ×2 (12:59→22:31)
[2017-04-17] MEDS: SODIUM CHLORIDE 0.9% IV SCH ×2 (12:59→22:31)
[2017-04-18] VITALS (13 sets, daily range): BP systolic 126–164; BP diastolic 68–87; PULSE 77–105; RESP 18–24; TEMP 97.7–99; O2SAT 90–100
[2017-04-18] MEDS: CHLORHEXIDINE GLUCONATE 2 % 1 PACK (2 CLOTHS) TOP SCH (01:59)
[2017-04-18] MEDS: METRONIDAZOLE 500 MG/100 ML ISONTONIC SOLN IV SCH ×2 (01:59→08:39)
[2017-04-18] MEDS: ACETAMINOPHEN/HYDROcodone 325 MG/5 MG TAB PO PRN ×2 (04:19→14:55)
[2017-04-18] MEDS: SODIUM CHLORIDE 0.9% IV SCH (05:09)
[2017-04-18] MEDS: AZTREONAM IV SCH (05:09)
[2017-04-18] MEDS: OLANZapine ODT 5 MG TAB PO SCH ×3 (05:09→22:48)
[2017-04-18 05:29] LABS: HEMATOCRIT 25.7 % (39.0-51.0); MEAN CELL VOLUME 105.3 FL (80.0-100.0); MEAN CORPUSCULAR HEMOGLOBIN 36.7 PG (27.0-34.0); MEAN CORPUSCULAR HGB CONC 34.9 % (32.0-36.0); MEAN PLATELET VOLUME 7.5 FL (7.0-11.0); PLATELET COUNT 148 TH/MM3 (150-450); RED BLOOD COUNT 2.44 MIL/MM3 (4.50-5.90); RED CELL DISTRIBUTION WIDTH 13.2 % (11.6-17.2)
[2017-04-18 05:42] LABS: BICARBONATE 24.8 MEQ/L (21.0-32.0); CALCIUM 7.9 MG/DL (8.5-10.1); CREATININE 5.75 MG/DL (0.60-1.30)
[2017-04-18] MEDS: METOPROLOL TARTRATE 25 MG TAB PO SCH (08:39)
[2017-04-18] MEDS: PANTOPRAZOLE SODIUM 40 MG VIAL IV PUSH SCH (08:39)
[2017-04-18] MEDS: GABAPENTIN 100 MG CAP PO SCH ×4 (08:40→20:23)
[2017-04-18] MEDS: THIAMINE HCL 100 MG TAB PO SCH (08:40)
--- NOTE | 2017-04-18 10:37 | HHI.PR ---
Subjective Remarks in no acute distress. awake and alert. has minimal lower abdominal pain. d/w the RN and no acute issues over night. Objective Vitals Vital Signs Date Time Temp Pulse Resp B/P (MAP) Pulse Ox O2 Delivery O2 Flow Rate FiO2 04/18/17 10:00 77 04/18/17 08:00 98.0 96 20 159/86 (110) 94 04/18/17 08:00 97 04/18/17 07:30 94 21 04/18/17 06:27 88 04/18/17 04:00 97.9 102 24 140/74 (96) 94 04/18/17 04:00 89 04/18/17 02:00 105 04/18/17 00:00 98 04/18/17 00:00 98.8 100 20 134/77 (96) 90 04/17/17 22:00 89 04/17/17 20:59 95 Nasal Cannula 2.00 04/17/17 20:00 98.3 102 20 148/76 (100) 99 04/17/17 20:00 85 04/17/17 18:30 16 04/17/17 18:00 103 04/17/17 16:00 102 04/17/17 16:00 98.0 101 16 136/73 (94) 91 04/17/17 14:00 88 04/17/17 12:24 92 21 04/17/17 12:00 98.0 94 16 112/56 (74) 92 04/17/17 12:00 98 I/O 04/17/17 04/17/17 04/17/17 04/18/17 04/18/17 04/18/17 07:00 15:00 23:00 07:00 15:00 23:00 Intake Total 696 ml 400 ml 682 ml Output Total 0 ml Balance 696 ml 400 ml 682 ml Intake Oral 200 ml 400 ml 280 ml IV Total 496 ml 402 ml Output Urine Total 0 ml # Voids 1 4 # Bowel Movements 2 4 3 Result Diagram: 04/18/17 0452 04/18/17 045 Imaging Last Impressions Abdomen X-Ray 04/15/17 0000 Signed Impressions: Service Date/Time: Saturday, April 15, 2017 16:36 - CONCLUSION: Feeding tube in good position. Paras Scales MD FACR Upper Extremity Ultrasound 3/5/18 0000 Signed Impressions: Service Date/Time: Thursday, April 13, 2017 12:53 - CONCLUSION: Veins in the the left arm to the subclavian are patent. Left jugular vein is patent as well Paras Scales MD FACR Head CT 04/13/17 Signed Impressions: Service Date/Time: Thursday, April 13, 2017 01:08 - CONCLUSION: 1. The recent acute intra-axial blood products in the right parietal high convexity is slightly increased in size and there is surrounding vasogenic edema. No herniation or midline shift is present. 2. The edema and blood products in the right cerebellum and right occipital lobe are better visualized on the current examination. Mariusz Oviedo MD Chest X-Ray 04/12/17 Signed Impressions: Service Date/Time: Wednesday, April 12, 2017 23:46 - CONCLUSION: 1. Endotracheal tube tip measures approximately 2.9 cm from the jessica. 2. Stable bibasilar opacities likely representing pleural effusions with associated volume loss and/or airspace consolidation. Mariusz Oviedo MD Carotid Artery Ultrasound 04/12/17 Signed Impressions: Service Date/Time: Wednesday, April 12, 2017 22:36 - CONCLUSION: 1. Mild atherosclerotic disease within the carotid bulb and proximal internal carotid arteries bilaterally. However, no significant stenosis is identified within either internal carotid artery (less than 50%% stenosis). 2. There is antegrade blood flow in both vertebral arteries. Mariusz Oviedo MD Thoracic Spine MRI 04/10/17 Signed Impressions: Service Date/Time: Monday, April 10, 2017 10:52 - CONCLUSION: Cervical and upper thoracic cord syrinx. Tiny disc protrusions at a couple of levels without significant anatomic compromise Mariusz Fernandes MD Lumbar Spine MRI 04/10/17 Signed Impressions: Service Date/Time: Monday, April 10, 2017 10:52 - CONCLUSION: 1. Multilevel disc bulges or mild protrusions between L2 and L5 resulting in mild lateral recess encroachment and mild foraminal encroachment as above. 2. Minimal retrolisthesis of L5 on S1 with mild left-sided foraminal stenosis. 3. No acute fracture. Conus medullaris intact. Lexx Alva MD Head Magnetic Resonance Angiography 04/10/17 Signed Impressions: Service Date/Time: Monday, April 10, 2017 10:52 - CONCLUSION: 1. Unremarkable [place] MRA examination. Specifically, no evidence for large vessel occlusion or aneurysm. 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 Advanced degenerative change at C2-C3-4-5 with AP canal stenosis and lateral recess encroachment most notable at C2-3 on the left. Solid bony union across area of previous fusion at C5-6- 7. Lexx Alva MD Brain MRI 04/10/17 0000 Signed Impressions: Service Date/Time: Monday, April 10, 2017 10:52 - CONCLUSION: Acute hemorrhage as described above high right parietal region Focal restricted diffusion right cervical hemisphere and both occipital lobes suggesting he posterior fossa embolic event. Paras Scales MD FACR Renal Ultrasound 04/09/17 0000 Signed Impressions: Service Date/Time: April 12:12 - CONCLUSION: Normal examination. Tk Martínez MD Maxillofacial CT 04/09/17 0000 Signed Impressions: Service Date/Time: April 13:28 - CONCLUSION: 1. There is no evidence of acute fracture. Toney Schulz MD Abdomen/Pelvis CT 04/08/17 0000 Signed Impressions: Service Date/Time: Saturday, April 08, 2017 22:09 - CONCLUSION: 1. No acute obstructive uropathy. 2. Uncomplicated colonic diverticulosis. 3. Nodular contour of liver suggesting possible cirrhosis. 4. Degenerative changes and scoliosis of the lumbar spine. Kang Cruz MD Objective Remarks GENERAL: This is a well-nourished, well-developed patient, in no apparent distress. CARDIOVASCULAR: Regular rate and regular rhythm without murmurs, gallops, or rubs. RESPIRATORY: Clear to auscultation. Breath sounds equal bilaterally. No wheezes , rales, or rhonchi. GASTROINTESTINAL: Abdomen soft, non-tender, nondistended. Normal, active bowel sounds MUSCULOSKELETAL: Extremities without clubbing, cyanosis, or edema. NEURO: awake and alert. Medications and IVs Inpatient Medications Acetaminophen 100 ml @ 400 mls/hr Q6H PRN IV TEMPERATURE GREATER THAN 101F Last administered on 04/14/17 16:23; Start 04/13/17 at 18:45 Acetaminophen (Tylenol) 650 mg UNSCH PRN PO for headach, pain, temp > 101F; Start 04/10/17 at 16:30 Acetaminophen/ Hydrocodone Bitart (Archie 5-325 Mg) 1 tab Q4H PRN PO PAIN 1-10 Last administered on 04/18/17at 04:19; Start 04/09/17 at 10:00 Albumin Human 100 ml @ 60 mls/hr UNSCH PRN IV WITH DIALYSIS Last administered on 04/16/17at 11:45; Start 04/10/17 at 16:30 Albuterol/ Ipratropium (Duoneb Neb) 1 ampule Q2HR NEB PRN INH WHEEZING Last administered on 04/14/17at 19:31; Start 04/09/17 at 00:00 Aztreonam 125 mg/ Sodium Chloride 100 ml @ 200 mls/hr Q8H IV Last administered on 04/18/17at 05:09; Start 04/16/17 at 14:00 Aztreonam 2000 mg/ Sodium Chloride 100 ml @ 200 mls/hr ONCE ONCE IV Last administered on 04/13/17at 05:34; Start 04/13/17 at 04:45; Stop 04/13/17 at 05:14; Status DC Aztreonam 500 mg/ Sodium Chloride 100 ml @ 200 mls/hr Q8H IV Last administered on 04/16/17at 05:47; Start 04/13/17 at 14:00; Stop 04/16/17 at 08:13; Status DC Bumetanide 100 ml @ 8 mls/hr [id number] IV Last administered on 04/10/17at 03:34; Start 04/09/17 at 16:30; Stop 04/10/17 at 16:23; Status DC Ceftriaxone Sodium 1000 mg/ Sodium Chloride 100 ml @ 200 mls/hr Q24H IV Last administered on 04/12/17at 03:21; Start 04/09/17 at 02:00; Stop 04/12/17 at 07:56; Status DC Chlorhexidine Gluconate (Chlorhexidine 2% Cloth) 3 pack UNSCH PRN TOP HYGIENIC CARE; Start 04/09/17 at 00:00 Clonidine (Catapres) 0.1 mg UNSCH PRN PO for BP > 180/100 X 2 readings; Start 04/10/17 at 16:30 Dexmedetomidine HCl 1000 mcg/ Sodium Chloride 250 ml @ 4.79 mls/hr TITRATE PRN IV SEDATION Last administered on 04/16/17at 12:26; Start 04/15/17 at 22:15; Stop 04/16/17 at 17:36; Status DC Dexmedetomidine HCl 200 mcg/ Sodium Chloride 52 ml @ 4.98 mls/hr TITRATE PRN IV SEDATION Last administered on 04/12/17at 21:31; Start 04/12/17 at 21:30; Stop at 00:21; Status DC Dexmedetomidine HCl 400 mcg/ Sodium Chloride 100 ml @ 4.79 mls/hr TITRATE PRN IV SEDATION Last administered on 04/15/17at 16:30; Start 04/13/17 at 00:30; Stop at 22:08; Status DC Dextrose (D50w (Vial) Inj) 25 ml UNSCH PRN IV PUSH HYPOGLYCEMIA-SEE COMMENTS; Start 04/09/17 at 00:00; Stop 04/17/17 at 12:30; Status DC Diphenhydramine HCl (Benadryl) 25 mg UNSCH PRN PO for hives/itching/anaphylaxis ; Start 04/10/17 at 16:30 Etomidate (Amidate Inj) 20 mg UNSCH X1 IV PUSH ; Start 04/12/17 at 23:30; Stop 04/13/17 at 03:38; Status DC Fentanyl Citrate 250 ml @ 5 mls/hr TITRATE PRN IV SEDATION Last administered on 04/14/17at 13:42; Start 04/13/17 at 11:45; Stop 04/15/17 at 10:37; Status DC Fentanyl Citrate (fentaNYL INJ) 100 mcg ONCE ONCE IV PUSH Last administered on 04/13/17at 13:22; Start 04/13/17 at 11:45; Stop 04/13/17 at 13:14; Status DC Flumazenil (Romazicon Inj) 0.2 mg Q1M PRN IV PUSH SEE LABEL COMMENTS; Start 04/09/17 at 10:15; Stop 04/15/17 at 10:38; Status DC Furosemide (Lasix Inj) 120 mg ONCE ONCE IV PUSH Last administered on 04/09/17at 11:04; Start 04/09/17 at 10:45; Stop 04/09/17 at 10:55; Status DC Gabapentin (Neurontin) 100 mg QID PO Last administered on 04/18/17at 08:40; Start 04/09/17 at 13:00 Gelatin (Gelfoam 12 Mm/7 Mm Top) 1 foam UNSCH PRN TOP SEE LABEL COMMENTS; Start 04/10/17 at 16:30 Gentamicin Sulfate (Gentamicin Inj) 20 mg UNSCH PRN OTHER WITH DIALYSIS Last administered on 04/16/17at 11:45; Start 04/10/17 at 16:30 Haloperidol Lactate (Haldol Inj) 5 mg Q4H PRN IV PUSH agitation; Start 04/15/17 at 11:00 Heparin Sodium (Porcine) (Heparin Inj) UNSCH PRN .XX WITH DIALYSIS Last administered on 04/16/17at 11:45; Start 04/10/17 at 16:30 Hydralazine HCl (Apresoline Inj) 10 mg Q30M PRN IV PUSH sbp > 160 Last administered on 04/09/17at 08:36; Start 04/09/17 at 00:00 Insulin Human Regular (NovoLIN R SUPPLEMENTAL SCALE) 1 Q6HR SQ ; Start 04/09/17 at 00:00; Stop 04/17/17 at 12:30; Status DC Labetalol HCl (Trandate Inj) 20 mg Q15M PRN IV PUSH sbp > 160 Last administered on 04/13/17at 09:18; Start 04/09/17 at 00:00 Lorazepam (Ativan Inj) 2 mg Q15M PRN IV PUSH CIWA > 20; Start 04/09/17 at 10:15 ; Stop 04/15/17 at 10:38; Status DC Lorazepam (Ativan) 2 mg Q2H PRN PO CIWA 11-14; Start 04/09/17 at 10:15; Stop 04/15/17 at 10:38; Status DC Mannitol (Mannitol Inj) 12.5 gm UNSCH PRN IV WITH DIALYSIS; Start 04/10/17 at 16 :30 Metoprolol Tartrate (Lopressor) 25 mg DAILY PO Last administered on 04/18/17at 08:39; Start 04/10/17 at 09:00 Metronidazole 100 ml @ 100 mls/hr Q6H IV Last administered on 04/18/17at 08:39 ; Start 04/13/17 at 20:00 Miscellaneous (Pill Splitter) 1 ea UNSCH PRN OTHER SEE LABEL COMMENTS; Start at 10:15 Miscellaneous Information 1 Q361D XX ; Start 04/09/17 at 00:00 Modafinil (Provigil) 200 mg DAILY PO Last administered on 04/15/17at 11:00; Start 04/15/17 at 11:00; Stop 04/17/17 at 09:01; Status DC Multivitamins 10 ml/Folic Acid 1 mg/Sodium Chloride 510.2 ml @ 125 mls/hr Q24H IV Last administered on 04/13/17at 11:28; Start 04/09/17 at 11:00; Stop 04/14/17 at 10:59; Status DC Nitroglycerin (Nitrostat Sl) 0.4 mg UNSCH PRN SL CHEST PAIN; Start 04/10/17 at 16:30 Norepinephrine Bitartrate 4 mg/ Sodium Chloride 250 ml @ 7.5 mls/hr TITRATE PRN IV Blood pressure management Last administered on 04/17/17at 03:24; Start 04/13 at 19:45 Olanzapine (ZyPREXA ZYDIS ODT) 5 mg Q8HR PO Last administered on 04/18/17at 05: 09; Start 04/15/17 at 14:00 Ondansetron HCl (Zofran Inj) 4 mg UNSCH PRN IV PUSH WITH DIALYSIS; Start at 16:30 Pantoprazole Sodium (Protonix Inj) 40 mg DAILY IV PUSH Last administered on 11/26at 08:39; Start 04/09/17 at 09:00 Pharmacy Profile Note 0 ml @ 0 mls/hr UNSCH OTHER ; Start 04/13/17 at 02:30; Stop 04/15/17 at 15:14; Status DC Piperacillin Sod/ Tazobactam Sod 50 ml @ 100 mls/hr ONCE ONCE IV Last administered on 04/08/17at 20:48; Start 04/08/17 at 20:45; Stop 04/08/17 at 21:14 ; Status DC Potassium Chloride 100 ml @ 25 mls/hr ONCE ONCE IV Last administered on 09:02; Start 04/15/17 at 08:30; Stop 04/15/17 at 12:30; Status DC Propofol 100 ml @ 2.874 mls/ hr TITRATE PRN IV SEDATION Last administered on at 23:02; Start 04/13/17 at 00:30; Stop 04/15/17 at 10:37; Status DC Quetiapine Fumarate (SEROquel) 50 mg BID PO Last administered on 04/12/17at 21:31 ; Start 04/12/17 at 21:30; Stop 04/13/17 at 02:17; Status DC Rocuronium [place] (Zemuron Inj) 50 mg BOLUS ONCE IV Last administered on at 23:45; Start 04/12/17 at 23:45; Stop 04/12/17 at 23:46; Status DC Sodium Bicarbonate 150 meq/Dextrose 1,150 ml @ 50 mls/hr Q23H IV Last administered on 04/11/17at 06:28; Start 04/09/17 at 00:45; Stop 04/11/17 at 11:06; Status DC Sodium Chloride 1,000 ml @ 999 mls/hr Q1H1M ONCE IV Last administered on at 19:45; Start 04/13/17 at 19:45; Stop 04/13/17 at 20:45; Status DC Sodium Chloride (NS Flush) 5 ml UNSCH PRN IV FLUSH WITH DIALYSIS; Start at 16:30 Terbutaline Sulfate (Brethine Inj) 1 mg UNSCH PRN SQ For Extravasation; Start 04/12/17 at 23:30 Thiamine HCl (Vitamin B1) 100 mg DAILY PO Last administered on 04/18/17at 08:40 ; Start 04/12/17 at 09:00 Thiamine HCl 100 mg/Sodium Chloride 101 ml @ 100 mls/hr Q24H IV Last administered on 04/11/17at 10:15; Start 04/09/17 at 11:00; Stop 04/11/17 at 12:01; Status DC Tizanidine HCl (Zanaflex) 2 mg HS PO Last administered on 04/17/17at 20:50; Start 04/11/17 at 21:00 Vancomycin HCl 1000 mg/Sodium Chloride 250 ml @ 250 mls/hr ONCE ONCE IV Last administered on 04/12/17at 08:55; Start 04/12/17 at 08:00; Stop 04/12/17 at 08:59; Status DC Vancomycin HCl 1500 mg/Sodium Chloride 515 ml @ 257.5 mls/ hr ONCE ONCE IV Last administered on 04/13/17at 04:54; Start 04/13/17 at 04:00; Stop 04/13/17 at 05: 59; Status DC A/P Assessment and Plan Traumatic Subarachnoid hemorrhage - no anticoagulation - neurosurgery consultation - frequent neuro checks - tight bp control, < 140. - continue metoprolol- clonidine as needed; will follow the BP and adjust the regimen as needed. Agitated Delirium - improving. - zyprexa 5mg po q8hr - haldol 5mg iv q4h prn for breakthrough agitation. Acute respiratory failure on mechanical ventilation - improving. -Extubated on 04/16, tolerating nasal cannula. - aggressive pulmonary toilet. Severe Acute Rhabdomyolysis - serial CK downtrended. - started on HD; HD per nephrology. -monitor renal function and electrolytes. Acute Kidney Injury - secondary to acute rhabdo - keep rojas. - close monitoring of urine output - daily bmp - watch electrolytes closely - Deteriorating function. - HD started 04/10 Urinary Tract Infection - s/p rocephin. SCDs hold pharmacologic DVT prophylaxis given head bleed Oswaldo Sánchez MD Apr 18, 2017 10:37
--- NOTE | 2017-04-18 11:42 | HHI.NPPN ---
Subjective History of Present Illness 62 year old male with ARF Rhabdomyolysis, painful, tired lethargic Additional Remarks Resting comfortably. Denies any SOB. Moderate edema noted (Samantha Bansal) Review of Systems General Constitutional: Fatigue (Samantha Bansal) Musculoskeletal MS: Pain/Stiffness (Samantha Bansal) Objective Data Data Vital Signs Date Time Temp Pulse Resp B/P (MAP) Pulse Ox O2 Delivery O2 Flow Rate FiO2 04/18/17 10:00 77 04/18/17 08:00 98.0 96 20 159/86 (110) 94 04/18/17 08:00 97 04/18/17 07:30 94 21 04/18/17 06:27 88 04/18/17 04:00 97.9 102 24 140/74 (96) 94 04/18/17 04:00 89 04/18/17 02:00 105 04/18/17 00:00 98 04/18/17 00:00 98.8 100 20 134/77 (96) 90 04/17/17 22:00 89 04/17/17 20:59 95 Nasal Cannula 2.00 04/17/17 20:00 98.3 102 20 148/76 (100) 99 04/17/17 20:00 85 04/17/17 18:30 16 04/17/17 18:00 103 04/17/17 16:00 102 04/17/17 16:00 98.0 101 16 136/73 (94) 91 04/17/17 14:00 88 04/17/17 12:24 92 21 04/17/17 12:00 98.0 94 16 112/56 (74) 92 04/17/17 12:00 98 (Samantha Bansal) -: 04/18/17 0452 04/18/17 0452 Physical Exam General Appearance: Well Developed, Well Nourished (Samantha Bansal) Neck Neck Exam: Jugular Vein Distension (Samantha Bansal) Pulmonary Resp Exam: Decreased Bases (Samantha Bansal) Cardiology CV Exam: Tachycardia (Samantha Bansal) Gastrointestinal/Abdomen GI Exam: Soft, Bowel Sounds Present (Samantha Bansal) Extremeties Extremities Exam: Trace Edema (Samantha Bansal) Assessment/Plan Problem List: (1) Acute renal failure ICD Codes: N17.9 - Acute kidney failure, unspecified Plan: ARF has Rhabdomyolysis He likely has acute tubular necrosis from underlying rhabdomyolysis Avoid nephrotoxins Dialysis initiated on 3/2 Monitor fluid and electrolytes Avoid nephrotoxins. Dialysis yesterday UF 3L (2) Rhabdomyolysis ICD Codes: M62.82 - Rhabdomyolysis Status: Acute Plan: Continue monitor his CPK trend is downwards (3) Subarachnoid hemorrhage ICD Codes: I60.9 - Nontraumatic subarachnoid hemorrhage, unspecified Plan: Neurosurgery following (4) UTI (lower urinary tract infection) ICD Codes: N39.0 - Urinary tract infection, site not specified (5) Sepsis ICD Codes: A41.9 - Sepsis, unspecified organism Plan: Staphylococcus Hemolyticus in blood culture ? contaminant. 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 Vancomycin ordered. (Samantha Bansal) Problem List: (1) Acute renal failure ICD Codes: N17.9 - Acute kidney failure, unspecified Plan: ARF has Rhabdomyolysis He likely has acute tubular necrosis from underlying rhabdomyolysis Avoid nephrotoxins Dialysis initiated on 3/2 Monitor fluid and electrolytes Avoid nephrotoxins. Dialysis yesterday UF 3L Patient seen and examine, agree with above. Continue HD as needed. Watch for renal recovery. (2) Rhabdomyolysis ICD Codes: M62.82 - Rhabdomyolysis Status: Acute Plan: Continue monitor his CPK trend is downwards (3) Subarachnoid hemorrhage ICD Codes: I60.9 - Nontraumatic subarachnoid hemorrhage, unspecified Plan: Neurosurgery following (4) UTI (lower urinary tract infection) ICD Codes: N39.0 - Urinary tract infection, site not specified (5) Sepsis ICD Codes: A41.9 - Sepsis, unspecified organism Plan: Staphylococcus Hemolyticus in blood culture ? contaminant. 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 Vancomycin ordered. (Anderson Candelaria MD) Problem Qualifiers (1) Acute renal failure: Qualified Codes: N17.0 - Acute kidney failure with tubular necrosis (2) Rhabdomyolysis: Qualified Codes: M62.82 - Rhabdomyolysis Samantha Bansal Apr 18, 2017 11:42 Anderson Candelaria MD Apr 18, 2017 16:09
[2017-04-18] MEDS: GENTAMICIN SULFATE 20 MG/2 ML VIAL OTHER PRN (13:22)
[2017-04-18] MEDS: HEPARIN SODIUM - IV 10,000 UNITS/10 ML VIAL PRN (13:23)
[2017-04-18] MEDS: LABETALOL HCL 100 MG/20 ML VIAL IV PUSH PRN (18:28)
[2017-04-19] VITALS (14 sets, daily range): BP systolic 100–153; BP diastolic 58–81; PULSE 82–96; RESP 15–20; TEMP 98.4–99; O2SAT 94–100
[2017-04-19] MEDS: CHLORHEXIDINE GLUCONATE 2 % 1 PACK (2 CLOTHS) TOP SCH (04:00)
[2017-04-19] MEDS: ACETAMINOPHEN/HYDROcodone 325 MG/5 MG TAB PO PRN ×3 (04:39→17:08)
[2017-04-19 04:55] LABS: HEMATOCRIT 25.9 % (39.0-51.0); HEMOGLOBIN 8.9 GM/DL (13.0-17.0); MEAN CELL VOLUME 105.4 FL (80.0-100.0); MEAN CORPUSCULAR HEMOGLOBIN 36.2 PG (27.0-34.0); MEAN CORPUSCULAR HGB CONC 34.3 % (32.0-36.0); PLATELET COUNT 110 TH/MM3 (150-450); RED BLOOD COUNT 2.46 MIL/MM3 (4.50-5.90); RED CELL DISTRIBUTION WIDTH 13.7 % (11.6-17.2); WHITE BLOOD COUNT 12.8 TH/MM3 (4.0-11.0)
[2017-04-19 05:23] LABS: BICARBONATE 26.1 MEQ/L (21.0-32.0); CALCIUM 7.9 MG/DL (8.5-10.1); CREATININE 4.61 MG/DL (0.60-1.30)
[2017-04-19] MEDS: OLANZapine ODT 5 MG TAB PO SCH ×3 (06:00→21:51)
[2017-04-19] MEDS: PANTOPRAZOLE SODIUM 40 MG VIAL IV PUSH SCH (08:36)
[2017-04-19] MEDS: METOPROLOL TARTRATE 25 MG TAB PO SCH (08:37)
[2017-04-19] MEDS: GABAPENTIN 100 MG CAP PO SCH ×4 (08:37→21:51)
[2017-04-19] MEDS: THIAMINE HCL 100 MG TAB PO SCH (08:38)
--- NOTE | 2017-04-19 10:01 | HHI.PR ---
Subjective Remarks in no acute distress. resting fairly comfortably. no fever or sob. d/w the RN and no acute issues over night. Objective Vitals Vital Signs Date Time Temp Pulse Resp B/P (MAP) Pulse Ox O2 Delivery O2 Flow Rate FiO2 04/19/17 08:14 97 Nasal Cannula 2.00 04/19/17 06:00 84 04/19/17 04:00 98.6 88 18 121/64 (83) 94 04/19/17 04:00 92 04/19/17 02:00 88 04/19/17 00:00 82 04/19/17 00:00 88 18 100/58 (72) 100 04/18/17 22:00 82 04/18/17 20:00 99.0 87 18 151/68 (95) 100 04/18/17 20:00 87 04/18/17 18:00 87 04/18/17 16:00 97.7 91 22 126/72 (90) 94 04/18/17 16:00 91 04/18/17 14:00 87 04/18/17 12:00 98.0 87 24 164/87 (112) 99 04/18/17 12:00 87 04/18/17 10:00 77 I/O 04/18/17 04/18/17 04/18/17 04/19/17 04/19/17 04/19/17 07:00 15:00 23:00 07:00 15:00 23:00 Intake Total 682 ml 100 ml 300 ml 690 ml Output Total 3000 ml 151 ml Balance 682 ml 100 ml -2700 ml 539 ml Intake Oral 280 ml 300 ml 480 ml IV Total 402 ml 100 ml 210 ml Output Urine Total 150 ml Stool Total 1 ml Hemodialysis 3000 ml # Voids 4 1 2 # Bowel Movements 3 1 Result Diagram: 04/19/17 0430 04/19/17 0430 Imaging Last Impressions Abdomen X-Ray 04/15/17 0000 Signed Impressions: Service Date/Time: Saturday, April 15, 2017 16:36 - CONCLUSION: Feeding tube in good position. Paras Scales MD FACR Upper Extremity Ultrasound 04/13/17 0000 Signed Impressions: Service Date/Time: Thursday, April 13, 2017 12:53 - CONCLUSION: Veins in the the left arm to the subclavian are patent. Left jugular vein is patent as well Paras Scales MD FACR Head CT 04/13/17 Signed Impressions: Service Date/Time: Thursday, April 13, 2017 01:08 - CONCLUSION: 1. The recent acute intra-axial blood products in the right parietal high convexity is slightly increased in size and there is surrounding vasogenic edema. No herniation or midline shift is present. 2. The edema and blood products in the right cerebellum and right occipital lobe are better visualized on the current examination. Mariusz Oviedo MD Chest X-Ray 04/12/17 Signed Impressions: Service Date/Time: Wednesday, April 12, 2017 23:46 - CONCLUSION: 1. Endotracheal tube tip measures approximately 2.9 cm from the jessica. 2. Stable bibasilar opacities likely representing pleural effusions with associated volume loss and/or airspace consolidation. Mariusz Oviedo MD Carotid Artery Ultrasound 04/12/17 Signed Impressions: Service Date/Time: Wednesday, April 12, 2017 22:36 - CONCLUSION: 1. Mild atherosclerotic disease within the carotid bulb and proximal internal carotid arteries bilaterally. However, no significant stenosis is identified within either internal carotid artery (less than 50%% stenosis). 2. There is antegrade blood flow in both vertebral arteries. Mariusz Oviedo MD Thoracic Spine MRI 04/10/17 Signed Impressions: Service Date/Time: Monday, April 10, 2017 10:52 - CONCLUSION: Cervical and upper thoracic cord syrinx. Tiny disc protrusions at a couple of levels without significant anatomic compromise Mariusz Fernaneds MD Lumbar Spine MRI 04/10/17 Signed Impressions: Service Date/Time: Monday, April 10, 2017 10:52 - CONCLUSION: 1. Multilevel disc bulges or mild protrusions between L2 and L5 resulting in mild lateral recess encroachment and mild foraminal encroachment as above. 2. Minimal retrolisthesis of L5 on S1 with mild left-sided foraminal stenosis. 3. No acute fracture. Conus medullaris intact. Lexx Alva MD Head Magnetic Resonance Angiography 04/10/17 0000 Signed Impressions: Service Date/Time: Monday, April 10, 2017 10:52 - CONCLUSION: 1. Unremarkable [place] MRA examination. Specifically, no evidence for large vessel occlusion or aneurysm. 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 Advanced degenerative change at C2-C3-4-5 with AP canal stenosis and lateral recess encroachment most notable at C2-3 on the left. Solid bony union across area of previous fusion at C5-6- 7. Lexx Alva MD Brain MRI 04/10/17 0000 Signed Impressions: Service Date/Time: Monday, April 10, 2017 10:52 - CONCLUSION: Acute hemorrhage as described above high right parietal region Focal restricted diffusion right cervical hemisphere and both occipital lobes suggesting he posterior fossa embolic event. Paras Scales MD FACR Renal Ultrasound 04/09/17 0000 Signed Impressions: Service Date/Time: April 12:12 - CONCLUSION: Normal examination. Tk Martínez MD Maxillofacial CT 04/09/17 0000 Signed Impressions: Service Date/Time: April 13:28 - CONCLUSION: 1. There is no evidence of acute fracture. Toney Schulz MD Abdomen/Pelvis CT 04/08/17 0000 Signed Impressions: Service Date/Time: Saturday, April 08, 2017 22:09 - CONCLUSION: 1. No acute obstructive uropathy. 2. Uncomplicated colonic diverticulosis. 3. Nodular contour of liver suggesting possible cirrhosis. 4. Degenerative changes and scoliosis of the lumbar spine. Kang Cruz MD Objective Remarks GENERAL: This is a well-nourished, well-developed patient, in no apparent distress. CARDIOVASCULAR: Regular rate and regular rhythm without murmurs, gallops, or rubs. RESPIRATORY: Clear to auscultation. Breath sounds equal bilaterally. No wheezes , rales, or rhonchi. GASTROINTESTINAL: Abdomen soft, non-tender, nondistended. Normal, active bowel sounds MUSCULOSKELETAL: Extremities without clubbing, cyanosis, or edema. NEURO: awake and alert. Medications and IVs Inpatient Medications Acetaminophen 100 ml @ 400 mls/hr Q6H PRN IV TEMPERATURE GREATER THAN 101F Last administered on 04/14/17at 16:23; Start 04/13/17 at 18:45 Acetaminophen (Tylenol) 650 mg UNSCH PRN PO for headach, pain, temp > 101F; Start 04/10/17 at 16:30 Acetaminophen/ Hydrocodone Bitart ([place] 5-325 Mg) 1 tab Q4H PRN PO PAIN 1-10 Last administered on 04/19/17at 04:39; Start 04/09/17 at 10:00 Albumin Human 100 ml @ 60 mls/hr UNSCH PRN IV WITH DIALYSIS Last administered on 04/16/17at 11:45; Start 04/10/17 at 16:30 Albuterol/ Ipratropium (Duoneb Neb) 1 ampule Q2HR NEB PRN INH WHEEZING Last administered on 04/14/17at 19:31; Start 04/09/17 at 00:00 Aztreonam 125 mg/ Sodium Chloride 100 ml @ 200 mls/hr Q8H IV Last administered on 04/18/17at 05:09; Start 04/16/17 at 14:00; Stop 04/18/17 at 10:43 ; Status DC Aztreonam 2000 mg/ Sodium Chloride 100 ml @ 200 mls/hr ONCE ONCE IV Last administered on 04/13/17at 05:34; Start 04/13/17 at 04:45; Stop 04/13/17 at 05:14; Status DC Aztreonam 500 mg/ Sodium Chloride 100 ml @ 200 mls/hr Q8H IV Last administered on 04/16/17at 05:47; Start 04/13/17 at 14:00; Stop 04/16/17 at 08:13; Status DC Bumetanide 100 ml @ 8 mls/hr [id number] IV Last administered on 04/10/17at 03:34; Start 04/09/17 at 16:30; Stop 04/10/17 at 16:23; Status DC Ceftriaxone Sodium 1000 mg/ Sodium Chloride 100 ml @ 200 mls/hr Q24H IV Last administered on 04/12/17at 03:21; Start 04/09/17 at 02:00; Stop 04/12/17 at 07:56; Status DC Chlorhexidine Gluconate (Chlorhexidine 2% Cloth) 3 pack UNSCH PRN TOP HYGIENIC CARE; Start 04/09/17 at 00:00 Clonidine (Catapres) 0.1 mg UNSCH PRN PO for BP > 180/100 X 2 readings; Start 04/10/17 at 16:30 Dexmedetomidine HCl 1000 mcg/ Sodium Chloride 250 ml @ 4.79 mls/hr TITRATE PRN IV SEDATION Last administered on 04/16/17at 12:26; Start 04/15/17 at 22:15; Stop 04/16/17 at 17:36; Status DC Dexmedetomidine HCl 200 mcg/ Sodium Chloride 52 ml @ 4.98 mls/hr TITRATE PRN IV SEDATION Last administered on 04/12/17at 21:31; Start 04/12/17 at 21:30; Stop at 00:21; Status DC Dexmedetomidine HCl 400 mcg/ Sodium Chloride 100 ml @ 4.79 mls/hr TITRATE PRN IV SEDATION Last administered on 04/15/17at 16:30; Start 04/13/17 at 00:30; Stop at 22:08; Status DC Dextrose (D50w (Vial) Inj) 25 ml UNSCH PRN IV PUSH HYPOGLYCEMIA-SEE COMMENTS; Start 04/09/17 at 00:00; Stop 04/17/17 at 12:30; Status DC Diphenhydramine HCl (Benadryl) 25 mg UNSCH PRN PO for hives/itching/anaphylaxis ; Start 04/10/17 at 16:30 Etomidate (Amidate Inj) 20 mg UNSCH X1 IV PUSH ; Start 04/12/17 at 23:30; Stop 04/13/17 at 03:38; Status DC Fentanyl Citrate 250 ml @ 5 mls/hr TITRATE PRN IV SEDATION Last administered on 04/14/17at 13:42; Start 04/13/17 at 11:45; Stop 04/15/17 at 10:37; Status DC Fentanyl Citrate (fentaNYL INJ) 100 mcg ONCE ONCE IV PUSH Last administered on 04/13/17at 13:22; Start 04/13/17 at 11:45; Stop 04/13/17 at 13:14; Status DC Flumazenil (Romazicon Inj) 0.2 mg Q1M PRN IV PUSH SEE LABEL COMMENTS; Start 04/09/17 at 10:15; Stop 04/15/17 at 10:38; Status DC Furosemide (Lasix Inj) 120 mg ONCE ONCE IV PUSH Last administered on 04/09/17at 11:04; Start 04/09/17 at 10:45; Stop 04/09/17 at 10:55; Status DC Gabapentin (Neurontin) 100 mg QID PO Last administered on 04/19/17at 08:37; Start 04/09/17 at 13:00 Gelatin (Gelfoam 12 Mm/7 Mm Top) 1 foam UNSCH PRN TOP SEE LABEL COMMENTS; Start 04/10/17 at 16:30 Gentamicin Sulfate (Gentamicin Inj) 20 mg UNSCH PRN OTHER WITH DIALYSIS Last administered on 04/18/17at 13:22; Start 04/10/17 at 16:30 Haloperidol Lactate (Haldol Inj) 5 mg Q4H PRN IV PUSH agitation; Start 04/15/17 at 11:00 Heparin Sodium (Porcine) (Heparin Inj) UNSCH PRN .XX WITH DIALYSIS Last administered on 04/18/17 13:23; Start 04/10/17 at 16:30 Hydralazine HCl (Apresoline Inj) 10 mg Q30M PRN IV PUSH sbp > 160 Last administered on 04/09/17at 08:36; Start 04/09/17 at 00:00 Insulin Human Regular (NovoLIN R SUPPLEMENTAL SCALE) 1 Q6HR SQ ; Start 04/09/17 at 00:00; Stop 04/17/17 at 12:30; Status DC Labetalol HCl (Trandate Inj) 20 mg Q15M PRN IV PUSH sbp > 160 Last administered on 04/18/17at 18:28; Start 04/09/17 at 00:00 Lorazepam (Ativan Inj) 2 mg Q15M PRN IV PUSH CIWA > 20; Start 04/09/17 at 10:15 ; Stop 04/15/17 at 10:38; Status DC Lorazepam (Ativan) 2 mg Q2H PRN PO CIWA 11-14; Start 04/09/17 at 10:15; Stop 04/15/17 at 10:38; Status DC Mannitol (Mannitol Inj) 12.5 gm UNSCH PRN IV WITH DIALYSIS; Start 04/10/17 at 16 :30 Metoprolol Tartrate (Lopressor) 25 mg DAILY PO Last administered on 04/19/17at 08:37; Start 04/10/17 at 09:00 Metronidazole 100 ml @ 100 mls/hr Q6H IV Last administered on 3/10/18at 08:39 ; Start 04/13/17 at 20:00; Stop 04/18/17 at 10:43; Status DC Miscellaneous (Pill Splitter) 1 ea UNSCH PRN OTHER SEE LABEL COMMENTS; Start at 10:15 Miscellaneous Information 1 [id number] XX ; Start 04/09/17 at 00:00 Modafinil (Provigil) 200 mg DAILY PO Last administered on 04/15/17at 11:00; Start 04/15/17 at 11:00; Stop 04/17/17 at 09:01; Status DC Multivitamins 10 ml/Folic Acid 1 mg/Sodium Chloride 510.2 ml @ 125 mls/hr Q24H IV Last administered on 04/13/17at 11:28; Start 04/09/17 at 11:00; Stop 04/14/17 at 10:59; Status DC Nitroglycerin (Nitrostat Sl) 0.4 mg UNSCH PRN SL CHEST PAIN; Start 04/10/17 at 16:30 Norepinephrine Bitartrate 4 mg/ Sodium Chloride 250 ml @ 7.5 mls/hr TITRATE PRN IV Blood pressure management Last administered on 04/17/17at 03:24; Start 04/13 at 19:45 Olanzapine (ZyPREXA ZYDIS ODT) 5 mg Q8HR PO Last administered on 04/19/17at 06: 00; Start 04/15/17 at 14:00 Ondansetron HCl (Zofran Inj) 4 mg UNSCH PRN IV PUSH WITH DIALYSIS; Start at 16:30 Pantoprazole Sodium (Protonix Inj) 40 mg DAILY IV PUSH Last administered on 12/27at 08:36; Start 04/09/17 at 09:00 Pharmacy Profile Note 0 ml @ 0 mls/hr UNSCH OTHER ; Start 04/13/17 at 02:30; Stop 04/15/17 at 15:14; Status DC Piperacillin Sod/ Tazobactam Sod 50 ml @ 100 mls/hr ONCE ONCE IV Last administered on 04/08/17at 20:48; Start 04/08/17 at 20:45; Stop 04/08/17 at 21:14 ; Status DC Potassium Chloride 100 ml @ 25 mls/hr ONCE ONCE IV Last administered on 09:02; Start 04/15/17 at 08:30; Stop 04/15/17 at 12:30; Status DC Propofol 100 ml @ 2.874 mls/ hr TITRATE PRN IV SEDATION Last administered on at 23:02; Start 04/13/17 at 00:30; Stop 04/15/17 at 10:37; Status DC Quetiapine Fumarate (SEROquel) 50 mg BID PO Last administered on 04/12/17at 21:31 ; Start 04/12/17 at 21:30; Stop 04/13/17 at 02:17; Status DC Rocuronium [place] (Zemuron Inj) 50 mg BOLUS ONCE IV Last administered on at 23:45; Start 04/12/17 at 23:45; Stop 04/12/17 at 23:46; Status DC Sodium Bicarbonate 150 meq/Dextrose 1,150 ml @ 50 mls/hr Q23H IV Last administered on 04/11/17 06:28; Start 04/09/17 at 00:45; Stop 04/11/17 at 11:06; Status DC Sodium Chloride 1,000 ml @ 999 mls/hr Q1H1M ONCE IV Last administered on at 19:45; Start 04/13/17 at 19:45; Stop 04/13/17 at 20:45; Status DC Sodium Chloride (NS Flush) 5 ml UNSCH PRN IV FLUSH WITH DIALYSIS; Start at 16:30 Terbutaline Sulfate (Brethine Inj) 1 mg UNSCH PRN SQ For Extravasation; Start 04/12/17 at 23:30 Thiamine HCl (Vitamin B1) 100 mg DAILY PO Last administered on 04/19/17at 08:38 ; Start 04/12/17 at 09:00 Thiamine HCl 100 mg/Sodium Chloride 101 ml @ 100 mls/hr Q24H IV Last administered on 04/11/17at 10:15; Start 04/09/17 at 11:00; Stop 04/11/17 at 12:01; Status DC Tizanidine HCl (Zanaflex) 2 mg HS PO Last administered on 04/18/17at 20:23; Start 04/11/17 at 21:00 Vancomycin HCl 1000 mg/Sodium Chloride 250 ml @ 250 mls/hr ONCE ONCE IV Last administered on 04/12/17at 08:55; Start 04/12/17 at 08:00; Stop 04/12/17 at 08:59; Status DC Vancomycin HCl 1500 mg/Sodium Chloride 515 ml @ 257.5 mls/ hr ONCE ONCE IV Last administered on 04/13/17at 04:54; Start 04/13/17 at 04:00; Stop 04/13/17 at 05: 59; Status DC A/P Assessment and Plan Traumatic Subarachnoid hemorrhage - no anticoagulation - neurosurgery following. - frequent neuro checks - continue metoprolol- clonidine as needed; will follow the BP and adjust the regimen as needed. Agitated Delirium - improving. - zyprexa 5mg po q8hr - haldol 5mg iv q4h prn for breakthrough agitation. Acute respiratory failure on mechanical ventilation -resolved. -Extubated on 04/16, tolerating nasal cannula. - aggressive pulmonary toilet. Severe Acute Rhabdomyolysis - serial CK downtrended. - started on HD; HD per nephrology. -monitor renal function and electrolytes. Acute Kidney Injury - secondary to acute rhabdo - keep rojas. - close monitoring of urine output - daily bmp - watch electrolytes closely - Deteriorating function. - HD started 04/10 Urinary Tract Infection - s/p rocephin. SCDs hold pharmacologic DVT prophylaxis given head bleed for transfer to floor. d/w the Oswaldo Myers MD Apr 19, 2017 10:01
--- NOTE | 2017-04-19 19:38 | HHI.NPPN ---
Subjective History of Present Illness 62 year old male with ARF Rhabdomyolysis, painful, tired lethargic Additional Remarks Patient is alert, seen in the afternoon, has mild SOB, not in distress. Review of Systems General Constitutional: Fatigue Musculoskeletal MS: Pain/Stiffness Objective Data Data 04/19/17 04/20/17 19:00 07:00 Intake Total 1160 ml Output Total 150 ml Balance 1010 ml Intake Oral 1160 ml Output Urine Total 150 ml Vital Signs Date Time Temp Pulse Resp B/P (MAP) Pulse Ox O2 Delivery O2 Flow Rate FiO2 04/19/17 18:00 96 04/19/17 16:00 99.0 90 20 109/74 (86) 94 04/19/17 16:00 91 04/19/17 14:03 90 04/19/17 12:01 91 04/19/17 12:01 98.6 91 18 139/81 (100) 94 04/19/17 10:00 90 04/19/17 08:14 97 Nasal Cannula 2.00 04/19/17 08:00 98.4 88 18 149/75 (99) 98 04/19/17 08:00 88 04/19/17 06:00 84 04/19/17 04:00 98.6 88 18 121/64 (83) 94 04/19/17 04:00 92 04/19/17 02:00 88 04/19/17 00:00 82 04/19/17 00:00 88 18 100/58 (72) 100 04/18/17 22:00 82 04/18/17 20:00 99.0 87 18 151/68 (95) 100 04/18/17 20:00 87 -: 04/19/17 0430 04/19/17 0430 Physical Exam General Appearance: Well Developed, Well Nourished Neck Neck Exam: Jugular Vein Distension Pulmonary Resp Exam: Decreased Bases Cardiology CV Exam: Tachycardia Gastrointestinal/Abdomen GI Exam: Soft, Bowel Sounds Present Extremeties Extremities Exam: Trace Edema Assessment/Plan Problem List: (1) Acute renal failure ICD Codes: N17.9 - Acute kidney failure, unspecified Plan: ARF has Rhabdomyolysis He likely has acute tubular necrosis from underlying rhabdomyolysis Avoid nephrotoxins Dialysis initiated on 04/10 Monitor fluid and electrolytes Avoid nephrotoxins. Continue HD as needed. Watch for renal recovery. Has some improvement in the urine out put. (2) Rhabdomyolysis ICD Codes: M62.82 - Rhabdomyolysis Status: Acute Plan: Continue monitor his CPK trend is downwards (3) Subarachnoid hemorrhage ICD Codes: I60.9 - Nontraumatic subarachnoid hemorrhage, unspecified Plan: Neurosurgery following (4) UTI (lower urinary tract infection) ICD Codes: N39.0 - Urinary tract infection, site not specified (5) Sepsis ICD Codes: A41.9 - Sepsis, unspecified organism Plan: Staphylococcus Hemolyticus in blood culture ? contaminant. 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 Vancomycin ordered. Problem Qualifiers (1) Acute renal failure: Qualified Codes: N17.0 - Acute kidney failure with tubular necrosis (2) Rhabdomyolysis: Qualified Codes: M62.82 - Rhabdomyolysis Anderson Candelaria MD Apr 19, 2017 19:38
--- NOTE | 2017-04-19 19:46 | HHI.PR ---
Addendum to Inpatient Note Addendum Reason: Additional Documentation Additional Information patient has non traumatic rhabdomyolysis from laying in 1 position at home after falling down. Domo Hendricks MD Apr 19, 2017 19:46
[2017-04-20] VITALS (13 sets, daily range): BP systolic 112–157; BP diastolic 64–86; PULSE 70–104; RESP 16–20; TEMP 97.9–99.4; O2SAT 94–100
[2017-04-20] MEDS: CHLORHEXIDINE GLUCONATE 2 % 1 PACK (2 CLOTHS) TOP SCH (01:41)
[2017-04-20 05:22] LABS: HEMATOCRIT 28.1 % (39.0-51.0); HEMOGLOBIN 9.7 GM/DL (13.0-17.0); MEAN CELL VOLUME 106.2 FL (80.0-100.0); MEAN CORPUSCULAR HEMOGLOBIN 36.5 PG (27.0-34.0); MEAN CORPUSCULAR HGB CONC 34.4 % (32.0-36.0); MEAN PLATELET VOLUME 8.3 FL (7.0-11.0); PLATELET COUNT 138 TH/MM3 (150-450); RED BLOOD COUNT 2.65 MIL/MM3 (4.50-5.90); RED CELL DISTRIBUTION WIDTH 13.2 % (11.6-17.2); WHITE BLOOD COUNT 12.3 TH/MM3 (4.0-11.0)
[2017-04-20 05:45] LABS: BICARBONATE 27.9 MEQ/L (21.0-32.0); CALCIUM 7.9 MG/DL (8.5-10.1); CREATININE 4.53 MG/DL (0.60-1.30)
[2017-04-20] MEDS: OLANZapine ODT 5 MG TAB PO SCH ×3 (05:55→22:17)
--- NOTE | 2017-04-20 08:25 | HHI.PR ---
Subjective Remarks in no acute distress. looks comfortable. no fever. Objective Vitals Vital Signs Date Time Temp Pulse Resp B/P (MAP) Pulse Ox O2 Delivery O2 Flow Rate FiO2 04/20/17 06:00 98 04/20/17 04:00 92 04/20/17 04:00 98.3 92 17 139/86 (103) 94 04/20/17 02:00 104 04/20/17 00:00 86 04/20/17 00:00 99.4 86 17 112/64 (80) 94 04/19/17 22:00 87 04/19/17 20:00 98.6 93 15 153/73 (99) 96 Arterial Line 04/19/17 20:00 93 04/19/17 19:30 95 04/19/17 18:00 96 04/19/17 16:00 99.0 90 20 109/74 (86) 94 04/19/17 16:00 91 04/19/17 14:03 90 04/19/17 12:01 91 04/19/17 12:01 98.6 91 18 139/81 (100) 94 04/19/17 10:00 90 I/O 04/19/17 04/19/17 04/19/17 04/20/17 04/20/17 04/20/17 07:00 15:00 23:00 07:00 15:00 23:00 Intake Total 690 ml 1160 ml 480 ml Output Total 151 ml 150 ml 125 ml Balance 539 ml 1010 ml 355 ml Intake Oral 480 ml 1160 ml 480 ml IV Total 210 ml Output Urine Total 150 ml 150 ml 125 ml Stool Total 1 ml # Voids 2 # Bowel Movements 1 0 Result Diagram: 04/20/17 0450 04/20/17 0450 Imaging Last Impressions Abdomen X-Ray 04/15/17 0000 Signed Impressions: Service Date/Time: Saturday, April 15, 2017 16:36 - CONCLUSION: Feeding tube in good position. Paras Scales MD FACR Upper Extremity Ultrasound 04/13/17 0000 Signed Impressions: Service Date/Time: Thursday, April 13, 2017 12:53 - CONCLUSION: Veins in the the left arm to the subclavian are patent. Left jugular vein is patent as well Paras Scales MD FACR Head CT 04/13/17 0000 Signed Impressions: Service Date/Time: Thursday, April 13, 2017 01:08 - CONCLUSION: 1. The recent acute intra-axial blood products in the right parietal high convexity is slightly increased in size and there is surrounding vasogenic edema. No herniation or midline shift is present. 2. The edema and blood products in the right cerebellum and right occipital lobe are better visualized on the current examination. Mariusz Oviedo MD Chest X-Ray 04/12/17 Signed Impressions: Service Date/Time: Wednesday, April 12, 2017 23:46 - CONCLUSION: 1. Endotracheal tube tip measures approximately 2.9 cm from the jessica. 2. Stable bibasilar opacities likely representing pleural effusions with associated volume loss and/or airspace consolidation. Mariusz Oviedo MD Carotid Artery Ultrasound 04/12/17 Signed Impressions: Service Date/Time: Wednesday, April 12, 2017 22:36 - CONCLUSION: 1. Mild atherosclerotic disease within the carotid bulb and proximal internal carotid arteries bilaterally. However, no significant stenosis is identified within either internal carotid artery (less than 50%% stenosis). 2. There is antegrade blood flow in both vertebral arteries. Mariusz Oviedo MD Thoracic Spine MRI 04/10/17 Signed Impressions: Service Date/Time: Monday, April 10, 2017 10:52 - CONCLUSION: Cervical and upper thoracic cord syrinx. Tiny disc protrusions at a couple of levels without significant anatomic compromise Mariusz Fernandes MD Lumbar Spine MRI 04/10/17 Signed Impressions: Service Date/Time: Monday, April 10, 2017 10:52 - CONCLUSION: 1. Multilevel disc bulges or mild protrusions between L2 and L5 resulting in mild lateral recess encroachment and mild foraminal encroachment as above. 2. Minimal retrolisthesis of L5 on S1 with mild left-sided foraminal stenosis. 3. No acute fracture. Conus medullaris intact. Lexx Alva MD Head Magnetic Resonance Angiography 04/10/17 Signed Impressions: Service Date/Time: Monday, April 10, 2017 10:52 - CONCLUSION: 1. Unremarkable [place] MRA examination. Specifically, no evidence for large vessel occlusion or aneurysm. 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 Advanced degenerative change at C2-C3-4-5 with AP canal stenosis and lateral recess encroachment most notable at C2-3 on the left. Solid bony union across area of previous fusion at C5-6- 7. Lexx Alva MD Brain MRI 04/10/17 0000 Signed Impressions: Service Date/Time: Monday, April 10, 2017 10:52 - CONCLUSION: Acute hemorrhage as described above high right parietal region Focal restricted diffusion right cervical hemisphere and both occipital lobes suggesting he posterior fossa embolic event. Paras Scales MD FACR Renal Ultrasound 04/09/17 0000 Signed Impressions: Service Date/Time: April 12:12 - CONCLUSION: Normal examination. Tk Martínez MD Maxillofacial CT 04/09/17 0000 Signed Impressions: Service Date/Time: April 13:28 - CONCLUSION: 1. There is no evidence of acute fracture. Toney Schulz MD Abdomen/Pelvis CT 04/08/17 0000 Signed Impressions: Service Date/Time: Saturday, April 08, 2017 22:09 - CONCLUSION: 1. No acute obstructive uropathy. 2. Uncomplicated colonic diverticulosis. 3. Nodular contour of liver suggesting possible cirrhosis. 4. Degenerative changes and scoliosis of the lumbar spine. Kang Cruz MD Objective Remarks GENERAL: This is a well-nourished, well-developed patient, in no apparent distress. CARDIOVASCULAR: Regular rate and regular rhythm without murmurs, gallops, or rubs. RESPIRATORY: Clear to auscultation. Breath sounds equal bilaterally. No wheezes , rales, or rhonchi. GASTROINTESTINAL: Abdomen soft, non-tender, nondistended. Normal, active bowel sounds MUSCULOSKELETAL: Extremities with bilateral pedal edema. NEURO: awake and alert. Medications and IVs Inpatient Medications Acetaminophen 100 ml @ 400 mls/hr Q6H PRN IV TEMPERATURE GREATER THAN 101F Last administered on 04/14/17at 16:23; Start 04/13/17 at 18:45 Acetaminophen (Tylenol) 650 mg UNSCH PRN PO for headach, pain, temp > 101F; Start 04/10/17 at 16:30 Acetaminophen/ Hydrocodone Bitart ([place] 5-325 Mg) 1 tab Q4H PRN PO PAIN 1-10 Last administered on 04/19/17at 17:08; Start 04/09/17 at 10:00 Albumin Human 100 ml @ 60 mls/hr UNSCH PRN IV WITH DIALYSIS Last administered on 04/16/17at 11:45; Start 04/10/17 at 16:30 Albuterol/ Ipratropium (Duoneb Neb) 1 ampule Q2HR NEB PRN INH WHEEZING Last administered on 04/14/17at 19:31; Start 04/09/17 at 00:00 Aztreonam 125 mg/ Sodium Chloride 100 ml @ 200 mls/hr Q8H IV Last administered on 04/18/17at 05:09; Start 04/16/17 at 14:00; Stop 04/18/17 at 10:43 ; Status DC Aztreonam 2000 mg/ Sodium Chloride 100 ml @ 200 mls/hr ONCE ONCE IV Last administered on 04/13/17at 05:34; Start 04/13/17 at 04:45; Stop 04/13/17 at 05:14; Status DC Aztreonam 500 mg/ Sodium Chloride 100 ml @ 200 mls/hr Q8H IV Last administered on 04/16/17at 05:47; Start 04/13/17 at 14:00; Stop 04/16/17 at 08:13; Status DC Bumetanide 100 ml @ 8 mls/hr [id number] IV Last administered on 04/10/17at 03:34; Start 04/09/17 at 16:30; Stop 04/10/17 at 16:23; Status DC Ceftriaxone Sodium 1000 mg/ Sodium Chloride 100 ml @ 200 mls/hr Q24H IV Last administered on 04/12/17at 03:21; Start 04/09/17 at 02:00; Stop 04/12/17 at 07:56; Status DC Chlorhexidine Gluconate (Chlorhexidine 2% Cloth) 3 pack UNSCH PRN TOP HYGIENIC CARE; Start 04/09/17 at 00:00 Clonidine (Catapres) 0.1 mg UNSCH PRN PO for BP > 180/100 X 2 readings; Start 04/10/17 at 16:30 Dexmedetomidine HCl 1000 mcg/ Sodium Chloride 250 ml @ 4.79 mls/hr TITRATE PRN IV SEDATION Last administered on 04/16/17at 12:26; Start 04/15/17 at 22:15; Stop 04/16/17 at 17:36; Status DC Dexmedetomidine HCl 200 mcg/ Sodium Chloride 52 ml @ 4.98 mls/hr TITRATE PRN IV SEDATION Last administered on 04/12/17at 21:31; Start 04/12/17 at 21:30; Stop at 00:21; Status DC Dexmedetomidine HCl 400 mcg/ Sodium Chloride 100 ml @ 4.79 mls/hr TITRATE PRN IV SEDATION Last administered on 04/15/17at 16:30; Start 04/13/17 at 00:30; Stop at 22:08; Status DC Dextrose (D50w (Vial) Inj) 25 ml UNSCH PRN IV PUSH HYPOGLYCEMIA-SEE COMMENTS; Start 04/09/17 at 00:00; Stop 04/17/17 at 12:30; Status DC Diphenhydramine HCl (Benadryl) 25 mg UNSCH PRN PO for hives/itching/anaphylaxis ; Start 04/10/17 at 16:30 Etomidate (Amidate Inj) 20 mg UNSCH X1 IV PUSH ; Start 04/12/17 at 23:30; Stop 04/13/17 at 03:38; Status DC Fentanyl Citrate 250 ml @ 5 mls/hr TITRATE PRN IV SEDATION Last administered on 04/14/17at 13:42; Start 04/13/17 at 11:45; Stop 04/15/17 at 10:37; Status DC Fentanyl Citrate (fentaNYL INJ) 100 mcg ONCE ONCE IV PUSH Last administered on 04/13/17at 13:22; Start 04/13/17 at 11:45; Stop 04/13/17 at 13:14; Status DC Flumazenil (Romazicon Inj) 0.2 mg Q1M PRN IV PUSH SEE LABEL COMMENTS; Start 04/09/17 at 10:15; Stop 04/15/17 at 10:38; Status DC Furosemide (Lasix Inj) 120 mg ONCE ONCE IV PUSH Last administered on 04/09/17at 11:04; Start 04/09/17 at 10:45; Stop 04/09/17 at 10:55; Status DC Gabapentin (Neurontin) 100 mg QID PO Last administered on 04/19/17at 21:51; Start 04/09/17 at 13:00 Gelatin (Gelfoam 12 Mm/7 Mm Top) 1 foam UNSCH PRN TOP SEE LABEL COMMENTS; Start 04/10/17 at 16:30 Gentamicin Sulfate (Gentamicin Inj) 20 mg UNSCH PRN OTHER WITH DIALYSIS Last administered on 04/18/17at 13:22; Start 04/10/17 at 16:30 Haloperidol Lactate (Haldol Inj) 5 mg Q4H PRN IV PUSH agitation; Start 04/15/17 at 11:00 Heparin Sodium (Porcine) (Heparin Inj) UNSCH PRN .XX WITH DIALYSIS Last administered on 04/18/17at 13:23; Start 04/10/17 at 16:30 Hydralazine HCl (Apresoline Inj) 10 mg Q30M PRN IV PUSH sbp > 160 Last administered on 04/09/17at 08:36; Start 04/09/17 at 00:00 Insulin Human Regular (NovoLIN R SUPPLEMENTAL SCALE) 1 Q6HR SQ ; Start 04/09/17 at 00:00; Stop 04/17/17 at 12:30; Status DC Labetalol HCl (Trandate Inj) 20 mg Q15M PRN IV PUSH sbp > 160 Last administered on 04/18/17at 18:28; Start 04/09/17 at 00:00 Lorazepam (Ativan Inj) 2 mg Q15M PRN IV PUSH CIWA > 20; Start 04/09/17 at 10:15 ; Stop 04/15/17 at 10:38; Status DC Lorazepam (Ativan) 2 mg Q2H PRN PO CIWA 11-14; Start 04/09/17 at 10:15; Stop 04/15/17 at 10:38; Status DC Mannitol (Mannitol Inj) 12.5 gm UNSCH PRN IV WITH DIALYSIS; Start 04/10/17 at 16 :30 Metoprolol Tartrate (Lopressor) 25 mg DAILY PO Last administered on 04/19/17at 08:37; Start 04/10/17 at 09:00 Metronidazole 100 ml @ 100 mls/hr Q6H IV Last administered on 04/18/17at 08:39 ; Start 04/13/17 at 20:00; Stop 04/18/17 at 10:43; Status DC Miscellaneous (Pill Splitter) 1 ea UNSCH PRN OTHER SEE LABEL COMMENTS; Start at 10:15 Miscellaneous Information 1 Q361D XX ; Start 04/09/17 at 00:00 Modafinil (Provigil) 200 mg DAILY PO Last administered on 04/15/17at 11:00; Start 04/15/17 at 11:00; Stop 04/17/17 at 09:01; Status DC Multivitamins 10 ml/Folic Acid 1 mg/Sodium Chloride 510.2 ml @ 125 mls/hr Q24H IV Last administered on 04/13/17at 11:28; Start 04/09/17 at 11:00; Stop 04/14/17 at 10:59; Status DC Nitroglycerin (Nitrostat Sl) 0.4 mg UNSCH PRN SL CHEST PAIN; Start 04/10/17 at 16:30 Norepinephrine Bitartrate 4 mg/ Sodium Chloride 250 ml @ 7.5 mls/hr TITRATE PRN IV Blood pressure management Last administered on 04/17/17at 03:24; Start 04/13 at 19:45 Olanzapine (ZyPREXA ZYDIS ODT) 5 mg Q8HR PO Last administered on 04/20/17at 05: 55; Start 04/15/17 at 14:00 Ondansetron HCl (Zofran Inj) 4 mg UNSCH PRN IV PUSH WITH DIALYSIS; Start at 16:30 Pantoprazole Sodium (Protonix Inj) 40 mg DAILY IV PUSH Last administered on 12/27at 08:36; Start 04/09/17 at 09:00 Pharmacy Profile Note 0 ml @ 0 mls/hr UNSCH OTHER ; Start 04/13/17 at 02:30; Stop 04/15/17 at 15:14; Status DC Piperacillin Sod/ Tazobactam Sod 50 ml @ 100 mls/hr ONCE ONCE IV Last administered on 04/08/17at 20:48; Start 04/08/17 at 20:45; Stop 04/08/17 at 21:14 ; Status DC Potassium Chloride 100 ml @ 25 mls/hr ONCE ONCE IV Last administered on at 09:02; Start 04/15/17 at 08:30; Stop 04/15/17 at 12:30; Status DC Propofol 100 ml @ 2.874 mls/ hr TITRATE PRN IV SEDATION Last administered on 23:02; Start 04/13/17 at 00:30; Stop 04/15/17 at 10:37; Status DC Quetiapine Fumarate (SEROquel) 50 mg BID PO Last administered on 04/12/17at 21:31 ; Start 04/12/17 at 21:30; Stop 04/13/17 at 02:17; Status DC Rocuronium [place] (Zemuron Inj) 50 mg BOLUS ONCE IV Last administered on 23:45; Start 04/12/17 at 23:45; Stop 04/12/17 at 23:46; Status DC Sodium Bicarbonate 150 meq/Dextrose 1,150 ml @ 50 mls/hr Q23H IV Last administered on 04/11/17 06:28; Start 04/09/17 at 00:45; Stop 04/11/17 at 11:06; Status DC Sodium Chloride 1,000 ml @ 999 mls/hr Q1H1M ONCE IV Last administered on at 19:45; Start 04/13/17 at 19:45; Stop 04/13/17 at 20:45; Status DC Sodium Chloride (NS Flush) 5 ml UNSCH PRN IV FLUSH WITH DIALYSIS; Start at 16:30 Terbutaline Sulfate (Brethine Inj) 1 mg UNSCH PRN SQ For Extravasation; Start 04/12/17 at 23:30 Thiamine HCl (Vitamin B1) 100 mg DAILY PO Last administered on 04/19/17at 08:38 ; Start 04/12/17 at 09:00 Thiamine HCl 100 mg/Sodium Chloride 101 ml @ 100 mls/hr Q24H IV Last administered on 04/11/17at 10:15; Start 04/09/17 at 11:00; Stop 04/11/17 at 12:01; Status DC Tizanidine HCl (Zanaflex) 2 mg HS PO Last administered on 04/19/17at 21:51; Start 04/11/17 at 21:00 Vancomycin HCl 1000 mg/Sodium Chloride 250 ml @ 250 mls/hr ONCE ONCE IV Last administered on 04/12/17at 08:55; Start 3/4/18 at 08:00; Stop 04/12/17 at 08:59; Status DC Vancomycin HCl 1500 mg/Sodium Chloride 515 ml @ 257.5 mls/ hr ONCE ONCE IV Last administered on 04/13/17at 04:54; Start 04/13/17 at 04:00; Stop 04/13/17 at 05: 59; Status DC A/P Assessment and Plan A/P Traumatic Subarachnoid hemorrhage - neurosurgery following. - frequent neuro checks - continue metoprolol- clonidine as needed; will follow the BP and adjust the regimen as needed. -continue rehab efforts. Agitated Delirium - improving. - zyprexa 5mg po q8hr - haldol 5mg iv q4h prn for breakthrough agitation. Acute respiratory failure on mechanical ventilation -resolved. -Extubated on 04/16, tolerating nasal cannula. - aggressive pulmonary toilet. Severe Acute Rhabdomyolysis - serial CK downtrended. - started on HD; HD per nephrology. -monitor renal function and electrolytes. Acute Kidney Injury - secondary to acute rhabdo - keep rojas. - close monitoring of urine output - daily bmp - watch electrolytes closely - HD started 04/10 -awaiting renal recovery. -nephrology following. Urinary Tract Infection -treated. SCDs hold pharmacologic DVT prophylaxis given head bleed. for transfer to floor. Oswaldo Sánchez MD Apr 20, 2017 08:25
[2017-04-20] MEDS: METOPROLOL TARTRATE 25 MG TAB PO SCH (09:17)
[2017-04-20] MEDS: PANTOPRAZOLE SODIUM 40 MG VIAL IV PUSH SCH (09:17)
[2017-04-20] MEDS: GABAPENTIN 100 MG CAP PO SCH ×4 (09:17→20:11)
[2017-04-20] MEDS: THIAMINE HCL 100 MG TAB PO SCH (09:17)
[2017-04-20] MEDS: ACETAMINOPHEN/HYDROcodone 325 MG/5 MG TAB PO PRN ×3 (09:17→17:55)
--- NOTE | 2017-04-20 09:39 | HHI.NSPN ---
(Sammy Wise) History Chief Complaint: Slight headache (Sammy Wise) Interval History 04/09: Mr. Choudhury is a 62-year-old male who presented to the emergency room last night after he was found on the floor by his roommate. He apparently fell yesterday and was lying on the ground for several hours. He indicates generalized weakness over the past few days and has fallen at least 2 times in the past couple of days. He indicates a possible syncopal type episode. Initial workup in the emergency room included a CT scan of the head which revealed probable mild right parietal convexity subarachnoid hemorrhage. He was also found to have a CPK over 40,000 and laboratory results consistent with rhabdomyolysis and UTI with possible urosepsis. He was given normal saline bolus and sodium bicarbonate by me. Also started on vancomycin and Zosyn. No seizure activity reported. 04/10: The patient is in bed with his eyes closed but he immediately answers to voice. He states "I feel like I am dying." He does say he felt a hundred percent better yesterday compared with today. He reports that his lower extremities are the worse and feel numb. He also continues to have numbness to the left side of the body which he was laying on when found. His CK is improving but he does remain in renal failure. Upon evaluation the patient is weaker to the lower extremities which are painful to touch. He is able to move the upper extremities slightly better but they are still weak. 04/11: receiving dialysis for acute kidney injury, reports mild headaches, and weakness in left lower extremity that is new. 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 04/12: feeing himself breakfast. doing well, reports left side still weak, denies any vision changes, loss of peripheral vision 04/13: 62-year-old male admitted with mild traumatic brain injury. Rhabdomyolysis, acute renal failure, UTI. Hemodialysis initiated. He has required subsequent intubation due to respiratory distress on the evening of 04/12. 04/14: Patient is intubated and mechanically ventilated when seen. He is on propofol for sedation and has fentanyl infusing for pain control. He did briefly open his eyes to voice. It appears he moved the toes to command but nothing to the upper extremities. 04/15: The patient remains lethargic but sedated. He is still intubated and mechanically ventilated. He briefly opens his eyes to voice and noxious stimulation. He did not follow any commands but did have some movement of the left lower extremity/foot to local noxious stimulation. Nursing this morning stated that in report she was told the patient was following commands. When she did a sedation vacation the patient did not follow any commands for her, but became agitated. She also stated that the patient had a twitch to the left shoulder. 04/16: This afternoon the patient is awake and alert and tracks with his eyes. He continues to be intubated but is on CPAP. He follows commands with all extremities and gives a thumbs up. 04/17: The patient has been extubated since seen yesterday. He is awake and alert this morning sitting up in bed eating breakfast. He does say he has a headache. He also says he has pain to the neck, back and on the left side to the hip, leg and arm which is chronic, but the hip does feel worse than normal. He reports chronic weakness since a cervical spine injury. He is oriented and spontaneously moving all extremities which have varying degrees of weakness. 04/20: When seen this morning the patient is asleep. He briefly awakens to verbal stimulation and cooperates. He does have a slight headache. His exam is stable. He quickly drifts back off to sleep. (Sammy Wise) Exam Results 04/18/17 04/18/17 04/19/17 04/19/17 04/20/17 04/20/17 06:00 18:00 06:00 18:00 06:00 18:00 Intake Total 846 ml 926 ml 1160 ml 480 ml Output Total 3000 ml 1 ml 300 ml 125 ml Balance -2154 ml 925 ml 860 ml 355 ml Intake Oral 344 ml 716 ml 1160 ml 480 ml IV Total 502 ml 210 ml Output Urine Total 300 ml 125 ml Stool Total 1 ml Hemodialysis 3000 ml # Voids 5 1 1 # Bowel Movements 3 1 0 Vital Signs Date Time Temp Pulse Resp B/P (MAP) Pulse Ox O2 Delivery O2 Flow Rate FiO2 04/20/17 08:36 98 Nasal Cannula 2.00 04/20/17 06:00 98 04/20/17 04:00 92 04/20/17 04:00 98.3 92 17 139/86 (103) 94 04/20/17 02:00 104 04/20/17 00:00 86 04/20/17 00:00 99.4 86 17 112/64 (80) 94 04/19/17 22:00 87 04/19/17 20:00 98.6 93 15 153/73 (99) 96 Arterial Line 04/19/17 20:00 93 04/19/17 19:30 95 04/19/17 18:00 96 04/19/17 16:00 99.0 90 20 109/74 (86) 94 04/19/17 16:00 91 04/19/17 14:03 90 04/19/17 12:01 91 04/19/17 12:01 98.6 91 18 139/81 (100) 94 04/19/17 10:00 90 04/19/17 08:14 97 Nasal Cannula 2.00 04/19/17 08:00 98.4 88 18 149/75 (99) 98 04/19/17 08:00 88 04/19/17 06:00 84 04/19/17 04:00 98.6 88 18 121/64 (83) 94 04/19/17 04:00 92 04/19/17 02:00 88 04/19/17 00:00 82 04/19/17 00:00 88 18 100/58 (72) 100 04/18/17 22:00 82 04/18/17 20:00 99.0 87 18 151/68 (95) 100 04/18/17 20:00 87 04/18/17 18:00 87 04/18/17 16:00 97.7 91 22 126/72 (90) 94 04/18/17 16:00 91 04/18/17 14:00 87 04/18/17 12:00 98.0 87 24 164/87 (112) 99 04/18/17 12:00 87 04/18/17 10:00 77 04/18/17 08:00 98.0 96 20 159/86 (110) 94 04/18/17 08:00 97 04/18/17 07:30 94 21 04/18/17 06:27 88 04/18/17 04:00 97.9 102 24 140/74 (96) 94 04/18/17 04:00 89 04/18/17 02:00 105 04/18/17 00:00 98 04/18/17 00:00 98.8 100 20 134/77 (96) 90 04/17/17 22:00 89 04/17/17 20:59 95 Nasal Cannula 2.00 04/17/17 20:00 98.3 102 20 148/76 (100) 99 04/17/17 20:00 85 04/17/17 18:30 16 04/17/17 18:00 103 04/17/17 16:00 102 04/17/17 16:00 98.0 101 16 136/73 (94) 91 04/17/17 14:00 88 04/17/17 12:24 92 21 04/17/17 12:00 98.0 94 16 112/56 (74) 92 04/17/17 12:00 98 04/17/17 10:00 94 (Sammy Wise) Physical Examination GENERAL: Very drowsy, briefly awakens to voice & interacts but quickly drifts back off to sleep. Affect flat. No apparent distress. HEENT: Normocephalic. PERRLA 2 mm brisk, EOMI. MMM & pink, tongue midline to protrusion. MUSCULOSKELETAL: Moves all extremities to command. No evident clubbing. LUE w/ generalised edema. 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 NEUROLOGICAL: Very drowsy but awakens to voice & interacts but quickly drifts back to sleep. Oriented to person, place & time. PERRLA 2 mm brisk. Tongue midline to protrusion. Left side of face w/decreased sensation. Speech slightly muttered but appropriate. . Follows simple commands w/o difficulty. Sensation normal for patient. Moved all extremities to command w/varying degrees of weakness. (Sammy Wise) Lab, Micro, Other Results Laboratory Tests Test 04/18/17 04:52 04/19/17 04:30 04/20/17 04:50 White Blood Count 12.0 TH/MM3 12.8 TH/MM3 12.3 TH/MM3 Red Blood Count 2.44 MIL/MM3 2.46 MIL/MM3 2.65 MIL/MM3 Hemoglobin 9.0 GM/DL 8.9 GM/DL 9.7 GM/DL Hematocrit 25.7 % 25.9 % 28.1 % Mean Corpuscular Volume 105.3 FL 105.4 FL 106.2 FL Mean Corpuscular Hemoglobin 36.7 PG 36.2 PG 36.5 PG Mean Corpuscular Hemoglobin Concent 34.9 % 34.3 % 34.4 % Red Cell Distribution Width 13.2 % 13.7 % 13.2 % Platelet Count 148 TH/MM3 110 TH/MM3 138 TH/MM3 Mean Platelet Volume 7.5 FL 8.0 FL 8.3 FL Blood Urea Nitrogen 52 MG/DL 43 MG/DL 46 MG/DL Creatinine 5.75 MG/DL 4.61 MG/DL 4.53 MG/DL Random Glucose 81 MG/DL 82 MG/DL 91 MG/DL Calcium Level 7.9 MG/DL 7.9 MG/DL 7.9 MG/DL Sodium Level 142 MEQ/L 142 MEQ/L 140 MEQ/L Potassium Level 4.1 MEQ/L 3.9 MEQ/L 3.8 MEQ/L Chloride Level 107 MEQ/L 105 MEQ/L 104 MEQ/L Carbon Dioxide Level 24.8 MEQ/L 26.1 MEQ/L 27.9 MEQ/L Anion Gap 10 MEQ/L 11 MEQ/L 8 MEQ/L Estimat Glomerular Filtration Rate 10 ML/MIN 13 ML/MIN 13 ML/MIN (Sammy Wise) Medical Decision Making Impression and Plan Impression: 1. Findings consistent with traumatic brain injury, subarachnoid hemorrhage right parietal convexity 2. Right cerebellar hyperdensity lesion. Possible remote infarct. Need to rule out mass lesion 3. Rhabdomyolysis 4. UTI 5. Hypertension 6. Acute kidney disease-likely related to rhabdomyolysis. 7. Possible syncopal episode 8. Electrolyte disturbance-hyperkalemia and hyponatremia. Likely related to acute kidney disease. 9. Respiratory failure requiring intubation The patient is very drowsy this morning. He does awaken briefly to voice and is oriented and follows commands. Varying degrees of weakness to extremities. T max 99.4 at midnight. Reviewed labs for today. Interval improvement in leukocytosis, haemoglobin level & thrombocytosis. Sodium 140. Interval improvement in creatinine, stable eGFR. CT brain demonstrated slight increase in the right parietal intra- axial blood products w/surrounding vasogenic edema. Also noted are blood products to the right occipital lobe and right cerebellum. No herniation or midline shift. Plan: Primary management per Retail Sales Representative. Nephrology following for renal failure. Neuro checks. Monitor sodium level. Stat CT brain for any decline in neuro status. Hold pharmacologic DVT prophylaxis. Mechanical DVT prophylaxis. Stress ulcer prophylaxis. Mobilise patient w/assistance. Physical & Occupational Therapy. (Sammy Wise) Attending Statement The exam, history, and the medical decision-making described in the above note were completed with the assistance of the mid-level provider. I reviewed and agree with the findings presented. I attest that I had a [id number] encounter with the patient on the same day, and personally performed and documented my assessment and findings in the medical record. On my examination 04/20/2017, patient relatively alert. A little agitation. Speech clear and appropriate Moves all extremities well Extraocular movements intact Progressing well following mild to moderate brain injury Stable for the regular floor from neurosurgery standpoint (Matthew Katz MD) Sammy Wise Apr 20, 2017 09:39 Matthew Katz MD Apr 20, 2017 22:15
--- NOTE | 2017-04-20 10:49 | HHI.NPPN ---
Subjective History of Present Illness 62 year old male with ARF Rhabdomyolysis, painful, tired lethargic Additional Remarks Patient is alert, Review of Systems General Constitutional: Fatigue Musculoskeletal MS: Pain/Stiffness Objective Data Data Vital Signs Date Time Temp Pulse Resp B/P (MAP) Pulse Ox O2 Delivery O2 Flow Rate FiO2 04/20/17 08:36 98 Nasal Cannula 2.00 04/20/17 08:00 98.7 84 20 147/72 (97) 99 04/20/17 08:00 84 04/20/17 06:00 98 04/20/17 04:00 92 04/20/17 04:00 98.3 92 17 139/86 (103) 94 04/20/17 02:00 104 04/20/17 00:00 86 04/20/17 00:00 99.4 86 17 112/64 (80) 94 04/19/17 22:00 87 04/19/17 20:00 98.6 93 15 153/73 (99) 96 Arterial Line 04/19/17 20:00 93 04/19/17 19:30 95 04/19/17 18:00 96 04/19/17 16:00 99.0 90 20 109/74 (86) 94 04/19/17 16:00 91 04/19/17 14:03 90 04/19/17 12:01 91 04/19/17 12:01 98.6 91 18 139/81 (100) 94 -: 04/20/17 0450 04/20/17 0450 Physical Exam General Appearance: Well Developed, Well Nourished Neck Neck Exam: Jugular Vein Distension Pulmonary Resp Exam: Decreased Bases Cardiology CV Exam: Tachycardia Gastrointestinal/Abdomen GI Exam: Soft, Bowel Sounds Present Extremeties Extremities Exam: Trace Edema Assessment/Plan Problem List: (1) Acute renal failure ICD Codes: N17.9 - Acute kidney failure, unspecified Plan: ARF has Rhabdomyolysis He likely has acute tubular necrosis from underlying rhabdomyolysis Avoid nephrotoxins Dialysis initiated on 04/10 Monitor fluid and electrolytes Avoid nephrotoxins. Continue HD as needed. Watch for renal recovery. Has some improvement in the urine out put. (2) Rhabdomyolysis ICD Codes: M62.82 - Rhabdomyolysis Status: Acute Plan: Continue monitor his CPK trend is downwards (3) Subarachnoid hemorrhage ICD Codes: I60.9 - Nontraumatic subarachnoid hemorrhage, unspecified Plan: Neurosurgery following (4) UTI (lower urinary tract infection) ICD Codes: N39.0 - Urinary tract infection, site not specified (5) Sepsis ICD Codes: A41.9 - Sepsis, unspecified organism Plan: Staphylococcus Hemolyticus in blood culture ? contaminant. 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 Vancomycin ordered. Problem Qualifiers (1) Acute renal failure: Qualified Codes: N17.0 - Acute kidney failure with tubular necrosis (2) Rhabdomyolysis: Qualified Codes: M62.82 - Rhabdomyolysis Lio Robbins MD Apr 20, 2017 10:49
[2017-04-20] MEDS: LABETALOL HCL 100 MG/20 ML VIAL IV PUSH PRN (11:54)
[2017-04-21] VITALS (14 sets, daily range): BP systolic 118–170; BP diastolic 63–85; PULSE 76–100; RESP 14–20; TEMP 98.2–98.4; O2SAT 95–100
[2017-04-21] MEDS: CHLORHEXIDINE GLUCONATE 2 % 1 PACK (2 CLOTHS) TOP SCH (04:00)
[2017-04-21] MEDS: ACETAMINOPHEN/HYDROcodone 325 MG/5 MG TAB PO PRN ×5 (04:06→21:22)
[2017-04-21] MEDS: OLANZapine ODT 5 MG TAB PO SCH ×4 (05:06→21:23)
[2017-04-21 05:42] LABS: HEMATOCRIT 27.2 % (39.0-51.0); HEMOGLOBIN 9.4 GM/DL (13.0-17.0); MEAN CELL VOLUME 106.9 FL (80.0-100.0); MEAN CORPUSCULAR HEMOGLOBIN 37.1 PG (27.0-34.0); MEAN CORPUSCULAR HGB CONC 34.7 % (32.0-36.0); MEAN PLATELET VOLUME 8.6 FL (7.0-11.0); PLATELET COUNT 138 TH/MM3 (150-450); RED BLOOD COUNT 2.55 MIL/MM3 (4.50-5.90); RED CELL DISTRIBUTION WIDTH 13.4 % (11.6-17.2); WHITE BLOOD COUNT 10.5 TH/MM3 (4.0-11.0)
[2017-04-21 06:00] LABS: BICARBONATE 26.6 MEQ/L (21.0-32.0); CALCIUM 8.1 MG/DL (8.5-10.1); CREATININE 4.2 MG/DL (0.60-1.30)
--- NOTE | 2017-04-21 09:02 | HHI.PR ---
Subjective Remarks in no acute distress. denies pain. no acute issues over night. good urine output. d/w the RN. Objective Vitals Vital Signs Date Time Temp Pulse Resp B/P (MAP) Pulse Ox O2 Delivery O2 Flow Rate FiO2 04/21/17 06:00 80 04/21/17 04:00 98.2 84 16 151/80 (103) 100 04/21/17 04:00 84 04/21/17 02:00 79 04/21/17 00:42 97 Nasal Cannula 2.00 04/21/17 00:00 76 04/21/17 00:00 98.3 76 16 122/63 (82) 97 04/20/17 22:00 70 04/20/17 20:00 72 04/20/17 20:00 97.9 72 16 126/74 (91) 100 04/20/17 18:00 77 04/20/17 16:00 98.1 94 18 157/80 (105) 100 04/20/17 16:00 94 04/20/17 14:00 86 04/20/17 12:00 80 04/20/17 12:00 98.5 80 16 148/77 (100) 100 04/20/17 10:00 77 I/O 04/20/17 04/20/17 04/20/17 04/21/17 04/21/17 04/21/17 07:00 15:00 23:00 07:00 15:00 23:00 Intake Total 480 ml 720 ml 720 ml Output Total 125 ml 800 ml 250 ml Balance 355 ml -80 ml 470 ml Intake Oral 480 ml 720 ml 720 ml Output Urine Total 125 ml 800 ml 250 ml # Voids 1 2 # Bowel Movements 0 1 0 Result Diagram: 04/21/17 0445 04/21/17 0445 Imaging Last Impressions Abdomen X-Ray 04/15/17 0000 Signed Impressions: Service Date/Time: Saturday, April 15, 2017 16:36 - CONCLUSION: Feeding tube in good position. Paras Scales MD FACR Upper Extremity Ultrasound 04/13/17 0000 Signed Impressions: Service Date/Time: Thursday, April 13, 2017 12:53 - CONCLUSION: Veins in the the left arm to the subclavian are patent. Left jugular vein is patent as well Paras Scales MD FACR Head CT 3/5/18 0000 Signed Impressions: Service Date/Time: Thursday, April 13, 2017 01:08 - CONCLUSION: 1. The recent acute intra-axial blood products in the right parietal high convexity is slightly increased in size and there is surrounding vasogenic edema. No herniation or midline shift is present. 2. The edema and blood products in the right cerebellum and right occipital lobe are better visualized on the current examination. Mariusz Oviedo MD Chest X-Ray 04/12/17 Signed Impressions: Service Date/Time: Wednesday, April 12, 2017 23:46 - CONCLUSION: 1. Endotracheal tube tip measures approximately 2.9 cm from the jessica. 2. Stable bibasilar opacities likely representing pleural effusions with associated volume loss and/or airspace consolidation. Mariusz Oviedo MD Carotid Artery Ultrasound 04/12/17 Signed Impressions: Service Date/Time: Wednesday, April 12, 2017 22:36 - CONCLUSION: 1. Mild atherosclerotic disease within the carotid bulb and proximal internal carotid arteries bilaterally. However, no significant stenosis is identified within either internal carotid artery (less than 50%% stenosis). 2. There is antegrade blood flow in both vertebral arteries. Mariusz Oviedo MD Thoracic Spine MRI 04/10/17 Signed Impressions: Service Date/Time: Monday, April 10, 2017 10:52 - CONCLUSION: Cervical and upper thoracic cord syrinx. Tiny disc protrusions at a couple of levels without significant anatomic compromise Mariusz Fernandes MD Lumbar Spine MRI 04/10/17 Signed Impressions: Service Date/Time: Monday, April 10, 2017 10:52 - CONCLUSION: 1. Multilevel disc bulges or mild protrusions between L2 and L5 resulting in mild lateral recess encroachment and mild foraminal encroachment as above. 2. Minimal retrolisthesis of L5 on S1 with mild left-sided foraminal stenosis. 3. No acute fracture. Conus medullaris intact. Lexx Alva MD Head Magnetic Resonance Angiography 04/10/17 Signed Impressions: Service Date/Time: Monday, April 10, 2017 10:52 - CONCLUSION: 1. Unremarkable [place] MRA examination. Specifically, no evidence for large vessel occlusion or aneurysm. 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 Advanced degenerative change at C2-C3-4-5 with AP canal stenosis and lateral recess encroachment most notable at C2-3 on the left. Solid bony union across area of previous fusion at C5-6- 7. Lexx Alva MD Brain MRI 04/10/17 0000 Signed Impressions: Service Date/Time: Monday, April 10, 2017 10:52 - CONCLUSION: Acute hemorrhage as described above high right parietal region Focal restricted diffusion right cervical hemisphere and both occipital lobes suggesting he posterior fossa embolic event. Paras Scales MD FACR Renal Ultrasound 04/09/17 0000 Signed Impressions: Service Date/Time: April 12:12 - CONCLUSION: Normal examination. Tk Martínez MD Maxillofacial CT 04/09/17 0000 Signed Impressions: Service Date/Time: April 13:28 - CONCLUSION: 1. There is no evidence of acute fracture. Toney Schulz MD Abdomen/Pelvis CT 04/08/17 0000 Signed Impressions: Service Date/Time: Saturday, April 08, 2017 22:09 - CONCLUSION: 1. No acute obstructive uropathy. 2. Uncomplicated colonic diverticulosis. 3. Nodular contour of liver suggesting possible cirrhosis. 4. Degenerative changes and scoliosis of the lumbar spine. Kang Cruz MD Objective Remarks GENERAL: This is a well-nourished, well-developed patient, in no apparent distress. CARDIOVASCULAR: Regular rate and regular rhythm without murmurs, gallops, or rubs. RESPIRATORY: Clear to auscultation. Breath sounds equal bilaterally. No wheezes , rales, or rhonchi. GASTROINTESTINAL: Abdomen soft, non-tender, nondistended. Normal, active bowel sounds MUSCULOSKELETAL: Extremities with bilateral pedal edema. NEURO: awake and alert. Medications and IVs Inpatient Medications Acetaminophen 100 ml @ 400 mls/hr Q6H PRN IV TEMPERATURE GREATER THAN 101F Last administered on 04/14/17at 16:23; Start 04/13/17 at 18:45 Acetaminophen (Tylenol) 650 mg UNSCH PRN PO for headach, pain, temp > 101F; Start 04/10/17 at 16:30 Acetaminophen/ Hydrocodone Bitart ([place] 5-325 Mg) 1 tab Q4H PRN PO PAIN 1-10 Last administered on 04/21/17at 04:06; Start 04/09/17 at 10:00 Albumin Human 100 ml @ 60 mls/hr UNSCH PRN IV WITH DIALYSIS Last administered on 04/16/17at 11:45; Start 04/10/17 at 16:30 Albuterol/ Ipratropium (Duoneb Neb) 1 ampule Q2HR NEB PRN INH WHEEZING Last administered on 04/14/17at 19:31; Start 04/09/17 at 00:00 Aztreonam 125 mg/ Sodium Chloride 100 ml @ 200 mls/hr Q8H IV Last administered on 04/18/17at 05:09; Start 04/16/17 at 14:00; Stop 04/18/17 at 10:43 ; Status DC Aztreonam 2000 mg/ Sodium Chloride 100 ml @ 200 mls/hr ONCE ONCE IV Last administered on 04/13/17at 05:34; Start 04/13/17 at 04:45; Stop 04/13/17 at 05:14; Status DC Aztreonam 500 mg/ Sodium Chloride 100 ml @ 200 mls/hr Q8H IV Last administered on 04/16/17at 05:47; Start 04/13/17 at 14:00; Stop 04/16/17 at 08:13; Status DC Bumetanide 100 ml @ 8 mls/hr [id number] IV Last administered on 04/10/17at 03:34; Start 04/09/17 at 16:30; Stop 04/10/17 at 16:23; Status DC Ceftriaxone Sodium 1000 mg/ Sodium Chloride 100 ml @ 200 mls/hr Q24H IV Last administered on 04/12/17at 03:21; Start 04/09/17 at 02:00; Stop 04/12/17 at 07:56; Status DC Chlorhexidine Gluconate (Chlorhexidine 2% Cloth) 3 pack UNSCH PRN TOP HYGIENIC CARE; Start 04/09/17 at 00:00 Clonidine (Catapres) 0.1 mg UNSCH PRN PO for BP > 180/100 X 2 readings; Start 04/10/17 at 16:30 Dexmedetomidine HCl 1000 mcg/ Sodium Chloride 250 ml @ 4.79 mls/hr TITRATE PRN IV SEDATION Last administered on 04/16/17at 12:26; Start 04/15/17 at 22:15; Stop 04/16/17 at 17:36; Status DC Dexmedetomidine HCl 200 mcg/ Sodium Chloride 52 ml @ 4.98 mls/hr TITRATE PRN IV SEDATION Last administered on 04/12/17at 21:31; Start 04/12/17 at 21:30; Stop at 00:21; Status DC Dexmedetomidine HCl 400 mcg/ Sodium Chloride 100 ml @ 4.79 mls/hr TITRATE PRN IV SEDATION Last administered on 04/15/17at 16:30; Start 04/13/17 at 00:30; Stop at 22:08; Status DC Dextrose (D50w (Vial) Inj) 25 ml UNSCH PRN IV PUSH HYPOGLYCEMIA-SEE COMMENTS; Start 04/09/17 at 00:00; Stop 04/17/17 at 12:30; Status DC Diphenhydramine HCl (Benadryl) 25 mg UNSCH PRN PO for hives/itching/anaphylaxis ; Start 04/10/17 at 16:30 Etomidate (Amidate Inj) 20 mg UNSCH X1 IV PUSH ; Start 04/12/17 at 23:30; Stop 04/13/17 at 03:38; Status DC Fentanyl Citrate 250 ml @ 5 mls/hr TITRATE PRN IV SEDATION Last administered on 04/14/17at 13:42; Start 04/13/17 at 11:45; Stop 04/15/17 at 10:37; Status DC Fentanyl Citrate (fentaNYL INJ) 100 mcg ONCE ONCE IV PUSH Last administered on 04/13/17at 13:22; Start 04/13/17 at 11:45; Stop 04/13/17 at 13:14; Status DC Flumazenil (Romazicon Inj) 0.2 mg Q1M PRN IV PUSH SEE LABEL COMMENTS; Start 04/09/17 at 10:15; Stop 04/15/17 at 10:38; Status DC Furosemide (Lasix Inj) 120 mg ONCE ONCE IV PUSH Last administered on 04/09/17at 11:04; Start 04/09/17 at 10:45; Stop 04/09/17 at 10:55; Status DC Gabapentin (Neurontin) 100 mg QID PO Last administered on 04/20/17at 20:11; Start 04/09/17 at 13:00 Gelatin (Gelfoam 12 Mm/7 Mm Top) 1 foam UNSCH PRN TOP SEE LABEL COMMENTS; Start 04/10/17 at 16:30 Gentamicin Sulfate (Gentamicin Inj) 20 mg UNSCH PRN OTHER WITH DIALYSIS Last administered on 04/18/17at 13:22; Start 04/10/17 at 16:30 Haloperidol Lactate (Haldol Inj) 5 mg Q4H PRN IV PUSH agitation; Start 04/15/17 at 11:00 Heparin Sodium (Porcine) (Heparin Inj) UNSCH PRN .XX WITH DIALYSIS Last administered on 04/18/17at 13:23; Start 04/10/17 at 16:30 Hydralazine HCl (Apresoline Inj) 10 mg Q30M PRN IV PUSH sbp > 160 Last administered on 04/09/17at 08:36; Start 04/09/17 at 00:00 Insulin Human Regular (NovoLIN R SUPPLEMENTAL SCALE) 1 Q6HR SQ ; Start 04/09/17 at 00:00; Stop 04/17/17 at 12:30; Status DC Labetalol HCl (Trandate Inj) 20 mg Q15M PRN IV PUSH sbp > 160 Last administered on 04/20/17at 11:54; Start 04/09/17 at 00:00 Lorazepam (Ativan Inj) 2 mg Q15M PRN IV PUSH CIWA > 20; Start 04/09/17 at 10:15 ; Stop 04/15/17 at 10:38; Status DC Lorazepam (Ativan) 2 mg Q2H PRN PO CIWA 11-14; Start 04/09/17 at 10:15; Stop 04/15/17 at 10:38; Status DC Mannitol (Mannitol Inj) 12.5 gm UNSCH PRN IV WITH DIALYSIS; Start 04/10/17 at 16 :30 Metoprolol Tartrate (Lopressor) 25 mg DAILY PO Last administered on 04/20/17at 09:17; Start 04/10/17 at 09:00 Metronidazole 100 ml @ 100 mls/hr Q6H IV Last administered on 04/18/17at 08:39 ; Start 04/13/17 at 20:00; Stop 04/18/17 at 10:43; Status DC Miscellaneous (Pill Splitter) 1 ea UNSCH PRN OTHER SEE LABEL COMMENTS; Start at 10:15 Miscellaneous Information 1 [id number] XX ; Start 04/09/17 at 00:00 Modafinil (Provigil) 200 mg DAILY PO Last administered on 04/15/17at 11:00; Start 04/15/17 at 11:00; Stop 04/17/17 at 09:01; Status DC Multivitamins 10 ml/Folic Acid 1 mg/Sodium Chloride 510.2 ml @ 125 mls/hr Q24H IV Last administered on 04/13/17at 11:28; Start 04/09/17 at 11:00; Stop 04/14/17 at 10:59; Status DC Nitroglycerin (Nitrostat Sl) 0.4 mg UNSCH PRN SL CHEST PAIN; Start 04/10/17 at 16:30 Norepinephrine Bitartrate 4 mg/ Sodium Chloride 250 ml @ 7.5 mls/hr TITRATE PRN IV Blood pressure management Last administered on 04/17/17at 03:24; Start 04/13 at 19:45 Olanzapine (ZyPREXA ZYDIS ODT) 5 mg Q8HR PO Last administered on 04/20/17at 22: 17; Start 04/15/17 at 14:00 Ondansetron HCl (Zofran Inj) 4 mg UNSCH PRN IV PUSH WITH DIALYSIS; Start at 16:30 Pantoprazole Sodium (Protonix Inj) 40 mg DAILY IV PUSH Last administered on 01/26at 09:17; Start 04/09/17 at 09:00 Pharmacy Profile Note 0 ml @ 0 mls/hr UNSCH OTHER ; Start 04/13/17 at 02:30; Stop 04/15/17 at 15:14; Status DC Piperacillin Sod/ Tazobactam Sod 50 ml @ 100 mls/hr ONCE ONCE IV Last administered on 04/08/17at 20:48; Start 04/08/17 at 20:45; Stop 04/08/17 at 21:14 ; Status DC Potassium Chloride 100 ml @ 25 mls/hr ONCE ONCE IV Last administered on at 09:02; Start 04/15/17 at 08:30; Stop 04/15/17 at 12:30; Status DC Propofol 100 ml @ 2.874 mls/ hr TITRATE PRN IV SEDATION Last administered on at 23:02; Start 04/13/17 at 00:30; Stop 04/15/17 at 10:37; Status DC Quetiapine Fumarate (SEROquel) 50 mg BID PO Last administered on 04/12/17at 21:31 ; Start 04/12/17 at 21:30; Stop 04/13/17 at 02:17; Status DC Rocuronium [place] (Zemuron Inj) 50 mg BOLUS ONCE IV Last administered on at 23:45; Start 04/12/17 at 23:45; Stop 04/12/17 at 23:46; Status DC Sodium Bicarbonate 150 meq/Dextrose 1,150 ml @ 50 mls/hr Q23H IV Last administered on 04/11/17 06:28; Start 04/09/17 at 00:45; Stop 04/11/17 at 11:06; Status DC Sodium Chloride 1,000 ml @ 999 mls/hr Q1H1M ONCE IV Last administered on at 19:45; Start 04/13/17 at 19:45; Stop 04/13/17 at 20:45; Status DC Sodium Chloride (NS Flush) 5 ml UNSCH PRN IV FLUSH WITH DIALYSIS; Start at 16:30 Terbutaline Sulfate (Brethine Inj) 1 mg UNSCH PRN SQ For Extravasation; Start 04/12/17 at 23:30 Thiamine HCl (Vitamin B1) 100 mg DAILY PO Last administered on 04/20/17at 09:17 ; Start 04/12/17 at 09:00 Thiamine HCl 100 mg/Sodium Chloride 101 ml @ 100 mls/hr Q24H IV Last administered on 04/11/17at 10:15; Start 04/09/17 at 11:00; Stop 04/11/17 at 12:01; Status DC Tizanidine HCl (Zanaflex) 2 mg HS PO Last administered on 04/20/17at 20:11; Start 04/11/17 at 21:00 Vancomycin HCl 1000 mg/Sodium Chloride 250 ml @ 250 mls/hr ONCE ONCE IV Last administered on 04/12/17at 08:55; Start 04/12/17 at 08:00; Stop 04/12/17 at 08:59; Status DC Vancomycin HCl 1500 mg/Sodium Chloride 515 ml @ 257.5 mls/ hr ONCE ONCE IV Last administered on 04/13/17at 04:54; Start 04/13/17 at 04:00; Stop 04/13/17 at 05: 59; Status DC A/P Assessment and Plan A/P Traumatic Subarachnoid hemorrhage - neurosurgery following. - frequent neuro checks - continue metoprolol- clonidine as needed; will follow the BP and adjust the regimen as needed. -continue rehab efforts. Agitated Delirium - improving. - zyprexa 5mg po q8hr - haldol 5mg iv q4h prn for breakthrough agitation. Acute respiratory failure on mechanical ventilation -resolved. -Extubated on 04/16, tolerating nasal cannula. - aggressive pulmonary toilet. Severe Acute Rhabdomyolysis - serial CK downtrended. - started on HD; HD per nephrology. -monitor renal function and electrolytes. Acute Kidney Injury - secondary to acute rhabdo - close monitoring of urine output - daily bmp - watch electrolytes closely - HD started 04/10 -awaiting renal recovery. -nephrology following. Urinary Tract Infection -treated. SCDs hold pharmacologic DVT prophylaxis given head bleed. for transfer to floor. Discharge Planning possible rehab. awaiting kidney recovery. Oswaldo Sánchez MD Apr 21, 2017 09:02
--- NOTE | 2017-04-21 09:09 | HHI.NSPN ---
(Sammy Wise) History Chief Complaint: Slight headache (Sammy Wise) Interval History 04/09: Mr. Choudhury is a 62-year-old male who presented to the emergency room last night after he was found on the floor by his roommate. He apparently fell yesterday and was lying on the ground for several hours. He indicates generalized weakness over the past few days and has fallen at least 2 times in the past couple of days. He indicates a possible syncopal type episode. Initial workup in the emergency room included a CT scan of the head which revealed probable mild right parietal convexity subarachnoid hemorrhage. He was also found to have a CPK over 40,000 and laboratory results consistent with rhabdomyolysis and UTI with possible urosepsis. He was given normal saline bolus and sodium bicarbonate by me. Also started on vancomycin and Zosyn. No seizure activity reported. 04/10: The patient is in bed with his eyes closed but he immediately answers to voice. He states "I feel like I am dying." He does say he felt a hundred percent better yesterday compared with today. He reports that his lower extremities are the worse and feel numb. He also continues to have numbness to the left side of the body which he was laying on when found. His CK is improving but he does remain in renal failure. Upon evaluation the patient is weaker to the lower extremities which are painful to touch. He is able to move the upper extremities slightly better but they are still weak. 04/11: receiving dialysis for acute kidney injury, reports mild headaches, and weakness in left lower extremity that is new. 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 04/12: feeing himself breakfast. doing well, reports left side still weak, denies any vision changes, loss of peripheral vision 04/13: 62-year-old male admitted with mild traumatic brain injury. Rhabdomyolysis, acute renal failure, UTI. Hemodialysis initiated. He has required subsequent intubation due to respiratory distress on the evening of 04/12. 04/14: Patient is intubated and mechanically ventilated when seen. He is on propofol for sedation and has fentanyl infusing for pain control. He did briefly open his eyes to voice. It appears he moved the toes to command but nothing to the upper extremities. 04/15: The patient remains lethargic but sedated. He is still intubated and mechanically ventilated. He briefly opens his eyes to voice and noxious stimulation. He did not follow any commands but did have some movement of the left lower extremity/foot to local noxious stimulation. Nursing this morning stated that in report she was told the patient was following commands. When she did a sedation vacation the patient did not follow any commands for her, but became agitated. She also stated that the patient had a twitch to the left shoulder. 04/16: This afternoon the patient is awake and alert and tracks with his eyes. He continues to be intubated but is on CPAP. He follows commands with all extremities and gives a thumbs up. 04/17: The patient has been extubated since seen yesterday. He is awake and alert this morning sitting up in bed eating breakfast. He does say he has a headache. He also says he has pain to the neck, back and on the left side to the hip, leg and arm which is chronic, but the hip does feel worse than normal. He reports chronic weakness since a cervical spine injury. He is oriented and spontaneously moving all extremities which have varying degrees of weakness. 04/20: When seen this morning the patient is asleep. He briefly awakens to verbal stimulation and cooperates. He does have a slight headache. His exam is stable. He quickly drifts back off to sleep. 04/21: This morning the patient is sitting up with the bed in the chair position. He is awake and alert. He continues to have a slight headache. Upon examination he is oriented and moves all extremities. Improving motor strength. (Sammy Wise) Exam Results 04/19/17 04/19/17 04/20/17 04/20/17 04/21/17 04/21/17 06:00 18:00 06:00 18:00 06:00 18:00 Intake Total 926 ml 1160 ml 480 ml 720 ml 720 ml Output Total 1 ml 300 ml 125 ml 800 ml 250 ml Balance 925 ml 860 ml 355 ml -80 ml 470 ml Intake Oral 716 ml 1160 ml 480 ml 720 ml 720 ml IV Total 210 ml Output Urine Total 300 ml 125 ml 800 ml 250 ml Stool Total 1 ml # Voids 1 1 1 2 # Bowel Movements 1 0 1 0 Vital Signs Date Time Temp Pulse Resp B/P (MAP) Pulse Ox O2 Delivery O2 Flow Rate FiO2 04/21/17 06:00 80 04/21/17 04:00 98.2 84 16 151/80 (103) 100 04/21/17 04:00 84 04/21/17 02:00 79 04/21/17 00:42 97 Nasal Cannula 2.00 04/21/17 00:00 76 04/21/17 00:00 98.3 76 16 122/63 (82) 97 04/20/17 22:00 70 04/20/17 20:00 72 04/20/17 20:00 97.9 72 16 126/74 (91) 100 04/20/17 18:00 77 04/20/17 16:00 98.1 94 18 157/80 (105) 100 04/20/17 16:00 94 04/20/17 14:00 86 04/20/17 12:00 80 04/20/17 12:00 98.5 80 16 148/77 (100) 100 04/20/17 10:00 77 04/20/17 08:36 98 Nasal Cannula 2.00 04/20/17 08:00 98.7 84 20 147/72 (97) 99 04/20/17 08:00 84 04/20/17 06:00 98 04/20/17 04:00 92 04/20/17 04:00 98.3 92 17 139/86 (103) 94 04/20/17 02:00 104 04/20/17 00:00 86 04/20/17 00:00 99.4 86 17 112/64 (80) 94 04/19/17 22:00 87 04/19/17 20:00 98.6 93 15 153/73 (99) 96 Arterial Line 04/19/17 20:00 93 04/19/17 19:30 95 04/19/17 18:00 96 04/19/17 16:00 99.0 90 20 109/74 (86) 94 04/19/17 16:00 91 04/19/17 14:03 90 04/19/17 12:01 91 04/19/17 12:01 98.6 91 18 139/81 (100) 94 04/19/17 10:00 90 04/19/17 08:14 97 Nasal Cannula 2.00 04/19/17 08:00 98.4 88 18 149/75 (99) 98 04/19/17 08:00 88 04/19/17 06:00 84 04/19/17 04:00 98.6 88 18 121/64 (83) 94 04/19/17 04:00 92 04/19/17 02:00 88 04/19/17 00:00 82 04/19/17 00:00 88 18 100/58 (72) 100 04/18/17 22:00 82 04/18/17 20:00 99.0 87 18 151/68 (95) 100 04/18/17 20:00 87 04/18/17 18:00 87 04/18/17 16:00 97.7 91 22 126/72 (90) 94 04/18/17 16:00 91 04/18/17 14:00 87 04/18/17 12:00 98.0 87 24 164/87 (112) 99 04/18/17 12:00 87 04/18/17 10:00 77 (Sammy Wise) Physical Examination GENERAL: Awake & alert, readily interacts, affect normal, no apparent distress. HEENT: Normocephalic. PERRLA 3 mm brisk, EOMI. MMM & pink, tongue midline to protrusion. MUSCULOSKELETAL: Moves all extremities spontaneously w/purpose & to command. No evident clubbing. LUE & LLE w/generalised edema. Blistering to left lower leg. 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 NEUROLOGICAL: AAOx3. Speech clear & appropriate. Follows commands w/o difficulty. CN VII w/improved facial sensation on left, o/w CN II through XII grossly intact. PERRLA 3 mm brisk. Tongue midline to protrusion. Sensation normal for patient. Motor strength 4 to 4+/5 except left deltoid 3 to 3+/5, unable to evaluate left hamstring & left quadriceps due to pain 2/2 lower leg swelling & blistering. (Sammy Wise) Lab, Micro, Other Results Laboratory Tests Test 04/19/17 04:30 04/20/17 04:50 04/21/17 04:45 White Blood Count 12.8 TH/MM3 12.3 TH/MM3 10.5 TH/MM3 Red Blood Count 2.46 MIL/MM3 2.65 MIL/MM3 2.55 MIL/MM3 Hemoglobin 8.9 GM/DL 9.7 GM/DL 9.4 GM/DL Hematocrit 25.9 % 28.1 % 27.2 % Mean Corpuscular Volume 105.4 FL 106.2 FL 106.9 FL Mean Corpuscular Hemoglobin 36.2 PG 36.5 PG 37.1 PG Mean Corpuscular Hemoglobin Concent 34.3 % 34.4 % 34.7 % Red Cell Distribution Width 13.7 % 13.2 % 13.4 % Platelet Count 110 TH/MM3 138 TH/MM3 138 TH/MM3 Mean Platelet Volume 8.0 FL 8.3 FL 8.6 FL Blood Urea Nitrogen 43 MG/DL 46 MG/DL 46 MG/DL Creatinine 4.61 MG/DL 4.53 MG/DL 4.20 MG/DL Random Glucose 82 MG/DL 91 MG/DL 99 MG/DL Calcium Level 7.9 MG/DL 7.9 MG/DL 8.1 MG/DL Sodium Level 142 MEQ/L 140 MEQ/L 139 MEQ/L Potassium Level 3.9 MEQ/L 3.8 MEQ/L 3.9 MEQ/L Chloride Level 105 MEQ/L 104 MEQ/L 102 MEQ/L Carbon Dioxide Level 26.1 MEQ/L 27.9 MEQ/L 26.6 MEQ/L Anion Gap 11 MEQ/L 8 MEQ/L 10 MEQ/L Estimat Glomerular Filtration Rate 13 ML/MIN 13 ML/MIN 15 ML/MIN (Sammy Wise) Medical Decision Making Impression and Plan Impression: 1. Findings consistent with traumatic brain injury, subarachnoid hemorrhage right parietal convexity 2. Right cerebellar hyperdensity lesion. Possible remote infarct. Need to rule out mass lesion 3. Rhabdomyolysis 4. UTI 5. Hypertension 6. Acute kidney disease-likely related to rhabdomyolysis. 7. Possible syncopal episode 8. Electrolyte disturbance-hyperkalemia and hyponatremia. Likely related to acute kidney disease. 9. Respiratory failure requiring intubation The patient is doing well this morning. Improving neurologic status. Afebrile past 24 hrs. Reviewed labs for today. Interval resolution in leukocytosis, haemoglobin level slight downward drift & thrombocytosis stable. Sodium 139. Interval improvement in creatinine & eGFR. CT brain demonstrated slight increase in the right parietal intra- axial blood products w/surrounding vasogenic edema. Also noted are blood products to the right occipital lobe and right cerebellum. No herniation or midline shift. Plan: Primary management per Director Of Adult Epilepsy. Nephrology following for renal failure. Neuro checks. Monitor sodium level. Stat CT brain for any decline in neuro status. Hold pharmacologic DVT prophylaxis. Mechanical DVT prophylaxis. Stress ulcer prophylaxis. Mobilise patient w/assistance. Physical & Occupational Therapy. Patient is able to be transferred to a regular med/surg floor from Neurosurgery' s perspective. (Sammy Wise) Attending Statement The exam, history, and the medical decision-making described in the above note were completed with the assistance of the mid-level provider. I reviewed and agree with the findings presented. I attest that I had a [id number] encounter with the patient on the same day, and personally performed and documented my assessment and findings in the medical record. On my examination 04/21/2017, Mr. Choudhury remains awake and alert oriented conversant and appropriate. Recent and remote memory are reasonably intact. Extraocular movements, facial motor movements symmetric Sensation intact to light touch in all extremities except for mild decreased left lower extremity rather significant edema and ecchymosis. Motor function is diminished in the hands related to chronic cervical myelopathy. Good strength throughout the lower extremity major flexion and extension groups. Mental status improved and stable over the past few days. Mild traumatic brain injury Will follow intermittent during this hospitalization. Check follow-up CT scan head next week to rule out delayed subdural hematoma or hygroma formation. (Matthew Katz MD) Sammy Wise Apr 21, 2017 09:09 Matthew Katz MD Apr 21, 2017 21:01
[2017-04-21] MEDS: THIAMINE HCL 100 MG TAB PO SCH (09:10)
[2017-04-21] MEDS: METOPROLOL TARTRATE 25 MG TAB PO SCH (09:10)
[2017-04-21] MEDS: PANTOPRAZOLE SODIUM 40 MG VIAL IV PUSH SCH (09:10)
[2017-04-21] MEDS: GABAPENTIN 100 MG CAP PO SCH ×4 (09:10→21:22)
--- NOTE | 2017-04-21 11:27 | HHI.NPPN ---
Subjective History of Present Illness 62 year old male with ARF Rhabdomyolysis, painful, tired lethargic Additional Remarks Patient is alert, Review of Systems General Constitutional: Fatigue Musculoskeletal MS: Pain/Stiffness Objective Data Data Vital Signs Date Time Temp Pulse Resp B/P (MAP) Pulse Ox O2 Delivery O2 Flow Rate FiO2 04/21/17 06:00 80 04/21/17 04:00 98.2 84 16 151/80 (103) 100 04/21/17 04:00 84 04/21/17 02:00 79 04/21/17 00:42 97 Nasal Cannula 2.00 04/21/17 00:00 76 04/21/17 00:00 98.3 76 16 122/63 (82) 97 04/20/17 22:00 70 04/20/17 20:00 72 04/20/17 20:00 97.9 72 16 126/74 (91) 100 04/20/17 18:00 77 04/20/17 16:00 98.1 94 18 157/80 (105) 100 04/20/17 16:00 94 04/20/17 14:00 86 04/20/17 12:00 80 04/20/17 12:00 98.5 80 16 148/77 (100) 100 -: 04/21/17 0445 04/21/17 0445 Physical Exam General Appearance: Well Developed, Well Nourished Neck Neck Exam: Jugular Vein Distension Pulmonary Resp Exam: Decreased Bases Cardiology CV Exam: Tachycardia Gastrointestinal/Abdomen GI Exam: Soft, Bowel Sounds Present Extremeties Extremities Exam: Trace Edema Assessment/Plan Problem List: (1) Acute renal failure ICD Codes: N17.9 - Acute kidney failure, unspecified Plan: ARF has Rhabdomyolysis He likely has acute tubular necrosis from underlying rhabdomyolysis Avoid nephrotoxins Dialysis initiated on 04/10 Monitor fluid and electrolytes Avoid nephrotoxins. stop dialysis as Cr declined give Lasix 40 mg IV follow BMP Watch for renal recovery. Has some improvement in the urine out put. (2) Rhabdomyolysis ICD Codes: M62.82 - Rhabdomyolysis Status: Acute Plan: Continue monitor his CPK trend is downwards (3) Subarachnoid hemorrhage ICD Codes: I60.9 - Nontraumatic subarachnoid hemorrhage, unspecified Plan: Neurosurgery following (4) UTI (lower urinary tract infection) ICD Codes: N39.0 - Urinary tract infection, site not specified (5) Sepsis ICD Codes: A41.9 - Sepsis, unspecified organism Plan: Staphylococcus Hemolyticus in blood culture ? contaminant. 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 Vancomycin ordered. Problem Qualifiers (1) Acute renal failure: Qualified Codes: N17.0 - Acute kidney failure with tubular necrosis (2) Rhabdomyolysis: Qualified Codes: M62.82 - Rhabdomyolysis Lio Robbins MD Apr 21, 2017 11:27
[2017-04-21] MEDS ORDERED: FUROSEMIDE 40 MG/4 ML VIAL IV PUSH ONE (12:30)
[2017-04-21 13:25] LABS: % SATURATION IRON PROFILE 43.7 % (20-50); IRON (FE) 71 MCG/DL (65-175); TOTAL IRON BINDING CAPACITY 162 MCG/DL (250-450)
[2017-04-21 13:28] LABS: FERRITIN 663 NG/ML (26-388)
[2017-04-21] MEDS: LABETALOL HCL 100 MG/20 ML VIAL IV PUSH PRN (18:20)
[2017-04-22] VITALS (9 sets, daily range): BP systolic 110–176; BP diastolic 59–93; PULSE 74–90; RESP 16–20; TEMP 97.7–98.4; O2SAT 93–98
[2017-04-22] MEDS: CHLORHEXIDINE GLUCONATE 2 % 1 PACK (2 CLOTHS) TOP SCH (03:37)
[2017-04-22] MEDS: ACETAMINOPHEN/HYDROcodone 325 MG/5 MG TAB PO PRN ×3 (04:39→18:08)
[2017-04-22 05:42] LABS: AUTOMATED NEUTROPHIL # 4.7 TH/MM3 (1.8-7.7); BASOPHIL % 0.4 % (0.0-2.0); EOSINOPHIL # 0.4 TH/MM3 (0-0.4); EOSINOPHIL % 4.4 % (0.0-4.0); HEMATOCRIT 25.9 % (39.0-51.0); HEMOGLOBIN 8.9 GM/DL (13.0-17.0); LYMPH % 31.2 % (9.0-44.0); LYMPHOCYTE # 2.6 TH/MM3 (1.0-4.8); MEAN CELL VOLUME 105.7 FL (80.0-100.0); MEAN CORPUSCULAR HEMOGLOBIN 36.2 PG (27.0-34.0); MEAN CORPUSCULAR HGB CONC 34.2 % (32.0-36.0); MEAN PLATELET VOLUME 8.1 FL (7.0-11.0); MONO % 7.6 % (0.0-8.0); MONOCYTE # 0.6 TH/MM3 (0-0.9); NEUT % 56.4 % (16.0-70.0); PLATELET COUNT 165 TH/MM3 (150-450); RED BLOOD COUNT 2.45 MIL/MM3 (4.50-5.90); RED CELL DISTRIBUTION WIDTH 13.6 % (11.6-17.2); WHITE BLOOD COUNT 8.3 TH/MM3 (4.0-11.0)
[2017-04-22 06:00] LABS: BICARBONATE 27.7 MEQ/L (21.0-32.0); CALCIUM 7.8 MG/DL (8.5-10.1); CREATININE 3.76 MG/DL (0.60-1.30)
[2017-04-22] MEDS: OLANZapine ODT 5 MG TAB PO SCH ×3 (06:00→21:35)
--- NOTE | 2017-04-22 08:23 | HHI.PR ---
Subjective Remarks in no acute distress. resting comfortably. no new complaints. good urine output. d/w the RN and no acute issues over night. Objective Vitals Vital Signs Date Time Temp Pulse Resp B/P (MAP) Pulse Ox O2 Delivery O2 Flow Rate FiO2 04/22/17 06:00 81 04/22/17 04:00 98.2 88 19 143/79 (100) 96 04/22/17 04:00 74 04/22/17 02:00 80 04/22/17 00:00 97.7 74 20 110/59 (76) 96 04/22/17 00:00 74 04/21/17 22:47 97 Nasal Cannula 2.00 04/21/17 22:30 88 Nasal Cannula 2.00 04/21/17 22:00 78 04/21/17 20:00 90 04/21/17 20:00 98.2 90 20 118/64 (82) 95 04/21/17 18:00 100 04/21/17 16:00 98.4 76 18 170/85 (113) 96 04/21/17 16:00 76 04/21/17 14:00 84 04/21/17 12:00 98.3 88 14 150/76 (100) 99 04/21/17 12:00 84 04/21/17 10:00 78 I/O 04/21/17 04/21/17 04/21/17 04/22/17 04/22/17 04/22/17 07:00 15:00 23:00 07:00 15:00 23:00 Intake Total 720 ml 720 ml 960 ml Output Total 250 ml 1500 ml 775 ml Balance 470 ml -780 ml 185 ml Intake Oral 720 ml 720 ml 960 ml Output Urine Total 250 ml 1500 ml 775 ml # Voids 2 2 2 # Bowel Movements 0 1 0 Result Diagram: 04/22/17 0500 04/22/17 0500 Imaging Last Impressions Abdomen X-Ray 04/15/17 0000 Signed Impressions: Service Date/Time: Saturday, April 15, 2017 16:36 - CONCLUSION: Feeding tube in good position. Paras Scales MD FACR Upper Extremity Ultrasound 04/13/17 0000 Signed Impressions: Service Date/Time: Thursday, April 13, 2017 12:53 - CONCLUSION: Veins in the the left arm to the subclavian are patent. Left jugular vein is patent as well Paras Scales MD FACR Head CT 04/13/17 Signed Impressions: Service Date/Time: Thursday, April 13, 2017 01:08 - CONCLUSION: 1. The recent acute intra-axial blood products in the right parietal high convexity is slightly increased in size and there is surrounding vasogenic edema. No herniation or midline shift is present. 2. The edema and blood products in the right cerebellum and right occipital lobe are better visualized on the current examination. Mariusz Oviedo MD Chest X-Ray 04/12/17 Signed Impressions: Service Date/Time: Wednesday, April 12, 2017 23:46 - CONCLUSION: 1. Endotracheal tube tip measures approximately 2.9 cm from the jessica. 2. Stable bibasilar opacities likely representing pleural effusions with associated volume loss and/or airspace consolidation. Mariusz Oviedo MD Carotid Artery Ultrasound 04/12/17 Signed Impressions: Service Date/Time: Wednesday, April 12, 2017 22:36 - CONCLUSION: 1. Mild atherosclerotic disease within the carotid bulb and proximal internal carotid arteries bilaterally. However, no significant stenosis is identified within either internal carotid artery (less than 50%% stenosis). 2. There is antegrade blood flow in both vertebral arteries. Mariusz Oviedo MD Thoracic Spine MRI 04/10/17 Signed Impressions: Service Date/Time: Monday, April 10, 2017 10:52 - CONCLUSION: Cervical and upper thoracic cord syrinx. Tiny disc protrusions at a couple of levels without significant anatomic compromise Mariusz Fernandes MD Lumbar Spine MRI 04/10/17 Signed Impressions: Service Date/Time: Monday, April 10, 2017 10:52 - CONCLUSION: 1. Multilevel disc bulges or mild protrusions between L2 and L5 resulting in mild lateral recess encroachment and mild foraminal encroachment as above. 2. Minimal retrolisthesis of L5 on S1 with mild left-sided foraminal stenosis. 3. No acute fracture. Conus medullaris intact. Lexx Alva MD Head Magnetic Resonance Angiography 04/10/17 Signed Impressions: Service Date/Time: Monday, April 10, 2017 10:52 - CONCLUSION: 1. Unremarkable [place] of [place] MRA examination. Specifically, no evidence for large vessel occlusion or aneurysm. 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 Advanced degenerative change at C2-C3-4-5 with AP canal stenosis and lateral recess encroachment most notable at C2-3 on the left. Solid bony union across area of previous fusion at C5-6- 7. Lexx Alva MD Brain MRI 04/10/17 0000 Signed Impressions: Service Date/Time: Monday, April 10, 2017 10:52 - CONCLUSION: Acute hemorrhage as described above high right parietal region Focal restricted diffusion right cervical hemisphere and both occipital lobes suggesting he posterior fossa embolic event. Paras Scales MD FACR Renal Ultrasound 04/09/17 0000 Signed Impressions: Service Date/Time: April 12:12 - CONCLUSION: Normal examination. Tk Martínez MD Maxillofacial CT 04/09/17 0000 Signed Impressions: Service Date/Time: April 13:28 - CONCLUSION: 1. There is no evidence of acute fracture. Toney Schulz MD Abdomen/Pelvis CT 04/08/17 0000 Signed Impressions: Service Date/Time: Saturday, April 08, 2017 22:09 - CONCLUSION: 1. No acute obstructive uropathy. 2. Uncomplicated colonic diverticulosis. 3. Nodular contour of liver suggesting possible cirrhosis. 4. Degenerative changes and scoliosis of the lumbar spine. Kang Cruz MD Objective Remarks GENERAL: This is a well-nourished, well-developed patient, in no apparent distress. CARDIOVASCULAR: Regular rate and regular rhythm without murmurs, gallops, or rubs. RESPIRATORY: Clear to auscultation. Breath sounds equal bilaterally. No wheezes , rales, or rhonchi. GASTROINTESTINAL: Abdomen soft, non-tender, nondistended. Normal, active bowel sounds MUSCULOSKELETAL: Extremities with bilateral pedal edema. NEURO: awake and alert. Medications and IVs Inpatient Medications Acetaminophen 100 ml @ 400 mls/hr Q6H PRN IV TEMPERATURE GREATER THAN 101F Last administered on 04/14/17at 16:23; Start 04/13/17 at 18:45 Acetaminophen (Tylenol) 650 mg UNSCH PRN PO for headach, pain, temp > 101F; Start 04/10/17 at 16:30 Acetaminophen/ Hydrocodone Bitart ([place] 5-325 Mg) 1 tab Q4H PRN PO PAIN 1-10 Last administered on 04/22/17at 04:39; Start 04/09/17 at 10:00 Albumin Human 100 ml @ 60 mls/hr UNSCH PRN IV WITH DIALYSIS Last administered on 04/16/17at 11:45; Start 04/10/17 at 16:30 Albuterol/ Ipratropium (Duoneb Neb) 1 ampule Q2HR NEB PRN INH WHEEZING Last administered on 04/14/17at 19:31; Start 04/09/17 at 00:00 Aztreonam 125 mg/ Sodium Chloride 100 ml @ 200 mls/hr Q8H IV Last administered on 04/18/17at 05:09; Start 04/16/17 at 14:00; Stop 04/18/17 at 10:43 ; Status DC Aztreonam 2000 mg/ Sodium Chloride 100 ml @ 200 mls/hr ONCE ONCE IV Last administered on 04/13/17at 05:34; Start 04/13/17 at 04:45; Stop 04/13/17 at 05:14; Status DC Aztreonam 500 mg/ Sodium Chloride 100 ml @ 200 mls/hr Q8H IV Last administered on 04/16/17at 05:47; Start 04/13/17 at 14:00; Stop 04/16/17 at 08:13; Status DC Bumetanide 100 ml @ 8 mls/hr [id number] IV Last administered on 04/10/17at 03:34; Start 04/09/17 at 16:30; Stop 04/10/17 at 16:23; Status DC Ceftriaxone Sodium 1000 mg/ Sodium Chloride 100 ml @ 200 mls/hr Q24H IV Last administered on 04/12/17at 03:21; Start 04/09/17 at 02:00; Stop 04/12/17 at 07:56; Status DC Chlorhexidine Gluconate (Chlorhexidine 2% Cloth) 3 pack UNSCH PRN TOP HYGIENIC CARE; Start 04/09/17 at 00:00 Clonidine (Catapres) 0.1 mg UNSCH PRN PO for BP > 180/100 X 2 readings; Start 04/10/17 at 16:30 Dexmedetomidine HCl 1000 mcg/ Sodium Chloride 250 ml @ 4.79 mls/hr TITRATE PRN IV SEDATION Last administered on 04/16/17at 12:26; Start 04/15/17 at 22:15; Stop 04/16/17 at 17:36; Status DC Dexmedetomidine HCl 200 mcg/ Sodium Chloride 52 ml @ 4.98 mls/hr TITRATE PRN IV SEDATION Last administered on 04/12/17at 21:31; Start 04/12/17 at 21:30; Stop at 00:21; Status DC Dexmedetomidine HCl 400 mcg/ Sodium Chloride 100 ml @ 4.79 mls/hr TITRATE PRN IV SEDATION Last administered on 04/15/17at 16:30; Start 04/13/17 at 00:30; Stop at 22:08; Status DC Dextrose (D50w (Vial) Inj) 25 ml UNSCH PRN IV PUSH HYPOGLYCEMIA-SEE COMMENTS; Start 04/09/17 at 00:00; Stop 04/17/17 at 12:30; Status DC Diphenhydramine HCl (Benadryl) 25 mg UNSCH PRN PO for hives/itching/anaphylaxis ; Start 04/10/17 at 16:30 Etomidate (Amidate Inj) 20 mg UNSCH X1 IV PUSH ; Start 04/12/17 at 23:30; Stop 04/13/17 at 03:38; Status DC Fentanyl Citrate 250 ml @ 5 mls/hr TITRATE PRN IV SEDATION Last administered on 04/14/17at 13:42; Start 04/13/17 at 11:45; Stop 04/15/17 at 10:37; Status DC Fentanyl Citrate (fentaNYL INJ) 100 mcg ONCE ONCE IV PUSH Last administered on 04/13/17at 13:22; Start 04/13/17 at 11:45; Stop 04/13/17 at 13:14; Status DC Flumazenil (Romazicon Inj) 0.2 mg Q1M PRN IV PUSH SEE LABEL COMMENTS; Start 04/09/17 at 10:15; Stop 04/15/17 at 10:38; Status DC Furosemide (Lasix Inj) 40 mg ONCE ONCE IV PUSH Last administered on 04/21/17at 13:30; Start 04/21/17 at 12:30; Stop 04/21/17 at 12:31; Status DC Gabapentin (Neurontin) 100 mg QID PO Last administered on 04/21/17at 21:22; Start 04/09/17 at 13:00 Gelatin (Gelfoam 12 Mm/7 Mm Top) 1 foam UNSCH PRN TOP SEE LABEL COMMENTS; Start 04/10/17 at 16:30 Gentamicin Sulfate (Gentamicin Inj) 20 mg UNSCH PRN OTHER WITH DIALYSIS Last administered on 04/18/17at 13:22; Start 04/10/17 at 16:30 Haloperidol Lactate (Haldol Inj) 5 mg Q4H PRN IV PUSH agitation; Start 04/15/17 at 11:00 Heparin Sodium (Porcine) (Heparin Inj) UNSCH PRN .XX WITH DIALYSIS Last administered on 04/18/17at 13:23; Start 04/10/17 at 16:30 Hydralazine HCl (Apresoline Inj) 10 mg Q30M PRN IV PUSH sbp > 160 Last administered on 04/09/17at 08:36; Start 04/09/17 at 00:00 Insulin Human Regular (NovoLIN R SUPPLEMENTAL SCALE) 1 Q6HR SQ ; Start 04/09/17 at 00:00; Stop 04/17/17 at 12:30; Status DC Labetalol HCl (Trandate Inj) 20 mg Q15M PRN IV PUSH sbp > 160 Last administered on 04/21/17at 18:20; Start 04/09/17 at 00:00 Lorazepam (Ativan Inj) 2 mg Q15M PRN IV PUSH CIWA > 20; Start 04/09/17 at 10:15 ; Stop 04/15/17 at 10:38; Status DC Lorazepam (Ativan) 2 mg Q2H PRN PO CIWA 11-14; Start 04/09/17 at 10:15; Stop 04/15/17 at 10:38; Status DC Mannitol (Mannitol Inj) 12.5 gm UNSCH PRN IV WITH DIALYSIS; Start 04/10/17 at 16 :30 Metoprolol Tartrate (Lopressor) 25 mg DAILY PO Last administered on 04/21/17at 09:10; Start 04/10/17 at 09:00 Metronidazole 100 ml @ 100 mls/hr Q6H IV Last administered on 04/18/17at 08:39 ; Start 04/13/17 at 20:00; Stop 04/18/17 at 10:43; Status DC Miscellaneous (Pill Splitter) 1 ea UNSCH PRN OTHER SEE LABEL COMMENTS; Start at 10:15 Miscellaneous Information 1 [id number] XX ; Start 04/09/17 at 00:00 Modafinil (Provigil) 200 mg DAILY PO Last administered on 04/15/17at 11:00; Start 04/15/17 at 11:00; Stop 04/17/17 at 09:01; Status DC Multivitamins 10 ml/Folic Acid 1 mg/Sodium Chloride 510.2 ml @ 125 mls/hr Q24H IV Last administered on 04/13/17at 11:28; Start 04/09/17 at 11:00; Stop 04/14/17 at 10:59; Status DC Nitroglycerin (Nitrostat Sl) 0.4 mg UNSCH PRN SL CHEST PAIN; Start 04/10/17 at 16:30 Norepinephrine Bitartrate 4 mg/ Sodium Chloride 250 ml @ 7.5 mls/hr TITRATE PRN IV Blood pressure management Last administered on 04/17/17at 03:24; Start 04/13 at 19:45 Olanzapine (ZyPREXA ZYDIS ODT) 5 mg Q8HR PO Last administered on 04/20/17at 22: 17; Start 04/15/17 at 14:00 Ondansetron HCl (Zofran Inj) 4 mg UNSCH PRN IV PUSH WITH DIALYSIS; Start at 16:30 Pantoprazole Sodium (Protonix Inj) 40 mg DAILY IV PUSH Last administered on at 09:10; Start 04/09/17 at 09:00 Pharmacy Profile Note 0 ml @ 0 mls/hr UNSCH OTHER ; Start 04/13/17 at 02:30; Stop 04/15/17 at 15:14; Status DC Piperacillin Sod/ Tazobactam Sod 50 ml @ 100 mls/hr ONCE ONCE IV Last administered on 04/08/17at 20:48; Start 04/08/17 at 20:45; Stop 04/08/17 at 21:14 ; Status DC Potassium Chloride 100 ml @ 25 mls/hr ONCE ONCE IV Last administered on 09:02; Start 04/15/17 at 08:30; Stop 04/15/17 at 12:30; Status DC Propofol 100 ml @ 2.874 mls/ hr TITRATE PRN IV SEDATION Last administered on at 23:02; Start 04/13/17 at 00:30; Stop 04/15/17 at 10:37; Status DC Quetiapine Fumarate (SEROquel) 50 mg BID PO Last administered on 04/12/17 21:31 ; Start 04/12/17 at 21:30; Stop 04/13/17 at 02:17; Status DC Rocuronium [place] (Zemuron Inj) 50 mg BOLUS ONCE IV Last administered on 23:45; Start 04/12/17 at 23:45; Stop 04/12/17 at 23:46; Status DC Sodium Bicarbonate 150 meq/Dextrose 1,150 ml @ 50 mls/hr Q23H IV Last administered on 04/11/17 06:28; Start 04/09/17 at 00:45; Stop 04/11/17 at 11:06; Status DC Sodium Chloride 1,000 ml @ 999 mls/hr Q1H1M ONCE IV Last administered on 19:45; Start 04/13/17 at 19:45; Stop 04/13/17 at 20:45; Status DC Sodium Chloride (NS Flush) 5 ml UNSCH PRN IV FLUSH WITH DIALYSIS; Start at 16:30 Terbutaline Sulfate (Brethine Inj) 1 mg UNSCH PRN SQ For Extravasation; Start 04/12/17 at 23:30 Thiamine HCl (Vitamin B1) 100 mg DAILY PO Last administered on 04/21/17 09:10 ; Start 04/12/17 at 09:00 Thiamine HCl 100 mg/Sodium Chloride 101 ml @ 100 mls/hr Q24H IV Last administered on 04/11/17at 10:15; Start 04/09/17 at 11:00; Stop 04/11/17 at 12:01; Status DC Tizanidine HCl (Zanaflex) 2 mg HS PO Last administered on 04/21/17at 21:22; Start 04/11/17 at 21:00 Vancomycin HCl 1000 mg/Sodium Chloride 250 ml @ 250 mls/hr ONCE ONCE IV Last administered on 04/12/17at 08:55; Start 04/12/17 at 08:00; Stop 04/12/17 at 08:59; Status DC Vancomycin HCl 1500 mg/Sodium Chloride 515 ml @ 257.5 mls/ hr ONCE ONCE IV Last administered on 04/13/17at 04:54; Start 04/13/17 at 04:00; Stop 04/13/17 at 05: 59; Status DC A/P Assessment and Plan A/P Traumatic Subarachnoid hemorrhage - frequent neuro checks - continue metoprolol- clonidine as needed; will follow the BP and adjust the regimen as needed. -continue rehab efforts. -repeat CT head next week. - neurosurgery following. Agitated Delirium - improving. - continue Zyprexa/ Haldol as needed. Acute respiratory failure - s/p intubation -resolved. -Extubated on 04/16, tolerating nasal cannula. - aggressive pulmonary toilet. Severe Acute Rhabdomyolysis - serial CK downtrended. - started on HD; HD per nephrology. -monitor renal function and electrolytes. Acute Kidney Injury - secondary to acute rhabdo - close monitoring of urine output - daily bmp - watch electrolytes closely - HD started 04/10;HD as needed; per nephrology. -awaiting renal recovery. -nephrology following. Urinary Tract Infection -treated. SCDs hold pharmacologic DVT prophylaxis given head bleed. for transfer to floor. Discharge Planning dc planning to rehab. awaiting kidney recovery. Oswaldo Sánchez MD Apr 22, 2017 08:23
[2017-04-22] MEDS: PANTOPRAZOLE SODIUM 40 MG VIAL IV PUSH SCH (09:00)
[2017-04-22] MEDS: THIAMINE HCL 100 MG TAB PO SCH (10:40)
[2017-04-22] MEDS: METOPROLOL TARTRATE 25 MG TAB PO SCH (10:40)
[2017-04-22] MEDS: GABAPENTIN 100 MG CAP PO SCH ×4 (10:41→20:50)
[2017-04-22] MEDS: FUROSEMIDE 40 MG/4 ML VIAL IV PUSH SCH (10:41)
--- NOTE | 2017-04-22 14:17 | HHI.NPPN ---
Subjective History of Present Illness 62 year old male with ARF Rhabdomyolysis, painful, tired lethargic Additional Remarks Patient is alert, Review of Systems General Constitutional: Fatigue Musculoskeletal MS: Pain/Stiffness Objective Data Data Vital Signs Date Time Temp Pulse Resp B/P (MAP) Pulse Ox O2 Delivery O2 Flow Rate FiO2 04/22/17 12:00 97 Nasal Cannula 2.00 04/22/17 06:00 81 04/22/17 04:00 98.2 88 19 143/79 (100) 96 04/22/17 04:00 74 04/22/17 02:00 80 04/22/17 00:00 97.7 74 20 110/59 (76) 96 04/22/17 00:00 74 04/21/17 22:47 97 Nasal Cannula 2.00 04/21/17 22:30 88 Nasal Cannula 2.00 04/21/17 22:00 78 04/21/17 20:00 90 04/21/17 20:00 98.2 90 20 118/64 (82) 95 04/21/17 18:00 100 04/21/17 16:00 98.4 76 18 170/85 (113) 96 04/21/17 16:00 76 -: 04/22/17 0500 04/22/17 0500 Physical Exam General Appearance: Well Developed, Well Nourished Neck Neck Exam: Jugular Vein Distension Pulmonary Resp Exam: Decreased Bases Cardiology CV Exam: Tachycardia Gastrointestinal/Abdomen GI Exam: Soft, Bowel Sounds Present Extremeties Extremities Exam: Trace Edema Assessment/Plan Problem List: (1) Acute renal failure ICD Codes: N17.9 - Acute kidney failure, unspecified Plan: ARF has Rhabdomyolysis He likely has acute tubular necrosis from underlying rhabdomyolysis Avoid nephrotoxins Dialysis initiated on 04/10 Monitor fluid and electrolytes Avoid nephrotoxins. stop dialysis as Cr declined given Lasix 40 mg IV follow BMP Has some improvement in the urine out put. (2) Rhabdomyolysis ICD Codes: M62.82 - Rhabdomyolysis Status: Acute Plan: Continue monitor his CPK trend is downwards (3) Subarachnoid hemorrhage ICD Codes: I60.9 - Nontraumatic subarachnoid hemorrhage, unspecified Plan: Neurosurgery following (4) UTI (lower urinary tract infection) ICD Codes: N39.0 - Urinary tract infection, site not specified (5) Sepsis ICD Codes: A41.9 - Sepsis, unspecified organism Plan: Staphylococcus Hemolyticus in blood culture ? contaminant. 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 Vancomycin ordered. Problem Qualifiers (1) Acute renal failure: Qualified Codes: N17.0 - Acute kidney failure with tubular necrosis (2) Rhabdomyolysis: Qualified Codes: M62.82 - Rhabdomyolysis Lio Robbins MD Apr 22, 2017 14:17
[2017-04-22] MEDS: LABETALOL HCL 100 MG/20 ML VIAL IV PUSH PRN (18:08)
[2017-04-23] VITALS: BP 102/55; PULSE 74; RESP 14; TEMP 98.4; O2SAT 99
[2017-04-23] MEDS: CHLORHEXIDINE GLUCONATE 2 % 1 PACK (2 CLOTHS) TOP SCH (03:45)
[2017-04-23 04:00] VITALS: BP 111/68; PULSE 88; RESP 20; TEMP 98.4; O2SAT 100
[2017-04-23 04:10] LABS: HEMATOCRIT 24.2 % (39.0-51.0); HEMOGLOBIN 8.3 GM/DL (13.0-17.0); MEAN CELL VOLUME 105.6 FL (80.0-100.0); MEAN CORPUSCULAR HEMOGLOBIN 36.1 PG (27.0-34.0); MEAN CORPUSCULAR HGB CONC 34.2 % (32.0-36.0); MEAN PLATELET VOLUME 7.7 FL (7.0-11.0); PLATELET COUNT 176 TH/MM3 (150-450); RED BLOOD COUNT 2.29 MIL/MM3 (4.50-5.90); RED CELL DISTRIBUTION WIDTH 13.9 % (11.6-17.2)
[2017-04-23] MEDS: ACETAMINOPHEN/HYDROcodone 325 MG/5 MG TAB PO PRN ×5 (04:10→22:44)
[2017-04-23 04:43] LABS: BICARBONATE 29.7 MEQ/L (21.0-32.0); CALCIUM 7.6 MG/DL (8.5-10.1); CREATININE 3.5 MG/DL (0.60-1.30)
[2017-04-23] MEDS: OLANZapine ODT 5 MG TAB PO SCH ×3 (05:44→21:48)
[2017-04-23 08:00] VITALS: BP 151/77; PULSE 82; PULSE 84; RESP 18; TEMP 98.4; O2SAT 98
[2017-04-23] MEDS: PANTOPRAZOLE SODIUM 40 MG VIAL IV PUSH SCH (08:13)
[2017-04-23] MEDS: THIAMINE HCL 100 MG TAB PO SCH (08:14)
[2017-04-23] MEDS: FUROSEMIDE 40 MG/4 ML VIAL IV PUSH SCH (08:14)
[2017-04-23] MEDS: METOPROLOL TARTRATE 25 MG TAB PO SCH (08:14)
[2017-04-23] MEDS: GABAPENTIN 100 MG CAP PO SCH ×4 (08:14→21:00)
--- NOTE | 2017-04-23 09:13 | HHI.NSPN ---
History Chief Complaint: Slight headache Interval History 04/09: Mr. Choudhury is a 62-year-old male who presented to the emergency room last night after he was found on the floor by his roommate. He apparently fell yesterday and was lying on the ground for several hours. He indicates generalized weakness over the past few days and has fallen at least 2 times in the past couple of days. He indicates a possible syncopal type episode. Initial workup in the emergency room included a CT scan of the head which revealed probable mild right parietal convexity subarachnoid hemorrhage. He was also found to have a CPK over 40,000 and laboratory results consistent with rhabdomyolysis and UTI with possible urosepsis. He was given normal saline bolus and sodium bicarbonate by me. Also started on vancomycin and Zosyn. No seizure activity reported. 04/10: The patient is in bed with his eyes closed but he immediately answers to voice. He states "I feel like I am dying." He does say he felt a hundred percent better yesterday compared with today. He reports that his lower extremities are the worse and feel numb. He also continues to have numbness to the left side of the body which he was laying on when found. His CK is improving but he does remain in renal failure. Upon evaluation the patient is weaker to the lower extremities which are painful to touch. He is able to move the upper extremities slightly better but they are still weak. 04/11: receiving dialysis for acute kidney injury, reports mild headaches, and weakness in left lower extremity that is new. 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 04/12: feeing himself breakfast. doing well, reports left side still weak, denies any vision changes, loss of peripheral vision 04/13: 62-year-old male admitted with mild traumatic brain injury. Rhabdomyolysis, acute renal failure, UTI. Hemodialysis initiated. He has required subsequent intubation due to respiratory distress on the evening of 04/12. 04/14: Patient is intubated and mechanically ventilated when seen. He is on propofol for sedation and has fentanyl infusing for pain control. He did briefly open his eyes to voice. It appears he moved the toes to command but nothing to the upper extremities. 04/15: The patient remains lethargic but sedated. He is still intubated and mechanically ventilated. He briefly opens his eyes to voice and noxious stimulation. He did not follow any commands but did have some movement of the left lower extremity/foot to local noxious stimulation. Nursing this morning stated that in report she was told the patient was following commands. When she did a sedation vacation the patient did not follow any commands for her, but became agitated. She also stated that the patient had a twitch to the left shoulder. 04/16: This afternoon the patient is awake and alert and tracks with his eyes. He continues to be intubated but is on CPAP. He follows commands with all extremities and gives a thumbs up. 04/17: The patient has been extubated since seen yesterday. He is awake and alert this morning sitting up in bed eating breakfast. He does say he has a headache. He also says he has pain to the neck, back and on the left side to the hip, leg and arm which is chronic, but the hip does feel worse than normal. He reports chronic weakness since a cervical spine injury. He is oriented and spontaneously moving all extremities which have varying degrees of weakness. 04/20: When seen this morning the patient is asleep. He briefly awakens to verbal stimulation and cooperates. He does have a slight headache. His exam is stable. He quickly drifts back off to sleep. 04/21: This morning the patient is sitting up with the bed in the chair position. He is awake and alert. He continues to have a slight headache. Upon examination he is oriented and moves all extremities. Improving motor strength. 04/23: The patient is sitting up in the chair eating breakfast when seen this morning. He does have "a little bit" of a headache but denies any dizziness. He has some midline upper and lower back pain that is chronic. He also has pain to the left lateral posterior neck. He complains of pain and numbness from the left hip going down the extremity to the toes and some pain to the right ankle. His neuro exam is stable when evaluated. Exam Results 04/21/17 04/21/17 04/22/17 04/22/17 04/23/17 04/23/17 06:00 18:00 06:00 18:00 06:00 18:00 Intake Total 720 ml 720 ml 960 ml 960 ml 1200 ml Output Total 250 ml 1500 ml 775 ml 2350 ml 1100 ml Balance 470 ml -780 ml 185 ml -1390 ml 100 ml Intake Oral 720 ml 720 ml 960 ml 960 ml 1200 ml Output Urine Total 250 ml 1500 ml 775 ml 2350 ml 1100 ml # Voids 2 2 2 1 # Bowel Movements 0 1 0 2 0 Vital Signs Date Time Temp Pulse Resp B/P (MAP) Pulse Ox O2 Delivery O2 Flow Rate FiO2 04/23/17 08:00 98.4 84 18 151/77 (101) 98 04/23/17 08:00 82 04/23/17 07:00 97 Nasal Cannula 2.00 04/23/17 04:00 98.4 88 20 111/68 (82) 100 04/23/17 04:00 88 04/23/17 00:00 98.4 74 14 102/55 (71) 99 04/23/17 00:00 74 04/22/17 20:26 95 21 04/22/17 20:00 79 04/22/17 20:00 98.2 79 20 126/70 (88) 93 04/22/17 19:00 94 Room Air 04/22/17 16:00 98.4 76 16 133/87 (102) 98 04/22/17 16:00 88 04/22/17 12:00 97 Nasal Cannula 2.00 04/22/17 12:00 78 04/22/17 12:00 98.0 78 16 176/93 (120) 95 04/22/17 08:00 90 04/22/17 08:00 98.3 90 16 175/73 (107) 94 04/22/17 07:00 96 Room Air 04/22/17 06:00 81 04/22/17 04:00 98.2 88 19 143/79 (100) 96 04/22/17 04:00 74 04/22/17 02:00 80 04/22/17 00:00 97.7 74 20 110/59 (76) 96 04/22/17 00:00 74 04/21/17 22:47 97 Nasal Cannula 2.00 04/21/17 22:30 88 Nasal Cannula 2.00 04/21/17 22:00 78 04/21/17 20:00 90 04/21/17 20:00 98.2 90 20 118/64 (82) 95 04/21/17 18:00 100 04/21/17 16:00 98.4 76 18 170/85 (113) 96 04/21/17 16:00 76 04/21/17 14:00 84 04/21/17 12:00 98.3 88 14 150/76 (100) 99 04/21/17 12:00 84 04/21/17 10:00 78 04/21/17 08:00 84 04/21/17 08:00 98.2 84 18 144/71 (95) 100 04/21/17 06:00 80 04/21/17 04:00 98.2 84 16 151/80 (103) 100 04/21/17 04:00 84 04/21/17 02:00 79 04/21/17 00:42 97 Nasal Cannula 2.00 04/21/17 00:00 76 04/21/17 00:00 98.3 76 16 122/63 (82) 97 04/20/17 22:00 70 04/20/17 20:00 72 04/20/17 20:00 97.9 72 16 126/74 (91) 100 04/20/17 18:00 77 04/20/17 16:00 98.1 94 18 157/80 (105) 100 04/20/17 16:00 94 04/20/17 14:00 86 04/20/17 12:00 80 04/20/17 12:00 98.5 80 16 148/77 (100) 100 04/20/17 10:00 77 Physical Examination GENERAL: Awake & alert, sitting in chair eating breakfast. Affect normal & readily interacts. No apparent distress. HEENT: Normocephalic. PERRLA 3 mm brisk, EOMI. MMM & pink, tongue midline to protrusion. NECK: Midline cervical spine NTTP. Left posterolateral neck mildly TTP. Neck supple. No JVD. Trachea midline. MUSCULOSKELETAL: Moves all extremities spontaneously w/purpose & to command. No evident clubbing. LUE & LLE w/generalised edema. Blistering to left lower leg. 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 Upper thoracic spine NTTP but lower mildly TTP, lumbar spine moderately TTP. NEUROLOGICAL: AAOx3. Speech clear & appropriate. Follows commands w/o difficulty. CN VII w/improved facial sensation on left, o/w CN II through XII grossly intact. PERRLA 3 mm brisk. Tongue midline to protrusion. Sensation normal for patient. Motor strength 4 to 4+/5 except left deltoid 3/5 and right deltoid 3+/5, unable to evaluate left hamstring & left quadriceps due to pain 2/2 lower leg swelling & blistering. Lab, Micro, Other Results Laboratory Tests Test 04/21/17 04:45 04/22/17 05:00 04/23/17 04:00 White Blood Count 10.5 TH/MM3 8.3 TH/MM3 7.0 TH/MM3 Red Blood Count 2.55 MIL/MM3 2.45 MIL/MM3 2.29 MIL/MM3 Hemoglobin 9.4 GM/DL 8.9 GM/DL 8.3 GM/DL Hematocrit 27.2 % 25.9 % 24.2 % Mean Corpuscular Volume 106.9 FL 105.7 FL 105.6 FL Mean Corpuscular Hemoglobin 37.1 PG 36.2 PG 36.1 PG Mean Corpuscular Hemoglobin Concent 34.7 % 34.2 % 34.2 % Red Cell Distribution Width 13.4 % 13.6 % 13.9 % Platelet Count 138 TH/MM3 165 TH/MM3 176 TH/MM3 Mean Platelet Volume 8.6 FL 8.1 FL 7.7 FL Blood Urea Nitrogen 46 MG/DL 41 MG/DL 36 MG/DL Creatinine 4.20 MG/DL 3.76 MG/DL 3.50 MG/DL Random Glucose 99 MG/DL 96 MG/DL 95 MG/DL Calcium Level 8.1 MG/DL 7.8 MG/DL 7.6 MG/DL Sodium Level 139 MEQ/L 140 MEQ/L 141 MEQ/L Potassium Level 3.9 MEQ/L 3.7 MEQ/L 3.8 MEQ/L Chloride Level 102 MEQ/L 103 MEQ/L 103 MEQ/L Carbon Dioxide Level 26.6 MEQ/L 27.7 MEQ/L 29.7 MEQ/L Anion Gap 10 MEQ/L 9 MEQ/L 8 MEQ/L Estimat Glomerular Filtration Rate 15 ML/MIN 17 ML/MIN 18 ML/MIN Iron Level 71 MCG/DL Total Iron Binding Capacity 162 MCG/DL Percent Iron Saturation 43.7 % Ferritin 663 NG/ML Neutrophils (%) (Auto) 56.4 % Lymphocytes (%) (Auto) 31.2 % Monocytes (%) (Auto) 7.6 % Eosinophils (%) (Auto) 4.4 % Basophils (%) (Auto) 0.4 % Neutrophils # (Auto) 4.7 TH/MM3 Lymphocytes # (Auto) 2.6 TH/MM3 Monocytes # (Auto) 0.6 TH/MM3 Eosinophils # (Auto) 0.4 TH/MM3 Basophils # (Auto) 0.0 TH/MM3 CBC Comment DIFF FINAL Differential Comment Medical Decision Making Impression and Plan Impression: 1. Findings consistent with traumatic brain injury, subarachnoid hemorrhage right parietal convexity 2. Right cerebellar hyperdensity lesion. Possible remote infarct. Need to rule out mass lesion 3. Rhabdomyolysis 4. UTI 5. Hypertension 6. Acute kidney disease-likely related to rhabdomyolysis. 7. Possible syncopal episode 8. Electrolyte disturbance-hyperkalemia and hyponatremia. Likely related to acute kidney disease. 9. Respiratory failure requiring intubation The patient continues to do well. Having pain to the LLE, most likely r/t generalised edema and being on that side when found. Neurologic status stable. Chronic cervical myelopathy affecting hand function. Afebrile past 24 hrs. Hypertension yesterday at noon. Reviewed labs for today. Interval drop in haemoglobin level. Sodium 141. Interval improvement in creatinine & eGFR. CT brain demonstrated slight increase in the right parietal intra- axial blood products w/surrounding vasogenic edema. Also noted are blood products to the right occipital lobe and right cerebellum. No herniation or midline shift. Plan: Primary management per Breastfeeding Peer Counselor/Hospitalist. Nephrology following for renal failure. Neuro checks. Monitor sodium level. Stat CT brain for any decline in neuro status. Hold pharmacologic DVT prophylaxis. Mechanical DVT prophylaxis. Stress ulcer prophylaxis. Mobilise patient w/assistance. Physical & Occupational Therapy. Patient is able to be transferred to a regular med/surg floor from Neurosurgery' s perspective. Sammy Wise Apr 23, 2017 09:13
--- NOTE | 2017-04-23 11:00 | HHI.PR ---
Subjective Remarks States he is doing much better. Feeling slightly stronger. Complains of bilateral lower extremity edema. No chest pain or shortness of breath. Objective Vitals Vital Signs Date Time Temp Pulse Resp B/P (MAP) Pulse Ox O2 Delivery O2 Flow Rate FiO2 04/23/17 08:00 98.4 84 18 151/77 (101) 98 04/23/17 08:00 82 04/23/17 07:00 97 Nasal Cannula 2.00 04/23/17 04:00 98.4 88 20 111/68 (82) 100 04/23/17 04:00 88 04/23/17 00:00 98.4 74 14 102/55 (71) 99 04/23/17 00:00 74 04/22/17 20:26 95 21 04/22/17 20:00 79 04/22/17 20:00 98.2 79 20 126/70 (88) 93 04/22/17 19:00 94 Room Air 04/22/17 16:00 98.4 76 16 133/87 (102) 98 04/22/17 16:00 88 04/22/17 12:00 97 Nasal Cannula 2.00 04/22/17 12:00 78 04/22/17 12:00 98.0 78 16 176/93 (120) 95 I/O 04/22/17 04/22/17 04/22/17 04/23/17 04/23/17 04/23/17 07:00 15:00 23:00 07:00 15:00 23:00 Intake Total 960 ml 960 ml 1200 ml Output Total 775 ml 2350 ml 1100 ml Balance 185 ml -1390 ml 100 ml Intake Oral 960 ml 960 ml 1200 ml Output Urine Total 775 ml 2350 ml 1100 ml # Voids 2 1 # Bowel Movements 0 2 0 Result Diagram: 04/23/17 0400 04/23/17 0400 Objective Remarks GENERAL: Obese male in no apparent distress. CARDIOVASCULAR: Normal rate and regular rhythm without murmurs, gallops, or rubs. RESPIRATORY: Good respiratory efforts. Breath sounds equal and clear to auscultation bilaterally. GASTROINTESTINAL: Abdomen soft, non-tender, non-distended. Normal active bowel sounds MUSCULOSKELETAL: Bilateral lower extremity with 2+ edema. Left lower extremity has some superficial abrasions and hematomas. NEURO: Alert & Oriented x4 to person, place, time, situation. Moves all ext x4 PSYCH: Appropriate mood and affect. A/P Assessment and Plan Traumatic Subarachnoid hemorrhage - Much improved - frequent neuro checks - continue metoprolol- clonidine as needed; will follow the BP and adjust the regimen as needed. -continue rehab efforts. -repeat CT head next week per neurosurgery recommendations. - neurosurgery following. Agitated Delirium - improving. - continue Zyprexa/ Haldol as needed. Acute respiratory failure - s/p intubation -resolved. -Extubated on 04/16, tolerating nasal cannula. - aggressive pulmonary toilet. Severe Acute Rhabdomyolysis - serial CK downtrended. -Patient had hemodialysis. Hemodialysis has since been discontinued per nephrology. Renal functions improving. -monitor renal function and electrolytes. Acute Kidney Injury: Secondary to acute tubular necrosis from rhabdomyolysis. - Nephrology following. - close monitoring of urine output - daily bmp - watch electrolytes closely -Status post hemodialysis. Renal function improving. Urinary output adequate. Lasix per nephrology. -awaiting renal recovery. Teja LE edema: - On Lasix as above. Advised to elevate legs. Urinary Tract Infection -treated. SCDs hold pharmacologic DVT prophylaxis given head bleed. Discharge Planning Okay to transfer to floor Will likely need SNF placement Christine John MD Apr 23, 2017 11:00
--- NOTE | 2017-04-23 11:18 | HHI.NPPN ---
Subjective History of Present Illness 62 year old male with ARF Rhabdomyolysis, painful, tired lethargic Additional Remarks Patient is alert, Review of Systems General Constitutional: Fatigue Musculoskeletal MS: Pain/Stiffness Objective Data Data Vital Signs Date Time Temp Pulse Resp B/P (MAP) Pulse Ox O2 Delivery O2 Flow Rate FiO2 04/23/17 08:00 98.4 84 18 151/77 (101) 98 04/23/17 08:00 82 04/23/17 07:00 97 Nasal Cannula 2.00 04/23/17 04:00 98.4 88 20 111/68 (82) 100 04/23/17 04:00 88 04/23/17 00:00 98.4 74 14 102/55 (71) 99 04/23/17 00:00 74 04/22/17 20:26 95 21 04/22/17 20:00 79 04/22/17 20:00 98.2 79 20 126/70 (88) 93 04/22/17 19:00 94 Room Air 04/22/17 16:00 98.4 76 16 133/87 (102) 98 04/22/17 16:00 88 04/22/17 12:00 97 Nasal Cannula 2.00 04/22/17 12:00 78 04/22/17 12:00 98.0 78 16 176/93 (120) 95 -: 04/23/17 0400 04/23/17 0400 Physical Exam General Appearance: Well Developed, Well Nourished Neck Neck Exam: Jugular Vein Distension Pulmonary Resp Exam: Decreased Bases Cardiology CV Exam: Tachycardia Gastrointestinal/Abdomen GI Exam: Soft, Bowel Sounds Present Extremeties Extremities Exam: Trace Edema Assessment/Plan Problem List: (1) Acute renal failure ICD Codes: N17.9 - Acute kidney failure, unspecified Plan: ARF has Rhabdomyolysis He likely has acute tubular necrosis from underlying rhabdomyolysis Avoid nephrotoxins Monitor fluid and electrolytes Avoid nephrotoxins. off HD follow BMP Cr declined 3.5 (2) Rhabdomyolysis ICD Codes: M62.82 - Rhabdomyolysis Status: Acute Plan: Continue monitor his CPK trend is downwards (3) Subarachnoid hemorrhage ICD Codes: I60.9 - Nontraumatic subarachnoid hemorrhage, unspecified Plan: Neurosurgery following (4) UTI (lower urinary tract infection) ICD Codes: N39.0 - Urinary tract infection, site not specified (5) Sepsis ICD Codes: A41.9 - Sepsis, unspecified organism Plan: Staphylococcus Hemolyticus in blood culture ? contaminant. Management per pharmacy technician trainee. Vancomycin ordered. Problem Qualifiers (1) Acute renal failure: Qualified Codes: N17.0 - Acute kidney failure with tubular necrosis (2) Rhabdomyolysis: Qualified Codes: M62.82 - Rhabdomyolysis Lio Robbins MD Apr 23, 2017 11:18
[2017-04-23 12:00] VITALS: BP 170/79; PULSE 75; RESP 18; TEMP 97.7; O2SAT 97
[2017-04-23 16:00] VITALS: BP 162/78; PULSE 75; PULSE 83; RESP 18; TEMP 98.8; O2SAT 95
[2017-04-23] MEDS: LABETALOL HCL 100 MG/20 ML VIAL IV PUSH PRN (16:15)
[2017-04-23 20:00] VITALS: BP 144/69; PULSE 89; RESP 16; TEMP 98.8; O2SAT 97
[2017-04-24] VITALS: BP 98/55; PULSE 68; RESP 17; TEMP 98.8; O2SAT 93
[2017-04-24] MEDS ORDERED: POTASSIUM CHLOR 20 MEQ PREMIX 200 ML ONE (02:37)
[2017-04-24] MEDS: ACETAMINOPHEN/HYDROcodone 325 MG/5 MG TAB PO PRN ×4 (02:47→15:04)
[2017-04-24] MEDS: CHLORHEXIDINE GLUCONATE 2 % 1 PACK (2 CLOTHS) TOP SCH (03:57)
[2017-04-24 04:00] VITALS: BP 125/75; PULSE 72; RESP 16; O2SAT 95
[2017-04-24 05:03] LABS: HEMATOCRIT 25.9 % (39.0-51.0); HEMOGLOBIN 8.8 GM/DL (13.0-17.0); MEAN CELL VOLUME 105.7 FL (80.0-100.0); MEAN CORPUSCULAR HEMOGLOBIN 36.2 PG (27.0-34.0); MEAN CORPUSCULAR HGB CONC 34.2 % (32.0-36.0); MEAN PLATELET VOLUME 8.2 FL (7.0-11.0); PLATELET COUNT 198 TH/MM3 (150-450); RED BLOOD COUNT 2.44 MIL/MM3 (4.50-5.90); RED CELL DISTRIBUTION WIDTH 14.1 % (11.6-17.2); WHITE BLOOD COUNT 7.6 TH/MM3 (4.0-11.0)
[2017-04-24 05:25] LABS: BICARBONATE 31.6 MEQ/L (21.0-32.0); CALCIUM 7.7 MG/DL (8.5-10.1); CREATININE 2.9 MG/DL (0.60-1.30)
[2017-04-24] MEDS: OLANZapine ODT 5 MG TAB PO SCH ×3 (06:00→13:27)
[2017-04-24 08:00] VITALS: BP 129/60; PULSE 68; RESP 16; TEMP 98.4
[2017-04-24] MEDS: PANTOPRAZOLE SODIUM 40 MG VIAL IV PUSH SCH (08:49)
[2017-04-24] MEDS: FUROSEMIDE 40 MG/4 ML VIAL IV PUSH SCH (08:49)
[2017-04-24] MEDS: THIAMINE HCL 100 MG TAB PO SCH (08:50)
[2017-04-24] MEDS: GABAPENTIN 100 MG CAP PO SCH ×2 (08:50→13:24)
[2017-04-24] MEDS: METOPROLOL TARTRATE 25 MG TAB PO SCH (08:50)
--- NOTE | 2017-04-24 11:04 | HHI.PR ---
Objective Vitals Vital Signs Date Time Temp Pulse Resp B/P (MAP) Pulse Ox O2 Delivery O2 Flow Rate FiO2 04/24/17 08:00 98.4 68 16 129/60 (83) 04/24/17 07:00 Room Air 04/24/17 04:00 72 16 125/75 (92) 95 04/24/17 04:00 72 04/24/17 00:00 98.8 68 17 98/55 (69) 93 04/24/17 00:00 68 04/23/17 20:00 89 04/23/17 20:00 98.8 89 16 144/69 (94) 97 04/23/17 19:00 95 Room Air 04/23/17 16:00 98.8 83 18 162/78 (106) 95 04/23/17 16:00 75 04/23/17 12:00 97.7 75 18 170/79 (109) 97 04/23/17 12:00 75 I/O 04/23/17 04/23/17 04/23/17 04/24/17 04/24/17 04/24/17 07:00 15:00 23:00 07:00 15:00 23:00 Intake Total 1200 ml 1063 ml 720 ml Output Total 1100 ml 2100 ml 1000 ml Balance 100 ml -1037 ml -280 ml Intake Oral 1200 ml 1063 ml 720 ml Output Urine Total 1100 ml 2100 ml 1000 ml # Bowel Movements 0 1 Result Diagram: 04/24/17 0450 04/24/17 0450 Objective Remarks GENERAL: Obese male in no apparent distress. CARDIOVASCULAR: Normal rate and regular rhythm without murmurs, gallops, or rubs. RESPIRATORY: Good respiratory efforts. Breath sounds equal and clear to auscultation bilaterally. GASTROINTESTINAL: Abdomen soft, non-tender, non-distended. Normal active bowel sounds MUSCULOSKELETAL: Bilateral lower extremity with 2+ edema. Left lower extremity has some superficial abrasions and hematomas. NEURO: Alert & Oriented x4 to person, place, time, situation. Moves all ext x4 PSYCH: Appropriate mood and affect. A/P Assessment and Plan Traumatic Subarachnoid hemorrhage - Much improved - frequent neuro checks - continue metoprolol- clonidine as needed; will follow the BP and adjust the regimen as needed. -continue rehab efforts. -repeat CT head next week per neurosurgery recommendations. - neurosurgery following. Agitated Delirium - improving. - continue Zyprexa/ Haldol as needed. Acute respiratory failure - s/p intubation -resolved. -Extubated on 04/16, tolerating nasal cannula. - aggressive pulmonary toilet. Severe Acute Rhabdomyolysis - serial CK downtrended. -Patient had hemodialysis. Hemodialysis has since been discontinued per nephrology. Renal functions improving. -monitor renal function and electrolytes. Acute Kidney Injury: Secondary to acute tubular necrosis from rhabdomyolysis. - Nephrology following. - close monitoring of urine output - daily bmp - watch electrolytes closely -Status post hemodialysis. Renal function improving. Urinary output adequate. Lasix per nephrology. -awaiting renal recovery. Teja LE edema: - On Lasix as above. Advised to elevate legs. Urinary Tract Infection -treated. SCDs hold pharmacologic DVT prophylaxis given head bleed. Discharge Planning Okay to transfer to floor Will likely need SNF placement Christine John MD Apr 24, 2017 11:04
--- NOTE | 2017-04-24 11:41 | HHI.NPPN ---
Subjective History of Present Illness 62 year old male with ARF Rhabdomyolysis, painful, tired lethargic Additional Remarks Patient is alert, Review of Systems General Constitutional: Fatigue Musculoskeletal MS: Pain/Stiffness Objective Data Data Vital Signs Date Time Temp Pulse Resp B/P (MAP) Pulse Ox O2 Delivery O2 Flow Rate FiO2 04/24/17 08:00 98.4 68 16 129/60 (83) 04/24/17 07:00 Room Air 04/24/17 04:00 72 16 125/75 (92) 95 04/24/17 04:00 72 04/24/17 00:00 98.8 68 17 98/55 (69) 93 04/24/17 00:00 68 04/23/17 20:00 89 04/23/17 20:00 98.8 89 16 144/69 (94) 97 04/23/17 19:00 95 Room Air 04/23/17 16:00 98.8 83 18 162/78 (106) 95 04/23/17 16:00 75 04/23/17 12:00 97.7 75 18 170/79 (109) 97 04/23/17 12:00 75 -: 04/24/17 0450 04/24/17 0450 Physical Exam General Appearance: Well Developed, Well Nourished Neck Neck Exam: Jugular Vein Distension Pulmonary Resp Exam: Decreased Bases Cardiology CV Exam: Tachycardia Gastrointestinal/Abdomen GI Exam: Soft, Bowel Sounds Present Extremeties Extremities Exam: Trace Edema Assessment/Plan Problem List: (1) Acute renal failure ICD Codes: N17.9 - Acute kidney failure, unspecified Plan: ARF has Rhabdomyolysis He likely has acute tubular necrosis from underlying rhabdomyolysis Avoid nephrotoxins Monitor fluid and electrolytes Avoid nephrotoxins. off HD follow BMP Cr declined 2.9 UOP 3.1 L [facility] (2) Rhabdomyolysis ICD Codes: M62.82 - Rhabdomyolysis Status: Acute Plan: Continue monitor his CPK trend is downwards (3) Subarachnoid hemorrhage ICD Codes: I60.9 - Nontraumatic subarachnoid hemorrhage, unspecified Plan: Neurosurgery following (4) UTI (lower urinary tract infection) ICD Codes: N39.0 - Urinary tract infection, site not specified (5) Sepsis ICD Codes: A41.9 - Sepsis, unspecified organism Plan: Staphylococcus Hemolyticus in blood culture ? contaminant. Management per clinical research associate. Vancomycin ordered. Problem Qualifiers (1) Acute renal failure: Qualified Codes: N17.0 - Acute kidney failure with tubular necrosis (2) Rhabdomyolysis: Qualified Codes: M62.82 - Rhabdomyolysis Lio Robbins MD Apr 24, 2017 11:41
[2017-04-24 12:00] VITALS: BP 152/87; PULSE 91; RESP 18; TEMP 98.2; O2SAT 92
[2017-04-24] MEDS ORDERED: Furosemide IV PUSH (14:37)
--- NOTE | 2017-04-24 14:45 | HHI.DS ---
Discharge Summary Admission Date Apr 09, 2017 at 00:02 Discharge Date: Apr 24, 2017 Admitting Diagnosis UROSEPSIS AND SUBDURAL AND RHABDO (1) Acute renal failure ICD Code: N17.9 - Acute kidney failure, unspecified (2) Rhabdomyolysis ICD Code: M62.82 - Rhabdomyolysis Status: Acute (3) Respiratory failure ICD Code: J96.90 - Respiratory failure, unspecified, unspecified whether with hypoxia or hypercapnia (4) Subarachnoid hemorrhage ICD Code: I60.9 - Nontraumatic subarachnoid hemorrhage, unspecified Procedures Intubation and extubation Brief History - From Admission HPI from the admitting physician This is a 62-year-old male who reportedly fell at home yesterday and was unable to get up for at least 5 hours, but likely greater than that. He called 911 today and was brought in tonight by EMS. He does endorse possibly syncopized. He states he has fallen recently over the last few days, but this is unusual for him. He denies headache. He denies fever, chills, shortness of breath, chest pain, nausea, vomiting, abdominal pain, diarrhea. He does not endorse any other symptom other than the frequent falls. In the emergency department CT had demonstrated small subarachnoid hemorrhage, likely traumatic. In addition, the patient had very dark very thick urine, and his CK level was greater than 40,000. He was immediately started on IV sodium bicarb and IV fluids. He also has evidence of hyperkalemia, hyponatremia, acute kidney injury with a creatinine greater than 2. Critical care medicine is consulted to evaluate manage his acute rhabdo, his multiple organ failure. CBC/BMP: 04/24/17 0450 04/24/17 0450 Significant Findings Laboratory Tests Test 04/22/17 05:00 04/23/17 04:00 04/24/17 04:50 Red Blood Count 2.45 MIL/MM3 (4.50-5.90) 2.29 MIL/MM3 (4.50-5.90) 2.44 MIL/MM3 (4.50-5.90) Hemoglobin 8.9 GM/DL (13.0-17.0) 8.3 GM/DL (13.0-17.0) 8.8 GM/DL (13.0-17.0) Hematocrit 25.9 % (39.0-51.0) 24.2 % (39.0-51.0) 25.9 % (39.0-51.0) Mean Corpuscular Volume 105.7 FL (80.0-100.0) 105.6 FL (80.0-100.0) 105.7 FL (80.0-100.0) Mean Corpuscular Hemoglobin 36.2 PG (27.0-34.0) 36.1 PG (27.0-34.0) 36.2 PG (27.0-34.0) Eosinophils (%) (Auto) 4.4 % (0.0-4.0) Blood Urea Nitrogen 41 MG/DL (7-18) 36 MG/DL (7-18) 33 MG/DL (7-18) Creatinine 3.76 MG/DL (0.60-1.30) 3.50 MG/DL (0.60-1.30) 2.90 MG/DL (0.60-1.30) Calcium Level 7.8 MG/DL (8.5-10.1) 7.6 MG/DL (8.5-10.1) 7.7 MG/DL (8.5-10.1) Estimat Glomerular Filtration Rate 17 ML/MIN (>89) 18 ML/MIN (>89) 22 ML/MIN (>89) Imaging Last Impressions Abdomen X-Ray 04/15/17 0000 Signed Impressions: Service Date/Time: Saturday, April 15, 2017 16:36 - CONCLUSION: Feeding tube in good position. Paras Scales MD FACR Upper Extremity Ultrasound 04/13/17 0000 Signed Impressions: Service Date/Time: Thursday, April 13, 2017 12:53 - CONCLUSION: Veins in the the left arm to the subclavian are patent. Left jugular vein is patent as well Paras Scales MD FACR Head CT 04/13/17 0000 Signed Impressions: Service Date/Time: Thursday, April 13, 2017 01:08 - CONCLUSION: 1. The recent acute intra-axial blood products in the right parietal high convexity is slightly increased in size and there is surrounding vasogenic edema. No herniation or midline shift is present. 2. The edema and blood products in the right cerebellum and right occipital lobe are better visualized on the current examination. Mariusz Oviedo MD Chest X-Ray 04/12/17 Signed Impressions: Service Date/Time: Wednesday, April 12, 2017 23:46 - CONCLUSION: 1. Endotracheal tube tip measures approximately 2.9 cm from the jessica. 2. Stable bibasilar opacities likely representing pleural effusions with associated volume loss and/or airspace consolidation. Mariusz Oviedo MD Carotid Artery Ultrasound 04/12/17 Signed Impressions: Service Date/Time: Wednesday, April 12, 2017 22:36 - CONCLUSION: 1. Mild atherosclerotic disease within the carotid bulb and proximal internal carotid arteries bilaterally. However, no significant stenosis is identified within either internal carotid artery (less than 50%% stenosis). 2. There is antegrade blood flow in both vertebral arteries. Mariusz Oviedo MD Thoracic Spine MRI 04/10/17 Signed Impressions: Service Date/Time: Monday, April 10, 2017 10:52 - CONCLUSION: Cervical and upper thoracic cord syrinx. Tiny disc protrusions at a couple of levels without significant anatomic compromise Mariusz Fernandes MD Lumbar Spine MRI 04/10/17 Signed Impressions: Service Date/Time: Monday, April 10, 2017 10:52 - CONCLUSION: 1. Multilevel disc bulges or mild protrusions between L2 and L5 resulting in mild lateral recess encroachment and mild foraminal encroachment as above. 2. Minimal retrolisthesis of L5 on S1 with mild left-sided foraminal stenosis. 3. No acute fracture. Conus medullaris intact. Lexx Alva MD Head Magnetic Resonance Angiography 04/10/17 Signed Impressions: Service Date/Time: Monday, April 10, 2017 10:52 - CONCLUSION: 1. Unremarkable [place] MRA examination. Specifically, no evidence for large vessel occlusion or aneurysm. 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 Advanced degenerative change at C2-C3-4-5 with AP canal stenosis and lateral recess encroachment most notable at C2-3 on the left. Solid bony union across area of previous fusion at C5-6- 7. Lexx Alva MD Brain MRI 04/10/17 0000 Signed Impressions: Service Date/Time: Monday, April 10, 2017 10:52 - CONCLUSION: Acute hemorrhage as described above high right parietal region Focal restricted diffusion right cervical hemisphere and both occipital lobes suggesting he posterior fossa embolic event. Paras Scales MD FACR Renal Ultrasound 04/09/17 0000 Signed Impressions: Service Date/Time: April 12:12 - CONCLUSION: Normal examination. Tk Martínez MD Maxillofacial CT 04/09/17 0000 Signed Impressions: Service Date/Time: April 13:28 - CONCLUSION: 1. There is no evidence of acute fracture. Toney Schulz MD Abdomen/Pelvis CT 04/08/17 0000 Signed Impressions: Service Date/Time: Saturday, April 08, 2017 22:09 - CONCLUSION: 1. No acute obstructive uropathy. 2. Uncomplicated colonic diverticulosis. 3. Nodular contour of liver suggesting possible cirrhosis. 4. Degenerative changes and scoliosis of the lumbar spine. Kang Cruz MD PE at Discharge GENERAL: Obese male in no apparent distress. CARDIOVASCULAR: Normal rate and regular rhythm without murmurs, gallops, or rubs. RESPIRATORY: Good respiratory efforts. Breath sounds equal and clear to auscultation bilaterally. GASTROINTESTINAL: Abdomen soft, non-tender, non-distended. Normal active bowel sounds MUSCULOSKELETAL: Bilateral lower extremity with 2+ edema. Left lower extremity has some superficial abrasions and hematomas. NEURO: Alert & Oriented x4 to person, place, time, situation. Moves all ext x4 PSYCH: Appropriate mood and affect. Pt update on day of discharge Patient reports he is feeling better. He is sitting up in the chair. Urine output is good. Hospital Course 62-year-old male admitted and treated for the following: Traumatic Subarachnoid hemorrhage, secondary to fall. - Much improved, close to baseline - continue metoprolol- -continue rehab efforts. [facility] is [facility] to continue rehabilitation. -repeat CT head next week per neurosurgery recommendations. Agitated Delirium -resolved. -Patient was treated with Zyprexa and Haldol as needed. Symptoms resolved, antipsychotics discontinued. Acute respiratory failure - s/p intubation -resolved. -Extubated on 04/16, patient was weaned down to room air. Severe Acute Rhabdomyolysis: Secondary to fall and immobilization - serial CK downtrended. -Patient had hemodialysis. Hemodialysis has since been discontinued per nephrology. Renal functions improving. Acute Kidney Injury: Secondary to acute tubular necrosis from rhabdomyolysis. - Nephrology followed the patient. His urine output improved and renal function is down trending. -Status post hemodialysis. Renal function improving. Urinary output adequate. On IV Lasix per nephrology. -Renal function seems to be recovering, recommend consultation with nephrology once patient arrived at [place] to continue to follow. Meanwhile continue Lasix IV and follow renal functions closely. Teja LE edema: - On Lasix as above. Advised to elevate legs. Urinary Tract Infection -treated. Pt Condition on Discharge: Good Discharge Disposition: Rehab Inpatient Discharge Time: > 30 minutes Discharge Instructions DIET: Follow Instructions for: Heart Healthy Diet Activities you can perform: Regular-No Restrictions New Medications: [Furosemide] () 10 MG/ML INJ 40 MG IV PUSH DAILY, #3 INJECTION Continued Medications: Gabapentin (Gabapentin) 100 Mg Cap 100 MG PO QID, #60 CAP 0 Refills Hydrocodone-Acetaminophen (Hydrocodone-Acetaminophen) 5-325 mg Tab 1 TAB PO Q4H PRN for PAIN, TAB 0 Refills Metoprolol Tartrate (Metoprolol Tartrate) 25 Mg Tab 25 MG PO DAILY, #30 TAB 0 Refills Tizanidine (Tizanidine) 2 Mg Cap 2 MG PO TID for Muscle Spasm, CAP 0 Refills Discontinued Medications: Meloxicam (Meloxicam) 7.5 Mg Tab 7.5 MG PO DAILY for Arthritis Pain, TAB 0 Refills Christine Jhon MD Apr 24, 2017 14:45
== END 2017-04-24 15:50 | DRG 82 ==
LOC: EDBD → NEPE 20:15 → NEDA 04-09 00:02 → N03A 04-09 01:14
PROVIDERS: ADMIT Family Medicine; ATTEND Family Medicine
PROC: 5A1D70Z Performance of Urinary Filtration, Intermittent, Less than 6 Hours Per Day (ICD-10-PCS; principal; 2017-04-10)
PROC: 02HV33Z Insertion of Infusion Device into Superior Vena Cava, Percutaneous Approach (ICD-10-PCS; 2017-04-10)
PROC: 03HY32Z Insertion of Monitoring Device into Upper Artery, Percutaneous Approach (ICD-10-PCS; 2017-04-13)
PROC: 5A1945Z Respiratory Ventilation, 24-96 Consecutive Hours (ICD-10-PCS; 2017-04-13)
PROC: 0BH18EZ Insertion of Endotracheal Airway into Trachea, Via Natural or Artificial Opening Endoscopic (ICD-10-PCS; 2017-04-13)
DX: S06.6X9A Traumatic subarachnoid hemorrhage with loss of consciousness of unspecified duration, initial encounter (principal); A41.9 Sepsis, unspecified organism; N17.0 Acute kidney failure with tubular necrosis; J96.02 Acute respiratory failure with hypercapnia; M62.82 Rhabdomyolysis; F05 Delirium due to known physiological condition; N39.0 Urinary tract infection, site not specified; E87.1 Hypo-osmolality and hyponatremia; E87.5 Hyperkalemia; R60.0 Localized edema; R29.6 Repeated falls; W19.XXXA Unspecified fall, initial encounter; Z88.0 Allergy status to penicillin; Z88.2 Allergy status to sulfonamides
CPT/HCPCS: 31500; 36556; 36600; 70450; 70486; 70544; 70551; 71045; 72141; 72146; 72148; 74018; 74176; 76775; 76937; 80048; 80053; 80061; 80074; 80202; 80307; 81001; 82272; 82550; 82552; 82728; 82805; 82948; 83540; 83550; 83605; 83690; 83735; 84100; 84132; 84155; 84484; 85025; 85027; 85379; 85610; 85730; 86403; 87040; 87070; 87077; 87186; 87205; 87641; 90935; 93005; 93306; 93880; 93971; 94002; 94003; 94150; 94640; 94664; 94667; 94668; 95819; 96361; 96365; 96368; 96374; 96375; C9113; J0131; J0360; J0696; J1580; J1644; J1940; J2060; J2250; J2405; J2543; J3010; J3370; J3411; J3480; J7030; J7040; J7050; J7070; P9047